=== PATIENT | female | born 1935 | race American Indian/Alaskan Native ===

== ENCOUNTER 2016-11-12 23:03 | Emergency (ER) | payer MEDICARE, MEDICAID ==
[2016-11-12 23:03] VITALS: BMI 17.9
[2016-11-12 23:13] VITALS: RESP 18
[2016-11-13 00:40] LABS: BASO % 0.8 % (0.0-2.0); EOS % 1.5 % (0.0-4.0); HEMATOCRIT 37.6 % (34.0-47.0); LYMPH # 0.8 K/uL (1.0-4.3); LYMPH % 25.7 % (20.0-40.0); MEAN CELL VOLUME 82.7 fl (81.0-99.0); MEAN CORPUSCULAR HEMOGLOBIN 27.7 pg (27.0-31.0); MEAN CORPUSCULAR HGB CONC 33.5 g/dL (33.0-37.0); MONO # 0.8 K/uL (0.0-0.8); MONO % 24.2 % (0.0-10.0); NEUT # 1.5 K/uL (1.8-7.0); NEUT % 47.8 % (50.0-75.0); NRBC % 0.3 % (0.0-0.0); PLATELET COUNT 163 K/uL (130-400); RED CELL DISTRIBUTION WIDTH 15.1 % (11.5-14.5); WHITE BLOOD COUNT 3.2 K/uL (4.8-10.8)
[2016-11-13 00:43] LABS: BLOOD UREA NITROGEN 21 mg/dl (7-17); CARBON DIOXIDE 28 mmol/L (22-30); CHLORIDE 106 mmol/L (98-107); GFR AFRICAN-AMERICAN > 60; GLUCOSE,RANDOM 114 mg/dL (65-105); POTASSIUM 4.4 MMOL/L (3.6-5.0); SODIUM 139 mmol/l (132-148)
[2016-11-13] MEDS ORDERED: Iodixanol 320 MG/ML 100 ML BOTTLE IV ONE (02:31)
[2016-11-13] MEDS ORDERED: Sodium Chloride 0.9% 50 ML IV ONE (02:31)
[2016-11-13 02:40] LABS: NEUTROPHIL 48 % (42-75); TOTAL CELLS COUNTED 100
--- NOTE | 2016-11-13 03:51 | ED PDOC ---
Arrival/HPI - General Historian: Patient, Family (Daughter ) - History of Present Illness Time/Duration: Prior to Arrival Symptom Onset: Sudden Symptom Course: Worsening Quality: Aching Severity Level: Moderate <Shiraz Reyes - Last Filed: 11/13/16 05:15> <NimishaToney - Last Filed: 11/13/16 05:40> - General Chief Complaint: Hip Pain Time Seen by Provider: 11/12/16 23:16 - History of Present Illness Narrative History of Present Illness (Text): 11/13/16 03:44 Pt. presents to the emergency after arriving via EMS complaining of RT. hip pain. Pt. states she has been having Rt. hip pain for 1 week for which she had been taking alleve. Pt. states she stopped taking alleve several day sago because it was not helping. Pt. does state that shortly before arrival the RT. hip pain worsened after she fell on the couch. The fall was a mechanical fall which occurred as follows: Pt. states that she was sitting on the couch but attempted to get up with the help of her walker and her daughter but she fell awkwardly back on to the couch. Pt. denies any head trauma or falling on the floor but since the pain became worse she decided to come to the emergency room for evaluation. 11/13/16 04:59 (Shiraz Reyes) Modifying Factors (Text): 11/13/16 03:52 Worsened by activity or lying on affected side (Shiraz Reyes) Past Medical History - Travel History Have you recently traveled outside [place] w/in the past 3 mons?: No - Cardiac Hx Peripheral Edema: Yes (LEFT LEG) - Pulmonary Hx Chronic Obstructive Pulmonary Disease (COPD): Yes - Neurological Hx Neurological Disorder: No - HEENT Hx HEENT Disorder: Yes Hx Cataracts: Yes (CAT EXT IOL 1990 S) - Renal Hx Renal Disorder: No - Endocrine/Metabolic Hx Diabetes Mellitus Type 2: Yes (Pre) - Hematological/Oncological Hx Blood Disorders: No Hx AIDS: No - Integumentary Hx Dermatological Disorder: No - Musculoskeletal/Rheumatological Hx Fractures: Yes (ORIF LEFT HIP JULY 2012) - Gastrointestinal Hx Gastrointestinal Disorders: Yes Other/Comment: abdominal aortic aneurysm - Genitourinary/Gynecological Hx Genitourinary Disorders: No - Psychiatric Hx Psychophysiologic Disorder: No Hx Substance Use: No - Anesthesia Hx Anesthesia: Yes Hx Anesthesia Reactions: No Hx Malignant Hyperthermia: No <Shiraz Reyes - Last Filed: 11/13/16 05:15> Family/Social History Family/Social History: Other (FMHx not contributory) Smoking Status: Former Smoker Hx Alcohol Use: No Hx Substance Use: No Hx Substance Use Treatment: No <Shiraz Reyes - Last Filed: 11/13/16 05:15> Allergies/Home Meds <Shiraz Reyes - Last Filed: 11/13/16 05:15> <Toney Bansal - Last Filed: 11/13/16 05:40> Allergies/Adverse Reactions: Allergies No Known Allergies Allergy (Verified 11/14/15 02:22) Home Medications: Home Meds Medication Instructions Recorded Confirmed Albuterol Sulfate [Proair Hfa] 2 puff IH Q4H PRN 10/21/15 10/25/15 Fluticasone Propionate [Flonase] 2 spray [place] DAILY 10/21/15 10/25/15 Review of Systems - Review of Systems Constitutional: Normal. absent: Fatigue Eyes: Normal. absent: Vision Changes ENT: Normal. absent: Hearing Changes, Tinnitus Respiratory: Normal, SOB. absent: Cough, Sputum, Wheezing Cardiovascular: Normal. absent: Chest Pain, Palpitations Gastrointestinal: Normal, Constipation. absent: Abdominal Pain Genitourinary Female: Normal. absent: Dysuria, Hematuria Musculoskeletal: Other (Rt. Hip Pain ) Skin: Normal. absent: Rash, Pruritis Neurological: Normal. absent: Headache, Dizziness Endocrine: Normal. absent: Diaphoresis, Polyuria Psychiatric: Normal. absent: Anxiety, Depression <Shiraz Reyes - Last Filed: 11/13/16 05:15> Physical Exam Vital Signs Reviewed: Yes (WNL) Temperature: Afebrile Blood Pressure: Normal Pulse: Regular Respiratory Rate: Tachypneic (Measured at bedside to be 22, with accessory muscle use) Appearance: Positive for: Non-Toxic, Other (Under weight ) Pain Distress: Moderate Mental Status: Positive for: Alert and Oriented X 3 - Systems Exam Head: Present: Atraumatic, Normocephalic Pupils: Present: PERRL Extroacular Muscles: Present: EOMI Conjunctiva: Present: Normal Mouth: Present: Moist Mucous Membranes Neck: Present: Normal Range of Motion Respiratory/Chest: Present: Clear to Auscultation, Good Air Exchange. No: Respiratory Distress Cardiovascular: Present: Regular Rate and Rhythm, Normal S1, S2. No: Murmurs Abdomen: Present: Normal Bowel Sounds. No: Tenderness, Distention, Rebound, Guarding Upper Extremity: Present: Capillary Refill < 2s, Other (Strength 5/5 Bilateral upper extremities ) Lower Extremity: Present: Edema (Pitting edema bilat lower extremities below the level of the knees, Diminished pedal pulses ), Other (+RT hip tenderness to palpation of Greater Trochantor and ASIS ). No: CALF TENDERNESS Neurological: Present: GCS=15, CN II-XII Intact, Speech Normal Skin: Present: Warm, Dry Psychiatric: Present: Alert, Oriented x 3, Normal Insight, Normal Concentration <Shiraz Reyes - Last Filed: 11/13/16 05:15> Medical Decision Making Re-evaluation Time: 04:15 Reassessment Condition: Improved <Shiraz Reyes - Last Filed: 11/13/16 05:15> <Toney Bansal - Last Filed: 11/13/16 05:40> ED Course and Treatment: 11/13/16 04:45 81 y.o. female with hx of COPD, Aortic stenois, HTN, Type II DM, HLD, Peripheral vascular disease, Abdominal aortic aneurysm, Osteoporosis, and multiple falls presents today with complaints of RT. hip pain. Pt. is immobile and is mostly homebound and walk in the home with use of walker and daughter who lives with her in the home. Pt. states has not seen PMD for about 1 year because has difficulty walking and has difficulty getting to and from the clinic. Patient Labs and x-ray do not show any acute changes but given patient multiple risk factors including immobility, Type II DM, age, peripheral vascular disease, Hx of Tobacco abuse with physical exam on bedside showing tachypnea with accessory muscle use (Well's Criteria of 4.5) a CT angio obtained does not show signs of pulmonary embolism. X-Ray and CT of the Right hip does not show any acute or occult fracture or lytic lesions. During the course of the E.R. visit. Patient states the RT. hip pain has significantly improved during he stay in the E.R. without any medication. XR- RT/HIP & Pelvis WNL CT- RT HIP WNL CT- Chest Angio WNL CBC and CMP show no acute changes when compared to previous labs. 11/13/16 05:08 11/13/16 05:13 (Shiraz Reyes) - Lab Interpretations Lab Results: 11/13/16 00:15 11/13/16 00:15 Lab Results 11/13/16 00:15: D-Dimer, Quantitative 2990 H 11/13/16 00:15: WBC 3.2 L, RBC 4.55, Hgb 12.6, Hct 37.6, MCV 82.7, MCH 27.7, MCHC 33.5, RDW 15.1 H, Plt Count 163, MPV 8.0, Neut % (Auto) 47.8 L, Lymph % ( Auto) 25.7, [place] % (Auto) 24.2 H, Eos % (Auto) 1.5, Baso % (Auto) 0.8, Neut # 1.5 L, Lymph # 0.8 L, [place] # 0.8, Eos # 0.0, Baso # 0.0, Neutrophils % (Manual) 48, Lymphocytes % (Manual) 26, Monocytes % (Manual) 26 H, Platelet Estimate Normal 11/13/16 00:15: Sodium 139, Potassium 4.4, Chloride 106, Carbon Dioxide 28, Anion Gap 9 L, BUN 21 H, Creatinine 0.6 L, Est GFR ( Amer) > 60, Est GFR (Non-Af Amer) > 60, Random Glucose 114 H, Calcium 10.0, Troponin I < 0.0120 - RAD Interpretation Radiology Orders: 11/13/16 00:01 HIP 1 VIEW W/ PELVIS RT [RAD] Stat 11/13/16 00:13 CXR (PA&LAT) [CHEST TWO VIEWS (PA/LAT)] [RAD] Stat 11/13/16 00:45 CHEST PORTABLE [RAD] Stat 11/13/16 01:16 CHEST TWO VIEWS (PA/LAT) [RAD] Stat 11/13/16 02:01 ANGIO CHEST PE PROTOCOL [CT] Stat PELVIS W/O PO OR IV CONTRAST [CT] Stat - Medication Orders Current Medication Orders: Discontinued Medications Sodium Chloride (Sodium Chloride 0.9%) Confirm Administered Dose 50 mls @ ud IV .STK-MED ONE Stop: 11/13/16 02:32 Iodixanol (Visipaque 320 Mg/Ml 100 Ml) Confirm Administered Dose 100 ml IV .STK- MED ONE Stop: 11/13/16 02:32 - PA / [employer] / Resident Statement MD/ has reviewed & agrees with the documentation as recorded. <Toney Bansal - Last Filed: 11/13/16 05:40> Disposition/Present on Arrival - Present on Arrival Any Indicators Present on Arrival: Yes History of DVT/PE: No History of Uncontrolled Diabetes: No Urinary Catheter: No History Surgical Site Infection Following: None - Disposition Have Diagnosis and Disposition been Completed?: Yes Disposition Time: 04:15 <ReyesShiraz - Last Filed: 11/13/16 05:15> <Toney Bansal - Last Filed: 11/13/16 05:40> - Disposition Diagnosis: Hip pain Patient Problems: Current Active Problems Problem Status Onset Hip pain Acute Condition: STABLE Discharge Instructions (ExitCare): Fall Prevention for Older Adults (ED), Hip Pain (ED) Additional Instructions: Patient advised to follow up with PMD in 2 to 3 days Prescriptions: Acetaminophen [Pain Reliever] 500 mg PO Q4 #30 tablet Referrals: Jenn Dagnelo MD [Family Provider] - Forms: [facility] ([place]) Supervising Attending Note - Attestation: I have personally seen and examined this patient.: Yes I have fully participated in the care of the patient.: Yes I have reviewed all pertinent clinical information, including history, physical exam and plan: Yes <Toney Bansal - Last Filed: 11/13/16 05:40>
--- NOTE | 2016-11-13 04:19 | CT ---
EXAM: CT Angiography Chest With Intravenous Contrast CLINICAL HISTORY: 81 years old, female; Pain; Chest pain; On breathing; Additional info: R/O pe TECHNIQUE: Axial computed tomographic angiography images of the chest with intravenous contrast using pulmonary embolism protocol. This CT exam was performed using one or more of the following dose reduction techniques: automated exposure control, adjustment of the mA and/or kV according to patient size, and/or use of iterative reconstruction technique. MIP reconstructed images were created and reviewed. Coronal and sagittal reformatted images were created and reviewed. CONTRAST: 90 mL of omnipaque administered intravenously. EXAM DATE/TIME: 11/13/2016 2:01 AM COMPARISON: No relevant prior studies available. FINDINGS: Elevation of the left hemidiaphragm. No pulmonary embolism. There are atherosclerotic changes of the aorta with calcification and thrombus most notably in the arch.. No aortic dissection. No thoracic aortic aneurysm. There is an abdominal aortic aneurysm measuring 4.4 cm in diameter incompletely imaged on this study. There is intramural thrombus. The opacified lumen measures 3.1 cm in diameter. The left renal artery may be originating from a thrombosed portion of the aorta. Evaluation suboptimal on this study. Extensive emphysematous changes are present in bilaterally. There are areas of consolidation along the pulmonary fissures with calcification on the left. There is consolidation in the right lower lung. No pleural or pericardial effussions. There are compression fractures of T10, L1, and L2 ( severe, moderate, mild respectively) age-indeterminate. IMPRESSION: Extensive emphysematous changes. Areas of consolidation bilaterally as described above at least some of which are chronic however superimposed acute atelectatic or infectious process would certainly possible. Underlying lesion would be difficult to exclude and correlation with priors is recommended if they exist. Otherwise, followup is recommended. Abdominal aortic aneurysm as described in detail above without evidence of rupture however is incompletely imaged on this study. Recommend correlation with prior studies. Compression fractures age indeterminate.
[2016-11-13 07:31] VITALS: BP 138/74; PULSE 67; TEMP 97.8; O2SAT 99
--- NOTE | 2016-11-13 09:06 | CT ---
PROCEDURE: CT Pelvis without contrast HISTORY: r/o fracture COMPARISON: None. TECHNIQUE: Contiguous axial images of the pelvis . No intravenous or oral contrast given. Coronal and sagittal reformats generated. Radiation dose: Total exam DLP = 211 mGy-cm. This CT exam was performed using one or more of the following dose reduction techniques: Automated exposure control, adjustment of the mA and/or kV according to patient size, and/or use of iterative reconstruction technique. FINDINGS: BLADDER: Unremarkable. No mass. REPRODUCTIVE ORGANS: Unremarkable. VISUALIZED BOWEL: Unremarkable. PERITONEUM: Unremarkable, as visualized. No free fluid. No free air. LYMPH NODES: Unremarkable. No enlarged lymph nodes. BONES: No fracture or focal lesion. Status post ORIF of a femoral neck fracture. VASCULATURE: 4.7 centimeter abdominal aortic aneurysm.. OTHER FINDINGS: None. IMPRESSION: 4.7 centimeter abdominal aortic aneurysm. No acute fracture.
--- NOTE | 2016-11-13 09:50 | RAD ---
HISTORY: shortness of breath COMPARISON: 11/12/2015 TECHNIQUE: Chest PA and lateral FINDINGS: LUNGS: Bilateral interstitial infiltrates slightly improved since prior exam. PLEURA: No significant pleural effusion identified. No pneumothorax apparent. CARDIOVASCULAR: Normal. OSSEOUS STRUCTURES: No significant abnormalities. VISUALIZED UPPER ABDOMEN: Normal. OTHER FINDINGS: None. IMPRESSION: Bilateral interstitial infiltrates slightly improved since prior exam.
--- NOTE | 2016-11-13 09:51 | RAD ---
HISTORY: hip pain injury COMPARISON: No prior FINDINGS: BONES: Normal. No fracture. ORIF of left femoral neck and head fracture JOINTS: Normal. No osteoarthritis. SOFT TISSUE: Normal. OTHER FINDINGS: None . IMPRESSION: No acute fracture.
--- NOTE | 2016-11-13 13:11 | CARD ---
APPROVED REPORT EKG Measurement Heart [id number] <Conclusion> Sinus rhythm baseline artefact present
== END 2016-11-13 09:11 | disposition home or self-care (01) ==
LOC: H.ER 23:03
DX: M25.551 Pain in right hip (principal); E11.9 Type 2 diabetes mellitus without complications; I71.4 Abdominal aortic aneurysm, without rupture; J44.9 Chronic obstructive pulmonary disease, unspecified
CPT/HCPCS: 71020; 71275; 72192; 73501; 80048; 84484; 85025; 85378; 93005; 99285; Q9967

== ENCOUNTER 2016-11-15 10:38 | Inpatient (IN) | payer OTHER, MEDICAID ==
[2016-11-15 10:40] VITALS: BMI 15.5
[2016-11-15] MEDS ORDERED: Iohexol 240 (50 ml) PO ONE (11:16)
[2016-11-15] MEDS ORDERED: Sodium Chloride 0.9% 500 ML IV STA (11:17)
--- NOTE | 2016-11-15 11:26 | ED PDOC ---
HPI: Abdomen Time Seen by Provider: 11/15/16 11:01 Chief Complaint (Nursing): Back Pain Chief Complaint (Provider): constipation History Per: Patient History/Exam Limitations: no limitations Onset/Duration Of Symptoms: Days (x 7) Additional Complaint(s): Alondra Fleming is an 81 year old female, with a previous medical history of diabetes, who presents to the ED with complaints of constipation associated with back pain and a distended abdomen ongoing for 1 week. Patient denies shortness of breath, nausea, vomiting, abdominal pain, chest pain, headache, dizziness, numbness, tingling or urinary symptoms. She reports taking milk of magnesium with no relief. Back started after taking milk of magnesium. Here Monday for hip pain and had ct chest sand pelvis. Had blood work done as well. PMD: Dr. Denise Dangelo Past Medical History Reviewed: Historical Data, Nursing Documentation, Vital Signs Vital Signs: Last Vital Signs Temp 98.2 F 11/15/16 10:40 Pulse 82 11/15/16 10:40 Resp 18 11/15/16 10:40 BP 122/68 11/15/16 10:40 Pulse Ox 96 11/15/16 17:05 - Medical History PMH: COPD, Diabetes (borderline ), Fractures (ORIF LEFT HIP JULY 2012), Peripheral Edema (LEFT LEG) Denies: HIV, Chronic Kidney Disease - Surgical History Surgical History: No Surg Hx - Family History Family History: States: Unknown Family Hx - Living Arrangements Living Arrangements: With Family - Social History Alcohol: None Drugs: Denies - Home Medications Home Medications: Ambulatory Orders Medication Instructions Recorded Albuterol Sulfate [Proair Hfa] 2 puff IH Q4H PRN 10/21/15 Fluticasone Propionate [Flonase] 2 spray [place] DAILY 10/21/15 Aspirin [Aspirin Chewable] 81 mg PO DAILY #0 chew 10/25/15 Atorvastatin [Lipitor] 40 mg PO DAILY #0 tab 10/25/15 Cholecalciferol [Vitamin D 1000 IU] 1,000 iu PO DAILY #0 tab 10/25/15 Docusate [Colace] 200 mg PO DAILY #0 cap 10/25/15 Famotidine [Pepcid] 40 mg PO DAILY #0 tab 10/25/15 Acetaminophen [Pain Reliever] 500 mg PO Q4 #30 tablet 07/30/17 - Allergies Allergies/Adverse Reactions: Allergies Allergy/AdvReac Type Severity Reaction Status Date / Time No Known Allergies Allergy Verified 11/14/15 02:22 Review of Systems ROS Statement: Except As Marked, All Systems Reviewed And Found Negative Constitutional: Negative for: Fever, Chills Cardiovascular: Negative for: Chest Pain Respiratory: Negative for: Shortness of Breath Gastrointestinal: Positive for: Constipation. Negative for: Nausea, Vomiting, Abdominal Pain, Diarrhea Genitourinary Female: Negative for: Dysuria, Frequency, Incontinence, Hematuria Musculoskeletal: Positive for: Back Pain Neurological: Negative for: Numbness, Headache, Dizziness, Other (tingling ) Physical Exam - Reviewed Nursing Documentation Reviewed: Yes Vital Signs Reviewed: Yes - Physical Exam Appears: Positive for: Non-toxic, No Acute Distress Head Exam: Positive for: ATRAUMATIC, NORMAL INSPECTION, NORMOCEPHALIC Skin: Positive for: Normal Color, Warm, DRY Eye Exam: Positive for: EOMI, Normal appearance, PERRL ENT: Positive for: Normal ENT Inspection Neck: Positive for: Normal, Painless ROM Cardiovascular/Chest: Positive for: Regular Rate, Rhythm Respiratory: Positive for: CNT, Normal Breath Sounds Gastrointestinal/Abdominal: Positive for: Bowel Sounds, Soft, Tenderness (mild ) , Distended Back: Positive for: Other (mild tenderness of bilateral lower back ). Negative for: L CVA Tenderness, R CVA Tenderness Extremity: Positive for: Normal ROM. Negative for: Tenderness, Pedal Edema Neurologic/Psych: Positive for: Alert, Oriented - Laboratory Results Result Diagrams: 11/15/16 11:30 11/15/16 11:30 Interpretation Of Abn Labs: 22 bun - ECG O2 Sat by Pulse Oximetry: 96 (RA) Pulse Ox Interpretation: Normal - Radiology X-Ray: Interpreted by Me, Viewed By Me, Read By Radiologist X-Ray Interpretation: Other (constipation) - Progress ED Course And Treament: 1727: Stable. AAOx3. Refusing EKG. Cholelithiasis without evidence of cholecystitis. Dilated pancreatic duct of uncertain etiology. No evidence of pancreatitis. Consider further evaluation with MRCP. Questionable dissection distal descending thoracic aorta versus ulcerated plaque. Recommend nonemergent CT angiography of the aorta. Two consecutive fusiform abdominal aortic aneurysms. Old compression fracture of L1 vertebra. L2 mild compression fracture unchanged from 11/13/2016 but new since . 1748: Stable. AAOx3. No abd pain. No dizziness. Spoke with radiologist. States inconclusive results from CT. Likely old vs plaque. Will admit to [facility] for obs and pt. to get dissection protocol for the morning when pt. IV contrast dye out of her system. [facility] resident aware and will admit. Medical Decision Making Medical Decision Making: Initial Impression: Constipation and back pain Initial Plan: * CT abd & pelvis PO and IV contrast * labs * lipase * Troponin I * x-ray obstructive series * omnipaque 50 ml PO * Toradol 15 mg IV * IV NS 500 ml at 100 ml/hr * reevaluation Scribe Attestation: Documented by Lissett Berry, acting as a scribe for Varghese Deras MD. Provider Scribe Attestation: All medical record entries made by the Scribe were at my direction and personally dictated by me. I have reviewed the chart and agree that the record accurately reflects my personal performance of the history, physical exam, medical decision making, and the department course for this patient. I have also personally directed, reviewed, and agree with the discharge instructions and disposition. ED OBSERVATION Date of observation admission: 11/15/16 Time of observation admission: 11:18 - Observation admission statement Patient is being placed in observation because:: back pain and ED workup - Goals of Observation Goals of observation are:: alleviation of symptoms and results of ED workup Disposition - Clinical Impression Clinical Impression: Chronic back pain, Constipation - Patient ED Disposition Is Patient to be Admitted: Yes Counseled Patient/Family Regarding: Studies Performed, Diagnosis - Disposition Disposition Time: 17:51 Condition: FAIR - Pt Status Changed To: Hospital Disposition Of: Observation - POA Present On Arrival: None
[2016-11-15] MEDS ORDERED: Iohexol 240 (50 ml) ONE (11:40)
[2016-11-15 11:45] LABS: BASO % 1.2 % (0.0-2.0); LYMPH # 0.8 K/uL (1.0-4.3); LYMPH % 27.7 % (20.0-40.0); MEAN CELL VOLUME 83.2 fl (81.0-99.0); MEAN CORPUSCULAR HEMOGLOBIN 27.4 pg (27.0-31.0); MEAN CORPUSCULAR HGB CONC 32.9 g/dL (33.0-37.0); MONO # 0.6 K/uL (0.0-0.8); MONO % 20.2 % (0.0-10.0); NEUT # 1.4 K/uL (1.8-7.0); NEUT % 49.9 % (50.0-75.0); NRBC % 0.3 % (0.0-0.0); RED CELL DISTRIBUTION WIDTH 15.1 % (11.5-14.5); WHITE BLOOD COUNT 2.8 K/uL (4.8-10.8)
[2016-11-15 11:55] LABS: ALKALINE PHOSPHATASE 107 U/L (38-126); ALT/SGPT 39 U/L (9-52); AST/SGOT 36 U/L (14-36); BILIRUBIN,TOTAL 0.9 mg/dl (0.2-1.3); BLOOD UREA NITROGEN 22 mg/dl (7-17); CALCIUM 9.9 mg/dL (8.4-10.2); CARBON DIOXIDE 26 mmol/L (22-30); CHLORIDE 107 mmol/L (98-107); GFR AFRICAN-AMERICAN > 60; GLUCOSE,RANDOM 112 mg/dL (65-105); LIPASE 116 U/L (23-300); SODIUM 141 mmol/l (132-148); TOTAL PROTEIN 8.4 G/DL (6.3-8.2)
[2016-11-15 12:18] LABS: POTASSIUM 4.3 MMOL/L (3.6-5.0)
[2016-11-15] MEDS ORDERED: Iohexol 300 100 ML IJ ONE (15:16)
[2016-11-15] MEDS ORDERED: Sodium Chloride 0.9% 50 ML IV ONE (15:16)
--- NOTE | 2016-11-15 15:59 | RAD ---
PROCEDURE: Radiographs of the chest and abdomen (obstructive series) HISTORY: constipation COMPARISON: Chest x-ray 11/13/2016 TECHNIQUE: AP radiograph of the chest, with upright and supine radiographs of the abdomen. FINDINGS: CHEST: Lungs: Opacity at right base, grossly unchanged from prior examination. Possible pneumonia. Cardiovascular: Normal size heart. No pulmonary vascular congestion. Pleura: No pleural fluid. No pneumothorax. Other findings: None. ABDOMEN AND PELVIS: Bowel: No bowel obstruction. Mild retained feces. Free air: None. Bones: 2 compression screws traverse left femoral neck. Other findings: None. IMPRESSION: Persistent right basilar opacity, possible pneumonia. No evidence of bowel obstruction. Retained feces.
--- NOTE | 2016-11-15 17:19 | CT ---
PROCEDURE: CT Abdomen and Pelvis with contrast HISTORY: abd pain COMPARISON: None. TECHNIQUE: Contrast dose: 80 mL Omnipaque 300 Radiation dose: Total exam DLP = 483.29 mGy-cm. This CT exam was performed using one or more of the following dose reduction techniques: Automated exposure control, adjustment of the mA and/or kV according to patient size, and/or use of iterative reconstruction technique. FINDINGS: LOWER THORAX: There is band-like soft tissue density in the right lower lobe containing punctate calcification, likely dystrophic. This most likely represents old scar. This is similar in appearance to CT of 11/13/2016. . LIVER: Unremarkable. No gross lesion or ductal dilatation. GALLBLADDER AND BILE DUCTS: Dependent noncalcified gallstones. No mural thickening or pericholecystic fluid. PANCREAS: Dilated pancreatic duct. No pancreatic mass identified. Consider ampullary stricture or neoplasm. SPLEEN: The spleen is only partially included in this examination due to marked elevation of left hemidiaphragm. No abnormality identified. ADRENALS: Unremarkable. No mass. KIDNEYS AND URETERS: Unremarkable. No hydronephrosis. No solid mass. VASCULATURE: There are 2 consecutive fusiform abdominal aortic aneurysms, both infrarenal. The more proximal measures 4.4 cm in diameter and the more distal measures 4.5 cm. There is no evidence of dissection There is questionable dissection of the distal descend thoracic aorta. This can be seen on the CTA chest of 11/13/2016. It is also seen on the CT angiography chest abdomen and pelvis of 11/14/2015. At that time, this was described as possible penetrating ulcers. However, on the basis of the limited images from today's study and from the study of 11/13/2016, the possibility of dissection should be considered and evaluation with proper CT angiography of the chest is advised on a nonemergent basis. BOWEL: Unremarkable. No obstruction. No gross mural thickening. APPENDIX: Normal appendix PERITONEUM: Trace ascites in pelvis LYMPH NODES: Unremarkable. No enlarged lymph nodes. BLADDER: Distended urinary bladder. Unremarkable. REPRODUCTIVE: Normal postmenopausal uterus. BONES: Compression fractures of L1 and L2 as described on CT of 11/13/2016. The L1 compression fracture is unchanged from 11/14/2015. The mild L2 compression fracture is new since that examination. OTHER FINDINGS: None. IMPRESSION: Cholelithiasis without evidence of cholecystitis. Dilated pancreatic duct of uncertain etiology. No evidence of pancreatitis. Consider further evaluation with MRCP. Questionable dissection distal descending thoracic aorta versus ulcerated plaque. Recommend nonemergent CT angiography of the aorta. Two consecutive fusiform abdominal aortic aneurysms. Old compression fracture of L1 vertebra. L2 mild compression fracture unchanged from 11/13/2016 but new since 11/14/2015.
[2016-11-15] MEDS ORDERED: Magnesium Hydroxide Susp 30 ml UD PO ONE (20:37)
--- NOTE | 2016-11-15 20:40 | CP.PCM.HP ---
History of Present Illness - History of Present Illness History of Present Illness: 81 y/o F with PMH including DM2 (diet controlled), COPD, PVD, Abdominal aortic aneurism, Chronic constipation, History of falls presented to ED with a 1 week history of constipation and increasing mid back pain. Patient reports having a bowel movement every several days per baseline but states she did not have a BM for the last 8 days. She has used milk of magnesia prn in the past, which has helped, but has not tried taking it since the last week. She denies any associated nausea, vomiting or dysuria but does complain of increasing back pain. Pain is localized to the lower thoracic to lumbar area, has been present for months and has increased in intensity over the last week. She has a history of falls in the past and states she stumbled onto her couch at home 4 days ago but does not recall any other recent trauma. She also has a history of an abdominal aortic aneurism which has been stable. She has chronic deconditioning and lower ext weakness but states she is able to ambulate around her house using a rolling walker. PMD: Dr Dangelo, [facility] Present on Admission - Present on Admission Any Indicators Present on Admission: No History of DVT/PE: No History of Uncontrolled Diabetes: No Urinary Catheter: No Decubitus Ulcer Present: No Review of Systems - Constitutional Constitutional: Frequent Falls. absent: Chills, Fever - Cardiovascular Cardiovascular: absent: Chest Pain, Diaphoresis, Palpitations - Respiratory Respiratory: absent: Cough, Dyspnea, Wheezing - Gastrointestinal Gastrointestinal: Constipation. absent: Abdominal Pain, Nausea, Vomiting - Musculoskeletal Musculoskeletal: Back Pain. absent: Radiating Pain into Limb Past Patient History - Past Medical History & Family History Past Medical History?: Yes - Past Social History Smoking Status: Former Smoker Alcohol: None Drugs: Denies Home Situation {Lives}: With Family - CARDIAC Hx Heart Murmur: Yes (Aortic stenosis) Hx Peripheral Edema: Yes (LEFT LEG) - PULMONARY Hx Chronic Obstructive Pulmonary Disease (COPD): Yes - NEUROLOGICAL Hx Neurological Disorder: No - HEENT Hx HEENT Problems: Yes Hx Cataracts: Yes (CAT EXT IOL 1989) - RENAL Hx Chronic Kidney Disease: No - ENDOCRINE/METABOLIC Hx Diabetes Mellitus Type 2: Yes (Diet controlled) - HEMATOLOGICAL/ONCOLOGICAL Hx Human Immunodeficiency Virus (HIV): No - INTEGUMENTARY Hx Dermatological Problems: No - MUSCULOSKELETAL/RHEUMATOLOGICAL Hx Fractures: Yes (ORIF LEFT HIP JULY 2012) - GASTROINTESTINAL Hx Gastrointestinal Disorders: Yes Other/Comment: abdominal aortic aneurysm - GENITOURINARY/GYNECOLOGICAL Hx Genitourinary Disorders: No - PSYCHIATRIC Hx Psychophysiologic Disorder: No Hx Substance Use: No - ANESTHESIA Hx Anesthesia: Yes Hx Anesthesia Reactions: No Hx Malignant Hyperthermia: No Meds Allergies/Adverse Reactions: Allergies Allergy/AdvReac Type Severity Reaction Status Date / Time No Known Allergies Allergy Verified 11/14/15 02:22 Physical Exam - Constitutional Appears: No Acute Distress, Cachectic - Head Exam Head Exam: ATRAUMATIC - Eye Exam Eye Exam: EOMI, PERRL - ENT Exam ENT Exam: Mucous Membranes Moist - Respiratory Exam Respiratory Exam: absent: Accessory Muscle Use, Chest Wall Tenderness, Respiratory Distress Additional comments: B/L air entry present with scattered crackles present. No wheezing or signs of respiratory distress. - Cardiovascular Exam Cardiovascular Exam: REGULAR RHYTHM, RRR, +S1, +S2, Systolic Murmur (Grade III) - GI/Abdominal Exam GI & Abdominal Exam: Distended, Hyperactive Bowel Sounds, Soft. absent: Guarding, Rebound, Tenderness - Extremities Exam Additional comments: Poor muscle mass/atrophy in upper and lower extremity. Chronic hyperpigmented skin in lower ext b/l - Back Exam Back exam: vertebral tenderness (Mid/lower back vertebral tenderness. No sacral ulcers noted.) - Neurological Exam Neurological exam: Alert, Oriented x3 - Psychiatric Exam Psychiatric exam: Normal Affect, Normal Mood - Skin Skin Exam: Dry, Warm Results - Vital Signs Recent Vital Signs: Last Vital Signs Temp 98.2 F 11/15/16 10:40 Pulse 82 11/15/16 10:40 Resp 18 11/15/16 10:40 BP 122/68 11/15/16 10:40 Pulse Ox 96 11/15/16 17:51 - Labs Result Diagrams: 11/15/16 11:30 11/15/16 11:30 Labs: Laboratory Results - last 24 hr 11/15/16 11/15/16 11/15/16 11:30 11:30 19:04 WBC 2.8 L RBC 4.69 Hgb 12.8 Hct 39.0 MCV 83.2 MCH 27.4 MCHC 32.9 L RDW 15.1 H Plt Count 180 MPV 8.0 Neut % (Auto) 49.9 L Lymph % (Auto) 27.7 Williamson % (Auto) 20.2 H Eos % (Auto) 1.0 Baso % (Auto) 1.2 Neut # 1.4 L Lymph # 0.8 L Williamson # 0.6 Eos # 0.0 Baso # 0.0 Sodium 141 Potassium 4.3 Chloride 107 Carbon Dioxide 26 Anion Gap 12 BUN 22 H Creatinine 0.6 L Est GFR ( Amer) > 60 Est GFR (Non-Af Amer) > 60 Random Glucose 112 H Calcium 9.9 Total Bilirubin 0.9 AST 36 ALT 39 Alkaline Phosphatase 107 Troponin I 0.0130 NT-Pro-B Natriuret Pep 258 Total Protein 8.4 H Albumin 4.1 Globulin 4.3 H Albumin/Globulin Ratio 1.0 Lipase 116 Assessment & Plan - Assessment and Plan (Free Text) Assessment: 81 y/o F with PMH including DM2 (diet controlled), COPD, PVD, Abdominal aortic aneurism, Chronic constipation, History of falls presented to ED with a 1 week history of constipation and increasing mid back pain. During assessment, patient found to have a compression fracture of T10-L2. Plan: Worsening Back pain -Etiology secondary to Abdominal aortic aneurism versus Compression fracture of T10-L2 -CT angio of the chest performed on 11/13/16 detected 2 stable infrarenal aortic aneurisms measuring 4.2cm and 4.4cm respectively. -A CT abdomen performed today confirms the two aneurisms with no clear evidence of dissection. A questionable dissection of the distal descending thoracic aorta was visualized which was also seen on a previous study 1 year ago (2015). Consider further studies on non-emergent basis. -CT angio chest detected compression fractures of T10 (severe), L1 (moderate), L2 (mild) -Consider ortho or IR consult for evaluation in AM -Received toradol 15mg IV in ED -Tylenol 650mg PO Q6 -Will assess for pain relief. In the context of significant constipation will avoid opioids at this time Recurrent Falls Associated with Cachexia and Deconditioning -Fall risk protocol -PT consultation requested Constipation -Possible functional chronic constipation in elderly -Xray of the abdomen detects retained stool with no evidence of obstruction confirmed on CT abdomen -Will try milk of magnesia 30mg PO which has helped patient in the past -Daily fiber encouraged and possible psyllium NIDDM2 -Diet controlled -Last HgbA1c: 6.8% on 10/21/15 -Consistent carbohydrate diet History of COPD -Stable. Currently asymptomatic without medications -Patient is a former smoker DVT Prophlyaxis -Lovenox 40mg SC daily
[2016-11-15] MEDS ORDERED: Magnesium Hydroxide Susp 30 ml UD ONE (21:55)
[2016-11-16 08:44] LABS: RBC URINE 2 /hpf (0-3); URINE BILIRUBIN NEGATIVE (NEGATIVE); URINE BLOOD NEGATIVE (NEGATIVE); URINE COLOR YELLOW (YELLOW); URINE GLUCOSE (UA) NEG (Normal); URINE KETONE TRACE mg/dL (NEGATIVE); URINE LEUKOCYTE ESTERASE NEG Leu/uL (Negative); URINE PROTEIN NEGATIVE (NEGATIVE); URINE UROBILINOGEN 0.2-1.0 mg/dL (0.2-1.0); WBC URINE 1 /hpf (0-5)
[2016-11-16] MEDS ORDERED: Enoxaparin 40 mg Syringe SC SCH (09:00)
--- NOTE | 2016-11-16 10:29 | CT ---
CT lumbar spine without IV contrast Indication: Lower back pain and urinary incontinence Comparison: CT abdomen and pelvis with contrast performed 11/15/16 Technique: Noncontrast axial images of the lumbar spine were provided. Sagittal and coronal reformatted images were generated and reviewed. This CT exam was performed using 1 or more of the falling dose reduction techniques: Automated exposure control, adjustment of the MAA and/or kV according to patient size, and/or use of iterative reconstruction technique. Total exam DLP: 221.39 MGy-cm Findings: Diffuse osseous demineralization limits evaluation for acute fracture lines. Chronic L1 compression fracture. Age indeterminate mild L2 compression fracture, new since 11/14/15 but present on imaging performed 11/13/16. The remainder of the visualized osseous structures appear intact without evidence of acute displaced fracture or subluxation. Alignment appears satisfactory. Paraspinal soft tissues appear unremarkable. Limited visualization of the intrathoracic, intra-abdominal, intrapelvic contents demonstrate right greater than left atelectasis or pneumonia. Moderate-sized hiatal hernia. Dense atherosclerotic calcifications of the aorta and branches. Large fusiform abdominal aortic aneurysms, incompletely imaged. . Impression: Diffuse osseous demineralization. Chronic L1 compression fracture. Age indeterminate mild L2 compression fracture, new since 11/14/15 but present on imaging performed 11/13/16. MRI may be considered for further evaluation if indicated. Two large partially imaged fusiform abdominal aortic aneurysm is. Please refer to CT of the abdomen and pelvis with contrast performed 11/15/16 for more detailed discussion. Right greater than left atelectasis or pneumonia. Moderate-sized hiatal hernia.
[2016-11-16] MEDS: Lidocaine 5% Patch TD SCH (13:00)
[2016-11-16] MEDS ORDERED: Docusate-Senna 50 mg-8.6 mg Tab PO ONE (14:34)
--- NOTE | 2016-11-16 15:03 | CP.PCM.PN ---
Subjective - Date & Time of Evaluation Date of Evaluation: 11/16/16 Time of Evaluation: 14:58 - Subjective Subjective: Patient seen and examined this morning. Complaining of lower back pain and constipation and no bowel movement. States that it went away when she was given pain medication but it returned. Had one episode of urinary incontinence. Ate a small amount of breakfast but does not have much of an appetite and also complaining of epigastric burning pain. She denies loss of bowels motor or sensory deficits, saddle anesthesia. Objective - Vital Signs/Intake and Output Vital Signs (last 24 hours): Temp Pulse Resp BP Pulse Ox 97.5 F L 72 18 147/77 95 11/16/16 12:00 11/16/16 13:30 11/16/16 13:30 11/16/16 12:00 11/16/16 13:30 - Medications Medications: Current Medications Acetaminophen (Tylenol 325mg Tab) 650 mg PO Q6 PRN PRN Reason: Pain, Mild (1-3) Last Admin: 11/16/16 10:15 Dose: 650 mg Enoxaparin Sodium (Lovenox) 40 mg SC DAILY [facility] PRN Reason: Protocol Last Admin: 11/16/16 10:15 Dose: 40 mg Famotidine (Pepcid) 20 mg PO DAILY [facility] Ketorolac Tromethamine (Toradol) 15 mg IVP Q6 PRN PRN Reason: Pain, moderate (4-7) Lidocaine (Lidoderm) 2 ea TD DAILY [facility] Last Admin: 11/16/16 13:00 Dose: 2 ea Sennosides (Senokot Tab) 8.6 mg PO BID [facility] - Labs Labs: 11/15/16 11:30 11/15/16 11:30 - Constitutional Appears: Cachectic, Chronically Ill - Head Exam Head Exam: ATRAUMATIC, NORMOCEPHALIC - ENT Exam ENT Exam: Mucous Membranes Moist - Respiratory Exam Respiratory Exam: Clear to Ausculation Bilateral. absent: Respiratory Distress - Cardiovascular Exam Cardiovascular Exam: REGULAR RHYTHM, +S1, +S2. absent: Murmur - GI/Abdominal Exam GI & Abdominal Exam: Soft, Organomegaly. absent: Distended, Firm, Guarding, Rigid, Tenderness - Rectal Exam Rectal Exam: Hemorrhoids Additional comments: 1 hemorrhoid seen during rectal exam, non thrombosed, external Positive Sphincter Tone - Extremities Exam Extremities Exam: absent: Pedal Edema - Back Exam Back Exam: tenderness Additional comments: Tenderness to palpation in lumbar L1-L2 region - Neurological Exam Neurological Exam: Alert, Altered, Oriented x3 Additional comments: Patient is weak at baseline - Skin Skin Exam: Erythema, Rash Additional comments: PT has chronic skin changes in lower extremities bilaterally Assessment and Plan (1) Acute back pain Status: Acute (2) Constipation Status: Acute - Assessment and Plan (Free Text) Assessment: Assessment: 81 y/o F with PMH including DM2 (diet controlled), COPD, PVD, Abdominal aortic aneurism, Aortic Stenosis, Chronic constipation, History of falls being managed for back pain and constipation. Plan: Acute Back pain -Likely 2/2 Compression fracture of T10-L2. No saddle anesthesia, focal neurological deficits noted. Pt has a hx of urinary incontinence so her episode this morning is not concerning for spinal compression -CT angio of the chest performed on 11/13/16 detected 2 stable infrarenal aortic aneurisms measuring 4.2cm and 4.4cm respectively. -A CT abdomen performed today confirms the two aneurisms with no clear evidence of dissection. A questionable dissection of the distal descending thoracic aorta was visualized which was also seen on a previous study 1 year ago (2015). Consider further studies on non-emergent basis. -CT angio chest detected compression fractures of T10 (severe), L1 (moderate), L2 (mild) -Lumbar CT showed an old compression fracture of L1 and a new compression fracture of L2 -IR consultation placed; -Received toradol 15mg IV in ED -Tylenol 650mg PO Q6 -Avoiding opiods as she is constipated -Fall risk protocol -PT/OT consultation requested Moderate Aortic Stenosis -Chronic, last echo in 2016 Aortic Valvular Area- 1.1cm2 -Pt does not have any cardiac symptoms but will repeat echo for any changes in severity of Valve radius -F/u Echo Constipation -Possible functional chronic constipation in elderly -Xray of the abdomen detects retained stool with no evidence of obstruction confirmed on CT abdomen -Milk of magnesia 30mg PO -Docusate sodium 2 tablets PO Chachexia -B12 and Folic ordered NIDDM2 -Diet controlled -Last HgbA1c: 6.8% on 10/21/15 -Consistent carbohydrate diet History of COPD -Stable. Asymptomatic. Currently asymptomatic without medications -Patient is a former smoker DVT Prophlyaxis -Lovenox 40mg SC daily
--- NOTE | 2016-11-16 17:41 | CARD ---
APPROVED REPORT EKG Measurement Heart [id number] CA [id number] <Conclusion> Normal sinus rhythm Normal ECG
[2016-11-17] MEDS: Lidocaine 5% Patch TD SCH (08:48)
[2016-11-17] MEDS: Magnesium Hydroxide Susp 30 ml UD PO SCH (12:33)
[2016-11-17 14:06] LABS: FOLATE > 20.0 ng/mL
--- NOTE | 2016-11-17 14:18 | CP.PCM.PN ---
Subjective - Date & Time of Evaluation Date of Evaluation: 11/17/16 Time of Evaluation: 14:16 - Subjective Subjective: Patient was seen and examined at the bedside. She is complaining of constipation and still did not have any BM overnight. She is also having mild back pain that is alleviated with pain medication. She denies CP, SOB, palpatations, motor or sensory deficits, headache, N/V. Objective - Vital Signs/Intake and Output Vital Signs (last 24 hours): Temp Pulse Resp BP Pulse Ox 97.4 F L 73 18 124/67 97 11/17/16 12:07 11/17/16 12:07 11/17/16 12:07 11/17/16 12:07 11/17/16 12:07 - Medications Medications: Current Medications Acetaminophen (Tylenol 325mg Tab) 650 mg PO Q6 PRN PRN Reason: Pain, Mild (1-3) Last Admin: 11/16/16 10:15 Dose: 650 mg Enoxaparin Sodium (Lovenox) 40 mg SC DAILY [facility] PRN Reason: Protocol Famotidine (Pepcid) 20 mg PO DAILY [facility] Last Admin: 11/17/16 08:48 Dose: 20 mg Ketorolac Tromethamine (Toradol) 15 mg IVP Q6 PRN PRN Reason: Pain, moderate (4-7) Last Admin: 11/17/16 08:49 Dose: 15 mg Lidocaine (Lidoderm) 2 ea TD DAILY [facility] Last Admin: 11/17/16 08:48 Dose: 2 ea Magnesium Hydroxide (Milk Of Magnesia) 30 ml PO DAILY [facility] Last Admin: 11/17/16 12:33 Dose: 30 ml Sennosides (Senokot Tab) 8.6 mg PO BID [facility] Last Admin: 11/17/16 08:47 Dose: 8.6 mg - Constitutional Appears: Non-toxic, Cachectic, Chronically Ill - Head Exam Head Exam: ATRAUMATIC, NORMOCEPHALIC - ENT Exam ENT Exam: Mucous Membranes Moist, Normal Exam - Respiratory Exam Respiratory Exam: absent: Accessory Muscle Use, Clear to Ausculation Bilateral, Prolonged Expiratory Phase, Wheezes, Respiratory Distress - Cardiovascular Exam Cardiovascular Exam: REGULAR RHYTHM, +S1, +S2. absent: Bradycardia - GI/Abdominal Exam GI & Abdominal Exam: Distended, Soft, Normal Bowel Sounds Additional comments: Lower abdomen is distended. Feels soft, non tender, no orgnomegaly. No gaurding , rigidity. Giordano's - - Rectal Exam Rectal Exam: Hemorrhoids - Extremities Exam Extremities Exam: Normal Capillary Refill. absent: Pedal Edema - Back Exam Back Exam: NORMAL INSPECTION Additional comments: Pt is very thin, prominent vertebrae, tenderness to palpation of lumbar spine. - Neurological Exam Neurological Exam: Altered, Awake, Oriented x3 - Psychiatric Exam Psychiatric exam: Anxious Assessment and Plan (1) Acute back pain Status: Acute (2) Constipation Status: Acute - Assessment and Plan (Free Text) Assessment: Assessment: Assessment: 81 y/o F with PMH including DM2 (diet controlled), COPD, PVD, Abdominal aortic aneurism, Aortic Stenosis, Chronic constipation, History of falls being managed for acute back pain and constipation. Acute Back pain -Likely 2/2 Compression fracture of T10-L2. No saddle anesthesia, focal neurological deficits noted. Pt has a hx of urinary incontinence so her episode this morning is not concerning for spinal compression -CT angio of the chest performed on 11/13/16 detected 2 stable infrarenal aortic aneurisms measuring 4.2cm and 4.4cm respectively. -A CT abdomen performed today confirms the two aneurisms with no clear evidence of dissection. A questionable dissection of the distal descending thoracic aorta was visualized which was also seen on a previous study 1 year ago (2015). Consider further studies on non-emergent basis. -CT angio chest detected compression fractures of T10 (severe), L1 (moderate), L2 (mild) -Lumbar CT showed an old compression fracture of L1 and a new compression fracture of L2 -IR consultation placed- will likely need Kyphoplasty procedure, cardiac clearance needed -Cardio consulted -Spine MRI w/ and w/o contrast ordered -Thoracic spine MRI orderd -Pain Management: Tylenol 650mg PO prn, Torodol 15mg prn, Lidocaine patches 2 each daily -Avoiding opiods as she is constipated -Fall risk protocol -PT/OT Constipation -Possible functional chronic constipation in elderly -Xray of the abdomen detects retained stool with no evidence of obstruction confirmed on CT abdomen -Milk of magnesia 30mg PO -Senokot 8.6mg PO BID -Suppository Chachexia -B12 normal -Folate normal -Vitamin D low 24.9, will start vitamin D supplementation -Ensure Leukopenia & Monocytosis -WBC-2.8 -Blood smear ordered -F/u CBC -F/u UPEP Moderate Aortic Stenosis -Chronic, last echo in 2015 Aortic Valvular Area- 1.1cm2 -Pt does not have any cardiac symptoms but will repeat echo for any changes in severity of Valve radius -F/U Echo -Cardio consulted to evaulate NIDDM2 -Diet controlled -Last HgbA1c: 6.8% on 10/21/15 -Consistent carbohydrate diet History of COPD -Stable. Asymptomatic. Currently asymptomatic without medications -Patient is a former smoker DVT Prophlyaxis -Lovenox Held for possible Kyphoplasty procedure tomorrow
--- NOTE | 2016-11-17 16:44 | MRI ---
PROCEDURE: MR LUMBAR SPINE WITHOUT CONTRAST HISTORY: BACK PAIN COMPARISON: None available. TECHNIQUE: Multiecho multiplanar sequences were performed through the lumbar spine without the use of intravenous contrast. FINDINGS: Normal lumbar lordosis. Vertebral body heights are preserved. There is a compression fracture of L1 with acute marrow edema present. There is no retropulsion of the posterior vertebral body wall into the spinal canal. There is no evidence of soft tissue mass. Conus medullaris unremarkable at the level of L1. Note is made of 5 centimeter infrarenal abdominal aortic aneurysm. T12-L1: No disc herniation, spinal canal stenosis or neural foraminal narrowing. L1-2: . No disc herniation, spinal canal stenosis or neural foraminal narrowing. L2-3: No disc herniation, spinal canal stenosis or neural foraminal narrowing. L3-4: No disc herniation, spinal canal stenosis or neural foraminal narrowing. L4-5: Central disc herniation with thecal sac indentation. L5-S1: No disc herniation, spinal canal stenosis or neural foraminal narrowing. OTHER FINDINGS: None. IMPRESSION: Mild to moderate compression fracture of L1 with acute marrow edema. No retropulsion of the posterior vertebral body wall into the spinal canal. No evidence of soft tissue mass 5 centimeter abdominal aortic aneurysm.
--- NOTE | 2016-11-17 16:55 | MRI ---
PROCEDURE: MR THORACIC SPINE WITHOUT CONTRAST HISTORY: BACK PAIN COMPARISON: None available. TECHNIQUE: Multiecho multiplanar sequences were performed through the thoracic spine without the use of intravenous contrast. FINDINGS: ALIGNMENT: Normal thoracic spinal alignment. Normal thoracic kyphosis. VERTEBRA: There is a severe chronic compression fracture of T9 with an associated disc ridge complex at T9-10, with thecal sac indentation and encroachment upon the ventral margin of the distal cord with cord impingement. MARROW: Marrow signal unremarkable. PARASPINAL SOFT TISSUES: Unremarkable. CORD: Unremarkable thoracic cord. No volume loss, signal abnormality or syrinx. DISCS: There is multilevel severe disc desiccation. OTHER FINDINGS: None. IMPRESSION: There is a severe chronic compression fracture of T9 with an associated disc ridge complex at T9-10, with thecal sac indentation and encroachment upon the ventral margin of the distal cord with cord impingement.
[2016-11-17] MEDS ORDERED: Chlorhexidine Gluconate 1 APPL/PKT TP ONE (18:16)
--- NOTE | 2016-11-17 19:13 | CP.PCM.PN ---
Subjective - Date & Time of Evaluation Date of Evaluation: 11/17/16 Time of Evaluation: 19:09 - Subjective Subjective: Pt. seen and examined at bedside with Dr. Cage. MRI lumbar and MRI thorax reviewed with patient. PROCEDURE: MR THORACIC SPINE WITHOUT CONTRAST IMPRESSION: There is a severe chronic compression fracture of T9 with an associated disc ridge complex at T9-10, with thecal sac indentation and encroachment upon the ventral margin of the distal cord with cord impingement. Neurological and Physical exam performed. Strength 5/5 bilateral upper extremities. Good rectal tone. No saddle anesthesia. Consulted Neurosurgery Dr. Amado police liaison and discussed findings: as per Dr. Amado to evaluate the patient next day. Objective - Vital Signs/Intake and Output Vital Signs (last 24 hours): Temp Pulse Resp BP Pulse Ox 97.4 F L 73 18 124/67 97 11/17/16 12:07 11/17/16 12:07 11/17/16 12:07 11/17/16 12:07 11/17/16 12:07 Intake and Output: 11/17/16 11/18/16 18:59 06:59 Intake Total 720 Balance 720 - Medications Medications: Current Medications Acetaminophen (Tylenol 325mg Tab) 650 mg PO Q6 PRN PRN Reason: Pain, Mild (1-3) Last Admin: 11/16/16 10:15 Dose: 650 mg Enoxaparin Sodium (Lovenox) 40 mg SC DAILY [facility] PRN Reason: Protocol Famotidine (Pepcid) 20 mg PO DAILY [facility] Last Admin: 11/17/16 08:48 Dose: 20 mg Ketorolac Tromethamine (Toradol) 15 mg IVP Q6 PRN PRN Reason: Pain, moderate (4-7) Last Admin: 11/17/16 08:49 Dose: 15 mg Lidocaine (Lidoderm) 2 ea TD DAILY [facility] Last Admin: 11/17/16 08:48 Dose: 2 ea Magnesium Hydroxide (Milk Of Magnesia) 30 ml PO DAILY [facility] Last Admin: 11/17/16 12:33 Dose: 30 ml Sennosides (Senokot Tab) 8.6 mg PO BID [facility] Last Admin: 11/17/16 16:46 Dose: 8.6 mg
--- NOTE | 2016-11-17 22:11 | CP.PCM.CON ---
History of Present Illness - History of Present Illness History of Present Illness: Consultation for evaluation of and preop cardiac risk stratification HPI: 81-year-old female with past medical history significant for severe peripheral vascular occlusive disease hypertension abdominal aortic aneurysm who presented after sustaining a fall with lower back pain. According to the patient's daughter she can walk around in her house with the help of a walker. At baseline has limited activity requires some assistance with activities of daily living. In the last year to 2 she had multiple recurrent episodes of falls secondary to dizziness. Patient says that every once in a while she will get a bout of dizziness lose her balance and fall off. She denies losing consciousness. I had evaluated her for peripheral vascular disease back in 2013 at which time she had undergone a peripheral angiogram by me showing severe bilateral peripheral vascular occlusive disease for which she was referred to vascular surgery for further evaluation and treatment. She is now presenting after sustaining a fall with lower back pain and I have been referred for evaluation of preoperative risk stratification prior to kyphoplasty under general anesthesia along with evaluation for aortic stenosis with an aortic valve area 1.1. I reviewed her transthoracic echocardiogram which is underestimating the aortic valve area since we do not have a perpendicular line of axis across the transaortic velocities. Review of Systems - Review of Systems All systems: reviewed and no additional remarkable complaints except - Constitutional Constitutional: As Per HPI, Fatigue, Malaise, Weight Loss. absent: Anorexia, Chills, Daytime Sleepiness, Excessive Sweating, Fever, Frequent Falls, Headache , Increased Appetite, Lethargy, Night Sweats, Snoring, Sleep Apnea, Weight Gain , Weakness, Other - EENT Eyes: As Per HPI. absent: Blind Spots, Blurred Vision, Change in Vision, Decreased Night Vision, Diplopia, Discharge, Dry Eye, Exophthalmos, Floaters, Irritation, Itchy Eyes, Loss of Peripheral Vision, Pain, Photophobia, Requires Corrective Lenses, Sees Flashes, Spots in Vision, Tunnel Vision, Other Visual Disturbances, Loss of Vision, Other Nose/Mouth/Throat: As Per HPI. absent: Epistaxis, Nasal Congestion, Nasal Discharge, Nasal Obstruction, Nasal Trauma, Nose Pain, Post Nasal Drip, Sinus Pain, Sinus Pressure, Bleeding Gums, Change in Voice, Dental Pain, Dry Mouth, Dysphagia, Halitosis, Hoarsness, Lip Swelling, Mouth Lesions, Mouth Pain, Odynophagia, Sore Throat, Throat Swelling, Tongue Swelling, Facial Pain, Neck Pain, Neck Mass, Other - Cardiovascular Cardiovascular: Claudication, Orthopnea, Syncope. absent: As Per HPI, Acrocyanosis, Chest Pain, Chest Pain at Rest, Chest Pain with Activity, Diaphoresis, Dyspnea, Dyspnea on Exertion, Edema, Irregular Heart Rhythm, Pain Radiating to Arm/Neck/Jaw, Leg Edema, Leg Ulcers, Lightheadedness, Palpitations , Paroxysmal Nocturnal Dyspnea, Pedal Edema, Radiating Pain, Rapid Heart Rate, Slow Heart Rate, Other - Respiratory Respiratory: As Per HPI, Dyspnea, Dyspnea on Exertion. absent: Cough, Hemoptysis, Wheezing, Snoring, Stridor, Pain on Inspiration, Chest Congestion, Excessive Mucous Production, Change in Mucous Color, Pain with Coughing, Other - Gastrointestinal Gastrointestinal: As Per HPI. absent: Abdominal Pain, Belching, Bloating, Change in Bowel Habits, Change in Stool Character, Coffee Ground Emesis, Constipation, Cramping, Diarrhea, Dyspepsia, Dysphagia, Early Satiety, Excessive Flatus, Fecal Incontinence, Heartburn, Hematemesis, Hematochezia, Loose Stools, Melena, Nausea, Odynophagia, Temesmus, Vomiting, Other - Genitourinary Genitourinary: Urinary Frequency. absent: As Per HPI, Change in Urinary Stream , Difficulty Urinating, Dysuria, Flank Pain, Hematuria, Pyuria, Nocturia, Urinary Incontinence, Urinary Hesitance, Urinary Urgency, Voiding Freq/Small Amts, Freq UTI, Hx Renal/Bladder Calculi, Hx /Renal Surgery, Bladder Distension, Other - Musculoskeletal Musculoskeletal: As Per HPI. absent: Abnormal Gait, Arthralgias, Atrophy, Back Pain, Deformity, Joint Swelling, Limited Range of Motion, Loss of Height, Muscle Cramps, Muscle Weakness, Myalgias, Neck Pain, Numbness, Radiating Pain into Limb, Stiffness, Tingling, Other - Integumentary Integumentary: As Per HPI. absent: Acne, Alopecia, Bleeding Lesions, Change in Hair, Change in Nails, Change in Pigmentation, Changing Lesions, Dry Skin, Erythema, Furuncle, Hirsutism, Lesions, New Lesions, Non-Healing Lesions, Photosensitivity, Pruritus, Rash, Skin Pain, Skin Ulcer, Sores, Striae, Swelling , Unusual Bruising, Wounds, Jaundice, Other - Neurological Neurological: As Per HPI. absent: Abnormal Gait, Abnormal Hearing, Abnormal Movements, Abnormal Speech, Behavioral Changes, Burning Sensations, Confusion, Convulsions, Disequilibrium, Dizziness, Numbness, Focal Weakness, Frequent Falls , Headaches, Lack of Coordination, Loss of Vision, Memory Loss, Paresthesias, Radicular Pain, Restless Legs, Sensory Deficit, Syncope, Tingling, Tremor, Vertigo, Weakness, Other Visual Disturbances, Other - Psychiatric Psychiatric: As Per HPI, Behavioral Changes. absent: Abnormal Sleep Pattern, Anhedonia, Anxiety, Auditory Hallucinations, Change in Appetite, Change in Libido, Confusion, Depression, Difficulty Concentrating, Hallucinations, Homicidal Ideation, Hopelessness, Irritability, Memory Loss, Mood Swings, Panic Attacks, Paranoia, Suicidal Ideation, Visual Hallucinations, Tactile Hallucinations, Other - Endocrine Endocrine: As Per HPI. absent: Change in Body Appearance, Change in Libido, Cold Intolorance, Deepening of Voice, Excessive Sweating, Fatigue, Flushing, Heat Intolorance, Increase in Ring/Shoe/Hat Size, Palpitations, Polydipsia, Polyphagia, Polyuria, Other - Hematologic/Lymphatic Hematologic: As Per HPI. absent: Easy Bleeding, Easy Bruising, Lymphadenopathy , Other Past Patient History - Past Medical History & Family History Past Medical History?: Yes Pertinent Family History: +ve for HTN , CHF and CAD - Past Social History Smoking Status: Former Smoker - CARDIAC Hx Cardiac Disorders: No Hx Hypercholesterolemia: Yes Hx Hypertension: Yes - PULMONARY Hx Respiratory Disorders: Yes Hx Chronic Obstructive Pulmonary Disease (COPD): Yes - NEUROLOGICAL Hx Neurological Disorder: No - HEENT Hx HEENT Problems: Yes Hx Cataracts: Yes - RENAL Hx Chronic Kidney Disease: No - ENDOCRINE/METABOLIC Hx Endocrine Disorders: Yes - HEMATOLOGICAL/ONCOLOGICAL Hx Blood Disorders: No - INTEGUMENTARY Hx Dermatological Problems: No - MUSCULOSKELETAL/RHEUMATOLOGICAL Hx Musculoskeletal Disorders: Yes Hx Falls: No - GASTROINTESTINAL Hx Gastrointestinal Disorders: Yes Other/Comment: abdominal aortic aneurysm - GENITOURINARY/GYNECOLOGICAL Hx Genitourinary Disorders: No - PSYCHIATRIC Hx Psychophysiologic Disorder: No Hx Substance Use: No - SURGICAL HISTORY Hx Musculoskeletal Surgery: Yes (Left Hip ORIF) - ANESTHESIA Hx Anesthesia: Yes Hx Anesthesia Reactions: No Hx Malignant Hyperthermia: No Meds Allergies/Adverse Reactions: Allergies Allergy/AdvReac Type Severity Reaction Status Date / Time No Known Allergies Allergy Verified 11/14/15 02:22 - Medications Medications: Current Medications Acetaminophen (Tylenol 325mg Tab) 650 mg PO Q6 PRN PRN Reason: Pain, Mild (1-3) Last Admin: 11/16/16 10:15 Dose: 650 mg Enoxaparin Sodium (Lovenox) 40 mg SC DAILY [facility] PRN Reason: Protocol Famotidine (Pepcid) 20 mg PO DAILY [facility] Last Admin: 11/17/16 08:48 Dose: 20 mg Ketorolac Tromethamine (Toradol) 15 mg IVP Q6 PRN PRN Reason: Pain, moderate (4-7) Last Admin: 11/17/16 21:49 Dose: 15 mg Lidocaine (Lidoderm) 2 ea TD DAILY [facility] Last Admin: 11/17/16 08:48 Dose: 2 ea Magnesium Hydroxide (Milk Of Magnesia) 30 ml PO DAILY [facility] Last Admin: 11/17/16 12:33 Dose: 30 ml Sennosides (Senokot Tab) 8.6 mg PO BID [facility] Last Admin: 11/17/16 16:46 Dose: 8.6 mg Physical Exam - Constitutional Appears: Well - Head Exam Head Exam: ATRAUMATIC, NORMAL INSPECTION, NORMOCEPHALIC - Eye Exam Eye Exam: EOMI, Normal appearance, PERRL Pupil Exam: NORMAL ACCOMODATION, PERRL - ENT Exam ENT Exam: Mucous Membranes Moist, Normal Exam - Neck Exam Neck exam: Positive for: Normal Inspection - Respiratory Exam Respiratory Exam: Clear to Auscultation Bilateral, Rales, NORMAL BREATHING PATTERN - Cardiovascular Exam Cardiovascular Exam: Diastolic murmur, REGULAR RHYTHM, RRR, +S1, +S2, Systolic Murmur (ELSA II/ AT LSB , DIASTOLIC MURMUR ) - GI/Abdominal Exam GI & Abdominal Exam: Normal Bowel Sounds, Soft. absent: Bruit, Diminished Bowel Sounds, Distended, Firm, Guarding, Hernia, Hyperactive Bowel Sounds, Hypoactive Bowel Sounds, Mass, Organomegaly, Pulsatile Mass, Rebound, Rigid, Tenderness - Rectal Exam Rectal Exam: Deferred - Extremities Exam Extremities exam: Positive for: normal inspection - Back Exam Back exam: NORMAL INSPECTION - Neurological Exam Neurological exam: Alert, CN II-XII Intact, Normal Gait, Oriented x3, Reflexes Normal - Psychiatric Exam Psychiatric exam: Normal Affect, Normal Mood - Skin Skin Exam: Dry, Intact, Normal Color, Warm Results - Vital Signs Recent Vital Signs: Last Vital Signs Temp 98.1 F 11/17/16 20:41 Pulse 64 11/17/16 20:41 Resp 20 11/17/16 20:41 BP 134/69 11/17/16 20:41 Pulse Ox 93 L 11/17/16 20:41 - Labs Result Diagrams: 11/15/16 11:30 11/15/16 11:30 Labs: Laboratory Results - last 24 hr 11/17/16 11/17/16 05:30 05:30 Vitamin B12 599 25-OH Vitamin D Total 24.9 L Folate > 20.0 Assessment & Plan (1) Aortic stenosis Assessment and Plan: Aortic stenosis based on the transthoracic echocardiogram is consistent with possible severe. The transaortic velocities are not perpendicular which is under state and ischemic underestimating the degree of the aortic stenosis. History suggestive of recurrent falls etiology secondary to his dizziness could not exclude underlying hemodynamic compromise from aortic stenosis. Will need further evaluation with transesophageal echocardiogram. Keep the patient n.p.o. past midnight for possible ZINA in the morning. Status: Acute (2) Preop cardiovascular exam Assessment and Plan: Patient has multiple cardiovascular risk factors severe peripheral vascular occlusive disease history of aortic aneurysms. She will need further evaluation for her cardiovascular risk stratification prior to any intervention with general anesthesia. She would need further risk stratification with Lexiscan nuclear stress test. At this point doing any procedure with general anesthesia would put her at high risk for perioperative cardiac event. Status: Acute (3) Dizziness Assessment and Plan: ETIOLOGY ? 2' TO WILL NEED FURTHER W/U WITH ZINA Status: Acute (4) Fall at home Assessment and Plan: ETIOLOGY ? Status: Acute (5) PVD (peripheral vascular disease) Assessment and Plan: keep pt on asa 81mg po daily Status: Acute
[2016-11-18 02:12] LABS: TOTAL PROTEIN, SERUM 7.7 g/dL (6.1-8.1)
--- NOTE | 2016-11-18 07:07 | CP.PCM.PN ---
Subjective - Date & Time of Evaluation Date of Evaluation: 11/18/16 Time of Evaluation: 07:07 - Subjective Subjective: Pt seen and evaluated at the bedside. Complains of non radiating lower back pain 11/24 beginning this morning. States she asked the nurse to city surveyor her pain medication but has yet to receive it. Pt denies any motor or sensory deficits. Had 1 BM last night- well formed stool, no blood. Complains of mild pain on her bunion (left foot) States her constipation is very much improved. Denies chest pain, SOB, palpatations, abdominal pain, N/V/D, urinary symptoms, or numbness or tingling of her extremities Objective - Vital Signs/Intake and Output Vital Signs (last 24 hours): Temp Pulse Resp BP Pulse Ox 97.7 F 74 18 155/82 H 95 11/18/16 04:45 11/18/16 04:45 11/18/16 04:45 11/18/16 04:45 11/18/16 04:45 - Medications Medications: Current Medications Acetaminophen (Tylenol 325mg Tab) 650 mg PO Q6 PRN PRN Reason: Pain, Mild (1-3) Last Admin: 11/16/16 10:15 Dose: 650 mg Enoxaparin Sodium (Lovenox) 40 mg SC DAILY [facility] PRN Reason: Protocol Famotidine (Pepcid) 20 mg PO DAILY [facility] Last Admin: 11/17/16 08:48 Dose: 20 mg Ketorolac Tromethamine (Toradol) 15 mg IVP Q6 PRN PRN Reason: Pain, moderate (4-7) Last Admin: 11/17/16 21:49 Dose: 15 mg Lidocaine (Lidoderm) 2 ea TD DAILY [facility] Last Admin: 11/17/16 08:48 Dose: 2 ea Magnesium Hydroxide (Milk Of Magnesia) 30 ml PO DAILY [facility] Last Admin: 11/17/16 12:33 Dose: 30 ml Sennosides (Senokot Tab) 8.6 mg PO BID [facility] Last Admin: 11/17/16 16:46 Dose: 8.6 mg - Constitutional Appears: Well, Cachectic, Other (Pt is seen curled up in bed, mildly distressed , non toxic appearing) - Head Exam Head Exam: NORMAL INSPECTION - ENT Exam ENT Exam: Mucous Membranes Moist - Respiratory Exam Respiratory Exam: Clear to Ausculation Bilateral. absent: Wheezes, Respiratory Distress - Cardiovascular Exam Cardiovascular Exam: REGULAR RHYTHM, +S1, +S2, Murmur Additional comments: Systolic ejection murmur - GI/Abdominal Exam GI & Abdominal Exam: Distended, Soft, Hyperactive Bowel Sounds, Normal Bowel Sounds. absent: Tenderness, Organomegaly Additional comments: Slightly distended in lower abdomen but soft and nontender. No gaurding or rigidity - Rectal Exam Rectal Exam: Hemorrhoids. absent: Bloody Stool Additional comments: Rectal exam done the night before with positive rectal tone. Hard stool felt. - Extremities Exam Extremities Exam: absent: Calf Tenderness, Pedal Edema Additional comments: weak pulsus in both extremities +1 - Neurological Exam Neurological Exam: Alert, Awake, Oriented x3 - Psychiatric Exam Psychiatric exam: Agitated, Normal Mood Assessment and Plan (1) Acute back pain Status: Acute (2) Constipation Status: Acute - Assessment and Plan (Free Text) Assessment: 81 y/o F with PMH including DM2 (diet controlled), COPD, PVD, Abdominal aortic aneurism, Aortic Stenosis, Chronic constipation,Urinary Incontinence recent history of falls being managed for acute back pain and constipation. Acute Back pain -Likely 2/2 Compression fracture. No saddle anesthesia, focal neurological deficits noted. + rectal tone -Chest CT (11/15/16) Compression fractures of T10 (severe), L1 (moderate), L2 ( mild), moderate hiatal hernia -Lumbar CT (11/16/16)-Chronic L1 compression fracture, new L2 compression fracture (since study in 2016) -Lumbar MRI (11/17/16) Compression fracture of L1 with acute marrow edema, No retropulsion of the posterior vertebral body wall into the spinal canal. Conus medullaris unremarkable. 5cm Infrarenal abdominal aortic aneurysm; Central Disc Herniation in L4-L5 with thecal sac indentation. -Thoracic MRI- Severe chronic compression fracture of T9 with an associated disc ridge complex at T9-T10, with thecal sac indentation and encroachment upon the ventral margin of the distal cord with cord impingement -Recent Abdominal CT (11-15) positive for Cholelithiasis w/o cholecystitis, dilated pancreatic duct of uncertain etiology, and questionnable dissection of the distal descending thorcic aorta versus ulcerated plaque. Recommended to do a non-emergent CT Angio of the aorta. CT angio of the chest performed 1 year ago on 11/14/15 detected outpouchings from the descending aorta2 stable infrarenal aortic aneurisms measuring 4.2cm and 4.4cm respectively. Also seen was outpouchings of contrast in the descending thoracic aorta, possible penetrating ulcers. -IR consult- will likely need Kyphoplasty procedure, cardiac clearance needed as procedure is to be done under general anesthesia -Cardio consulted for preoperative risk stratification for Kyphoplasty procedure as well as to evaluate her aortic valve stenosis- As far as risk stratification for possible Kyphoplasty procedure,pt will need further evaluation with Lexiscan nuclear stress test. At this point, any procedure under general anesthesia would put her at high risk for perioperative event from cardiology standpoint. -Consulted Neurosurgery about the Thoracic MRI study report with regards to the cord impingement, Dr. Liriano evaluated pt today and does not recommend any treatment at this time. Will follow the pt as necessary -Pain Management: Tylenol 650mg PO prn, Torodol 15mg prn, Lidocaine patches 2 each daily -Avoiding opiods as she is constipated -Fall risk protocol -PT/OT Constipation -Resolving, Pt had 2 BM this morning. Passing gas more frequently as well. Resolving -Possible functional chronic constipation in elderly -Xray of the abdomen detects retained stool with no evidence of obstruction confirmed on CT abdomen -Milk of magnesia 30mg PO -Senokot 8.6mg PO BID -Suppository Chachexia -B12 normal -Folate normal -Vitamin D low 24.9, will start vitamin D supplementation -Ensure Leukopenia & Monocytosis -WBC-2.8 -Blood smear ordered -F/u CBC -F/u Protein Electrophoresis Moderate Aortic Stenosis -Asymptomatic. Chronic, last echo in 2016 Aortic Valvular Area- 1.1cm2 -Pt does not have any cardiac symptoms but will repeat echo for any changes in severity of Valve radius -[facility] per Dr[facility] Elmore: Most recent TTE was reviewed and is consistent with possible severe although it underestimates aortic valve area. Recent hx of falls is concerning for possible dizziness and hemodynamic compromise from aortic stenosis. Will evaluate further with ZINA -Will speak to Dr. Elmore concer -ZINA planned for Monday (f/u) NIDDM2 -Diet controlled -Last HgbA1c: 6.8% on 10/21/15 -Consistent carbohydrate diet History of COPD -Stable. Asymptomatic. Currently asymptomatic without medications -Patient is a former smoker DVT Prophlyaxis -Lovenox 40mg restarted as Kyphoplasty is pending cardiac clearance and procedure will not happen soon. Diet Regular
[2016-11-18] MEDS: Enoxaparin 40 mg Syringe SC SCH (08:17)
[2016-11-18] MEDS: Lidocaine 5% Patch TD SCH (08:17)
[2016-11-18] MEDS: Magnesium Hydroxide Susp 30 ml UD PO SCH (08:20)
--- NOTE | 2016-11-18 10:35 | CARD ---
APPROVED REPORT EXAM: Two-dimensional and M-mode echocardiogram with Doppler and color Doppler. Other Information Quality : FairRhythm : NSR INDICATION Aortic Valve Disease 2D DIMENSIONS IVSd1.05 (0.7-1.1cm)LVDd2.66 (3.9-5.9cm) LVOT Diameter2.04 (1.8-2.4cm)PWd0.92 (0.7-1.1cm) IVSs1.38 (0.8-1.2cm)LVDs1.25 (2.5-4.0cm) FS (%) 53.0 %PWs1.53 (0.8-1.2cm) M-Mode DIMENSIONS Left Atrium (MM)3.21 (2.5-4.0cm)Aortic Root3.09 (2.2-3.7cm) Aortic Cusp Exc.0.79 (1.5-2.0cm) Aortic Valve AoV Peak Apwbjflg759.1cm/sAoV VTI27.5cmAO Peak GR.12mmHg LVOT Peak Uhugvjdu03.7cm/sLVOT VTI13.15cmAO Mean GR.6mmHg LAURO (VMAX)1.73gy2XGC (VTI)1.20cm2 Mitral Valve E/A ratio0.0 TDI E/Lateral E'0.0E/Medial E'0.0 Tricuspid Valve TR Peak Tvhtotrv187mr/sRAP [id number] Peak Gr.29mmHg [id number] LEFT VENTRICLE The left ventricle is normal size. There is normal left ventricular wall thickness. The left ventricular function is normal. The left ventricular ejection fraction is - 65-70%. There is normal LV segmental wall motion. Transmitral Doppler flow pattern is Grade I-abnormal relaxation pattern. No left ventricle thrombus noted on this study. There is no ventricular septal defect visualized. There is no left ventricular aneurysm. There is no mass noted in the left ventricle. RIGHT VENTRICLE The right ventricle is normal size. There is normal right ventricular wall thickness. The right ventricular systolic function is normal. ATRIA The left atrium size is normal. There is no thrombus suspected in the left atrium. The right atrium size is normal. The interatrial septum is intact with no evidence for an atrial septal defect. AORTIC VALVE The aortic valve is moderately calcified. There is trace to mild aortic regurgitation. There is moderate valvular aortic stenosis. Calculated aortic valve area is 1.50 cm2 with maximum pressure gradient of 12.5 mmHg and mean pressure gradient of 5.9 mmHg. MITRAL VALVE The mitral valve is normal in structure and function. There is no evidence of mitral valve prolapse. There is no mitral valve stenosis. Mitral regurgitation is trace to mild. TRICUSPID VALVE The tricuspid valve is normal in structure and function. There is mild tricuspid regurgitation. Right ventricular systolic pressure is estimated at 40 mmHg. There is no tricuspid valve prolapse or vegetation. There is no tricuspid valve stenosis. PULMONIC VALVE The pulmonary valve is normal in structure and function. Doppler studies of the PV were not performed. GREAT VESSELS The aortic root is normal in size. The IVC was not visualized. PERICARDIAL EFFUSION The pericardium appears normal. There is no pleural effusion. <Conclusion> The left ventricle is normal in size and wall thickness. The left ventricular function is normal. The left ventricular ejection fraction is - 65-70%. The left atrium, right ventricle and right atrium are normal in size. There is moderate valvular aortic stenosis with an aortic valve area is 1.50 cm2. There is trace to mild aortic regurgitation. The mitral and tricuspid valves are normal. There is trace to mild mitral regurgitation and mild tricuspid regurgitation.
--- NOTE | 2016-11-18 12:25 | CP.PCM.CON ---
History of Present Illness - History of Present Illness History of Present Illness: SPINE Pt seen and examined. Full consult dictated. No treatment needed at this time. Mobilize as tolerated. Will follow as necessary. Thank you. Past Patient History - Past Medical History & Family History Past Medical History?: Yes - Past Social History Smoking Status: Former Smoker - CARDIAC Hx Cardiac Disorders: No Hx Hypercholesterolemia: Yes Hx Hypertension: Yes - PULMONARY Hx Respiratory Disorders: Yes Hx Chronic Obstructive Pulmonary Disease (COPD): Yes - NEUROLOGICAL Hx Neurological Disorder: No - HEENT Hx HEENT Problems: Yes Hx Cataracts: Yes - RENAL Hx Chronic Kidney Disease: No - ENDOCRINE/METABOLIC Hx Endocrine Disorders: Yes - HEMATOLOGICAL/ONCOLOGICAL Hx Blood Disorders: No - INTEGUMENTARY Hx Dermatological Problems: No - MUSCULOSKELETAL/RHEUMATOLOGICAL Hx Musculoskeletal Disorders: Yes Hx Falls: No - GASTROINTESTINAL Hx Gastrointestinal Disorders: Yes Other/Comment: abdominal aortic aneurysm - GENITOURINARY/GYNECOLOGICAL Hx Genitourinary Disorders: No - PSYCHIATRIC Hx Psychophysiologic Disorder: No Hx Substance Use: No - SURGICAL HISTORY Hx Musculoskeletal Surgery: Yes (Left Hip ORIF) - ANESTHESIA Hx Anesthesia: Yes Hx Anesthesia Reactions: No Hx Malignant Hyperthermia: No Meds Allergies/Adverse Reactions: Allergies Allergy/AdvReac Type Severity Reaction Status Date / Time No Known Allergies Allergy Verified 11/14/15 02:22 - Medications Medications: Current Medications Acetaminophen (Tylenol 325mg Tab) 650 mg PO Q6 PRN PRN Reason: Pain, Mild (1-3) Last Admin: 11/16/16 10:15 Dose: 650 mg Enoxaparin Sodium (Lovenox) 40 mg SC DAILY [facility] PRN Reason: Protocol Last Admin: 11/18/16 08:17 Dose: 40 mg Famotidine (Pepcid) 20 mg PO DAILY [facility] Last Admin: 11/18/16 08:19 Dose: 20 mg Ketorolac Tromethamine (Toradol) 15 mg IVP Q6 PRN PRN Reason: Pain, moderate (4-7) Last Admin: 11/17/16 21:49 Dose: 15 mg Lidocaine (Lidoderm) 2 ea TD DAILY [facility] Last Admin: 11/18/16 08:17 Dose: 2 ea Magnesium Hydroxide (Milk Of Magnesia) 30 ml PO DAILY [facility] Last Admin: 11/18/16 08:20 Dose: 30 ml Sennosides (Senokot Tab) 8.6 mg PO BID [facility] Last Admin: 11/18/16 08:19 Dose: 8.6 mg Results - Vital Signs Recent Vital Signs: Last Vital Signs Temp 98.2 F 11/18/16 12:17 Pulse 85 11/18/16 12:17 Resp 18 11/18/16 12:17 BP 136/69 11/18/16 12:17 Pulse Ox 98 11/18/16 12:17 - Labs Result Diagrams: 11/15/16 11:30 11/15/16 11:30 Labs: Laboratory Results - last 24 hr 11/17/16 11/17/16 11/17/16 05:30 05:30 05:30 Total Protein (PEP) 7.7 Vitamin B1 25-OH Vitamin D Total 24.9 L Folate > 20.0 11/17/16 05:30 Total Protein (PEP) Vitamin B1 TNP 25-OH Vitamin D Total Folate
[2016-11-18 12:44] LABS: BETA 1 GLOBULIN 0.5 g/dL (0.4-0.6); BETA 2 GLOBULIN 0.6 g/dL (0.2-0.5)
--- NOTE | 2016-11-18 23:40 | CON ---
DATE: 11/18/2016 REASON FOR CONSULTATION: Back pain. HISTORY OF PRESENT ILLNESS: The patient is an 81-year-old woman who is somewhat confused according to nursing, but she states that she was admitted to the hospital because she has not had a bowel movement in 8 days. When asked about fall, she stated she fell with her daughter back on to a couch " a while ago," but no falls on any hard surfaces or downstairs, etc. She states her back was bothering her also one point knee to the lumbosacral area. She denies any pain up higher than that. However, she states that pain is better since she had 2 bowel movements this morning. She denies any difficulty with it such as incontinence and she states she always maintained movement of her extremities. She states she has not been out of bed yet. PAST MEDICAL HISTORY: Significant for type 2 diabetes, controlled with diet. She has COPD, peripheral vascular disease, and also history of an abdominal aortic aneurysm. MEDICATIONS: Listed on the chart. ALLERGIES: SHE HAS NO KNOWN ALLERGIES. PAST SURGICAL HISTORY: Significant for cataract, ORIF of her left hip about 4 years ago. SOCIAL HISTORY: She is a former smoker. PHYSICAL EXAMINATION: She has some tenderness in the lumbosacral area, but I do not listed anything higher. She moves both lower extremities actively. Grossly her neurologic exam appears to be intact. LABORATORY DATA AND IMAGING: MRI is reviewed. They read as showing an acute compression fracture at L1, but on the count it appears to be L2. There is almost total marrow replacement seen best on the Stir images of her sagittal MRI, but no retropulsion or anything in that nature. She has a chronic fracture of T9 that is completely collapsed with some retropulsion, kyphotic deformity. IMPRESSION: Acute/subacute fracture of L2 with older fracture in lumbar and thoracic region. At this point, I would try and mobilize her as tolerated, I do not think she needs bracing. If her pain worsens, then we could consider putting her in a [place] lumbar orthosis, but again I would see how she does with mobilization and see how her pain is and proceed from there. Thank you for allowing me to participate in the care of your patient. Lorne Liriano MD MTDD
[2016-11-19] MEDS: Lidocaine 5% Patch TD SCH (09:29)
[2016-11-19] MEDS: Enoxaparin 40 mg Syringe SC SCH (09:33)
[2016-11-19] MEDS: Magnesium Hydroxide Susp 30 ml UD PO SCH (09:47)
--- NOTE | 2016-11-19 11:49 | CP.PCM.PN ---
Subjective - Date & Time of Evaluation Date of Evaluation: 11/19/16 Time of Evaluation: 09:10 - Subjective Subjective: Pt. seen sitting upright in bed while eating breakfast. Pt. with no complaints at this time. Pt. reports her back pain is better than yesterday. Pt. also reports My stomach feels better after well formed bowel movement yesterday. On ROS, pt. denies any headache, chest pain, shortness of breath, abdominal pain, fever, or chills. Objective - Vital Signs/Intake and Output Vital Signs (last 24 hours): Temp Pulse Resp BP Pulse Ox 97.9 F 75 20 113/62 94 L 11/19/16 08:00 11/19/16 08:00 11/19/16 08:00 11/19/16 08:00 11/19/16 08:00 - Medications Medications: Current Medications Acetaminophen (Tylenol 325mg Tab) 650 mg PO Q6 PRN PRN Reason: Pain, Mild (1-3) Last Admin: 11/19/16 06:41 Dose: 650 mg Enoxaparin Sodium (Lovenox) 40 mg SC DAILY [facility] PRN Reason: Protocol Last Admin: 11/19/16 09:33 Dose: 40 mg Famotidine (Pepcid) 20 mg PO DAILY [facility] Last Admin: 11/19/16 09:33 Dose: 20 mg Ketorolac Tromethamine (Toradol) 15 mg IVP Q6 PRN PRN Reason: Pain, moderate (4-7) Last Admin: 11/17/16 21:49 Dose: 15 mg Lidocaine (Lidoderm) 2 ea TD DAILY [facility] Last Admin: 11/19/16 09:29 Dose: 2 ea Magnesium Hydroxide (Milk Of Magnesia) 30 ml PO DAILY [facility] Last Admin: 11/19/16 09:47 Dose: 30 ml Sennosides (Senokot Tab) 8.6 mg PO BID [facility] Last Admin: 11/19/16 09:34 Dose: 8.6 mg - Constitutional Appears: Non-toxic, No Acute Distress - Respiratory Exam Respiratory Exam: Clear to Ausculation Bilateral, NORMAL BREATHING PATTERN - Cardiovascular Exam Cardiovascular Exam: REGULAR RHYTHM, +S1, +S2 Additional comments: +positive systolic murmur - GI/Abdominal Exam GI & Abdominal Exam: Soft. absent: Tenderness - Extremities Exam Extremities Exam: absent: Calf Tenderness Additional comments: +1 weak pulses bilaterally - Neurological Exam Neurological Exam: Alert, Awake, Oriented x3 - Psychiatric Exam Psychiatric exam: Normal Affect, Normal Mood Assessment and Plan - Assessment and Plan (Free Text) Assessment: 81 y/o F with PMH including DM2 (diet controlled), COPD, PVD, Abdominal aortic aneurism, Aortic Stenosis, Chronic constipation,Urinary Incontinence recent history of falls being managed for acute back pain and constipation. Acute Back pain - Improving -Likely due to Compression fracture. -Chest CT (11/15/16) Compression fractures of T10 (severe), L1 (moderate), L2 ( mild), moderate hiatal hernia -Lumbar CT (11/16/16)-Chronic L1 compression fracture, new L2 compression fracture (since study in 2015) -Lumbar MRI (11/17/16) Compression fracture of L1 with acute marrow edema, No retropulsion of the posterior vertebral body wall into the spinal canal. Conus medullaris unremarkable. 5cm Infrarenal abdominal aortic aneurysm; Central Disc Herniation in L4-L5 with thecal sac indentation. -Thoracic MRI- Severe chronic compression fracture of T9 with an associated disc ridge complex at T9-T10, with thecal sac indentation and encroachment upon the ventral margin of the distal cord with cord impingement -Recent Abdominal CT (11-15) positive for Cholelithiasis w/o cholecystitis, dilated pancreatic duct of uncertain etiology, and questionnable dissection of the distal descending thoracic aorta versus ulcerated plaque. Recommended to do a non-emergent CT Angio of the aorta. CT angio of the chest performed 1 year ago on 11/14/15 detected outpouchings from the descending aorta2 stable infrarenal aortic aneurisms measuring 4.2cm and 4.4cm respectively. Also seen was outpouchings of contrast in the descending thoracic aorta, possible penetrating ulcers. -IR consult- will likely need Kyphoplasty procedure, cardiac clearance needed as procedure is to be done under general anesthesia -Cardio consulted for preoperative risk stratification for Kyphoplasty procedure as well as to evaluate her aortic valve stenosis- As far as risk stratification for possible Kyphoplasty procedure,pt will need further evaluation with Lexiscan nuclear stress test. At this point, any procedure under general anesthesia would put her at high risk for perioperative event from cardiology standpoint. -Consulted Neurosurgery about the Thoracic MRI study report with regards to the cord impingement, Dr. Liriano evaluated pt today and does not recommend any treatment at this time. Will follow the pt as necessary -Pain Management: Tylenol 650mg PO prn, Torodol 15mg prn, Lidocaine patches 2 each daily -Fall risk protocol -PT/OT Constipation- Resolved -two well formed bowel movements yesterday -Continue Senokot and Milk of Magnesia Leukopenia- Chronic -Blood smear- Pending -Protein Electrophoresis - Pending Moderate Aortic Stenosis -Asymptomatic. Chronic, last echo in 2015 Aortic Valvular Area- 1.1cm2 -[facility] Dr[facility] Elmore: Most recent TTE was reviewed and is consistent with possible severe although it underestimates aortic valve area. Recent hx of falls is concerning for possible dizziness and hemodynamic compromise from aortic stenosis. Will evaluate further with ZINA -ZINA planned for Monday (f/u) Impingement - Neurosurgery consulted - Routine observation as per Neurosurgery NIDDM2 -Diet controlled -Last HgbA1c: 6.8% on 10/21/15 -Consistent carbohydrate diet History of COPD -Asymptomatic -Not on any home meds DVT Prophlyaxis -Lovenox 40mg Diet Regular
[2016-11-19] MEDS ORDERED: Iodixanol 320 MG/ML 100 ML BOTTLE IV ONE (15:10)
[2016-11-19] MEDS ORDERED: Sodium Chloride 0.9% 100 ML ONE (15:10)
--- NOTE | 2016-11-20 07:16 | CT ---
PROCEDURE: CT Angiography Chest, Abdomen and Pelvis with and without intravenous contrast HISTORY: suspected aortic dissection COMPARISON: None. TECHNIQUE: Contiguous axial images of the chest, abdomen and pelvis were obtained in the phase of aortic enhancement. A noncontrast enhanced CT of the chest was also obtained to evaluate for possible intramural thrombus. Coronal and sagittal reformats were generated. IV dose administered: 100 cc of Omnipaque 350 Radiation dose: Total exam DLP = 472 mGy-cm. This CT exam was performed using one or more of the following dose reduction techniques: Automated exposure control, adjustment of the mA and/or kV according to patient size, and/or use of iterative reconstruction technique. FINDINGS: CT ANGIOGRAPHY OF THE CHEST WITH & WITHOUT CONTRAST: AORTA (CHEST AND ABDOMEN): Extensive atherosclerotic changes of the aorta. 4 centimeter infrarenal abdominal aortic aneurysm with circumferential mural thrombus. In the proximal aorta. In the distal abdominal aorta there is a roughly 4.8 by 4.0 centimeter infrarenal abdominal aortic aneurysm. No extension into the common iliac arteries. The celiac axis, superior mesenteric artery, inferior mesenteric artery and the renal arteries are widely patent. The pelvic arteries are unremarkable. LUNGS: Centrilobular emphysema with discoid atelectasis/linear fibrosis at the right base. MEDIASTINUM: Unremarkable. Normal caliber aorta and pulmonary arterial trunk. No aortic dissection. Normal size heart. LYMPH NODES: Unremarkable. PLEURA: Unremarkable. No pneumothorax. No pleural fluid. BONES: Unremarkable. OTHER FINDINGS: None. CT ANGIOGRAPHY OF THE ABDOMEN AND PELVIS WITH CONTRAST: LIVER: Unremarkable. No gross lesion or ductal dilatation. GALLBLADDER AND BILE DUCTS: Unremarkable. PANCREAS: Unremarkable. No gross lesion or ductal dilatation. SPLEEN: Unremarkable. ADRENALS: Unremarkable. No mass. KIDNEYS AND URETERS: Unremarkable. No hydronephrosis. No solid mass. VASCULATURE: Unremarkable. No aortic aneurysm. STOMACH AND BOWEL: Abundant stool within the rectum.. No obstruction. No gross mural thickening. APPENDIX: Normal appendix. PERITONEUM: Unremarkable. No free fluid. No free air. LYMPH NODES: Unremarkable. No enlarged lymph nodes. BLADDER: Unremarkable. REPRODUCTIVE: Unremarkable. BONES: No acute fracture. OTHER FINDINGS: None. IMPRESSION: Extensive fusiform infrarenal abdominal aortic aneurysm measuring 4 centimeters proximally and then 4.8 centimeters distally just above the bifurcation with abundant circumferential mural thrombus. No aortic dissection.
[2016-11-20] MEDS: Enoxaparin 40 mg Syringe SC SCH (08:39)
[2016-11-20] MEDS: Lidocaine 5% Patch TD SCH ×2 (08:40→09:24)
[2016-11-20] MEDS: Magnesium Hydroxide Susp 30 ml UD PO SCH (08:41)
[2016-11-20 09:01] LABS: HEMATOCRIT 38.1 % (34.0-47.0); MEAN CELL VOLUME 83.6 fl (81.0-99.0); MEAN CORPUSCULAR HEMOGLOBIN 26.7 pg (27.0-31.0); MEAN CORPUSCULAR HGB CONC 31.9 g/dL (33.0-37.0); RED CELL DISTRIBUTION WIDTH 14.7 % (11.5-14.5); WHITE BLOOD COUNT 2.3 K/uL (4.8-10.8)
--- NOTE | 2016-11-20 09:18 | CP.PCM.PN ---
Subjective - Date & Time of Evaluation Date of Evaluation: 11/20/16 Time of Evaluation: 09:16 - Subjective Subjective: No acute overnight events. Patient seen eating breakfast in bed comfortable. No complaints at this time. States she no longer has back pain and her BM have become more regular. Denies CP, Dizziness, SOB, Abdominal pain, diarrhea, or dysuria. Objective - Vital Signs/Intake and Output Vital Signs (last 24 hours): Temp Pulse Resp BP Pulse Ox 97.6 F 62 18 131/68 95 11/20/16 08:00 11/20/16 08:00 11/20/16 08:00 11/20/16 08:00 11/20/16 08:00 - Medications Medications: Current Medications Acetaminophen (Tylenol 325mg Tab) 650 mg PO Q6 PRN PRN Reason: Pain, Mild (1-3) Last Admin: 11/20/16 04:32 Dose: 650 mg Enoxaparin Sodium (Lovenox) 40 mg SC DAILY [facility] PRN Reason: Protocol Last Admin: 11/20/16 08:39 Dose: 40 mg Famotidine (Pepcid) 20 mg PO DAILY [facility] Last Admin: 11/20/16 08:40 Dose: 20 mg Ketorolac Tromethamine (Toradol) 15 mg IVP Q6 PRN PRN Reason: Pain, moderate (4-7) Last Admin: 11/17/16 21:49 Dose: 15 mg Lidocaine (Lidoderm) 2 ea TD DAILY [facility] Last Admin: 11/20/16 08:40 Dose: 2 ea Magnesium Hydroxide (Milk Of Magnesia) 30 ml PO DAILY [facility] Last Admin: 11/20/16 08:41 Dose: 30 ml Sennosides (Senokot Tab) 8.6 mg PO BID [facility] Last Admin: 11/20/16 08:40 Dose: 8.6 mg - Labs Labs: 11/20/16 05:30 - Constitutional Appears: Well, Cachectic - Respiratory Exam Respiratory Exam: Clear to Ausculation Bilateral. absent: Accessory Muscle Use , Rales, Wheezes - Cardiovascular Exam Cardiovascular Exam: REGULAR RHYTHM, +S1, +S2, Murmur Additional comments: Systolic ejection murmur - GI/Abdominal Exam GI & Abdominal Exam: Normal Bowel Sounds. absent: Distended, Firm, Guarding - Neurological Exam Neurological Exam: Alert, Awake, Oriented x3 - Psychiatric Exam Psychiatric exam: Normal Affect Assessment and Plan (1) Acute back pain Status: Acute (2) Constipation Status: Acute - Assessment and Plan (Free Text) Assessment: 81 y/o F with PMH including DM2 (diet controlled), COPD, PVD, Abdominal aortic aneurism, Aortic Stenosis, Chronic constipation,Urinary Incontinence recent history of falls being managed for acute back pain and constipation. Acute Back pain - Improving -Likely due to Compression fracture. -Chest CT (11/15/16) Compression fractures of T10 (severe), L1 (moderate), L2 ( mild), moderate hiatal hernia -Lumbar CT (11/16/16)-Chronic L1 compression fracture, new L2 compression fracture (since study in 2015) -Lumbar MRI (11/17/16) Compression fracture of L1 with acute marrow edema, No retropulsion of the posterior vertebral body wall into the spinal canal. Conus medullaris unremarkable. 5cm Infrarenal abdominal aortic aneurysm; Central Disc Herniation in L4-L5 with thecal sac indentation. -Thoracic MRI- Severe chronic compression fracture of T9 with an associated disc ridge complex at T9-T10, with thecal sac indentation and encroachment upon the ventral margin of the distal cord with cord impingement -Recent Abdominal CT (11-15) positive for Cholelithiasis w/o cholecystitis, dilated pancreatic duct of uncertain etiology, and questionnable dissection of the distal descending thoracic aorta versus ulcerated plaque. Recommended to do a non-emergent CT Angio of the aorta. CT angio of the chest performed 1 year ago on 11/14/15 detected outpouchings from the descending aorta2 stable infrarenal aortic aneurisms measuring 4.2cm and 4.4cm respectively. Also seen was outpouchings of contrast in the descending thoracic aorta, possible penetrating ulcers. -IR consult- will likely need Kyphoplasty procedure, cardiac clearance needed as procedure is to be done under general anesthesia -Cardio consulted for preoperative risk stratification for Kyphoplasty procedure as well as to evaluate her aortic valve stenosis- As far as risk stratification for possible Kyphoplasty procedure,pt will need further evaluation with Lexiscan nuclear stress test. At this point, any procedure under general anesthesia would put her at high risk for perioperative event from cardiology standpoint. -Consulted Neurosurgery about the Thoracic MRI study report with regards to the cord impingement, Dr. Heri evaluated pt today and does not recommend any treatment at this time. Will follow the pt as necessary -Will likely need Kypoplasty for compression fracture under general anesthesis pending Cardio clearance. -Pain Management: Tylenol 650mg PO prn, Torodol 15mg prn, Lidocaine patches 2 each daily -Fall risk protocol -PT/OT Constipation- Resolved -Two well formed bowel movements yesterday -Continue Senokot and Milk of Magnesia Leukopenia- Chronic -Blood smear- Pending -Protein Electrophoresis- elevated B2 Globulin and Gamma Globulin, possibly an indication of Multiple Myeloma or CLL -Will f/u on Blood Smear Moderate Aortic Stenosis -Asymptomatic. Chronic, last echo in 2016 Aortic Valvular Area- 1.1cm2 -Cardio consulted to [facility]. As per Dr. Elmore: Most recent TTE was reviewed and is consistent with possible severe although it underestimates aortic valve area. Recent hx of falls is concerning for possible dizziness and hemodynamic compromise from aortic stenosis. Will evaluate further with ZINA -CT Angiography done for suspected aortic dissection: Negative for aortic dissection, likely an atherosclerotic plaque on descending thoracic aorta -ZINA planned for Monday (f/u), NPO at midnight Impingement - Neurosurgery consulted - Routine observation as per Neurosurgery NIDDM2 -Diet controlled -Last HgbA1c: 6.8% on 10/21/15 -Consistent carbohydrate diet History of COPD -Asymptomatic -Not on any home meds DVT Prophlyaxis -Lovenox 40mg Diet Regular, will be NPO
[2016-11-21] MEDS ORDERED: Propofol 10 mg/ml Inj (20 ML) ONE (10:07)
[2016-11-21] MEDS ORDERED: Ketamine 50 mg/ml Inj (10 ml) ONE (10:08)
[2016-11-21] MEDS ORDERED: Phenylephrine 10 mg/ml Inj ONE (10:10)
[2016-11-21] MEDS ORDERED: Etomidate 20 mg/10ml Inj IV ONE (10:14)
[2016-11-21] MEDS ORDERED: Sodium Chloride 0.9% 250 ML IV ONE (11:55)
--- NOTE | 2016-11-21 12:08 | CP.PCM.PN ---
Subjective - Date & Time of Evaluation Date of Evaluation: 11/21/16 Time of Evaluation: 12:06 - Subjective Subjective: Patient seen and evaluated in the morning. Complaining of back pain that is relieved by pain medication. Denies any constipation, CP, SOB, Abdominal pain, constipation, diarrhea, numbness or tingling in extremities. Objective - Vital Signs/Intake and Output Vital Signs (last 24 hours): Temp Pulse Resp BP Pulse Ox 97.0 F L 67 18 159/75 H 99 11/21/16 10:40 11/21/16 11:10 11/21/16 11:10 11/21/16 11:10 11/21/16 11:10 - Medications Medications: Current Medications Acetaminophen (Tylenol 325mg Tab) 650 mg PO Q6 PRN PRN Reason: Pain, Mild (1-3) Last Admin: 11/20/16 04:32 Dose: 650 mg Enoxaparin Sodium (Lovenox) 40 mg SC DAILY [facility] PRN Reason: Protocol Last Admin: 11/20/16 08:39 Dose: 40 mg Famotidine (Pepcid) 20 mg PO DAILY [facility] Last Admin: 11/20/16 08:40 Dose: 20 mg Ketorolac Tromethamine (Toradol) 15 mg IVP Q6 PRN PRN Reason: Pain, moderate (4-7) Last Admin: 11/20/16 20:07 Dose: 15 mg Lidocaine (Lidoderm) 2 ea TD DAILY [facility] Last Admin: 11/20/16 09:24 Dose: Not Given Magnesium Hydroxide (Milk Of Magnesia) 15 ml PO DAILY [facility] Sennosides (Senokot Tab) 8.6 mg PO HS [facility] - Labs Labs: 11/20/16 05:30 - Constitutional Appears: Well, Cachectic - Respiratory Exam Respiratory Exam: Clear to Ausculation Bilateral. absent: Rales, Wheezes, Respiratory Distress - Cardiovascular Exam Cardiovascular Exam: REGULAR RHYTHM, +S1, +S2 Additional comments: Systolic ejection murmur - Neurological Exam Neurological Exam: Alert, Awake, Oriented x3 Neuro motor strength exam: Left Upper Extremity: 5, Right Upper Extremity: 5, Left Lower Extremity: 5, Right Lower Extremity: 5 - Psychiatric Exam Psychiatric exam: Normal Affect Assessment and Plan (1) Acute back pain Status: Acute (2) Constipation Status: Acute - Assessment and Plan (Free Text) Assessment: 81 y/o F with PMH including DM2 (diet controlled), COPD, PVD, Abdominal aortic aneurism, Aortic Stenosis, Chronic constipation,Urinary Incontinence recent history of falls being managed for acute back pain and constipation. Acute Back pain - Improving -Likely due to Compression fracture. -Chest CT (11/15/16) Compression fractures of T10 (severe), L1 (moderate), L2 ( mild), moderate hiatal hernia -Lumbar CT (11/16/16)-Chronic L1 compression fracture, new L2 compression fracture (since study in 2015) -Lumbar MRI (11/17/16) Compression fracture of L1 with acute marrow edema, No retropulsion of the posterior vertebral body wall into the spinal canal. Conus medullaris unremarkable. 5cm Infrarenal abdominal aortic aneurysm; Central Disc Herniation in L4-L5 with thecal sac indentation. -Thoracic MRI- Severe chronic compression fracture of T9 with an associated disc ridge complex at T9-T10, with thecal sac indentation and encroachment upon the ventral margin of the distal cord with cord impingement -Recent Abdominal CT (11-15) positive for Cholelithiasis w/o cholecystitis, dilated pancreatic duct of uncertain etiology, and questionnable dissection of the distal descending thoracic aorta versus ulcerated plaque. Recommended to do a non-emergent CT Angio of the aorta. CT angio of the chest performed 1 year ago on 11/14/15 detected outpouchings from the descending aorta2 stable infrarenal aortic aneurisms measuring 4.2cm and 4.4cm respectively. Also seen was outpouchings of contrast in the descending thoracic aorta, possible penetrating ulcers. -IR consult- will likely need Kyphoplasty procedure, cardiac clearance needed as procedure is to be done under general anesthesia -Cardio consulted for preoperative risk stratification for Kyphoplasty procedure as well as to evaluate her aortic valve stenosis- As far as risk stratification for possible Kyphoplasty procedure,pt will need further evaluation with Lexiscan nuclear stress test. At this point, any procedure under general anesthesia would put her at high risk for perioperative event from cardiology standpoint. -Consulted Neurosurgery about the Thoracic MRI study report with regards to the cord impingement, Dr. Liriano evaluated pt today and does not recommend any treatment at this time. Will follow the pt as necessary -Will likely need Kypoplasty for compression fracture under general anesthesis pending Cardio clearance. -Pain Management: Tylenol 650mg PO prn, Torodol 15mg prn, Lidocaine patches 2 each daily -Fall risk protocol -PT/OT -Plan: Stress test today to be cleared by Cardio for Kyphoplasty Constipation- Resolved -Regular well formed BM -Continue Senokot and Milk of Magnesia Leukopenia- Chronic -Blood smear- Pending -Protein Electrophoresis- elevated B2 Globulin and Gamma Globulin, possibly an indication of Multiple Myeloma or CLL -Will f/u on Blood Smear Moderate Aortic Stenosis -Asymptomatic. Chronic, last echo in 2016 Aortic Valvular Area- 1.1cm2 -[facility] Elmore: Most recent TTE was reviewed and is consistent with possible severe although it underestimates aortic valve area. Recent hx of falls is concerning for possible dizziness and hemodynamic compromise from aortic stenosis. Will evaluate further with LUIS -CT Angiography done for suspected aortic dissection: Negative for aortic dissection, likely an atherosclerotic plaque on descending thoracic aorta -Luis planned for today Impingement - Neurosurgery consulted - Routine observation as per Neurosurgery -Will consult neuro NIDDM2 -Diet controlled -Last HgbA1c: 6.8% on 10/21/15 -Consistent carbohydrate diet History of COPD -Asymptomatic -Not on any home meds DVT Prophlyaxis -Lovenox 40mg Diet Regular, will be NPO
[2016-11-21] MEDS: Enoxaparin 40 mg Syringe SC SCH (12:33)
[2016-11-21] MEDS: Lidocaine 5% Patch TD SCH (12:33)
[2016-11-21] MEDS: Magnesium Hydroxide Susp 30 ml UD PO SCH (17:29)
--- NOTE | 2016-11-22 08:07 | CP.PCM.PN ---
Subjective - Date & Time of Evaluation Date of Evaluation: 11/22/16 Time of Evaluation: 06:45 - Subjective Subjective: No acute overnight events. Pt seen and examined at the bedside. Complains of mild back pain since this morning. States that the pain medication resolves her pain completely. States she is having regular BM.Denies any CP, SOB, N/V/D, constipation, numbness or tingling in lower extremities, motor deficits, loss of bowels. Objective - Vital Signs/Intake and Output Vital Signs (last 24 hours): Temp Pulse Resp BP Pulse Ox 99.2 F 84 19 123/60 93 L 11/22/16 04:48 11/22/16 04:48 11/22/16 04:48 11/22/16 04:48 11/22/16 04:48 - Medications Medications: Current Medications Acetaminophen (Tylenol 325mg Tab) 650 mg PO Q6 PRN PRN Reason: Pain, Mild (1-3) Last Admin: 11/20/16 04:32 Dose: 650 mg Enoxaparin Sodium (Lovenox) 40 mg SC DAILY [facility] PRN Reason: Protocol Last Admin: 11/21/16 12:33 Dose: 40 mg Famotidine (Pepcid) 20 mg PO DAILY [facility] Last Admin: 11/21/16 17:23 Dose: 20 mg Ketorolac Tromethamine (Toradol) 15 mg IVP Q6 PRN PRN Reason: Pain, moderate (4-7) Last Admin: 11/21/16 21:22 Dose: 15 mg Lidocaine (Lidoderm) 2 ea TD DAILY [facility] Last Admin: 11/21/16 12:33 Dose: 2 ea Magnesium Hydroxide (Milk Of Magnesia) 15 ml PO DAILY [facility] Last Admin: 11/21/16 17:29 Dose: Not Given Sennosides (Senokot Tab) 8.6 mg PO HS [facility] Last Admin: 11/21/16 21:20 Dose: Not Given - Labs Labs: 11/20/16 05:30 - Constitutional Appears: Well, Cachectic - Respiratory Exam Respiratory Exam: Clear to Ausculation Bilateral. absent: Accessory Muscle Use , Rales, Wheezes, Respiratory Distress - Cardiovascular Exam Cardiovascular Exam: REGULAR RHYTHM, +S1, +S2, Murmur Additional comments: Systolic ejection murmur - GI/Abdominal Exam GI & Abdominal Exam: Soft, Normal Bowel Sounds. absent: Distended, Tenderness - Extremities Exam Extremities Exam: Normal Capillary Refill. absent: Pedal Edema - Back Exam Back Exam: vertebral tenderness - Neurological Exam Neurological Exam: Alert, Awake, Oriented x3 Neuro motor strength exam: Left Upper Extremity: 5, Right Upper Extremity: 5, Left Lower Extremity: 5, Right Lower Extremity: 5 - Psychiatric Exam Psychiatric exam: Normal Affect Assessment and Plan (1) Acute back pain Status: Acute (2) Constipation Status: Resolved - Assessment and Plan (Free Text) Assessment: 81 y/o F with PMH including DM2 (diet controlled), COPD, PVD, Abdominal aortic aneurism, Aortic Stenosis, Chronic constipation,Urinary Incontinence recent history of falls being managed for acute back pain and constipation. Acute Back pain - Improving -Likely due to Compression fracture. -Chest CT (11/15/16) Compression fractures of T10 (severe), L1 (moderate), L2 ( mild), moderate hiatal hernia -Lumbar CT (11/16/16)-Chronic L1 compression fracture, new L2 compression fracture (since study in 2015) -Lumbar MRI (11/17/16) Compression fracture of L1 with acute marrow edema, No retropulsion of the posterior vertebral body wall into the spinal canal. Conus medullaris unremarkable. 5cm Infrarenal abdominal aortic aneurysm; Central Disc Herniation in L4-L5 with thecal sac indentation. -Thoracic MRI- Severe chronic compression fracture of T9 with an associated disc ridge complex at T9-T10, with thecal sac indentation and encroachment upon the ventral margin of the distal cord with cord impingement -Recent Abdominal CT (11-15) positive for Cholelithiasis w/o cholecystitis, dilated pancreatic duct of uncertain etiology, and questionnable dissection of the distal descending thoracic aorta versus ulcerated plaque. Recommended to do a non-emergent CT Angio of the aorta. CT angio of the chest performed 1 year ago on 11/14/15 detected outpouchings from the descending aorta2 stable infrarenal aortic aneurisms measuring 4.2cm and 4.4cm respectively. Also seen was outpouchings of contrast in the descending thoracic aorta, possible penetrating ulcers. -IR consult- will likely need Kyphoplasty procedure, cardiac clearance needed as procedure is to be done under general anesthesia -Cardio consulted for preoperative risk stratification for Kyphoplasty procedure as well as to evaluate her aortic valve stenosis- Dr. As far as risk stratification for possible Kyphoplasty procedure,pt will need further evaluation with Lexiscan nuclear stress test. At this point, any procedure under general anesthesia would put her at high risk for perioperative event from cardiology standpoint. ZINA performed on (11/21): RESULT Likely Cath OP vs IP -Consulted Neurosurgery about the Thoracic MRI study report with regards to the cord impingement, Dr. Liriano evaluated pt today and does not recommend any treatment at this time. Will follow the pt as necessary -Will likely need Kypoplasty for compression fracture under general anesthesis pending Cardio clearance. -Pain Management: Tylenol 650mg PO BID, Torodol 15mg prn, Lidocaine patches 2 each daily -Fall risk protocol -PT/OT , Pt has agreed to rehab post hospitalization -Plan: F/U on Echo report and speak with Dr. Elmore on how he wants to proceed with her Cath procedure (Inpatient vs Outpatient), F/u on Neuro consults for management of compression fracture. Call Nuclear medicine about stress test. Constipation- Resolved -Regular well formed BM -Continue Senokot -Milk of Magnesia D/C as constipation has improved and to prevent side effects Leukopenia- Chronic -Blood smear- Pending -Protein Electrophoresis- elevated B2 Globulin and Gamma Globulin, possibly an indication of Multiple Myeloma or CLL -Will f/u on Blood Smear Moderate Aortic Stenosis -Asymptomatic. Chronic, last echo in 2016 Aortic Valvular Area- 1.1cm2 -Cardio consulted to evaulate. As per Dr. Elmore: Most recent TTE was reviewed and is consistent with possible severe although it underestimates aortic valve area. Recent hx of falls is concerning for possible dizziness and hemodynamic compromise from aortic stenosis. See ZINA report -CT Angiography done for suspected aortic dissection: Negative for aortic dissection, likely an atherosclerotic plaque on descending thoracic aorta Impingement - Neurosurgery consulted - Routine observation as per Neurosurgery -F/U Neuro consult NIDDM2 -Diet controlled -Last HgbA1c: 6.8% on 10/21/15 -Consistent carbohydrate diet History of COPD -Asymptomatic -Not on any home meds DVT Prophlyaxis -Lovenox 30mg Diet Regular, will be NPO
[2016-11-22] MEDS: Enoxaparin 40 mg Syringe SC SCH (08:47)
[2016-11-22] MEDS: Lidocaine 5% Patch TD SCH (08:48)
[2016-11-22] MEDS: Magnesium Hydroxide Susp 30 ml UD PO SCH (08:48)
[2016-11-22] MEDS ORDERED: Enoxaparin 40 mg Syringe SC SCH (10:12)
--- NOTE | 2016-11-22 14:21 | CP.PCM.CON ---
History of Present Illness - History of Present Illness History of Present Illness: Neurology Consult Note Mrs. Fleming is an 81-year-old woman with a past medical history significant for type 2 DM, COPD, PVD, AAA, severe , who states that she uses a walker for stability at baseline, but about two weeks ago she had difficulty maintaining her balance and fell. She has had back pain since then that has not gotten better. She presented to the ED with this complaint. She denied any new weakness, sensory changes or differences in her ability to hold her urine. She does have chronic constipation, but when she presented to the ED she apparently had not had a bowel movement in the last 8 days. Initial exam showed that her rectal tone was normal and there has been no change in that. She had an MRI done of the thoracic and lumbar spine which showed a T9 vertebral body compression fracture along with thecal sac compression and mild cord impingement. Neurosurgery was consulted and there was no indication for decompressive surgery; however, the patient is planned for a kyphoplasty pending cardiac clearance. Review of Systems - Review of Systems All systems: reviewed and no additional remarkable complaints except Past Patient History - Past Medical History & Family History Past Medical History?: Yes - Past Social History Smoking Status: Former Smoker - CARDIAC Hx Hypercholesterolemia: Yes Hx Hypertension: Yes Hx Peripheral Vascular Disease: Yes - PULMONARY Hx Chronic Obstructive Pulmonary Disease (COPD): Yes - NEUROLOGICAL Hx Neurological Disorder: No - HEENT Hx HEENT Problems: Yes Hx Cataracts: Yes - RENAL Hx Chronic Kidney Disease: No - ENDOCRINE/METABOLIC Hx Endocrine Disorders: Yes - HEMATOLOGICAL/ONCOLOGICAL Hx Blood Disorders: No - INTEGUMENTARY Hx Dermatological Problems: No - MUSCULOSKELETAL/RHEUMATOLOGICAL Hx Arthritis: Yes - GASTROINTESTINAL Hx Gastrointestinal Disorders: Yes Other/Comment: abdominal aortic aneurysm - GENITOURINARY/GYNECOLOGICAL Hx Genitourinary Disorders: No - PSYCHIATRIC Hx Psychophysiologic Disorder: No Hx Substance Use: No - SURGICAL HISTORY Hx Musculoskeletal Surgery: Yes (Left Hip ORIF) - ANESTHESIA Hx Anesthesia: Yes Hx Anesthesia Reactions: No Hx Malignant Hyperthermia: No Meds Allergies/Adverse Reactions: Allergies Allergy/AdvReac Type Severity Reaction Status Date / Time No Known Allergies Allergy Verified 11/14/15 02:22 - Medications Medications: Current Medications Acetaminophen (Tylenol 325mg Tab) 650 mg PO Q6 PRN PRN Reason: Pain, Mild (1-3) Last Admin: 11/20/16 04:32 Dose: 650 mg Acetaminophen (Tylenol 325mg Tab) 325 mg PO Q12 [facility] Benzocaine/Menthol (Cepacol Sore Throat) 1 fermin PO Q2 PRN PRN Reason: Sore Throat Lidocaine (Lidoderm) 2 ea TD DAILY [facility] Last Admin: 11/22/16 08:48 Dose: 2 ea Sennosides (Senokot Tab) 8.6 mg PO HS [facility] Last Admin: 11/22/16 08:47 Dose: 8.6 mg Physical Exam - Constitutional Appears: Well - Head Exam Head Exam: ATRAUMATIC, NORMAL INSPECTION, NORMOCEPHALIC - Eye Exam Eye Exam: EOMI, Normal appearance, PERRL Pupil Exam: NORMAL ACCOMODATION, PERRL - ENT Exam ENT Exam: Mucous Membranes Moist, Normal Exam - Neck Exam Neck exam: Positive for: Normal Inspection - Respiratory Exam Respiratory Exam: Clear to Auscultation Bilateral, NORMAL BREATHING PATTERN - Cardiovascular Exam Cardiovascular Exam: REGULAR RHYTHM, +S1, +S2 - GI/Abdominal Exam GI & Abdominal Exam: Normal Bowel Sounds, Soft. absent: Tenderness - Rectal Exam Rectal Exam: Deferred - Extremities Exam Extremities exam: Positive for: normal inspection - Back Exam Back exam: NORMAL INSPECTION, vertebral tenderness - Neurological Exam Neurological exam: Abnormal Gait, Alert, CN II-XII Intact, Oriented x3, Reflexes Normal - Expanded Neurological Exam Expanded Patient oriented to: person, place, time Cranial nerves: EOM's Intact: Normal, Facial Sensation: Normal, Nystagmus: Normal Cerebellar Function: Finger to Nose: Normal, Heel to Dent: Normal Upper motor neuron: Babinski Sign: Normal Sensory exam: Lower Extremity Light Touch: Normal, Lower Extremity Pin Prick: Normal, Upper Extremity Light Touch: Normal, Upper Extremity Pin Prick: Normal Neuro motor strength exam: Left Upper Extremity: 4, Right Upper Extremity: 4, Left Lower Extremity: 4, Right Lower Extremity: 4 DTR: Achilles Tendon Left: 2+, Achilles Tendon Right: 2+, Bicep Left: 2+, Bicep Right: 2+, Brachioradialis Left: 2+, Brachioradialis Right: 2+, Patellar Left: 2 +, Patellar Right: 2+, Tricep Left: 2+, Tricep Right: 2+ - Psychiatric Exam Psychiatric exam: Normal Affect, Normal Mood - Skin Skin Exam: Dry, Intact, Normal Color, Warm Results - Vital Signs Recent Vital Signs: Last Vital Signs Temp 98.4 F 11/22/16 12:33 Pulse 82 11/22/16 12:33 Resp 18 11/22/16 12:33 BP 125/76 11/22/16 12:33 Pulse Ox 96 11/22/16 12:33 - Labs Result Diagrams: 11/20/16 05:30 11/15/16 11:30 Labs: Laboratory Results - last 24 hr 11/18/16 15:00 Vitamin B1 85 - Imaging and Cardiology MRI - thoracic spine Status: Image reviewed by me, Report reviewed by me Assessment & Plan (1) Compression fracture Assessment and Plan: Clinically, the patient does not have significant weakness from the cord involvement. However, this could be progressive from a chronic condition. I recommend bone density testing and managing appropriately. She does not have any neuropathic pain. Controlling pain with NSAIDs and avoiding opiates (very constipated) is recommended. She is cleared for kyphoplasty from a neurological stand point. Thank you. Status: Acute Priority: High
[2016-11-22] MEDS: Benzocaine/Menthol (Cepacol) Lozenge PO PRN (16:07)
[2016-11-23] MEDS: Lidocaine 5% Patch TD SCH (10:39)
--- NOTE | 2016-11-23 12:01 | CP.PCM.PN ---
Subjective - Date & Time of Evaluation Date of Evaluation: 11/23/16 Time of Evaluation: 17:15 - Subjective Subjective: Patient seen and examined upon return from Cath procedure. Complaining of mild pain in her left leg that was relieved by Tylenol. No complaints of chest pain, SOB, palpatations, motor or sensory deficits in extremities, n/v/c/d Objective - Vital Signs/Intake and Output Vital Signs (last 24 hours): Temp Pulse Resp BP Pulse Ox 97.6 F 63 18 124/70 95 11/23/16 04:43 11/23/16 04:43 11/23/16 04:43 11/23/16 04:43 11/23/16 04:43 - Medications Medications: Current Medications Acetaminophen (Tylenol 325mg Tab) 650 mg PO Q6 PRN PRN Reason: Pain, Mild (1-3) Last Admin: 11/20/16 04:32 Dose: 650 mg Acetaminophen (Tylenol 325mg Tab) 325 mg PO Q12 [facility] Last Admin: 11/23/16 10:39 Dose: Not Given Benzocaine/Menthol (Cepacol Sore Throat) 1 fermin PO Q2 PRN PRN Reason: Sore Throat Last Admin: 11/22/16 16:07 Dose: 1 fermin Lidocaine (Lidoderm) 2 ea TD DAILY [facility] Last Admin: 11/23/16 10:39 Dose: Not Given Sennosides (Senokot Tab) 8.6 mg PO HS [facility] Last Admin: 11/22/16 22:00 Dose: Not Given - Labs Labs: 11/20/16 05:30 - Constitutional Appears: Well, Cachectic - ENT Exam ENT Exam: Mucous Membranes Moist - Respiratory Exam Respiratory Exam: Clear to Ausculation Bilateral. absent: Respiratory Distress - Cardiovascular Exam Cardiovascular Exam: REGULAR RHYTHM, +S1, +S2, Murmur Additional comments: Systolic ejection murmur - GI/Abdominal Exam GI & Abdominal Exam: Soft. absent: Tenderness - Extremities Exam Extremities Exam: Normal Capillary Refill. absent: Pedal Edema - Neurological Exam Neurological Exam: Alert, Awake, Oriented x3 Assessment and Plan (1) Acute back pain Status: Acute (2) Constipation Status: Resolved - Assessment and Plan (Free Text) Assessment: 81 y/o F with PMH including DM2 (diet controlled), COPD, PVD, Abdominal aortic aneurism, Aortic Stenosis, Chronic constipation,Urinary Incontinence recent history of falls being managed for acute back pain and constipation. Acute Back pain - Improving -Likely due to Compression fracture. -Chest CT (11/15/16) Compression fractures of T10 (severe), L1 (moderate), L2 ( mild) -Lumbar CT (11/16/16)-Chronic L1 compression fracture, new L2 compression fracture (since study in 2016) -Lumbar MRI (11/17/16) Compression fracture of L1 with acute marrow edema, No retropulsion of the posterior vertebral body wall into the spinal canal. Conus medullaris unremarkable. 5cm Infrarenal abdominal aortic aneurysm; Central Disc Herniation in L4-L5 with thecal sac indentation. -Thoracic MRI- Severe chronic compression fracture of T9 with an associated disc ridge complex at T9-T10, with thecal sac indentation and encroachment upon the ventral margin of the distal cord with cord impingement. -Consulted Neurosurgery- does not recommend any surgical treatment at this time -IR consult- will likely need Kyphoplasty procedure, cardiac clearance needed as procedure is to be done under general anesthesia -Pain Management: Tylenol 650mg PO BID, Torodol 15mg prn, Lidocaine patches 2 each daily -Fall risk protocol -PT/OT , Pt has agreed to rehab post hospitalization -Plan: Will f/u with Training Program Assistant with regards to clearance for Kyphoplasty. C/ w current pain management Constipation- Resolved -Regular well formed BM -Continue Senokot -Milk of Magnesia D/C as constipation has improved and to prevent side effects Leukopenia- Chronic -Blood smear- Pending -Protein Electrophoresis- elevated B2 Globulin and Gamma Globulin, possibly an indication of Multiple Myeloma or CLL -Will f/u on Blood Smear Moderate Aortic Stenosis -Asymptomatic. Chronic, last echo in 2016 Aortic Valvular Area- 1.1cm2 -Cath procedure completed today -CT Angiography done for suspected aortic dissection: Negative for aortic dissection, likely an atherosclerotic plaque on descending thoracic aorta -f/u ZINA report Vitamin D Deficiency -Vitamin D (low) 24.5 -started on Vitamin D3, 800 INU daily PO Impingement - Neurosurgery consulted - Routine observation as per Neurosurgery -Neuro-cleared for Kyphoplasty from neuro standpoint NIDDM2 -Diet controlled -Last HgbA1c: 6.8% on 10/21/15 -Consistent carbohydrate diet History of COPD -Asymptomatic -Not on any home meds DVT Prophlyaxis -Lovenox 30mg Diet Regular
--- NOTE | 2016-11-23 17:58 | CARD ---
APPROVED REPORT EXAM: Transesophageal echocardiogram with color flow Doppler. INDICATION ICD: 424.0 Aortic Valve Disorders Aortic Valve Disease Syncope Aortic Valve AoV Peak [id number]/sAoV VTI41.3cmAO Peak GR.14mmHg LVOT Peak Mndkhqmt169.6cm/Shailesh Mean GR.8mmHgAI P 1/2 [id number] Mitral Valve E/A ratio0.0 TDI E/Lateral E'0.0E/Medial E'0.0 Reason For Test : Evaluate for PROCEDURE After obtaining informed consent, patient underwent transesophageal echo in the PACU Type of Sedation : Conscious Sedation Sedation was provided by anesthesiologist. Sedation was achieved with intravenously. Transesophageal probe was inserted and advanced into esophagus without difficulty. The ZINA was performed without complications. Throughout the procedure, the blood pressure, pulse oximetry, cardiac rhythm, and rate were monitored. The patient tolerated the procedure without adverse effects. Recovery from conscious sedation was uneventful and vital signs were stable. LEFT VENTRICLE The left ventricle is normal size. There is mild concentric left ventricular hypertrophy. Left ventricle is normal. The Ejection Fraction is 55-60%. There is normal LV segmental wall motion. Transmitral Doppler flow pattern is Grade II-pseudonormal filling dynamics. No left ventricle thrombus noted on this study. There is no ventricular septal defect visualized. RIGHT VENTRICLE The right ventricle is mildly dilated. There is normal right ventricular wall thickness. The right ventricular systolic function is normal. ATRIA The left atrium is moderately dilated. The right atrium is mildly dilated. The interatrial septum is intact with no evidence for an atrial septal defect. AORTIC VALVE The aortic valve is calcified and displays decreased opening. Right cusp and non-coronary cusp are severely calcified. There is mild to moderate aortic regurgitation. LAURO by planimetry is 0.55 cm2 with peak transaortic velocities of 2.2 m/s There is no aortic valvular vegetation. MITRAL VALVE The mitral valve is moderately thickened. There is no evidence of mitral valve prolapse. There is no mitral valve stenosis. Mitral regurgitation is moderate. TRICUSPID VALVE The tricuspid valve leaflets are thickened , but open well. There is mild to moderate tricuspid regurgitation. There is no tricuspid valve prolapse or vegetation. There is no tricuspid valve stenosis. PULMONIC VALVE The pulmonary valve is normal in structure and function. There is trace to mild pulmonic valvular regurgitation. There is no pulmonic valvular stenosis. GREAT VESSELS The aortic root is normal in size. The IVC was not visualized. PERICARDIAL EFFUSION The pericardium appears normal. There is no pleural effusion. <Conclusion> Left ventricle is normal. The Ejection Fraction is 55-60%. Transmitral Doppler flow pattern is Grade II-pseudonormal filling dynamics. The aortic valve is calcified and displays decreased opening. Right cusp and non-coronary cusp are severely calcified. LAURO by planimetry is 0.55 cm2 with peak transaortic velocities of 2.2 m/s There is trace to mild pulmonic valvular regurgitation.
--- NOTE | 2016-11-24 02:49 | CP.PCM.PN ---
Subjective - Date & Time of Evaluation Date of Evaluation: 11/23/16 Time of Evaluation: 23:00 - Subjective Subjective: feeling fine denies any complaints Objective - Vital Signs/Intake and Output Vital Signs (last 24 hours): Temp Pulse Resp BP Pulse Ox 97.7 F 82 18 80/43 L 95 11/23/16 23:52 11/23/16 23:52 11/23/16 23:52 11/23/16 23:52 11/23/16 23:52 Intake and Output: 11/23/16 11/24/16 18:59 06:59 Intake Total 680 Balance 680 - Medications Medications: Current Medications Acetaminophen (Tylenol 325mg Tab) 650 mg PO Q6 PRN PRN Reason: Pain, Mild (1-3) Last Admin: 11/24/16 02:10 Dose: 650 mg Acetaminophen (Tylenol 325mg Tab) 325 mg PO Q12 [facility] Last Admin: 11/23/16 22:24 Dose: Not Given Benzocaine/Menthol (Cepacol Sore Throat) 1 fermin PO Q2 PRN PRN Reason: Sore Throat Last Admin: 11/22/16 16:07 Dose: 1 fermin Lidocaine (Lidoderm) 2 ea TD DAILY [facility] Last Admin: 11/23/16 10:39 Dose: Not Given Sennosides (Senokot Tab) 8.6 mg PO HS [facility] Last Admin: 11/23/16 21:17 Dose: 8.6 mg Vitamin D (Vitamin D 400 Intl Units Tab) 800 intlu PO DAILY [facility] - Labs Labs: 11/20/16 05:30 - Constitutional Appears: Well - Head Exam Head Exam: ATRAUMATIC, NORMAL INSPECTION, NORMOCEPHALIC - Eye Exam Eye Exam: EOMI, Normal appearance, PERRL Pupil Exam: NORMAL ACCOMODATION, PERRL - ENT Exam ENT Exam: Mucous Membranes Moist, Normal Exam - Neck Exam Neck Exam: Full ROM, Normal Inspection. absent: Lymphadenopathy - Respiratory Exam Respiratory Exam: Clear to Ausculation Bilateral, NORMAL BREATHING PATTERN - Cardiovascular Exam Cardiovascular Exam: REGULAR RHYTHM, +S1, +S2, Murmur - GI/Abdominal Exam GI & Abdominal Exam: Soft, Normal Bowel Sounds. absent: Tenderness - Rectal Exam Rectal Exam: NORMAL INSPECTION - Extremities Exam Extremities Exam: Normal Capillary Refill, Normal Inspection. absent: Joint Swelling, Pedal Edema - Back Exam Back Exam: paraspinal tenderness, vertebral tenderness - Neurological Exam Neurological Exam: Alert, Awake, CN II-XII Intact, Oriented x3 - Psychiatric Exam Psychiatric exam: Normal Affect, Normal Mood - Skin Skin Exam: Dry, Intact, Normal Color, Warm Assessment and Plan (1) Aortic stenosis Assessment & Plan: Low flow low gradient severe will plan for staged TAVR Status: Acute (2) Preop cardiovascular exam Assessment & Plan: As per ACC/AHA guidelines she can proceed with planned kyphoplasty with intermediate risk for perioperative cardiac event Status: Acute (3) Dizziness Status: Acute (4) Fall at home Status: Acute (5) PVD (peripheral vascular disease) Status: Acute
[2016-11-24] MEDS: Cholecalciferol 400 Intl Units Tab PO SCH (09:09)
[2016-11-24] MEDS: Lidocaine 5% Patch TD SCH (09:37)
[2016-11-24] MEDS ORDERED: Enoxaparin 30 mg Syringe SC ONE (12:10)
[2016-11-24] MEDS ORDERED: Sodium Chloride 0.9% 1,000 ML IV SCH (13:45)
--- NOTE | 2016-11-24 16:19 | CP.PCM.PN ---
Subjective - Date & Time of Evaluation Date of Evaluation: 11/24/16 Time of Evaluation: 07:00 - Subjective Subjective: Patient seen and examined at the bedside this morning. Complaining of difficulty swallowing liquids. No complaints of back pain. Denies CP, SOB, N/V/ D Objective - Vital Signs/Intake and Output Vital Signs (last 24 hours): Temp Pulse Resp BP Pulse Ox 98.1 F 87 18 114/73 96 11/24/16 12:00 11/24/16 12:00 11/24/16 12:00 11/24/16 12:00 11/24/16 12:00 - Medications Medications: Current Medications Acetaminophen (Tylenol 325mg Tab) 650 mg PO Q6 PRN PRN Reason: Pain, Mild (1-3) Last Admin: 11/24/16 02:10 Dose: 650 mg Acetaminophen (Tylenol 325mg Tab) 325 mg PO Q12 [facility] Last Admin: 11/23/16 22:24 Dose: Not Given Benzocaine/Menthol (Cepacol Sore Throat) 1 fermin PO Q2 PRN PRN Reason: Sore Throat Last Admin: 11/22/16 16:07 Dose: 1 fermin Sodium Chloride (Sodium Chloride 0.9%) 1,000 mls @ 50 mls/hr IV .Q20H [facility] Stop: 11/25/16 13:35 Lidocaine (Lidoderm) 2 ea TD DAILY [facility] Last Admin: 11/24/16 09:37 Dose: 2 ea Sennosides (Senokot Tab) 8.6 mg PO HS [facility] Last Admin: 11/23/16 21:17 Dose: 8.6 mg Vitamin D (Vitamin D 400 Intl Units Tab) 800 intlu PO DAILY [facility] - Labs Labs: 11/20/16 05:30 - Constitutional Appears: Well, Cachectic - Cardiovascular Exam Cardiovascular Exam: REGULAR RHYTHM, +S1, +S2, Murmur Additional comments: Systolic ejection murmur - GI/Abdominal Exam GI & Abdominal Exam: Normal Bowel Sounds. absent: Soft, Tenderness - Neurological Exam Neurological Exam: Alert, Awake, Oriented x3 Assessment and Plan (1) Acute back pain Status: Acute (2) Constipation Status: Resolved - Assessment and Plan (Free Text) Assessment: 81 y/o F with PMH including DM2 (diet controlled), COPD, PVD, Abdominal aortic aneurism, Aortic Stenosis, Chronic constipation,Urinary Incontinence recent history of falls being managed for acute back pain and constipation. Acute Back pain - Improving -Likely due to Compression fracture. -Chest CT (11/15/16) Compression fractures of T10 (severe), L1 (moderate), L2 ( mild) -Lumbar CT (11/16/16)-Chronic L1 compression fracture, new L2 compression fracture (since study in 2015) -Lumbar MRI (11/17/16) Compression fracture of L1 with acute marrow edema, No retropulsion of the posterior vertebral body wall into the spinal canal. Conus medullaris unremarkable. 5cm Infrarenal abdominal aortic aneurysm; Central Disc Herniation in L4-L5 with thecal sac indentation. -Thoracic MRI- Severe chronic compression fracture of T9 with an associated disc ridge complex at T9-T10, with thecal sac indentation and encroachment upon the ventral margin of the distal cord with cord impingement. -Consulted Neurosurgery- does not recommend any surgical treatment at this time -IR consult- will likely need Kyphoplasty procedure, cardiac clearance needed as procedure is to be done under general anesthesia -Pain Management: Tylenol 650mg PO BID, Torodol 15mg prn, Lidocaine patches 2 each daily -Fall risk protocol -PT/OT , Pt has agreed to rehab post hospitalization -Plan: Will f/u with [employer] with regards to clearance for Kyphoplasty. C/ w current pain management. Spoke with IR, plan for Kypoplasty of L2 (acute fracture) tomorrow. Dysphagia -Pt complains of difficulty swallowing. Failed swallow evaluation. Will get modified barium swallow tomorrow. -F/u Barium Swallow results -Liquid diet Constipation- Resolved -Regular well formed BM -Continue Senokot -Milk of Magnesia D/C as constipation has improved and to prevent side effects Leukopenia- Chronic -Blood smear- Pending -Protein Electrophoresis- elevated B2 Globulin and Gamma Globulin, possibly an indication of Multiple Myeloma or CLL -Will f/u on Blood Smear Moderate Aortic Stenosis -Asymptomatic. Chronic, last echo in 2016 Aortic Valvular Area- 1.1cm2 -Cath procedure completed today -CT Angiography done for suspected aortic dissection: Negative for aortic dissection, likely an atherosclerotic plaque on descending thoracic aorta -f/u ZINA report Vitamin D Deficiency -Vitamin D (low) 24.5 -started on Vitamin D3, 800 INU daily PO Impingement - Neurosurgery consulted - Routine observation as per Neurosurgery -Neuro-cleared for Kyphoplasty from neuro standpoint NIDDM2 -Diet controlled -Last HgbA1c: 6.8% on 10/21/15 -Consistent carbohydrate diet History of COPD -Asymptomatic -Not on any home meds DVT Prophlyaxis -Lovenox 30mg once dose given for today. Held for tomorrow's procedure Diet Regular
--- NOTE | 2016-11-25 06:03 | CP.PCM.PN ---
Subjective - Date & Time of Evaluation Date of Evaluation: 11/24/16 Time of Evaluation: 06:01 - Subjective Subjective: feeling fine , c/o back discomfort Objective - Vital Signs/Intake and Output Vital Signs (last 24 hours): Temp Pulse Resp BP Pulse Ox 97.5 F L 73 18 115/69 94 L 11/25/16 05:08 11/25/16 05:08 11/25/16 05:08 11/25/16 05:08 11/25/16 05:08 Intake and Output: 11/24/16 11/25/16 18:59 06:59 Intake Total 500 Balance 500 - Medications Medications: Current Medications Acetaminophen (Tylenol 325mg Tab) 650 mg PO Q6 PRN PRN Reason: Pain, Mild (1-3) Last Admin: 11/24/16 02:10 Dose: 650 mg Acetaminophen (Tylenol 325mg Tab) 325 mg PO Q12 [facility] Last Admin: 11/24/16 21:48 Dose: 325 mg Benzocaine/Menthol (Cepacol Sore Throat) 1 fermin PO Q2 PRN PRN Reason: Sore Throat Last Admin: 11/22/16 16:07 Dose: 1 fermin Sodium Chloride (Sodium Chloride 0.9%) 1,000 mls @ 50 mls/hr IV .Q20H [facility] Stop: 11/25/16 13:35 Last Admin: 11/24/16 17:07 Dose: 50 mls/hr Lidocaine (Lidoderm) 2 ea TD DAILY [facility] Last Admin: 11/24/16 09:37 Dose: 2 ea Sennosides (Senokot Tab) 8.6 mg PO HS [facility] Last Admin: 11/24/16 21:49 Dose: 8.6 mg Vitamin D (Vitamin D 400 Intl Units Tab) 800 intlu PO DAILY [facility] Last Admin: 11/24/16 09:09 Dose: Not Given - Labs Labs: 11/20/16 05:30 - Constitutional Appears: Well - Head Exam Head Exam: ATRAUMATIC, NORMAL INSPECTION, NORMOCEPHALIC - Eye Exam Eye Exam: EOMI, Normal appearance, PERRL Pupil Exam: NORMAL ACCOMODATION, PERRL - ENT Exam ENT Exam: Mucous Membranes Moist, Normal Exam - Neck Exam Neck Exam: Full ROM, Normal Inspection. absent: Lymphadenopathy - Respiratory Exam Respiratory Exam: Clear to Ausculation Bilateral, NORMAL BREATHING PATTERN - Cardiovascular Exam Cardiovascular Exam: REGULAR RHYTHM, RRR, +S1, +S2, Murmur - GI/Abdominal Exam GI & Abdominal Exam: Soft, Normal Bowel Sounds. absent: Tenderness - Extremities Exam Extremities Exam: Full ROM, Normal Capillary Refill, Normal Inspection. absent : Joint Swelling, Pedal Edema - Back Exam Back Exam: NORMAL INSPECTION, vertebral tenderness - Neurological Exam Neurological Exam: Alert, Awake, CN II-XII Intact, Oriented x3 - Psychiatric Exam Psychiatric exam: Normal Affect, Normal Mood - Skin Skin Exam: Dry, Intact, Normal Color, Warm Assessment and Plan (1) Aortic stenosis Assessment & Plan: plan for TAVR keep pt on asa 81mg po daily and low dose statin Status: Acute (2) Preop cardiovascular exam Assessment & Plan: as per acc/aha guidelines she can proceed with planned kyphoplasty with moderate risk for perioperative cardiac event Status: Acute (3) Dizziness Assessment & Plan: 2' to and low CO Status: Acute (4) Fall at home Assessment & Plan: 2' to Status: Acute (5) PVD (peripheral vascular disease) Assessment & Plan: stable asa + statins Status: Acute
--- NOTE | 2016-11-25 06:20 | CP.PCM.PN ---
Subjective - Date & Time of Evaluation Date of Evaluation: 11/25/16 Time of Evaluation: 19:18 - Subjective Subjective: no complaints awaiting kyphoplasty re-evaluated post kyphoplasty in her room pain mildly improved Objective - Vital Signs/Intake and Output Vital Signs (last 24 hours): Temp Pulse Resp BP Pulse Ox 97.5 F L 73 18 115/69 94 L 11/25/16 05:08 11/25/16 05:08 11/25/16 05:08 11/25/16 05:08 11/25/16 05:08 Intake and Output: 11/24/16 11/25/16 18:59 06:59 Intake Total 500 Balance 500 - Medications Medications: Current Medications Acetaminophen (Tylenol 325mg Tab) 650 mg PO Q6 PRN PRN Reason: Pain, Mild (1-3) Last Admin: 11/24/16 02:10 Dose: 650 mg Acetaminophen (Tylenol 325mg Tab) 325 mg PO Q12 [facility] Last Admin: 11/24/16 21:48 Dose: 325 mg Benzocaine/Menthol (Cepacol Sore Throat) 1 fermin PO Q2 PRN PRN Reason: Sore Throat Last Admin: 11/22/16 16:07 Dose: 1 fermin Sodium Chloride (Sodium Chloride 0.9%) 1,000 mls @ 50 mls/hr IV .Q20H [facility] Stop: 11/25/16 13:35 Last Admin: 11/24/16 17:07 Dose: 50 mls/hr Lidocaine (Lidoderm) 2 ea TD DAILY [facility] Last Admin: 11/24/16 09:37 Dose: 2 ea Sennosides (Senokot Tab) 8.6 mg PO HS [facility] Last Admin: 11/24/16 21:49 Dose: 8.6 mg Vitamin D (Vitamin D 400 Intl Units Tab) 800 intlu PO DAILY [facility] Last Admin: 11/24/16 09:09 Dose: Not Given - Labs Labs: 11/20/16 05:30 - Constitutional Appears: Well - Head Exam Head Exam: ATRAUMATIC, NORMAL INSPECTION, NORMOCEPHALIC - Eye Exam Eye Exam: EOMI, Normal appearance, PERRL Pupil Exam: NORMAL ACCOMODATION, PERRL - ENT Exam ENT Exam: Mucous Membranes Moist, Normal Exam - Neck Exam Neck Exam: Full ROM, Normal Inspection. absent: Lymphadenopathy - Respiratory Exam Respiratory Exam: Clear to Ausculation Bilateral, NORMAL BREATHING PATTERN - Cardiovascular Exam Cardiovascular Exam: REGULAR RHYTHM, +S1, +S2, Murmur - GI/Abdominal Exam GI & Abdominal Exam: Soft, Normal Bowel Sounds. absent: Tenderness, Mass - Rectal Exam Rectal Exam: NORMAL INSPECTION - Extremities Exam Extremities Exam: Full ROM, Normal Capillary Refill, Normal Inspection. absent : Joint Swelling, Pedal Edema - Back Exam Back Exam: vertebral tenderness - Neurological Exam Neurological Exam: Alert, Awake, CN II-XII Intact, Oriented x3 - Psychiatric Exam Psychiatric exam: Normal Affect, Normal Mood - Skin Skin Exam: Dry, Intact, Normal Color, Warm Assessment and Plan (1) Aortic stenosis Assessment & Plan: low flow low gradient severe plan for TAVR as outpt Status: Acute (2) Preop cardiovascular exam Assessment & Plan: tolerated kyphoplasty well Status: Acute (3) Dizziness Status: Acute (4) Fall at home Status: Acute (5) PVD (peripheral vascular disease) Status: Acute
[2016-11-25 07:34] LABS: HEMATOCRIT 32.4 % (34.0-47.0); MEAN CELL VOLUME 83.8 fl (81.0-99.0); MEAN CORPUSCULAR HEMOGLOBIN 26.7 pg (27.0-31.0); MEAN CORPUSCULAR HGB CONC 31.9 g/dL (33.0-37.0); RED CELL DISTRIBUTION WIDTH 15.1 % (11.5-14.5)
[2016-11-25 07:40] LABS: BLOOD UREA NITROGEN 18 mg/dl (7-17); CALCIUM 9.1 mg/dL (8.4-10.2); CARBON DIOXIDE 24 mmol/L (22-30); CHLORIDE 107 mmol/L (98-107); GFR AFRICAN-AMERICAN > 60; GLUCOSE,RANDOM 78 mg/dL (65-105); POTASSIUM 4.4 MMOL/L (3.6-5.0); SODIUM 137 mmol/l (132-148)
[2016-11-25] MEDS: Cholecalciferol 400 Intl Units Tab PO SCH (08:24)
--- NOTE | 2016-11-25 09:01 | CP.PCM.PN ---
Subjective - Date & Time of Evaluation Date of Evaluation: 12/02/16 Time of Evaluation: 06:30 - Subjective Subjective: No acute overnight events. Pt has been NPO since midnight. No complaints this morning. Has not had bowel movement in 2 days. Denies chest pain, palpatations, cough, SOB, n/v, abdominal pain, or focal defecits. Objective - Vital Signs/Intake and Output Vital Signs (last 24 hours): Temp Pulse Resp BP Pulse Ox 98.2 F 71 18 123/61 95 11/25/16 08:01 11/25/16 08:01 11/25/16 08:01 11/25/16 08:01 11/25/16 08:01 - Medications Medications: Current Medications Acetaminophen (Tylenol 325mg Tab) 650 mg PO Q6 PRN PRN Reason: Pain, Mild (1-3) Last Admin: 11/24/16 02:10 Dose: 650 mg Acetaminophen (Tylenol 325mg Tab) 325 mg PO Q12 [facility] Last Admin: 11/24/16 21:48 Dose: 325 mg Benzocaine/Menthol (Cepacol Sore Throat) 1 fermin PO Q2 PRN PRN Reason: Sore Throat Last Admin: 11/22/16 16:07 Dose: 1 fermin Sodium Chloride (Sodium Chloride 0.9%) 1,000 mls @ 50 mls/hr IV .Q20H [facility] Stop: 11/25/16 13:35 Last Admin: 11/24/16 17:07 Dose: 50 mls/hr Lidocaine (Lidoderm) 2 ea TD DAILY [facility] Last Admin: 11/24/16 09:37 Dose: 2 ea Sennosides (Senokot Tab) 8.6 mg PO HS [facility] Last Admin: 11/24/16 21:49 Dose: 8.6 mg Vitamin D (Vitamin D 400 Intl Units Tab) 800 intlu PO DAILY [facility] Last Admin: 11/25/16 08:24 Dose: Not Given - Labs Labs: 11/25/16 07:15 11/25/16 07:15 PT 13.8 Seconds (9.8-13.1) H 11/25/16 07:15 INR 1.3 (0.9-1.2) H 11/25/16 07:15 - Constitutional Appears: Well, Cachectic - ENT Exam ENT Exam: Mucous Membranes Moist - Respiratory Exam Respiratory Exam: Clear to Ausculation Bilateral. absent: Accessory Muscle Use , Rales, Wheezes - Cardiovascular Exam Cardiovascular Exam: REGULAR RHYTHM, +S1, +S2. absent: Murmur - GI/Abdominal Exam GI & Abdominal Exam: Soft, Normal Bowel Sounds. absent: Tenderness - Neurological Exam Neurological Exam: Alert, Awake, Oriented x3 Neuro motor strength exam: Left Upper Extremity: 5, Right Upper Extremity: 5, Left Lower Extremity: 5, Right Lower Extremity: 5 Assessment and Plan (1) Acute back pain Status: Acute (2) Constipation Status: Resolved - Assessment and Plan (Free Text) Assessment: 81 y/o F with PMH including DM2 (diet controlled), COPD, PVD, Abdominal aortic aneurism, Aortic Stenosis, Chronic constipation,Urinary Incontinence recent history of falls being managed for acute back pain and constipation. Acute Back pain - Improving -Likely due to Compression fracture. -Chest CT (11/15/16) Compression fractures of T10 (severe), L1 (moderate), L2 ( mild) -Lumbar CT (11/16/16)-Chronic L1 compression fracture, new L2 compression fracture (since study in 2015) -Lumbar MRI (11/17/16) Compression fracture of L1 with acute marrow edema, No retropulsion of the posterior vertebral body wall into the spinal canal. Conus medullaris unremarkable. 5cm Infrarenal abdominal aortic aneurysm; Central Disc Herniation in L4-L5 with thecal sac indentation. -Thoracic MRI- Severe chronic compression fracture of T9 with an associated disc ridge complex at T9-T10, with thecal sac indentation and encroachment upon the ventral margin of the distal cord with cord impingement. -Consulted Neurosurgery- does not recommend any surgical treatment at this time -IR consult- will likely need Kyphoplasty procedure, cardiac clearance needed as procedure is to be done under general anesthesia -Pain Management: Tylenol 650mg PO BID, Torodol 15mg prn, Lidocaine patches 2 each daily -Fall risk protocol -PT/OT , Pt has agreed to rehab post hospitalization -Plan: Kypoplasty planned for today at 2pm for acute compression fracture of L2. Dysphagia -Pt complains of difficulty swallowing. (Solids>Liquids) -Speech and swallow evaluation conducted. Impression: Cannot definitively rule out pharyngeal defects. Recommending diet of full liquids at this time with aspiration precautions. Pt may benefit from modified barium swallow studies as well GI Consults -F/u Barium Swallow results- will occur after Kyphoplasty as pt is NPO for Kyphoplasty Constipation- Resolved -No BM in 2 days, still pasing gas. No n/v/abdominal pain. Will consider adding MOM if constipation continues. -Continue Senokot -Milk of Magnesia D/C on 11-22 as constipation had improved and to prevent side effects Leukopenia- Chronic -Blood smear- Pending -Protein Electrophoresis- elevated B2 Globulin and Gamma Globulin, possibly an indication of Multiple Myeloma or CLL -Will f/u on Blood Smear Moderate Aortic Stenosis -Asymptomatic. Chronic, last echo in 2016 Aortic Valvular Area- 1.1cm2 -Cath procedure completed yesterday, no complications. As per Dr. Elmore, pt will likely have TAVRI in 3 months -CT Angiography done for suspected aortic dissection: Negative for aortic dissection, likely an atherosclerotic plaque on descending thoracic aorta -f/u ZINA report Vitamin D Deficiency -Vitamin D (low) 24.5 -started on Vitamin D3, 800 INU daily PO Impingement - Neurosurgery consulted - Routine observation as per Neurosurgery -Neuro-cleared for Kyphoplasty from neuro standpoint NIDDM2 -Diet controlled -Last HgbA1c: 6.8% on 10/21/15 -Consistent carbohydrate diet History of COPD -Asymptomatic -Not on any home meds DVT Prophlyaxis -Lovenox held for today's Kyphoplast. Will continue tomorrow Diet NPO
[2016-11-25] MEDS: Lidocaine 5% Patch TD SCH (09:37)
[2016-11-25] MEDS ORDERED: Lidocaine 1% Inj (20ml) ONE (13:53)
[2016-11-25] MEDS ORDERED: Succinylcholine 200 mg/10 ml Inj IV ONE (14:06)
[2016-11-25] MEDS ORDERED: Phenylephrine 10 mg/ml Inj ONE (14:06)
[2016-11-25] MEDS ORDERED: Etomidate 20 mg/10ml Inj IV ONE (14:06)
[2016-11-25] MEDS ORDERED: Esmolol 100 mg/10ml Inj IV ONE (14:12)
[2016-11-25] MEDS ORDERED: Lidocaine 4% (Laryng-O-Jet) Kit MM ONE (14:20)
--- NOTE | 2016-11-25 16:27 | PCM.SURG1 ---
Surgeon's Initial Post Op Note - Surgeon's Notes Surgeon: Efrain Gonzalez MD Inspector Eyeglass: NONE Type of Anesthesia: IV Sedation Pre-Operative Diagnosis: L2 acute compression fracture, old L1 fracture, back pain Operative Findings: L2 compression fracture 30% Post-Operative Diagnosis: L2 acute compression fracture, old L1 fracture, back pain Operation Performed: Vertebroplasty via transpedicular approach Specimen/Specimens Removed: none Estimated Blood Loss: EBL {In ML}: 5 Blood Products Given: N/A Drains Used: No Drains Post-Op Condition: Fair Date of Surgery/Procedure: 11/25/16 Time of Surgery/Procedure: 16:15
[2016-11-25] MEDS ORDERED: HYDROmorphone 0.5 mg/0.5 ml ISec IVP PRN (16:29)
[2016-11-25] MEDS ORDERED: Metoprolol 1 mg/ml Inj IVP ONE (16:36)
[2016-11-25] MEDS ORDERED: POLYETHYLENE GLYCOL 3350 17 GM/Dose PACKET PO ONE (17:00)
[2016-11-25] MEDS: Benzocaine/Menthol (Cepacol) Lozenge PO PRN ×3 (18:07→22:33)
[2016-11-26] MEDS: Benzocaine/Menthol (Cepacol) Lozenge PO PRN (06:35)
[2016-11-26] MEDS: Cholecalciferol 400 Intl Units Tab PO SCH (08:46)
[2016-11-26] MEDS: Lidocaine 5% Patch TD SCH (08:46)
[2016-11-26] MEDS ORDERED: Chlorhexidine Gluconate 1 APPL/PKT TP ONE (14:27)
[2016-11-26] MEDS: POLYETHYLENE GLYCOL 3350 17 GM/Dose PACKET PO SCH (14:29)
--- NOTE | 2016-11-26 20:00 | CP.PCM.PN ---
Subjective - Date & Time of Evaluation Date of Evaluation: 11/26/16 Time of Evaluation: 09:00 - Subjective Subjective: Pt. seen at bedside. No overnight events. Pt. with no complaints at this time. Pt does report last BM 5 days ago. Pt. denies abdominal pain. Pt. also reports having a non-productive cough while eating for past two days associate with excessive saliva production. Pt. noted to be having difficulty swallowing. On ROS, pt denies any headache, chest pain, shortness of breath, abdominal pain, fever, chills, or dysuria. Objective - Vital Signs/Intake and Output Vital Signs (last 24 hours): Temp Pulse Resp BP Pulse Ox 97.8 F 88 18 102/66 97 11/26/16 19:16 11/26/16 19:16 11/26/16 19:16 11/26/16 19:16 11/26/16 19:16 - Medications Medications: Current Medications Acetaminophen (Tylenol 325mg Tab) 650 mg PO Q6 PRN PRN Reason: Pain, Mild (1-3) Last Admin: 11/26/16 06:34 Dose: 650 mg Acetaminophen (Tylenol 325mg Tab) 325 mg PO Q12 [facility] Last Admin: 11/26/16 08:45 Dose: 325 mg Benzocaine/Menthol (Cepacol Sore Throat) 1 fermin PO Q2 PRN PRN Reason: Sore Throat Last Admin: 11/26/16 06:35 Dose: 1 fermin Famotidine (Pepcid) 20 mg PO DAILY [facility] Last Admin: 11/26/16 16:54 Dose: 20 mg Lidocaine (Lidoderm) 2 ea TD DAILY [facility] Last Admin: 11/26/16 08:46 Dose: 2 ea Polyethylene Glycol (Miralax) 17 gm PO DAILY [facility] Last Admin: 11/26/16 14:29 Dose: 17 gm Senna/Docusate Sodium (Senokot S 50 Mg-8.6 Mg) 2 tab PO HS [facility] Vitamin D (Vitamin D 400 Intl Units Tab) 800 intlu PO DAILY [facility] Last Admin: 11/26/16 08:46 Dose: 800 intlu - Labs Labs: 11/25/16 07:15 11/25/16 07:15 PT 13.8 Seconds (9.8-13.1) H 11/25/16 07:15 INR 1.3 (0.9-1.2) H 11/25/16 07:15 - Constitutional Appears: Non-toxic, No Acute Distress - Eye Exam Eye Exam: Normal appearance. absent: Scleral icterus - ENT Exam ENT Exam: Mucous Membranes Moist - Respiratory Exam Respiratory Exam: Clear to Ausculation Bilateral, NORMAL BREATHING PATTERN - Cardiovascular Exam Cardiovascular Exam: REGULAR RHYTHM, +S1, +S2 - GI/Abdominal Exam GI & Abdominal Exam: Soft. absent: Tenderness - Extremities Exam Extremities Exam: Pedal Edema. absent: Tenderness - Neurological Exam Neurological Exam: Alert, Awake, Oriented x3 - Psychiatric Exam Psychiatric exam: Normal Affect, Normal Mood Assessment and Plan - Assessment and Plan (Free Text) Assessment: Assessment: 81 y/o F with multiple cardiovascular conditions admitted for acute compression fracture of L2 spine Acute Back pain - Improving s/p Kyphoplasty POD #2 -Tylenol and Toradol PRN -PT/OT evaluate and treat Constipation. -Continue Senokot-s -Continue Miralax -Glycerine suppository x 1 Dysphagia- New in onset -Pt. tolerating semi-solid foods such as pudding -Aspiration precuations in place -Modified barium swallow study on Monday -Pepcid 20mg po daily for GERD possibly causing to Dysphagia Moderate Aortic Stenosis -Repeat ZINA on November 2016 shows .55cm diameter aortic valve -Pt. for possible TAVR as per Cardiology Dr. Elmore Leukopenia- Chronic -continue to monitor Vitamin D Deficiency- 24.5 -c/w vitamin D800 INU daily PO DVT Prophlyaxis -Lovenox 30mg sc Diet Full Liquid Diet Aspiration precautions
[2016-11-26] MEDS: Docusate-Senna 50 mg-8.6 mg Tab PO SCH (21:32)
[2016-11-27] MEDS: Lidocaine 5% Patch TD SCH (08:34)
[2016-11-27] MEDS: POLYETHYLENE GLYCOL 3350 17 GM/Dose PACKET PO SCH (08:34)
[2016-11-27] MEDS: Cholecalciferol 400 Intl Units Tab PO SCH (08:35)
[2016-11-27] MEDS: Benzocaine/Menthol (Cepacol) Lozenge PO PRN (11:27)
--- NOTE | 2016-11-27 13:06 | CP.PCM.PN ---
Subjective - Date & Time of Evaluation Date of Evaluation: 11/27/16 Time of Evaluation: 08:00 - Subjective Subjective: No acute overnight events. Pt seen and evaluated this morning. States that she had a BM last night, well formed. Denies any back pain at the moment. Denies CP , SOB, no n/v/d, no fever, chills, dysuria. Objective - Vital Signs/Intake and Output Vital Signs (last 24 hours): Temp Pulse Resp BP Pulse Ox 97.5 F L 94 H 18 94/54 L 95 11/27/16 12:00 11/27/16 12:00 11/27/16 12:00 11/27/16 12:00 11/27/16 12:00 - Medications Medications: Current Medications Acetaminophen (Tylenol 325mg Tab) 650 mg PO Q6 PRN PRN Reason: Pain, Mild (1-3) Last Admin: 11/26/16 06:34 Dose: 650 mg Acetaminophen (Tylenol 325mg Tab) 325 mg PO Q12 [facility] Last Admin: 11/27/16 09:00 Dose: Not Given Benzocaine/Menthol (Cepacol Sore Throat) 1 fermin PO Q2 PRN PRN Reason: Sore Throat Last Admin: 11/27/16 11:27 Dose: 1 fermin Famotidine (Pepcid) 20 mg PO DAILY [facility] Last Admin: 11/27/16 08:35 Dose: 20 mg Lidocaine (Lidoderm) 2 ea TD DAILY [facility] Last Admin: 11/27/16 08:34 Dose: 2 ea Polyethylene Glycol (Miralax) 17 gm PO DAILY [facility] Last Admin: 11/27/16 08:34 Dose: 17 gm Senna/Docusate Sodium (Senokot S 50 Mg-8.6 Mg) 2 tab PO HS [facility] Last Admin: 11/26/16 21:32 Dose: Not Given Vitamin D (Vitamin D 400 Intl Units Tab) 800 intlu PO DAILY [facility] Last Admin: 11/27/16 08:35 Dose: 800 intlu - Labs Labs: 11/25/16 07:15 11/25/16 07:15 PT 13.8 Seconds (9.8-13.1) H 11/25/16 07:15 INR 1.3 (0.9-1.2) H 11/25/16 07:15 - Constitutional Appears: Well, Cachectic - Respiratory Exam Respiratory Exam: Clear to Ausculation Bilateral. absent: Accessory Muscle Use , Rales, Wheezes - Cardiovascular Exam Cardiovascular Exam: REGULAR RHYTHM, +S1, +S2, Murmur Additional comments: Systolic ejection murmur - Extremities Exam Extremities Exam: Normal Capillary Refill. absent: Pedal Edema - Psychiatric Exam Psychiatric exam: Normal Affect Assessment and Plan (1) Acute back pain Status: Acute (2) Constipation Status: Resolved - Assessment and Plan (Free Text) Assessment: 81 y/o F with multiple cardiovascular conditions admitted for acute compression fracture of L2 spine Lumbar Compression Fracture s/p Kyphoplasty POD #3 -Pain management:Tylenol and Toradol PRN + 2 Lidocaine patches -PT/OT to evaluate if pt will benefit from Subacute Rehab vs TCU Constipation. -Improving. Pt had BM last night -Continue Senokot -D/C Miralax and start Lactulose -Glycerine suppository x 1 Dysphagia- New in onset -Pt. tolerating semi-solid foods such as pudding -Aspiration precuations in place -Modified barium swallow study on Monday -Pepcid 20mg po daily for GERD possibly causing to Dysphagia -GI consult placed Moderate Aortic Stenosis -Repeat ZINA on November 2016 shows .55cm diameter aortic valve -Pt. for possible TAVR as per Cardiology Dr. Elmore Leukopenia- Chronic -continue to monitor Vitamin D Deficiency- 24.5 -c/w vitamin D800 INU daily PO DVT Prophlyaxis -Lovenox 30mg sc Diet Full Liquid Diet Aspiration precautions
[2016-11-27] MEDS: Docusate-Senna 50 mg-8.6 mg Tab PO SCH (21:34)
[2016-11-28] MEDS: Enoxaparin 30 mg Syringe SC SCH (08:22)
[2016-11-28] MEDS: Lidocaine 5% Patch TD SCH (08:22)
[2016-11-28] MEDS: Lactulose 10 gm/15 ml Syrup PO SCH (08:23)
[2016-11-28] MEDS: POLYETHYLENE GLYCOL 3350 17 GM/Dose PACKET PO SCH (08:24)
--- NOTE | 2016-11-28 08:24 | CP.PCM.CON ---
History of Present Illness - History of Present Illness History of Present Illness: Asked by hospitalist team for a GI consultation on this patient. 81 year old female with history of DM, COPD, AAA, chronic constipation, who initially presented to hospital on 11/15 for evaluation of progressive lower back pain. She was diagnosed with L2 acute compression fracture and has since undergone vertebroplasty. GI called for evaluation of dysphagia. She describes progressive dysphagia over the past 2 months and endorses a sensation of food getting "stuck" while pointing to her throat. The symptoms are worse with solid foods, though recently even liquids have given her difficulty. As a result, she has avoided eating and admits to weight loss, though she cannot quantify amount. She denies nausea, vomiting, odynophagia, fever/chills, rectal bleeding, or change in bowel habits. No prior endoscopic evaluation. Social history: former smoker (quit 2004), no ETOH Family history: son (pancreatic cancer) Review of Systems - Review of Systems Review of Systems: - All other comprehensive 12 point review of systems performed, negative - Constitutional Constitutional: Weight Loss - Cardiovascular Cardiovascular: absent: Acrocyanosis, Chest Pain, Chest Pain at Rest, Chest Pain with Activity, Claudication, Diaphoresis, Dyspnea, Dyspnea on Exertion, Edema, Irregular Heart Rhythm, Pain Radiating to Arm/Neck/Jaw, Leg Edema, Leg Ulcers, Lightheadedness, Orthopnea, Palpitations, Paroxysmal Nocturnal Dyspnea, Pedal Edema, Radiating Pain, Rapid Heart Rate, Slow Heart Rate, Syncope, Other - Respiratory Respiratory: absent: Cough, Dyspnea, Hemoptysis, Dyspnea on Exertion, Wheezing, Snoring, Stridor, Pain on Inspiration, Chest Congestion, Excessive Mucous Production, Change in Mucous Color, Pain with Coughing, Other - Gastrointestinal Gastrointestinal: Dysphagia - Musculoskeletal Musculoskeletal: Back Pain - Neurological Neurological: absent: Abnormal Gait, Abnormal Hearing, Abnormal Movements, Abnormal Speech, Behavioral Changes, Burning Sensations, Confusion, Convulsions , Disequilibrium, Dizziness, Numbness, Focal Weakness, Frequent Falls, Headaches , Lack of Coordination, Loss of Vision, Memory Loss, Paresthesias, Radicular Pain, Restless Legs, Sensory Deficit, Syncope, Tingling, Tremor, Vertigo, Weakness, Other Visual Disturbances, Other Past Patient History - Past Medical History & Family History Past Medical History?: Yes - Past Social History Smoking Status: Former Smoker - CARDIAC Hx Hypercholesterolemia: Yes Hx Hypertension: Yes Hx Peripheral Vascular Disease: Yes - PULMONARY Hx Chronic Obstructive Pulmonary Disease (COPD): Yes - NEUROLOGICAL Hx Neurological Disorder: No - HEENT Hx HEENT Problems: Yes Hx Cataracts: Yes - RENAL Hx Chronic Kidney Disease: No - ENDOCRINE/METABOLIC Hx Endocrine Disorders: Yes - HEMATOLOGICAL/ONCOLOGICAL Hx Blood Disorders: No - INTEGUMENTARY Hx Dermatological Problems: No - MUSCULOSKELETAL/RHEUMATOLOGICAL Hx Arthritis: Yes - GASTROINTESTINAL Hx Gastrointestinal Disorders: Yes Other/Comment: abdominal aortic aneurysm - GENITOURINARY/GYNECOLOGICAL Hx Genitourinary Disorders: No - PSYCHIATRIC Hx Psychophysiologic Disorder: No Hx Substance Use: No - SURGICAL HISTORY Hx Musculoskeletal Surgery: Yes (Left Hip ORIF) - ANESTHESIA Hx Anesthesia: Yes Hx Anesthesia Reactions: No Hx Malignant Hyperthermia: No Meds Allergies/Adverse Reactions: Allergies Allergy/AdvReac Type Severity Reaction Status Date / Time No Known Allergies Allergy Verified 11/14/15 02:22 - Medications Medications: Current Medications Acetaminophen (Tylenol 325mg Tab) 650 mg PO Q6 PRN PRN Reason: Pain, Mild (1-3) Last Admin: 11/26/16 06:34 Dose: 650 mg Acetaminophen (Tylenol 325mg Tab) 325 mg PO Q12 [facility] Last Admin: 11/27/16 21:34 Dose: Not Given Benzocaine/Menthol (Cepacol Sore Throat) 1 fermin PO Q2 PRN PRN Reason: Sore Throat Last Admin: 11/27/16 11:27 Dose: 1 fermin Enoxaparin Sodium (Lovenox) 30 mg SC DAILY [facility] PRN Reason: Protocol Famotidine (Pepcid) 20 mg PO DAILY [facility] Last Admin: 11/27/16 08:35 Dose: 20 mg Lactulose (Enulose) 10 gm PO DAILY [facility] Lidocaine (Lidoderm) 2 ea TD DAILY [facility] Last Admin: 11/27/16 08:34 Dose: 2 ea Polyethylene Glycol (Miralax) 17 gm PO DAILY [facility] Last Admin: 11/27/16 08:34 Dose: 17 gm Senna/Docusate Sodium (Senokot S 50 Mg-8.6 Mg) 2 tab PO HS [facility] Last Admin: 11/27/16 21:34 Dose: Not Given Vitamin D (Vitamin D 400 Intl Units Tab) 800 intlu PO DAILY [facility] Last Admin: 11/27/16 08:35 Dose: 800 intlu Physical Exam - Constitutional Appears: Non-toxic, No Acute Distress - Head Exam Head Exam: NORMAL INSPECTION - Eye Exam Eye Exam: EOMI, Normal appearance - ENT Exam ENT Exam: Mucous Membranes Moist - Respiratory Exam Respiratory Exam: Clear to Auscultation Bilateral - Cardiovascular Exam Cardiovascular Exam: REGULAR RHYTHM, +S1, +S2, Systolic Murmur - GI/Abdominal Exam GI & Abdominal Exam: Normal Bowel Sounds, Soft Additional comments: non tender to palpation in four quadrants no palpable hepato/splenomegaly - Extremities Exam Extremities exam: Positive for: normal inspection - Neurological Exam Neurological exam: Alert, CN II-XII Intact, Oriented x3, Reflexes Normal - Psychiatric Exam Psychiatric exam: Normal Affect, Normal Mood - Skin Skin Exam: Dry, Intact, Normal Color, Warm Results - Vital Signs Recent Vital Signs: Last Vital Signs Temp 98.3 F 11/28/16 05:16 Pulse 90 11/28/16 05:16 Resp 18 11/28/16 05:16 BP 90/52 L 11/28/16 05:16 Pulse Ox 98 11/28/16 05:16 - Labs Result Diagrams: 11/25/16 07:15 11/25/16 07:15 Labs: Laboratory Results - last 24 hr 11/27/16 11/27/16 11/27/16 11:31 15:56 21:11 POC Glucose (mg/dL) 226 H 217 H 239 H 11/28/16 05:52 POC Glucose (mg/dL) 162 H Assessment & Plan - Assessment and Plan (Free Text) Assessment: DM COPD AAA Aortic stenosis Acute L2 compression fracture, s/p vertebroplasty Dysphagia with secondary weight loss - differential is broad including neurological process, anatomical abnormality, luminal lesion, or motility disorder Plan: - Liquid diet as tolerated - Continue with bowel regimen for management of chronic constipation - Awaiting swallow evaluation, follow up recommendations - Obtain barium esophagram to rule out anatomical abnormality, mass lesion - Patient may eventually benefit from EGD given prior history of cigarette smoking in elderly patient with weight loss. Will continue to monitor patient clinical course and make further recommendations following results of imaging study and swallow evaluation.
[2016-11-28] MEDS: Cholecalciferol 400 Intl Units Tab PO SCH (08:25)
[2016-11-28] MEDS: Benzocaine/Menthol (Cepacol) Lozenge PO PRN ×2 (08:25→20:00)
[2016-11-28] MEDS ORDERED: Barium Sulfate Susp 0.1% w/v, 0.1% w/w 450 mL Bottle PO ONE (11:40)
--- NOTE | 2016-11-28 12:08 | CP.PCM.PN ---
Subjective - Date & Time of Evaluation Date of Evaluation: 11/28/16 Time of Evaluation: 06:30 - Subjective Subjective: Pt seen and examined at the bedside. States she had 1BM yesterday, well formed. Back pain is relieved with medications currently being administered to her. Denies CP, SOB, N/V/D, cough ,fever, chills. Objective - Vital Signs/Intake and Output Vital Signs (last 24 hours): Temp Pulse Resp BP Pulse Ox 97.5 F L 80 20 107/60 96 11/28/16 08:00 11/28/16 09:00 11/28/16 08:00 11/28/16 08:00 11/28/16 08:00 - Medications Medications: Current Medications Acetaminophen (Tylenol 325mg Tab) 650 mg PO Q6 PRN PRN Reason: Pain, Mild (1-3) Last Admin: 11/26/16 06:34 Dose: 650 mg Acetaminophen (Tylenol 325mg Tab) 325 mg PO Q12 [facility] Last Admin: 11/28/16 08:24 Dose: Not Given Benzocaine/Menthol (Cepacol Sore Throat) 1 fermin PO Q2 PRN PRN Reason: Sore Throat Last Admin: 11/28/16 08:25 Dose: 1 fermin Enoxaparin Sodium (Lovenox) 30 mg SC DAILY [facility] PRN Reason: Protocol Last Admin: 11/28/16 08:22 Dose: 30 mg Famotidine (Pepcid) 20 mg PO DAILY [facility] Last Admin: 11/28/16 08:23 Dose: 20 mg Fluconazole (Diflucan) 100 mg PO DAILY [facility] Lactulose (Enulose) 10 gm PO DAILY [facility] Last Admin: 11/28/16 08:23 Dose: Not Given Lidocaine (Lidoderm) 2 ea TD DAILY [facility] Last Admin: 11/28/16 08:22 Dose: 2 ea Senna/Docusate Sodium (Senokot S 50 Mg-8.6 Mg) 2 tab PO HS [facility] Last Admin: 11/27/16 21:34 Dose: Not Given Vitamin D (Vitamin D 400 Intl Units Tab) 800 intlu PO DAILY [facility] Last Admin: 11/28/16 08:25 Dose: 800 intlu - Labs Labs: 11/25/16 07:15 11/25/16 07:15 PT 13.8 Seconds (9.8-13.1) H 11/25/16 07:15 INR 1.3 (0.9-1.2) H 11/25/16 07:15 - Constitutional Appears: Well, Cachectic - Eye Exam Eye Exam: Normal appearance - Respiratory Exam Respiratory Exam: Clear to Ausculation Bilateral. absent: Rales, Wheezes - Cardiovascular Exam Cardiovascular Exam: REGULAR RHYTHM, +S1, +S2, Murmur Additional comments: Systolic Ejection Murmur - Extremities Exam Extremities Exam: Normal Capillary Refill. absent: Calf Tenderness, Pedal Edema Additional comments: Ecchymosis on right forearm extending to right second digit. Pin point purpura seen on right digits. - Neurological Exam Neurological Exam: Alert, Awake, Oriented x3 Neuro motor strength exam: Left Upper Extremity: 5, Right Upper Extremity: 5, Left Lower Extremity: 5, Right Lower Extremity: 5 - Psychiatric Exam Psychiatric exam: Normal Affect Additional comments: Forgetful Assessment and Plan (1) Acute back pain Status: Acute (2) Constipation Status: Resolved - Assessment and Plan (Free Text) Assessment: 81 y/o F with multiple cardiovascular conditions admitted for acute compression fracture of L2 spine. Lumbar Compression Fracture s/p Kyphoplasty POD #3 -Pain management:Tylenol and Toradol PRN + 2 Lidocaine patches -PT/OT to evaluate pt today to see if pt will benefit from Subacute Rehab vs TCU Constipation. -Improving. Pt had BM last night -Continue Senokot and Lactulose Dysphagia- New in onset -Full liquid diet in place -Aspiration precuations in place -Pepcid 20mg po daily for GERD possibly causing to Dysphagia -GI consult appreciated- recommended esophogram and eventually EGD considering smoking hx w/ weight loss and dysphagia -Failed swallow evaluation, plan for barium swallow TODAY Moderate Aortic Stenosis -Repeat ZINA on November 2016 shows .55cm diameter aortic valve -Pt. for possible TAVR as per Cardiology Dr. Elmore Leukopenia- Chronic -continue to monitor Vitamin D Deficiency- 24.5 -c/w vitamin D800 INU daily PO DVT Prophlyaxis -Lovenox 30mg sc HELD because of bruising on Left arm Diet Full Liquid Diet Aspiration precautions
--- NOTE | 2016-11-28 13:15 | CP.PCM.PN ---
Subjective - Date & Time of Evaluation Date of Evaluation: 11/28/16 Time of Evaluation: 09:40 - Subjective Subjective: feeling fine back pain improved no cp or sob c/o having bruising in her right hand from venipuncture sites Objective - Vital Signs/Intake and Output Vital Signs (last 24 hours): Temp Pulse Resp BP Pulse Ox 97.5 F L 80 20 107/60 96 11/28/16 08:00 11/28/16 09:00 11/28/16 08:00 11/28/16 08:00 11/28/16 08:00 - Medications Medications: Current Medications Acetaminophen (Tylenol 325mg Tab) 650 mg PO Q6 PRN PRN Reason: Pain, Mild (1-3) Last Admin: 11/26/16 06:34 Dose: 650 mg Acetaminophen (Tylenol 325mg Tab) 325 mg PO Q12 [facility] Last Admin: 11/28/16 08:24 Dose: Not Given Benzocaine/Menthol (Cepacol Sore Throat) 1 fermin PO Q2 PRN PRN Reason: Sore Throat Last Admin: 11/28/16 08:25 Dose: 1 fermin Enoxaparin Sodium (Lovenox) 30 mg SC DAILY [facility] PRN Reason: Protocol Last Admin: 11/28/16 08:22 Dose: 30 mg Famotidine (Pepcid) 20 mg PO DAILY [facility] Last Admin: 11/28/16 08:23 Dose: 20 mg Fluconazole (Diflucan) 100 mg PO DAILY [facility] Lactulose (Enulose) 10 gm PO DAILY [facility] Last Admin: 11/28/16 08:23 Dose: Not Given Lidocaine (Lidoderm) 2 ea TD DAILY [facility] Last Admin: 11/28/16 08:22 Dose: 2 ea Senna/Docusate Sodium (Senokot S 50 Mg-8.6 Mg) 2 tab PO HS [facility] Last Admin: 11/27/16 21:34 Dose: Not Given Vitamin D (Vitamin D 400 Intl Units Tab) 800 intlu PO DAILY [facility] Last Admin: 11/28/16 08:25 Dose: 800 intlu - Labs Labs: 11/25/16 07:15 11/25/16 07:15 PT 13.8 Seconds (9.8-13.1) H 11/25/16 07:15 INR 1.3 (0.9-1.2) H 11/25/16 07:15 - Constitutional Appears: Well - Head Exam Head Exam: ATRAUMATIC, NORMAL INSPECTION, NORMOCEPHALIC - Eye Exam Eye Exam: EOMI, Normal appearance, PERRL Pupil Exam: NORMAL ACCOMODATION, PERRL - ENT Exam ENT Exam: Mucous Membranes Moist, Normal Exam - Neck Exam Neck Exam: Full ROM, Normal Inspection. absent: Lymphadenopathy - Respiratory Exam Respiratory Exam: Clear to Ausculation Bilateral, NORMAL BREATHING PATTERN - Cardiovascular Exam Cardiovascular Exam: REGULAR RHYTHM, RRR, +S1, +S2, Murmur - GI/Abdominal Exam GI & Abdominal Exam: Soft, Normal Bowel Sounds. absent: Tenderness - Extremities Exam Extremities Exam: Full ROM, Normal Capillary Refill, Normal Inspection. absent : Joint Swelling, Pedal Edema - Back Exam Back Exam: NORMAL INSPECTION - Neurological Exam Neurological Exam: Alert, Awake, CN II-XII Intact, Oriented x3 - Psychiatric Exam Psychiatric exam: Normal Affect, Normal Mood - Skin Skin Exam: Dry, Intact, Normal Color, Warm Assessment and Plan (1) Aortic stenosis Assessment & Plan: Low flow low gradient severe will need TAVR once rehab completed ZINA showed aortic arch atheroma grade II keep pt on asa 81mg po daily and low dose statins Status: Acute (2) Preop cardiovascular exam Assessment & Plan: tolerated procedure well plan for GI studies Status: Acute (3) Dizziness Status: Chronic (4) Fall at home Status: Acute (5) PVD (peripheral vascular disease) Status: Acute (6) Aortic arch atherosclerosis Status: Acute
--- NOTE | 2016-11-28 13:18 | VASCULAR ---
PROCEDURE: Date of Procedure: 11/25/2016 PROCEDURE: 1. Vertebroplasty L2 vertebral body Medications: Pt received MAC anesthesia administered by the anesthesiologist along with physiologic monitoring, 10 cc 1% lidocaine. HISTORY: Acute compression fracture lumbar spine, back pain. TECHNIQUE: Following informed consent and procedure time out, the patient was placed prone on the interventional table. The lower back was prepped and draped in the standard sterile manner. The fractured vertebral body was confirmed in tangential views, AP and lateral. The L2 vertebral body had a 40% loss of height. Vertobroplasty was performed. A coaxial trocar was slowly advanced via both pedicles into the vertebral body in the AP and lateral projections. A cavity was created by using an adjustable angled trocar. Methylmethacrylate was injected once it became viscous under fluoroscopic guidance. Post images showed the cement contained within the vertebral body. The trocars were removed and dressing applied. IMPRESSION: Vertebroplasty L2 vertebral body.
[2016-11-28] MEDS: Docusate-Senna 50 mg-8.6 mg Tab PO SCH (21:10)
[2016-11-29] MEDS: Benzocaine/Menthol (Cepacol) Lozenge PO PRN ×2 (02:57→08:54)
[2016-11-29 07:17] LABS: HEMATOCRIT 28.3 % (34.0-47.0); MEAN CELL VOLUME 83.1 fl (81.0-99.0); MEAN CORPUSCULAR HEMOGLOBIN 26.7 pg (27.0-31.0); MEAN CORPUSCULAR HGB CONC 32.1 g/dL (33.0-37.0); RED CELL DISTRIBUTION WIDTH 14.8 % (11.5-14.5); WHITE BLOOD COUNT 2.7 K/uL (4.8-10.8)
[2016-11-29 07:28] LABS: ALB/GLOB RATIO 0.9 (1.0-2.1); ALKALINE PHOSPHATASE 149 U/L (38-126); ALT/SGPT 62 U/L (9-52); AST/SGOT 52 U/L (14-36); BLOOD UREA NITROGEN 15 mg/dl (7-17); CALCIUM 9.2 mg/dL (8.4-10.2); CARBON DIOXIDE 29 mmol/L (22-30); CHLORIDE 102 mmol/L (98-107); GFR AFRICAN-AMERICAN > 60; GLUCOSE,RANDOM 104 mg/dL (65-105); POTASSIUM 4.2 MMOL/L (3.6-5.0); SODIUM 136 mmol/l (132-148); TOTAL PROTEIN 6.9 G/DL (6.3-8.2)
[2016-11-29] MEDS: Lidocaine 5% Patch TD SCH (08:39)
[2016-11-29] MEDS: Lactulose 10 gm/15 ml Syrup PO SCH (08:54)
[2016-11-29] MEDS: Cholecalciferol 400 Intl Units Tab PO SCH (08:55)
--- NOTE | 2016-11-29 08:59 | CP.PCM.PN ---
Subjective - Date & Time of Evaluation Date of Evaluation: 11/29/16 Time of Evaluation: 08:00 - Subjective Subjective: GI Fellow PGY4 Progress Note Pt seen and examined at beside, pt reports having dysphagia for a few months. Pt reports she is able to tolerate full liquid diet without any issues but has not had solid food in a few days. Pt reports regular BM with bowel regimen. Denies nausea, vomiting, abdominal pain, melena or hematochezia. ROS: A 12pt ROS was obtained and was negative except as above. Objective - Vital Signs/Intake and Output Vital Signs (last 24 hours): Temp Pulse Resp BP Pulse Ox 97.6 F 80 18 133/69 98 11/29/16 08:00 11/29/16 08:00 11/29/16 08:00 11/29/16 08:00 11/29/16 08:00 Intake and Output: 11/29/16 11/29/16 06:59 18:59 Intake Total 100 Balance 100 - Medications Medications: Current Medications Acetaminophen (Tylenol 325mg Tab) 650 mg PO Q6 PRN PRN Reason: Pain, Mild (1-3) Last Admin: 11/26/16 06:34 Dose: 650 mg Acetaminophen (Tylenol 325mg Tab) 325 mg PO Q12 [facility] Last Admin: 11/29/16 08:54 Dose: Not Given Atorvastatin Calcium (Lipitor) 20 mg PO QPM [facility] Benzocaine/Menthol (Cepacol Sore Throat) 1 fermin PO Q2 PRN PRN Reason: Sore Throat Last Admin: 11/29/16 08:54 Dose: 1 fermin Enoxaparin Sodium (Lovenox) 30 mg SC DAILY [facility] PRN Reason: Protocol Last Admin: 11/28/16 08:22 Dose: 30 mg Famotidine (Pepcid) 20 mg PO DAILY [facility] Last Admin: 11/29/16 08:54 Dose: Not Given Fluconazole (Diflucan) 100 mg PO DAILY [facility] Last Admin: 11/29/16 08:54 Dose: Not Given Lactulose (Enulose) 10 gm PO DAILY [facility] Last Admin: 11/29/16 08:54 Dose: Not Given Lidocaine (Lidoderm) 2 ea TD DAILY [facility] Last Admin: 11/29/16 08:39 Dose: 2 ea Senna/Docusate Sodium (Senokot S 50 Mg-8.6 Mg) 2 tab PO HS [facility] Last Admin: 11/28/16 21:10 Dose: Not Given Vitamin D (Vitamin D 400 Intl Units Tab) 800 intlu PO DAILY [facility] Last Admin: 11/29/16 08:55 Dose: Not Given - Labs Labs: 11/29/16 06:30 11/29/16 06:30 PT 13.4 Seconds (9.8-13.1) H 11/29/16 06:30 INR 1.3 (0.9-1.2) H 11/29/16 06:30 APTT 29.0 Seconds (25.6-37.1) 11/29/16 06:30 - Constitutional Appears: Non-toxic, No Acute Distress - Head Exam Head Exam: ATRAUMATIC, NORMAL INSPECTION, NORMOCEPHALIC - Eye Exam Eye Exam: EOMI, Normal appearance, PERRL Pupil Exam: PERRL - ENT Exam ENT Exam: Mucous Membranes Moist, Normal Exam - Neck Exam Neck Exam: Full ROM - Respiratory Exam Respiratory Exam: Clear to Ausculation Bilateral, NORMAL BREATHING PATTERN - Cardiovascular Exam Cardiovascular Exam: RRR, +S1, +S2, Murmur - GI/Abdominal Exam GI & Abdominal Exam: Soft, Normal Bowel Sounds. absent: Guarding, Rigid, Tenderness, Organomegaly - Rectal Exam Rectal Exam: Deferred - Back Exam Back Exam: NORMAL INSPECTION - Neurological Exam Neurological Exam: Alert, Awake, Oriented x3 - Psychiatric Exam Psychiatric exam: Normal Affect, Normal Mood - Skin Skin Exam: Dry, Intact, Normal Color, Warm Assessment and Plan - Assessment and Plan (Free Text) Assessment: This is a 81yF with pmhx of DM, COPD, AAA, Severe , Compression fracture s/p L2 vertebroplasty pw low back pain and chronic constipation. During the hospital admission, pt reports progressively worsening dysphasia over that past few months with associated weight loss. 1. Dysphasia with associated weight loss 2. Chronic Constipation 3. Acute L2 compression fracture s/p vertebroplasty 4. Severe , needs outpt TAVR per Cardiology Plan: -Barium esophagram concerning for possible stricture -Plan for EGD today, keep pt NPO, consent in chart, pt's daughter called and updated on plan -Cardiac clearance obtained for procedure from Dr. Elmore this am -Continue bowel regimen for constipation -Will make further recommendation after endoscopic evaluation -Will continue to follow pt closely
--- NOTE | 2016-11-29 09:29 | CP.PCM.PN ---
Subjective - Date & Time of Evaluation Date of Evaluation: 11/29/16 Time of Evaluation: 09:26 - Subjective Subjective: feeling fine plan for EGD with possible balloon dilatation of esophageal stricture no cp or sob Objective - Vital Signs/Intake and Output Vital Signs (last 24 hours): Temp Pulse Resp BP Pulse Ox 97.6 F 80 18 133/69 98 11/29/16 08:00 11/29/16 08:00 11/29/16 08:00 11/29/16 08:00 11/29/16 08:00 Intake and Output: 11/29/16 11/29/16 06:59 18:59 Intake Total 100 Balance 100 - Medications Medications: Current Medications Acetaminophen (Tylenol 325mg Tab) 650 mg PO Q6 PRN PRN Reason: Pain, Mild (1-3) Last Admin: 11/26/16 06:34 Dose: 650 mg Acetaminophen (Tylenol 325mg Tab) 325 mg PO Q12 [facility] Last Admin: 11/29/16 08:54 Dose: Not Given Atorvastatin Calcium (Lipitor) 20 mg PO QPM [facility] Benzocaine/Menthol (Cepacol Sore Throat) 1 fermin PO Q2 PRN PRN Reason: Sore Throat Last Admin: 11/29/16 08:54 Dose: 1 fermin Enoxaparin Sodium (Lovenox) 30 mg SC DAILY [facility] PRN Reason: Protocol Last Admin: 11/28/16 08:22 Dose: 30 mg Famotidine (Pepcid) 20 mg PO DAILY [facility] Last Admin: 11/29/16 08:54 Dose: Not Given Fluconazole (Diflucan) 100 mg PO DAILY [facility] Last Admin: 11/29/16 08:54 Dose: Not Given Lactulose (Enulose) 10 gm PO DAILY [facility] Last Admin: 11/29/16 08:54 Dose: Not Given Lidocaine (Lidoderm) 2 ea TD DAILY [facility] Last Admin: 11/29/16 08:39 Dose: 2 ea Senna/Docusate Sodium (Senokot S 50 Mg-8.6 Mg) 2 tab PO HS [facility] Last Admin: 11/28/16 21:10 Dose: Not Given Vitamin D (Vitamin D 400 Intl Units Tab) 800 intlu PO DAILY [facility] Last Admin: 11/29/16 08:55 Dose: Not Given - Labs Labs: 11/29/16 06:30 11/29/16 06:30 PT 13.4 Seconds (9.8-13.1) H 11/29/16 06:30 INR 1.3 (0.9-1.2) H 11/29/16 06:30 APTT 29.0 Seconds (25.6-37.1) 11/29/16 06:30 - Constitutional Appears: Well - Head Exam Head Exam: ATRAUMATIC, NORMAL INSPECTION, NORMOCEPHALIC - Eye Exam Eye Exam: EOMI, Normal appearance, PERRL Pupil Exam: NORMAL ACCOMODATION, PERRL - ENT Exam ENT Exam: Mucous Membranes Moist, Normal Exam - Neck Exam Neck Exam: Full ROM, Normal Inspection. absent: Lymphadenopathy - Respiratory Exam Respiratory Exam: Clear to Ausculation Bilateral, NORMAL BREATHING PATTERN - Cardiovascular Exam Cardiovascular Exam: REGULAR RHYTHM, +S1, +S2, Murmur - GI/Abdominal Exam GI & Abdominal Exam: Soft, Normal Bowel Sounds. absent: Tenderness - Extremities Exam Extremities Exam: Full ROM, Normal Capillary Refill, Normal Inspection. absent : Joint Swelling, Pedal Edema - Back Exam Back Exam: NORMAL INSPECTION - Neurological Exam Neurological Exam: Alert, Awake, CN II-XII Intact, Oriented x3 - Psychiatric Exam Psychiatric exam: Normal Affect, Normal Mood - Skin Skin Exam: Dry, Intact, Normal Color, Warm Assessment and Plan (1) Aortic stenosis Assessment & Plan: low flow low gradient severe LAURO 0.5 cm2 on statins add low dose asa 81mg po daily post EGD Status: Acute (2) Preop cardiovascular exam Assessment & Plan: Plan for EGD today As per ACC/AHA guidelines she can proceed with planned procedure EGD with possible balloon dilatation with moderate risk for perioperative cardiac event spoke to that risk is acceptable as long as procedure is 1-2 hours long Status: Acute (3) Dizziness Assessment & Plan: 2' to Status: Chronic (4) Fall at home Assessment & Plan: for low flow compounded with Status: Acute (5) PVD (peripheral vascular disease) Assessment & Plan: stable asa, statins Status: Acute (6) Aortic arch atherosclerosis Assessment & Plan: Grade II/III aortic arch atheroma keep pt on asa 81mg po daily Status: Acute
--- NOTE | 2016-11-29 13:36 | CP.PCM.PN ---
Subjective - Date & Time of Evaluation Date of Evaluation: 11/29/16 Time of Evaluation: 07:00 - Subjective Subjective: Patient seen and examind at the bedside this morning. Noted to be lying in bed comfortably. Seems forgetful. No complaints if back pain. States the bruising on her hand is getting better. No chest pain, SOB, n/v/d, dysuria, motor or sensory deficits. Objective - Vital Signs/Intake and Output Vital Signs (last 24 hours): Temp Pulse Resp BP Pulse Ox 97.4 F L 86 18 133/83 96 11/29/16 12:00 11/29/16 12:00 11/29/16 12:00 11/29/16 12:00 11/29/16 12:00 Intake and Output: 11/29/16 11/29/16 06:59 18:59 Intake Total 100 Balance 100 - Medications Medications: Current Medications Acetaminophen (Tylenol 325mg Tab) 650 mg PO Q6 PRN PRN Reason: Pain, Mild (1-3) Last Admin: 11/26/16 06:34 Dose: 650 mg Atorvastatin Calcium (Lipitor) 20 mg PO QPM [facility] Benzocaine/Menthol (Cepacol Sore Throat) 1 fermin PO Q2 PRN PRN Reason: Sore Throat Last Admin: 11/29/16 08:54 Dose: 1 fermin Enoxaparin Sodium (Lovenox) 30 mg SC DAILY [facility] PRN Reason: Protocol Last Admin: 11/28/16 08:22 Dose: 30 mg Enoxaparin Sodium (Lovenox) 30 mg SC DAILY [facility] PRN Reason: Protocol Famotidine (Pepcid) 20 mg PO DAILY [facility] Last Admin: 11/29/16 08:54 Dose: Not Given Fluconazole (Diflucan) 100 mg PO DAILY [facility] Last Admin: 11/29/16 08:54 Dose: Not Given Lactulose (Enulose) 10 gm PO DAILY [facility] Last Admin: 11/29/16 08:54 Dose: Not Given Lidocaine (Lidoderm) 2 ea TD DAILY [facility] Last Admin: 11/29/16 08:39 Dose: 2 ea Senna/Docusate Sodium (Senokot S 50 Mg-8.6 Mg) 2 tab PO HS [facility] Last Admin: 11/28/16 21:10 Dose: Not Given Vitamin D (Vitamin D 400 Intl Units Tab) 800 intlu PO DAILY [facility] Last Admin: 11/29/16 08:55 Dose: Not Given - Labs Labs: 11/29/16 06:30 11/29/16 06:30 PT 13.4 Seconds (9.8-13.1) H 11/29/16 06:30 INR 1.3 (0.9-1.2) H 11/29/16 06:30 APTT 29.0 Seconds (25.6-37.1) 11/29/16 06:30 - Constitutional Appears: Well, Cachectic - Respiratory Exam Respiratory Exam: Clear to Ausculation Bilateral. absent: Rales, Wheezes, Respiratory Distress - Cardiovascular Exam Cardiovascular Exam: REGULAR RHYTHM, +S1, +S2, Murmur Additional comments: Systolic murmur - GI/Abdominal Exam GI & Abdominal Exam: Soft, Normal Bowel Sounds. absent: Guarding, Rigid, Tenderness - Extremities Exam Extremities Exam: absent: Calf Tenderness, Pedal Edema - Neurological Exam Neurological Exam: Alert, Awake, Oriented x3 - Psychiatric Exam Psychiatric exam: Normal Affect Assessment and Plan (1) Acute back pain Status: Acute (2) Constipation Status: Resolved - Assessment and Plan (Free Text) Assessment: 81 y/o F with multiple cardiovascular conditions admitted for acute compression fracture of L2 spine. s/p Kyphoplasty. #Lumbar Compression Fracture s/p Kyphoplasty POD #4 -Pain management:Tylenol and Toradol PRN + 2 Lidocaine patches- tolerating pain well -PT/OT to evaluate pt today to see if pt will benefit from Subacute Rehab vs TCU #Dysphagia- New in onset -Placed on modified carbohydrate diet- NPO today for EDG -Pepcid 20mg po daily for GERD possibly causing to Dyspm completed yesterday; -GI consult appreciated- Barium esophogram concerning for possible stricture; will get EGD today to assess further -Follow GI recommendations -Aspiration precautions #Transaminitits- mild -AST 52, ALT 62, ALP 149 -D/C standing Tyelenol -Will f/u in 2 days #Constipation. -Improving. Pt had BM last night -Continue Senokot and Lactulose #Moderate Aortic Stenosis -Repeat ZINA on November 2016 shows .55cm diameter aortic valve -Pt. for possible TAVR as per Cardiology Dr. Elmore. Recommends starting ASA 81mg PO and Atorvastatin 20mg PO Qpm -ASA d/c as she is currently NPO and has an elevated INR #NIDDM (Non Insulin Dependent DM) -Will get Hba1c tomorrow to evaluate pt's need for an oral antihyperglycemic agent - POCG range 160-200's #Leukopenia- Chronic -continue to monitor #Vitamin D Deficiency- 24.5 -c/w vitamin D800 INU daily PO #DVT Prophlyaxis -Lovenox 30mg sc -Pt will be seen by PT today and will ambulate with assistance #Diet -NPO
[2016-11-29] MEDS ORDERED: Lactated Ringer's 500 ML IV ONE (13:53)
[2016-11-29] MEDS ORDERED: Midazolam 2 MG/2 ML VIAL ONE (14:17)
--- NOTE | 2016-11-29 14:35 | RAD ---
HISTORY: Dysphagia. COMPARISON: None. TECHNIQUE: BARIUM BASED Contrast esophagram was performed. FINDINGS: Patient tolerated procedure well. This study is suboptimal due to the patient's inability to stand. ESOPHAGUS: There is suspicious for esophageal dysmotility with possible esophageal spasm and corkscrew appearance as well as segmental tertiary contractions. No evidence of focal stricture or mass lesion. HIATAL HERNIA: There is a small size hiatus hernia seen. GASTROESOPHAGEAL REFLUX: No gastroesophageal reflux noticed during the exam OTHER FINDINGS: None. IMPRESSION: Suboptimal study. No evidence of mass lesion or focal stricture in the esophagus. Abnormal motility of the esophagus with slow peristalsis and segmental tertiary contractions. Small size hiatus hernia.
[2016-11-29] MEDS: Docusate-Senna 50 mg-8.6 mg Tab PO SCH (21:18)
--- NOTE | 2016-11-30 08:19 | CP.PCM.PN ---
Subjective - Date & Time of Evaluation Date of Evaluation: 11/30/16 Time of Evaluation: 08:18 - Subjective Subjective: s/p EGD Objective - Vital Signs/Intake and Output Vital Signs (last 24 hours): Temp Pulse Resp BP Pulse Ox 97.8 F 80 18 138/78 96 11/30/16 07:58 11/30/16 07:58 11/30/16 07:58 11/30/16 07:58 11/30/16 07:58 - Medications Medications: Current Medications Acetaminophen (Tylenol 325mg Tab) 650 mg PO Q6 PRN PRN Reason: Pain, Mild (1-3) Last Admin: 11/26/16 06:34 Dose: 650 mg Atorvastatin Calcium (Lipitor) 20 mg PO QPM [facility] Last Admin: 11/29/16 18:06 Dose: 20 mg Benzocaine/Menthol (Cepacol Sore Throat) 1 fermin PO Q2 PRN PRN Reason: Sore Throat Last Admin: 11/29/16 08:54 Dose: 1 fermin Enoxaparin Sodium (Lovenox) 30 mg SC DAILY [facility] PRN Reason: Protocol Last Admin: 11/28/16 08:22 Dose: 30 mg Enoxaparin Sodium (Lovenox) 30 mg SC DAILY [facility] PRN Reason: Protocol Famotidine (Pepcid) 20 mg PO DAILY [facility] Last Admin: 11/29/16 08:54 Dose: Not Given Fluconazole (Diflucan) 100 mg PO DAILY [facility] Last Admin: 11/29/16 08:54 Dose: Not Given Lactulose (Enulose) 10 gm PO DAILY [facility] Last Admin: 11/29/16 08:54 Dose: Not Given Lidocaine (Lidoderm) 2 ea TD DAILY [facility] Last Admin: 11/29/16 08:39 Dose: 2 ea Senna/Docusate Sodium (Senokot S 50 Mg-8.6 Mg) 2 tab PO HS [facility] Last Admin: 11/29/16 21:18 Dose: 2 tab Vitamin D (Vitamin D 400 Intl Units Tab) 800 intlu PO DAILY [facility] Last Admin: 11/29/16 08:55 Dose: Not Given - Labs Labs: 11/29/16 06:30 11/29/16 06:30 PT 13.4 Seconds (9.8-13.1) H 11/29/16 06:30 INR 1.3 (0.9-1.2) H 11/29/16 06:30 APTT 29.0 Seconds (25.6-37.1) 11/29/16 06:30 - Constitutional Appears: Well - Head Exam Head Exam: ATRAUMATIC, NORMAL INSPECTION, NORMOCEPHALIC - Eye Exam Eye Exam: EOMI, Normal appearance, PERRL Pupil Exam: NORMAL ACCOMODATION, PERRL - ENT Exam ENT Exam: Mucous Membranes Moist, Normal Exam - Neck Exam Neck Exam: Full ROM, Normal Inspection. absent: Lymphadenopathy - Respiratory Exam Respiratory Exam: Clear to Ausculation Bilateral, NORMAL BREATHING PATTERN - Cardiovascular Exam Cardiovascular Exam: REGULAR RHYTHM, +S1, +S2. absent: Murmur - GI/Abdominal Exam GI & Abdominal Exam: Soft, Normal Bowel Sounds. absent: Tenderness - Extremities Exam Extremities Exam: Full ROM, Normal Capillary Refill, Normal Inspection. absent : Joint Swelling, Pedal Edema - Back Exam Back Exam: NORMAL INSPECTION - Neurological Exam Neurological Exam: Alert, Awake, CN II-XII Intact, Oriented x3 - Psychiatric Exam Psychiatric exam: Normal Affect, Normal Mood - Skin Skin Exam: Dry, Intact, Normal Color, Warm Assessment and Plan (1) Aortic stenosis Assessment & Plan: low flow low gradient severe as plan for TAVR as outpt Status: Acute (2) Preop cardiovascular exam Assessment & Plan: stable post EGD Status: Acute (3) Dizziness Status: Chronic (4) Fall at home Status: Acute (5) PVD (peripheral vascular disease) Status: Acute (6) Aortic arch atherosclerosis Assessment & Plan: cont asa and statins Status: Acute
--- NOTE | 2016-11-30 08:21 | CP.PCM.PN ---
<Nelida Shaffer - Last Filed: 11/30/16 10:16> Subjective - Date & Time of Evaluation Date of Evaluation: 11/30/16 Time of Evaluation: 07:30 - Subjective Subjective: GI Fellow PGY4 Progress Note Pt seen and examined at beside, pt reports doing better this am. She was able to tolerate liquids and pureed diet last night, no issues with Jello. Denies nausea, vomiting, abdominal pain, melena or hematochezia. ROS: A 12pt ROS was obtained and was negative except as above. Objective - Vital Signs/Intake and Output Vital Signs (last 24 hours): Temp Pulse Resp BP Pulse Ox 97.8 F 80 18 138/78 96 11/30/16 07:58 11/30/16 07:58 11/30/16 07:58 11/30/16 07:58 11/30/16 07:58 - Medications Medications: Current Medications Acetaminophen (Tylenol 325mg Tab) 650 mg PO Q6 PRN PRN Reason: Pain, Mild (1-3) Last Admin: 11/26/16 06:34 Dose: 650 mg Atorvastatin Calcium (Lipitor) 20 mg PO QPM [facility] Last Admin: 11/29/16 18:06 Dose: 20 mg Benzocaine/Menthol (Cepacol Sore Throat) 1 fermin PO Q2 PRN PRN Reason: Sore Throat Last Admin: 11/29/16 08:54 Dose: 1 fermin Enoxaparin Sodium (Lovenox) 30 mg SC DAILY [facility] PRN Reason: Protocol Last Admin: 11/28/16 08:22 Dose: 30 mg Enoxaparin Sodium (Lovenox) 30 mg SC DAILY [facility] PRN Reason: Protocol Famotidine (Pepcid) 20 mg PO DAILY [facility] Last Admin: 11/29/16 08:54 Dose: Not Given Fluconazole (Diflucan) 100 mg PO DAILY [facility] Last Admin: 11/29/16 08:54 Dose: Not Given Lactulose (Enulose) 10 gm PO DAILY [facility] Last Admin: 11/29/16 08:54 Dose: Not Given Lidocaine (Lidoderm) 2 ea TD DAILY [facility] Last Admin: 11/29/16 08:39 Dose: 2 ea Senna/Docusate Sodium (Senokot S 50 Mg-8.6 Mg) 2 tab PO HS [facility] Last Admin: 11/29/16 21:18 Dose: 2 tab Vitamin D (Vitamin D 400 Intl Units Tab) 800 intlu PO DAILY [facility] Last Admin: 11/29/16 08:55 Dose: Not Given - Labs Labs: 11/29/16 06:30 11/29/16 06:30 PT 13.4 Seconds (9.8-13.1) H 11/29/16 06:30 INR 1.3 (0.9-1.2) H 11/29/16 06:30 APTT 29.0 Seconds (25.6-37.1) 11/29/16 06:30 - Constitutional Appears: Non-toxic, No Acute Distress, Cachectic - Head Exam Head Exam: ATRAUMATIC, NORMAL INSPECTION, NORMOCEPHALIC - Eye Exam Eye Exam: EOMI, Normal appearance, PERRL Pupil Exam: PERRL - ENT Exam ENT Exam: Mucous Membranes Moist, Normal Exam - Neck Exam Neck Exam: Full ROM, Normal Inspection - Respiratory Exam Respiratory Exam: Clear to Ausculation Bilateral, NORMAL BREATHING PATTERN - Cardiovascular Exam Cardiovascular Exam: RRR, +S1, +S2, Murmur - GI/Abdominal Exam GI & Abdominal Exam: Soft, Normal Bowel Sounds. absent: Distended, Firm, Guarding, Rigid, Tenderness, Organomegaly - Rectal Exam Rectal Exam: Deferred - Extremities Exam Extremities Exam: Full ROM, Normal Inspection - Back Exam Back Exam: NORMAL INSPECTION - Neurological Exam Neurological Exam: Alert, Awake, Oriented x3 - Psychiatric Exam Psychiatric exam: Normal Affect, Normal Mood - Skin Skin Exam: Dry, Intact, Normal Color, Warm Assessment and Plan - Assessment and Plan (Free Text) Assessment: This is a 81yF with pmhx of DM, COPD, AAA, Severe , Compression fracture s/p L2 vertebroplasty pw low back pain and chronic constipation. During the hospital admission, pt reports progressively worsening dysphasia over that past few months with associated weight loss. 1. Dysphasia s/p EGD with motility disorder, schatzki's ring, possible radha 2. Chronic Constipation 3. Acute L2 compression fracture s/p vertebroplasty 4. Severe , needs outpt TAVR per Cardiology Plan: -s/p EGD with motility disorder/aperistalsis, non-obstructing schatzki's ring in mid-esophagus, open LES, patchy cindy s/p cells for cytology with brushing -Wait for cytology results, if radha can treat with liquid Diflucane -No plan at this time for any dilatation of schatzki's ring, non obstructing -Continue full liquid and pureed diet -Continue bowel regimen for constipation -Pt okay for discharge from GI perspective, followup with cytology results <Virgen Basurto MD - Last Filed: 11/30/16 14:03> Objective - Vital Signs/Intake and Output Vital Signs (last 24 hours): Temp Pulse Resp BP Pulse Ox 97.8 F 89 18 116/73 96 11/30/16 12:00 11/30/16 12:00 11/30/16 12:00 11/30/16 12:00 11/30/16 12:00 - Medications Medications: Current Medications Acetaminophen (Tylenol 325mg Tab) 650 mg PO Q6 PRN PRN Reason: Pain, Mild (1-3) Last Admin: 11/26/16 06:34 Dose: 650 mg Atorvastatin Calcium (Lipitor) 20 mg PO HS [facility] Benzocaine/Menthol (Cepacol Sore Throat) 1 fermin PO Q2 PRN PRN Reason: Sore Throat Last Admin: 11/30/16 09:24 Dose: 1 fermin Calcium Carbonate (Oscal) 500 mg PO BIDWM [facility] Enoxaparin Sodium (Lovenox) 40 mg SC DAILY [facility] PRN Reason: Protocol Famotidine (Pepcid) 20 mg PO DAILY [facility] Last Admin: 11/30/16 09:23 Dose: 20 mg Fluconazole (Diflucan) 100 mg PO DAILY [facility] Last Admin: 11/30/16 09:22 Dose: 100 mg Lactulose (Enulose) 10 gm PO DAILY [facility] Last Admin: 11/30/16 09:22 Dose: 10 gm Lidocaine (Lidoderm) 2 ea TD DAILY [facility] Last Admin: 11/30/16 09:22 Dose: 2 ea Senna/Docusate Sodium (Senokot S 50 Mg-8.6 Mg) 2 tab PO HS [facility] Last Admin: 11/29/16 21:18 Dose: 2 tab Vitamin D (Vitamin D 400 Intl Units Tab) 800 intlu PO DAILY [facility] Last Admin: 11/30/16 09:23 Dose: 800 intlu - Labs Labs: 11/29/16 06:30 11/29/16 06:30 PT 13.4 Seconds (9.8-13.1) H 11/29/16 06:30 INR 1.3 (0.9-1.2) H 11/29/16 06:30 APTT 29.0 Seconds (25.6-37.1) 11/29/16 06:30 Attending/Attestation - Attestation I have personally seen and examined this patient.: Yes I have fully participated in the care of the patient.: Yes I have reviewed all pertinent clinical information, including history, physical exam and plan: Yes Notes (Text): 11/30/16 13:58 Patient seen and examined at bedside. This is a 81 yr old F with pmhx of DM, COPD, AAA, Severe , Compression fracture s/p L2 vertebroplasty presenting with low back pain and chronic constipation. During the hospital admission, patient reports progressively worsening dysphagia over past few months with associated weight loss. S/P EGD (please see full report in chart) with motility disorder/aperistalsis of entire esophagus, non-obstructing schatzki's ring in mid-esophagus, open LES, patchy radha s/p brushings done for cytology. Continue full liquid and pureed diet and aggressive bowel regimen for constipation. Will sign off now. Thank you for letting us participate in the care of your patient.
--- NOTE | 2016-11-30 08:39 | CP.PCM.PN ---
Subjective - Date & Time of Evaluation Date of Evaluation: 11/30/16 Time of Evaluation: 06:45 Objective - Vital Signs/Intake and Output Vital Signs (last 24 hours): Temp Pulse Resp BP Pulse Ox 97.8 F 80 18 138/78 96 11/30/16 07:58 11/30/16 07:58 11/30/16 07:58 11/30/16 07:58 11/30/16 07:58 - Medications Medications: Current Medications Acetaminophen (Tylenol 325mg Tab) 650 mg PO Q6 PRN PRN Reason: Pain, Mild (1-3) Last Admin: 11/26/16 06:34 Dose: 650 mg Atorvastatin Calcium (Lipitor) 20 mg PO QPM [facility] Last Admin: 11/29/16 18:06 Dose: 20 mg Benzocaine/Menthol (Cepacol Sore Throat) 1 fermin PO Q2 PRN PRN Reason: Sore Throat Last Admin: 11/29/16 08:54 Dose: 1 fermin Enoxaparin Sodium (Lovenox) 30 mg SC DAILY [facility] PRN Reason: Protocol Last Admin: 11/28/16 08:22 Dose: 30 mg Enoxaparin Sodium (Lovenox) 30 mg SC DAILY [facility] PRN Reason: Protocol Famotidine (Pepcid) 20 mg PO DAILY [facility] Last Admin: 11/29/16 08:54 Dose: Not Given Fluconazole (Diflucan) 100 mg PO DAILY [facility] Last Admin: 11/29/16 08:54 Dose: Not Given Lactulose (Enulose) 10 gm PO DAILY [facility] Last Admin: 11/29/16 08:54 Dose: Not Given Lidocaine (Lidoderm) 2 ea TD DAILY [facility] Last Admin: 11/29/16 08:39 Dose: 2 ea Senna/Docusate Sodium (Senokot S 50 Mg-8.6 Mg) 2 tab PO HS [facility] Last Admin: 11/29/16 21:18 Dose: 2 tab Vitamin D (Vitamin D 400 Intl Units Tab) 800 intlu PO DAILY [facility] Last Admin: 11/29/16 08:55 Dose: Not Given - Labs Labs: 11/29/16 06:30 11/29/16 06:30 PT 13.4 Seconds (9.8-13.1) H 11/29/16 06:30 INR 1.3 (0.9-1.2) H 11/29/16 06:30 APTT 29.0 Seconds (25.6-37.1) 11/29/16 06:30 - Constitutional Appears: Well, No Acute Distress Assessment and Plan (1) Acute back pain Status: Acute (2) Constipation Status: Resolved - Assessment and Plan (Free Text) Assessment: 81 y/o F with multiple cardiovascular conditions admitted for acute compression fracture of L2 spine. s/p Kyphoplasty. #Lumbar Compression Fracture s/p Kyphoplasty POD #4 -Pain management:Tylenol and Toradol PRN + 2 Lidocaine patches- tolerating pain well -PT/OT to evaluate pt today to see if pt will benefit from Subacute Rehab vs TCU #Dysphagia- New in onset -Placed on modified carbohydrate diet- NPO today for EDG -Pepcid 20mg po daily for GERD possibly causing to Dyspm completed yesterday; -GI consult appreciated- Barium esophogram concerning for possible stricture; will get EGD today to assess further -Follow GI recommendations -Aspiration precautions #Transaminitits- mild -AST 52, ALT 62, ALP 149 -D/C standing Tyelenol -Will f/u in 2 days #Constipation. -Improving. Pt had BM last night -Continue Senokot and Lactulose #Moderate Aortic Stenosis -Repeat ZINA on November 2016 shows .55cm diameter aortic valve -Pt. for possible TAVR as per Cardiology Dr. Elmore. Recommends starting ASA 81mg PO and Atorvastatin 20mg PO Qpm -ASA d/c as she is currently NPO and has an elevated INR #NIDDM (Non Insulin Dependent DM) -Will get Hba1c tomorrow to evaluate pt's need for an oral antihyperglycemic agent - POCG range 160-200's #Leukopenia- Chronic -continue to monitor #Vitamin D Deficiency- 24.5 -c/w vitamin D800 INU daily PO #DVT Prophlyaxis -Lovenox 30mg sc -Pt will be seen by PT today and will ambulate with assistance #Diet -NPO
[2016-11-30] MEDS: Lactulose 10 gm/15 ml Syrup PO SCH (09:22)
[2016-11-30] MEDS: Lidocaine 5% Patch TD SCH (09:22)
[2016-11-30] MEDS: Cholecalciferol 400 Intl Units Tab PO SCH (09:23)
[2016-11-30] MEDS: Benzocaine/Menthol (Cepacol) Lozenge PO PRN ×2 (09:24→16:46)
[2016-11-30] MEDS: Enoxaparin 30 mg Syringe SC SCH (09:54)
--- NOTE | 2016-11-30 12:17 | CP.PCM.PN ---
Subjective - Date & Time of Evaluation Date of Evaluation: 11/30/16 Time of Evaluation: 07:00 - Subjective Subjective: 81 yo F that is seen and examined today at bedside, she looks pleasant in sitting position, reports feeling well, eating and sleeping well. Looks less forgetful. Denies back pain, SOB, chest pain, no nausea or vomiting, no fever. Objective - Vital Signs/Intake and Output Vital Signs (last 24 hours): Temp Pulse Resp BP Pulse Ox 97.8 F 89 18 116/73 96 11/30/16 12:00 11/30/16 12:00 11/30/16 12:00 11/30/16 12:00 11/30/16 12:00 - Medications Medications: Current Medications Acetaminophen (Tylenol 325mg Tab) 650 mg PO Q6 PRN PRN Reason: Pain, Mild (1-3) Last Admin: 11/26/16 06:34 Dose: 650 mg Atorvastatin Calcium (Lipitor) 20 mg PO HS [facility] Benzocaine/Menthol (Cepacol Sore Throat) 1 fermin PO Q2 PRN PRN Reason: Sore Throat Last Admin: 11/30/16 09:24 Dose: 1 fermin Calcium Carbonate (Oscal) 500 mg PO BIDWM [facility] Enoxaparin Sodium (Lovenox) 40 mg SC DAILY [facility] PRN Reason: Protocol Famotidine (Pepcid) 20 mg PO DAILY [facility] Last Admin: 11/30/16 09:23 Dose: 20 mg Fluconazole (Diflucan) 100 mg PO DAILY [facility] Last Admin: 11/30/16 09:22 Dose: 100 mg Lactulose (Enulose) 10 gm PO DAILY [facility] Last Admin: 11/30/16 09:22 Dose: 10 gm Lidocaine (Lidoderm) 2 ea TD DAILY [facility] Last Admin: 11/30/16 09:22 Dose: 2 ea Senna/Docusate Sodium (Senokot S 50 Mg-8.6 Mg) 2 tab PO HS [facility] Last Admin: 11/29/16 21:18 Dose: 2 tab Vitamin D (Vitamin D 400 Intl Units Tab) 800 intlu PO DAILY [facility] Last Admin: 11/30/16 09:23 Dose: 800 intlu - Labs Labs: 11/29/16 06:30 11/29/16 06:30 PT 13.4 Seconds (9.8-13.1) H 11/29/16 06:30 INR 1.3 (0.9-1.2) H 11/29/16 06:30 APTT 29.0 Seconds (25.6-37.1) 11/29/16 06:30 - Constitutional Appears: Well, Non-toxic - Head Exam Head Exam: ATRAUMATIC, NORMOCEPHALIC - Eye Exam Eye Exam: EOMI, PERRL. absent: Nystagmus - Neck Exam Neck Exam: Full ROM. absent: Lymphadenopathy - Respiratory Exam Respiratory Exam: Clear to Ausculation Bilateral. absent: Accessory Muscle Use , Chest Wall Tenderness - Cardiovascular Exam Cardiovascular Exam: RRR, +S1, +S2, Murmur - GI/Abdominal Exam GI & Abdominal Exam: Soft, Normal Bowel Sounds. absent: Tenderness, Organomegaly - Extremities Exam Extremities Exam: Normal Inspection. absent: Joint Swelling, Pedal Edema, Tenderness - Back Exam Back Exam: NORMAL INSPECTION. absent: vertebral tenderness - Neurological Exam Neurological Exam: Alert, Oriented x3 - Psychiatric Exam Psychiatric exam: absent: Anxious Assessment and Plan - Assessment and Plan (Free Text) Assessment: - Assessment and Plan (Free Text) Assessment: 81 y/o F with PMH of Aortic Stenosis, DM is admitted for acute compression fracture of L2 spine. s/p Kyphoplasty. #Lumbar Compression Fracture s/p Kyphoplasty POD #5 -Pain management:Tylenol and Toradol PRN + 2 Lidocaine patches- tolerating pain well -PT/OT to evaluate pt today to see if pt will benefit from Subacute Rehab vs TCU #Dysphagia- New in onset -Endoscopy done yesterday, results: esophageal aperistalsis,non-obstructing Schatzki ring, monilial esophagitis, 4cm hiatus hernia, normal duodenal bulb and 2nd part the duodenum. -Placed on modified consistency diet. -Pepcid 20mg po daily for GERD. -Follow GI recommendations. -Aspiration precautions. #Transaminitits- mild -AST 52, ALT 62, ALP 149 -Will repeat tomorrow #Constipation. -Improving. Pt had BM last night -Continue Senokot and Lactulose. #Moderate Aortic Stenosis -Repeated ZINA on November 2016 shows .55cm diameter aortic valve -Pt. for possible TAVR as per Cardiology Dr. Elmore. Recommends starting ASA 81mg PO and Atorvastatin 20mg PO Qpm -ASA d/c due to elevated INR #NIDDM (Non Insulin Dependent DM) -Will get Hba1c tomorrow to evaluate pt's need for an oral antihyperglycemic agent - POCG range 160-200's #Leukopenia- Chronic -continue to monitor #Vitamin D Deficiency- 24.5 -c/w vitamin D800 INU daily PO #DVT Prophlyaxis -Lovenox 40mg sc/ daily -Pt will be seen by PT today and will ambulate with assistance #Diet -Modified consistency diet.
[2016-11-30] MEDS: Docusate-Senna 50 mg-8.6 mg Tab PO SCH (21:06)
[2016-12-01 06:38] LABS: HEMATOCRIT 27.6 % (34.0-47.0); MEAN CELL VOLUME 83.2 fl (81.0-99.0); MEAN CORPUSCULAR HEMOGLOBIN 28.1 pg (27.0-31.0); MEAN CORPUSCULAR HGB CONC 33.7 g/dL (33.0-37.0); RED CELL DISTRIBUTION WIDTH 14.8 % (11.5-14.5); WHITE BLOOD COUNT 3.4 K/uL (4.8-10.8)
[2016-12-01] MEDS: Benzocaine/Menthol (Cepacol) Lozenge PO PRN ×3 (07:06→16:31)
[2016-12-01 08:13] LABS: ALKALINE PHOSPHATASE 138 U/L (38-126); ALT/SGPT 42 U/L (9-52); AST/SGOT 40 U/L (14-36); BILIRUBIN,TOTAL 0.9 mg/dl (0.2-1.3); BLOOD UREA NITROGEN 15 mg/dl (7-17); CALCIUM 9.5 mg/dL (8.4-10.2); CARBON DIOXIDE 22 mmol/L (22-30); CHLORIDE 105 mmol/L (98-107); GFR AFRICAN-AMERICAN > 60; GLUCOSE,RANDOM 110 mg/dL (65-105); POTASSIUM 4.4 MMOL/L (3.6-5.0); SODIUM 136 mmol/l (132-148)
[2016-12-01 08:16] LABS: ALB/GLOB RATIO 0.8 (1.0-2.1)
[2016-12-01] MEDS ORDERED: Enoxaparin 30 mg Syringe SC SCH (09:00)
[2016-12-01] MEDS: Lidocaine 5% Patch TD SCH (10:00)
[2016-12-01] MEDS: Enoxaparin 40 mg Syringe SC SCH (10:00)
[2016-12-01] MEDS: Cholecalciferol 400 Intl Units Tab PO SCH (10:00)
[2016-12-01] MEDS: Lactulose 10 gm/15 ml Syrup PO SCH (10:00)
--- NOTE | 2016-12-01 12:46 | CP.PCM.PN ---
Subjective - Date & Time of Evaluation Date of Evaluation: 12/01/16 Time of Evaluation: 07:40 - Subjective Subjective: No acute overnight events. 81 yo F that is seen and examined today at bedside, she looks pleasant in sitting position, reports feeling well, eating and sleeping well. Denies back pain, chest pain, no nausea or vomiting, no fever, last BM 2 days ago. Objective - Vital Signs/Intake and Output Vital Signs (last 24 hours): Temp Pulse Resp BP Pulse Ox 97.5 F L 64 20 128/66 99 12/01/16 08:56 12/01/16 09:00 12/01/16 08:56 12/01/16 08:56 12/01/16 08:56 - Medications Medications: Current Medications Acetaminophen (Tylenol 325mg Tab) 650 mg PO Q6 PRN PRN Reason: Pain, Mild (1-3) Last Admin: 11/26/16 06:34 Dose: 650 mg Atorvastatin Calcium (Lipitor) 20 mg PO HS [facility] Last Admin: 11/30/16 21:06 Dose: 20 mg Benzocaine/Menthol (Cepacol Sore Throat) 1 fermin PO Q2 PRN PRN Reason: Sore Throat Last Admin: 12/01/16 07:06 Dose: 1 fermin Calcium Carbonate (Oscal) 500 mg PO BIDWM [facility] Last Admin: 12/01/16 08:30 Dose: 500 mg Enoxaparin Sodium (Lovenox) 40 mg SC DAILY [facility] PRN Reason: Protocol Last Admin: 12/01/16 10:00 Dose: 40 mg Famotidine (Pepcid) 20 mg PO DAILY [facility] Last Admin: 12/01/16 10:00 Dose: 20 mg Fluconazole (Diflucan) 100 mg PO DAILY [facility] Last Admin: 12/01/16 10:00 Dose: 100 mg Lactulose (Enulose) 10 gm PO DAILY [facility] Last Admin: 12/01/16 10:00 Dose: 10 gm Lidocaine (Lidoderm) 2 ea TD DAILY [facility] Last Admin: 12/01/16 10:00 Dose: 2 ea Senna/Docusate Sodium (Senokot S 50 Mg-8.6 Mg) 2 tab PO HS [facility] Last Admin: 11/30/16 21:06 Dose: 2 tab Vitamin D (Vitamin D 400 Intl Units Tab) 800 intlu PO DAILY [facility] Last Admin: 12/01/16 10:00 Dose: 800 intlu - Labs Labs: 12/01/16 05:00 12/01/16 05:00 PT 13.4 Seconds (9.8-13.1) H 11/29/16 06:30 INR 1.3 (0.9-1.2) H 11/29/16 06:30 APTT 29.0 Seconds (25.6-37.1) 11/29/16 06:30 - Constitutional Appears: Well, Non-toxic, No Acute Distress - Head Exam Head Exam: ATRAUMATIC, NORMOCEPHALIC - Eye Exam Eye Exam: EOMI, Normal appearance, PERRL. absent: Nystagmus - Neck Exam Neck Exam: Full ROM. absent: Lymphadenopathy - Respiratory Exam Respiratory Exam: NORMAL BREATHING PATTERN. absent: Chest Wall Tenderness - Cardiovascular Exam Cardiovascular Exam: REGULAR RHYTHM, +S1, +S2, Murmur - GI/Abdominal Exam GI & Abdominal Exam: Soft, Normal Bowel Sounds. absent: Tenderness, Organomegaly - Extremities Exam Extremities Exam: Full ROM. absent: Calf Tenderness, Pedal Edema - Back Exam Back Exam: NORMAL INSPECTION. absent: paraspinal tenderness, vertebral tenderness - Neurological Exam Neurological Exam: Alert, CN II-XII Intact, Oriented x3 - Psychiatric Exam Psychiatric exam: Normal Mood Assessment and Plan - Assessment and Plan (Free Text) Assessment: - Assessment and Plan (Free Text) Assessment: 81 y/o F with PMH of Aortic Stenosis, DM is admitted for acute compression fracture of L2 spine. s/p Kyphoplasty. #Lumbar Compression Fracture s/p Kyphoplasty POD #6 -Pain management:Tylenol and Toradol PRN + 2 Lidocaine patches- tolerating pain well -PT/OT to evaluate pt today to see if pt will benefit from Subacute Rehab vs TCU #Dysphagia- New in onset -Endoscopy results: esophageal aperistalsis,non-obstructing Schatzki ring, monilial esophagitis, 4cm hiatus hernia, normal duodenal bulb and 2nd part the duodenum. -Placed on modified consistency diet. -Pepcid 20mg po daily for GERD. -Follow GI recommendations. -Aspiration precautions. #Transaminitits- mild -AST 40, ALT 42, ALP 138( improving) -Will repeat tomorrow #Constipation. -Improving. -Continue Senokot and Lactulose. #Moderate Aortic Stenosis -Repeated ZINA on November 2016 shows .55cm diameter aortic valve -Pt. for possible TAVR as per Cardiology Dr. Elmore. Recommends starting ASA 81mg PO and Atorvastatin 20mg PO Qpm -ASA d/c due to elevated INR #NIDDM (Non Insulin Dependent DM) -Will get Hba1c tomorrow to evaluate pt's need for an oral antihyperglycemic agent - POCG range 160-200's #Leukopenia- Chronic -continue to monitor #Vitamin D Deficiency- 24.5 -c/w vitamin D800 INU daily PO #DVT Prophlyaxis -Lovenox 40mg sc/ daily -Pt will be seen by PT today and will ambulate with assistance
--- NOTE | 2016-12-01 14:26 | CP.PCM.PN ---
Subjective - Date & Time of Evaluation Date of Evaluation: 12/01/16 Time of Evaluation: 14:25 - Subjective Subjective: feeling fine asa held yesterday mildly elevated LFT's Objective - Vital Signs/Intake and Output Vital Signs (last 24 hours): Temp Pulse Resp BP Pulse Ox 97.3 F L 85 20 108/57 L 95 12/01/16 13:54 12/01/16 13:54 12/01/16 13:54 12/01/16 13:54 12/01/16 13:54 - Medications Medications: Current Medications Acetaminophen (Tylenol 325mg Tab) 650 mg PO Q6 PRN PRN Reason: Pain, Mild (1-3) Last Admin: 11/26/16 06:34 Dose: 650 mg Atorvastatin Calcium (Lipitor) 20 mg PO HS [facility] Last Admin: 11/30/16 21:06 Dose: 20 mg Benzocaine/Menthol (Cepacol Sore Throat) 1 fermin PO Q2 PRN PRN Reason: Sore Throat Last Admin: 12/01/16 12:50 Dose: 1 fermin Calcium Carbonate (Oscal) 500 mg PO BIDWM [facility] Last Admin: 12/01/16 08:30 Dose: 500 mg Enoxaparin Sodium (Lovenox) 40 mg SC DAILY [facility] PRN Reason: Protocol Last Admin: 12/01/16 10:00 Dose: 40 mg Famotidine (Pepcid) 20 mg PO DAILY [facility] Last Admin: 12/01/16 10:00 Dose: 20 mg Fluconazole (Diflucan) 100 mg PO DAILY [facility] Last Admin: 12/01/16 10:00 Dose: 100 mg Lactulose (Enulose) 10 gm PO DAILY [facility] Last Admin: 12/01/16 10:00 Dose: 10 gm Lidocaine (Lidoderm) 2 ea TD DAILY [facility] Last Admin: 12/01/16 10:00 Dose: 2 ea Senna/Docusate Sodium (Senokot S 50 Mg-8.6 Mg) 2 tab PO HS [facility] Last Admin: 11/30/16 21:06 Dose: 2 tab Vitamin D (Vitamin D 400 Intl Units Tab) 800 intlu PO DAILY [facility] Last Admin: 12/01/16 10:00 Dose: 800 intlu - Labs Labs: 12/01/16 05:00 12/01/16 05:00 PT 13.4 Seconds (9.8-13.1) H 08/15/17 06:30 INR 1.3 (0.9-1.2) H 11/29/16 06:30 APTT 29.0 Seconds (25.6-37.1) 11/29/16 06:30 - Constitutional Appears: Well - Head Exam Head Exam: ATRAUMATIC, NORMAL INSPECTION, NORMOCEPHALIC - Eye Exam Eye Exam: EOMI, Normal appearance, PERRL Pupil Exam: NORMAL ACCOMODATION, PERRL - ENT Exam ENT Exam: Mucous Membranes Moist, Normal Exam - Neck Exam Neck Exam: Full ROM, Normal Inspection. absent: Lymphadenopathy - Respiratory Exam Respiratory Exam: Clear to Ausculation Bilateral, NORMAL BREATHING PATTERN - Cardiovascular Exam Cardiovascular Exam: REGULAR RHYTHM, +S1, +S2. absent: Murmur - GI/Abdominal Exam GI & Abdominal Exam: Soft, Normal Bowel Sounds. absent: Tenderness - Extremities Exam Extremities Exam: Full ROM, Normal Capillary Refill, Normal Inspection. absent : Joint Swelling, Pedal Edema - Back Exam Back Exam: NORMAL INSPECTION - Neurological Exam Neurological Exam: Alert, Awake, CN II-XII Intact, Oriented x3 - Psychiatric Exam Psychiatric exam: Normal Affect, Normal Mood - Skin Skin Exam: Dry, Intact, Normal Color, Warm Assessment and Plan (1) Aortic stenosis Assessment & Plan: outpt TAVR Status: Acute (2) Preop cardiovascular exam Status: Acute (3) Dizziness Status: Chronic (4) Fall at home Status: Acute (5) PVD (peripheral vascular disease) Status: Acute (6) Aortic arch atherosclerosis Assessment & Plan: ok to resume ASA as it doesn't effect INR and incresed INR likely 2' to Vit K def cont with statins Status: Acute
[2016-12-01] MEDS: Docusate-Senna 50 mg-8.6 mg Tab PO SCH ×2 (21:05→21:06)
[2016-12-02] MEDS: Enoxaparin 40 mg Syringe SC SCH (09:18)
[2016-12-02] MEDS: Lidocaine 5% Patch TD SCH (09:19)
[2016-12-02] MEDS: Benzocaine/Menthol (Cepacol) Lozenge PO PRN ×3 (09:21→21:43)
[2016-12-02] MEDS: Lactulose 10 gm/15 ml Syrup PO SCH ×2 (09:21)
--- NOTE | 2016-12-02 10:02 | CP.PCM.PN ---
Subjective - Date & Time of Evaluation Date of Evaluation: 12/02/16 Time of Evaluation: 06:55 - Subjective Subjective: No acute overnight events 81 yo F seen and examined today at bedside, she is not acute distress, reports feeling well, eating and sleeping well. She walked yesterday with PT assistance up to room door. Denies back pain, SOB, chest pain, palpitation, no fever, nausea or vomiting. Had BM yesterday. Objective - Vital Signs/Intake and Output Vital Signs (last 24 hours): Temp Pulse Resp BP Pulse Ox 97.8 F 71 20 131/69 97 12/02/16 08:00 12/02/16 08:00 12/02/16 08:00 12/02/16 08:00 12/02/16 08:00 Intake and Output: 12/02/16 12/02/16 06:59 18:59 Output Total 150 Balance -150 - Medications Medications: Current Medications Acetaminophen (Tylenol 325mg Tab) 650 mg PO Q6 PRN PRN Reason: Pain, Mild (1-3) Last Admin: 11/26/16 06:34 Dose: 650 mg Aspirin (Ecotrin) 81 mg PO DAILY [facility] Last Admin: 12/02/16 09:22 Dose: 81 mg Atorvastatin Calcium (Lipitor) 20 mg PO HS [facility] Last Admin: 12/01/16 21:04 Dose: 20 mg Benzocaine/Menthol (Cepacol Sore Throat) 1 fermin PO Q2 PRN PRN Reason: Sore Throat Last Admin: 12/02/16 09:21 Dose: 1 fermin Calcium Carbonate (Oscal) 500 mg PO BIDWM [facility] Last Admin: 12/02/16 09:20 Dose: 500 mg Enoxaparin Sodium (Lovenox) 40 mg SC DAILY [facility] PRN Reason: Protocol Last Admin: 12/02/16 09:18 Dose: 40 mg Ergocalciferol (Drisdol 50,000 Intl Units Cap) 1 cap PO Q7D [facility] Famotidine (Pepcid) 20 mg PO DAILY [facility] Last Admin: 12/02/16 09:20 Dose: 20 mg Fluconazole (Diflucan) 100 mg PO DAILY [facility] Last Admin: 12/02/16 09:20 Dose: 100 mg Lactulose (Enulose) 10 gm PO DAILY [facility] Last Admin: 12/02/16 09:21 Dose: 10 gm Lidocaine (Lidoderm) 2 ea TD DAILY [facility] Last Admin: 12/02/16 09:19 Dose: 2 ea Senna/Docusate Sodium (Senokot S 50 Mg-8.6 Mg) 2 tab PO HS [facility] Last Admin: 12/01/16 21:06 Dose: Not Given - Labs Labs: 12/01/16 05:00 12/01/16 05:00 PT 13.4 Seconds (9.8-13.1) H 11/29/16 06:30 INR 1.3 (0.9-1.2) H 11/29/16 06:30 APTT 29.0 Seconds (25.6-37.1) 11/29/16 06:30 - Constitutional Appears: Well, No Acute Distress - Head Exam Head Exam: ATRAUMATIC, NORMOCEPHALIC - Eye Exam Eye Exam: EOMI, Normal appearance, PERRL. absent: Nystagmus - Neck Exam Neck Exam: Normal Inspection. absent: Lymphadenopathy, Tenderness, Thyromegaly - Respiratory Exam Respiratory Exam: Clear to Ausculation Bilateral. absent: Chest Wall Tenderness , Rales, Wheezes - Cardiovascular Exam Cardiovascular Exam: REGULAR RHYTHM, +S1, +S2, Murmur - GI/Abdominal Exam GI & Abdominal Exam: Soft, Normal Bowel Sounds. absent: Tenderness, Organomegaly - Rectal Exam Rectal Exam: Deferred - Extremities Exam Extremities Exam: Normal Inspection. absent: Calf Tenderness, Pedal Edema - Back Exam Back Exam: NORMAL INSPECTION. absent: CVA tenderness (L), CVA tenderness (R), vertebral tenderness - Neurological Exam Neurological Exam: Alert, Awake, CN II-XII Intact, Oriented x3 - Psychiatric Exam Psychiatric exam: Normal Mood Assessment and Plan - Assessment and Plan (Free Text) Assessment: - Assessment and Plan (Free Text) Assessment: 81 y/o F with PMH of Aortic Stenosis, DM is admitted for acute compression fracture of L2 spine. s/p Kyphoplasty. #Lumbar Compression Fracture s/p Kyphoplasty POD #7 -Pain management:Tylenol and Toradol PRN + 2 Lidocaine patches- tolerating pain well -PT/OT to evaluate pt today to see if pt will benefit from Subacute Rehab vs TCU #Dysphagia- Improving -Placed on modified consistency diet. -Pepcid 20mg po daily for GERD. -Follow GI recommendations. -Aspiration precautions. #Transaminitits- mild -AST 40, ALT 42, ALP 138( improving) -Will repeat tomorrow #Constipation. -Improving. -Continue Senokot and Lactulose. #Moderate Aortic Stenosis -Repeated ZINA on November 2016 shows .55cm diameter aortic valve -Pt. for possible TAVR as per Cardiology Dr. Elmore. Recommends starting ASA 81mg PO and Atorvastatin 20mg PO Qpm -ASA d/c due to elevated INR #NIDDM (Non Insulin Dependent DM) -Will get Hba1c tomorrow to evaluate pt's need for an oral antihyperglycemic agent - POCG range 160-200's #Leukopenia- Chronic -continue to monitor #Vitamin D Deficiency- 24.5 -c/w vitamin D800 INU daily PO -TSH, PTH, TTG, CBC ordered #DVT Prophlyaxis -Lovenox 40mg sc/ daily -Pt will be seen by PT today and will ambulate with assistance
[2016-12-02] MEDS: Ergocalciferol 50,000 Intl Units Cap PO SCH (11:26)
[2016-12-02 12:07] LABS: HEMATOCRIT 30.2 % (34.0-47.0); MEAN CELL VOLUME 85.1 fl (81.0-99.0); MEAN CORPUSCULAR HEMOGLOBIN 27.2 pg (27.0-31.0); RED CELL DISTRIBUTION WIDTH 14.9 % (11.5-14.5); WHITE BLOOD COUNT 3.6 K/uL (4.8-10.8)
--- NOTE | 2016-12-02 18:27 | CP.PCM.PN ---
Subjective - Date & Time of Evaluation Date of Evaluation: 12/02/16 Time of Evaluation: 18:27 - Subjective Subjective: feeling fine denies any complaints today Objective - Vital Signs/Intake and Output Vital Signs (last 24 hours): Temp Pulse Resp BP Pulse Ox 97.9 F 75 18 116/60 96 12/02/16 17:00 12/02/16 17:00 12/02/16 17:00 12/02/16 17:00 12/02/16 17:00 Intake and Output: 12/02/16 12/02/16 06:59 18:59 Output Total 150 Balance -150 - Medications Medications: Current Medications Acetaminophen (Tylenol 325mg Tab) 650 mg PO Q6 PRN PRN Reason: Pain, Mild (1-3) Last Admin: 11/26/16 06:34 Dose: 650 mg Aspirin (Ecotrin) 81 mg PO DAILY [facility] Last Admin: 12/02/16 09:22 Dose: 81 mg Atorvastatin Calcium (Lipitor) 20 mg PO HS [facility] Last Admin: 12/01/16 21:04 Dose: 20 mg Benzocaine/Menthol (Cepacol Sore Throat) 1 fermin PO Q2 PRN PRN Reason: Sore Throat Last Admin: 12/02/16 15:28 Dose: 1 fermin Calcium Carbonate (Oscal) 500 mg PO BIDWM [facility] Last Admin: 12/02/16 16:11 Dose: 500 mg Enoxaparin Sodium (Lovenox) 40 mg SC DAILY [facility] PRN Reason: Protocol Last Admin: 12/02/16 09:18 Dose: 40 mg Ergocalciferol (Drisdol 50,000 Intl Units Cap) 1 cap PO Q7D [facility] Last Admin: 12/02/16 11:26 Dose: 1 cap Famotidine (Pepcid) 20 mg PO DAILY [facility] Last Admin: 12/02/16 09:20 Dose: 20 mg Fluconazole (Diflucan) 100 mg PO DAILY [facility] Last Admin: 12/02/16 09:20 Dose: 100 mg Lactulose (Enulose) 10 gm PO DAILY [facility] Last Admin: 12/02/16 09:21 Dose: Not Given Lidocaine (Lidoderm) 2 ea TD DAILY [facility] Last Admin: 12/02/16 09:19 Dose: 2 ea Senna/Docusate Sodium (Senokot S 50 Mg-8.6 Mg) 2 tab PO HS [facility] Last Admin: 12/01/16 21:06 Dose: Not Given - Labs Labs: 12/02/16 11:50 12/01/16 05:00 PT 13.4 Seconds (9.8-13.1) H 11/29/16 06:30 INR 1.3 (0.9-1.2) H 11/29/16 06:30 APTT 29.0 Seconds (25.6-37.1) 11/29/16 06:30 - Constitutional Appears: Well - Head Exam Head Exam: ATRAUMATIC, NORMAL INSPECTION, NORMOCEPHALIC - Eye Exam Eye Exam: EOMI, Normal appearance, PERRL Pupil Exam: NORMAL ACCOMODATION, PERRL - ENT Exam ENT Exam: Mucous Membranes Moist, Normal Exam - Neck Exam Neck Exam: Full ROM, Normal Inspection. absent: Lymphadenopathy - Respiratory Exam Respiratory Exam: Clear to Ausculation Bilateral, NORMAL BREATHING PATTERN - Cardiovascular Exam Cardiovascular Exam: REGULAR RHYTHM, +S1, +S2, Murmur - GI/Abdominal Exam GI & Abdominal Exam: Soft, Normal Bowel Sounds. absent: Tenderness - Exam Bimanual exam: NORMAL BIMANUAL EXAM - Extremities Exam Extremities Exam: Full ROM, Normal Capillary Refill, Normal Inspection. absent : Joint Swelling, Pedal Edema - Back Exam Back Exam: NORMAL INSPECTION - Neurological Exam Neurological Exam: Alert, Awake, CN II-XII Intact, Oriented x3 - Psychiatric Exam Psychiatric exam: Normal Affect, Normal Mood - Skin Skin Exam: Dry, Intact, Normal Color, Warm Assessment and Plan (1) Aortic stenosis Assessment & Plan: outpt TAVR Status: Acute (2) Preop cardiovascular exam Status: Acute (3) Dizziness Status: Chronic (4) Fall at home Status: Acute (5) PVD (peripheral vascular disease) Status: Acute (6) Aortic arch atherosclerosis Assessment & Plan: cont asa, statins Status: Acute
[2016-12-02] MEDS: Docusate-Senna 50 mg-8.6 mg Tab PO SCH (21:43)
[2016-12-03] MEDS: Benzocaine/Menthol (Cepacol) Lozenge PO PRN (08:52)
[2016-12-03] MEDS: Enoxaparin 40 mg Syringe SC SCH (08:53)
[2016-12-03] MEDS: Lactulose 10 gm/15 ml Syrup PO SCH (08:57)
[2016-12-03] MEDS: Lidocaine 5% Patch TD SCH (09:00)
--- NOTE | 2016-12-03 12:46 | CP.PCM.PN ---
Subjective - Date & Time of Evaluation Date of Evaluation: 12/03/16 Time of Evaluation: 09:00 - Subjective Subjective: Patient seen and examined today at bedside, she is no acute distress, no overnight events, reports feeling well, eating and sleeping well. She walked yesterday with PT assistance though desaturated to 88 during therapy. Denies back pain, SOB, chest pain, palpitation, no fever, nausea or vomiting. Normal BM. Patient states does not feel she needs O2. Patient has been sitting up on chair. Objective - Vital Signs/Intake and Output Vital Signs (last 24 hours): Temp Pulse Resp BP Pulse Ox 98.1 F 93 H 20 137/65 98 12/03/16 08:35 12/03/16 08:35 12/03/16 08:35 12/03/16 08:35 12/03/16 08:35 - Medications Medications: Current Medications Acetaminophen (Tylenol 325mg Tab) 650 mg PO Q6 PRN PRN Reason: Pain, Mild (1-3) Last Admin: 11/26/16 06:34 Dose: 650 mg Aspirin (Ecotrin) 81 mg PO DAILY [facility] Last Admin: 12/03/16 08:53 Dose: 81 mg Atorvastatin Calcium (Lipitor) 20 mg PO HS [facility] Last Admin: 12/02/16 21:42 Dose: 20 mg Benzocaine/Menthol (Cepacol Sore Throat) 1 fermin PO Q2 PRN PRN Reason: Sore Throat Last Admin: 12/03/16 08:52 Dose: 1 fermin Calcium Carbonate (Oscal) 500 mg PO BIDWM [facility] Last Admin: 12/03/16 08:53 Dose: 500 mg Ergocalciferol (Drisdol 50,000 Intl Units Cap) 1 cap PO Q7D [facility] Last Admin: 12/02/16 11:26 Dose: 1 cap Famotidine (Pepcid) 20 mg PO DAILY [facility] Last Admin: 12/03/16 08:53 Dose: 20 mg Fluconazole (Diflucan) 100 mg PO DAILY [facility] Last Admin: 12/03/16 08:53 Dose: 100 mg Lactulose (Enulose) 10 gm PO DAILY [facility] Last Admin: 12/03/16 08:57 Dose: 10 gm Lidocaine (Lidoderm) 2 ea TD DAILY [facility] Last Admin: 12/02/16 09:19 Dose: 2 ea Senna/Docusate Sodium (Senokot S 50 Mg-8.6 Mg) 2 tab PO HS [facility] Last Admin: 12/02/16 21:43 Dose: 2 tab - Labs Labs: 12/02/16 11:50 12/01/16 05:00 PT 13.4 Seconds (9.8-13.1) H 11/29/16 06:30 INR 1.3 (0.9-1.2) H 11/29/16 06:30 APTT 29.0 Seconds (25.6-37.1) 11/29/16 06:30 - Constitutional Appears: Well, Non-toxic, No Acute Distress - Head Exam Head Exam: ATRAUMATIC, NORMAL INSPECTION, NORMOCEPHALIC - Eye Exam Eye Exam: Normal appearance - Respiratory Exam Respiratory Exam: Clear to Ausculation Bilateral, NORMAL BREATHING PATTERN. absent: Decreased Breath Sounds, Rales, Rhonchi, Wheezes - Cardiovascular Exam Cardiovascular Exam: REGULAR RHYTHM, RRR, +S1, +S2 - GI/Abdominal Exam GI & Abdominal Exam: Soft, Normal Bowel Sounds. absent: Tenderness - Extremities Exam Extremities Exam: Normal Inspection - Neurological Exam Neurological Exam: Alert, Awake, Oriented x3 - Psychiatric Exam Psychiatric exam: Normal Affect, Normal Mood - Skin Skin Exam: Dry, Intact, Normal Color, Warm Assessment and Plan - Assessment and Plan (Free Text) Assessment: 81 y/o F with PMH of Aortic Stenosis, DM is admitted for acute compression fracture of L2 spine. s/p Kyphoplasty. #Lumbar Compression Fracture s/p Kyphoplasty POD #8 -Pain management:Tylenol PRN tolerating pain well -PT/OT Subacute Rehab vs TCU -Patient and daughter deciding on further dispo -Removed O2 from patient at rest today, will continue to monitor respiratory status during PT today #Moderate Aortic Stenosis -Repeated ZINA on November 2016 shows .55cm diameter aortic valve -Pt. for possible TAVR as per Cardiology Dr. Elmore. Recommended starting ASA 81mg PO and Atorvastatin 20mg PO Qpm -Outpatient TAVR #Dysphagia- Improving -Regular diet with thin liquids -Pepcid 20mg po daily for GERD. -Follow GI recommendations #Transaminitits- mild -AST 40, ALT 42, ALP 138 #Constipation. -Improving. -Continue Senokot and Lactulose. #NIDDM (Non Insulin Dependent DM) -HgbA1c: 6.8% #Leukopenia- Chronic -continue to monitor #Vitamin D Deficiency/Clinical osteoporosis -Vitamin D 50,000IU weekly -Discuss IV bisphosphonate therapy with PMD outpatient. -TSH - normal -PTH, TTG pending #DVT Prophlyaxis -Lovenox 40mg sc daily
[2016-12-03] MEDS: Docusate-Senna 50 mg-8.6 mg Tab PO SCH (22:42)
--- NOTE | 2016-12-03 23:48 | CP.PCM.PN ---
Subjective - Date & Time of Evaluation Date of Evaluation: 12/03/16 Time of Evaluation: 16:00 - Subjective Subjective: feeling fine denies any complaints Objective - Vital Signs/Intake and Output Vital Signs (last 24 hours): Temp Pulse Resp BP Pulse Ox 98.1 F 92 H 20 103/60 95 12/03/16 21:28 12/03/16 21:28 12/03/16 21:28 12/03/16 21:28 12/03/16 21:28 Intake and Output: 12/03/16 12/04/16 18:59 06:59 Intake Total 1300 Balance 1300 - Medications Medications: Current Medications Acetaminophen (Tylenol 325mg Tab) 650 mg PO Q6 PRN PRN Reason: Pain, Mild (1-3) Last Admin: 11/26/16 06:34 Dose: 650 mg Aspirin (Ecotrin) 81 mg PO DAILY [facility] Last Admin: 12/03/16 08:53 Dose: 81 mg Atorvastatin Calcium (Lipitor) 20 mg PO HS [facility] Last Admin: 12/03/16 22:41 Dose: Not Given Benzocaine/Menthol (Cepacol Sore Throat) 1 fermin PO Q2 PRN PRN Reason: Sore Throat Last Admin: 12/03/16 08:52 Dose: 1 fermin Calcium Carbonate (Oscal) 500 mg PO BIDWM [facility] Last Admin: 12/03/16 16:34 Dose: 500 mg Enoxaparin Sodium (Lovenox) 40 mg SC DAILY [facility] PRN Reason: Protocol Ergocalciferol (Drisdol 50,000 Intl Units Cap) 1 cap PO Q7D [facility] Last Admin: 12/02/16 11:26 Dose: 1 cap Famotidine (Pepcid) 20 mg PO DAILY [facility] Last Admin: 12/03/16 08:53 Dose: 20 mg Fluconazole (Diflucan) 100 mg PO DAILY [facility] Last Admin: 12/03/16 08:53 Dose: 100 mg Lactulose (Enulose) 10 gm PO DAILY [facility] Last Admin: 12/03/16 08:57 Dose: 10 gm Lidocaine (Lidoderm) 2 ea TD DAILY [facility] Last Admin: 12/03/16 09:00 Dose: Not Given Senna/Docusate Sodium (Senokot S 50 Mg-8.6 Mg) 2 tab PO HS [facility] Last Admin: 12/03/16 22:42 Dose: Not Given - Labs Labs: 12/02/16 11:50 12/01/16 05:00 PT 13.4 Seconds (9.8-13.1) H 11/29/16 06:30 INR 1.3 (0.9-1.2) H 11/29/16 06:30 APTT 29.0 Seconds (25.6-37.1) 11/29/16 06:30 - Constitutional Appears: Well - Head Exam Head Exam: ATRAUMATIC, NORMAL INSPECTION, NORMOCEPHALIC - Eye Exam Eye Exam: EOMI, Normal appearance, PERRL Pupil Exam: NORMAL ACCOMODATION, PERRL - ENT Exam ENT Exam: Mucous Membranes Moist, Normal Exam - Neck Exam Neck Exam: Full ROM, Normal Inspection. absent: Lymphadenopathy - Respiratory Exam Respiratory Exam: Clear to Ausculation Bilateral, NORMAL BREATHING PATTERN - Cardiovascular Exam Cardiovascular Exam: REGULAR RHYTHM, +S1, +S2, Murmur - GI/Abdominal Exam GI & Abdominal Exam: Soft, Normal Bowel Sounds. absent: Tenderness - Extremities Exam Extremities Exam: Full ROM, Normal Capillary Refill, Normal Inspection. absent : Joint Swelling, Pedal Edema - Back Exam Back Exam: NORMAL INSPECTION - Neurological Exam Neurological Exam: Alert, Awake, CN II-XII Intact, Oriented x3 - Psychiatric Exam Psychiatric exam: Normal Affect, Normal Mood - Skin Skin Exam: Dry, Intact, Normal Color, Warm Assessment and Plan (1) Aortic stenosis Assessment & Plan: Severe low flow low gradient outpt TAVR Status: Acute (2) Preop cardiovascular exam Status: Acute (3) Dizziness Status: Chronic (4) Fall at home Status: Acute (5) PVD (peripheral vascular disease) Status: Acute (6) Aortic arch atherosclerosis Assessment & Plan: on asa and statins Status: Acute
--- NOTE | 2016-12-04 09:10 | CP.PCM.PN ---
Subjective - Date & Time of Evaluation Date of Evaluation: 12/04/16 Time of Evaluation: 08:20 - Subjective Subjective: Patient seen and examined today at bedside, she is sitting up on bed taking breakfast, no acute distress, no overnight events, reports feeling well good appetite, slept well. Denies sob reports feeling comfortable w/o oxygen, no fever,nausea, vomiting, back pain, chest pain, last BM 2 days ago. No urinary symptoms. Objective - Vital Signs/Intake and Output Vital Signs (last 24 hours): Temp Pulse Resp BP Pulse Ox 98.1 F 88 18 133/71 94 L 12/04/16 08:55 12/04/16 08:55 12/04/16 08:55 12/04/16 08:55 12/04/16 08:55 Intake and Output: 12/04/16 12/04/16 06:59 18:59 Intake Total 850 Balance 850 - Medications Medications: Current Medications Acetaminophen (Tylenol 325mg Tab) 650 mg PO Q6 PRN PRN Reason: Pain, Mild (1-3) Last Admin: 11/26/16 06:34 Dose: 650 mg Aspirin (Ecotrin) 81 mg PO DAILY [facility] Last Admin: 12/03/16 08:53 Dose: 81 mg Atorvastatin Calcium (Lipitor) 20 mg PO HS [facility] Last Admin: 12/03/16 22:41 Dose: Not Given Benzocaine/Menthol (Cepacol Sore Throat) 1 fermin PO Q2 PRN PRN Reason: Sore Throat Last Admin: 12/03/16 08:52 Dose: 1 fermin Calcium Carbonate (Oscal) 500 mg PO BIDWM [facility] Last Admin: 12/03/16 16:34 Dose: 500 mg Enoxaparin Sodium (Lovenox) 40 mg SC DAILY [facility] PRN Reason: Protocol Ergocalciferol (Drisdol 50,000 Intl Units Cap) 1 cap PO Q7D [facility] Last Admin: 12/02/16 11:26 Dose: 1 cap Famotidine (Pepcid) 20 mg PO DAILY [facility] Last Admin: 12/03/16 08:53 Dose: 20 mg Fluconazole (Diflucan) 100 mg PO DAILY [facility] Last Admin: 12/03/16 08:53 Dose: 100 mg Lactulose (Enulose) 10 gm PO DAILY [facility] Last Admin: 12/03/16 08:57 Dose: 10 gm Lidocaine (Lidoderm) 2 ea TD DAILY [facility] Last Admin: 12/03/16 09:00 Dose: Not Given Senna/Docusate Sodium (Senokot S 50 Mg-8.6 Mg) 2 tab PO HS [facility] Last Admin: 12/03/16 22:42 Dose: Not Given - Labs Labs: 12/02/16 11:50 12/01/16 05:00 PT 13.4 Seconds (9.8-13.1) H 11/29/16 06:30 INR 1.3 (0.9-1.2) H 11/29/16 06:30 APTT 29.0 Seconds (25.6-37.1) 11/29/16 06:30 - Constitutional Appears: Well, No Acute Distress - Head Exam Head Exam: ATRAUMATIC, NORMOCEPHALIC - Eye Exam Eye Exam: EOMI, Normal appearance, PERRL. absent: Nystagmus - Neck Exam Neck Exam: Full ROM. absent: Lymphadenopathy - Respiratory Exam Respiratory Exam: Clear to Ausculation Bilateral, NORMAL BREATHING PATTERN. absent: Rales, Rhonchi, Wheezes - Cardiovascular Exam Cardiovascular Exam: REGULAR RHYTHM, +S1, +S2, Murmur. absent: +S4 - GI/Abdominal Exam GI & Abdominal Exam: Soft, Normal Bowel Sounds. absent: Tenderness, Organomegaly - Extremities Exam Extremities Exam: Normal Inspection. absent: Calf Tenderness, Joint Swelling, Pedal Edema - Back Exam Back Exam: NORMAL INSPECTION. absent: vertebral tenderness - Neurological Exam Neurological Exam: Alert, CN II-XII Intact, Oriented x3 - Psychiatric Exam Psychiatric exam: Normal Mood - Skin Skin Exam: Dry, Normal Color, Warm Assessment and Plan - Assessment and Plan (Free Text) Assessment: 81 y/o F with PMH of Aortic Stenosis, DM is admitted for acute compression fracture of L2 spine. s/p Kyphoplasty. #Lumbar Compression Fracture s/p Kyphoplasty POD #9 -Pain management:Tylenol PRN tolerating pain well -PT/OT Subacute Rehab vs TCU -will continue to monitor respiratory status during PT today #Moderate Aortic Stenosis-Chronic -Repeated ZINA on November 2016 shows .55cm diameter aortic valve -Pt. for possible TAVR as per Cardiology Dr. Elmore. -Started ASA 81mg PO and Atorvastatin 20mg PO Qpm -Outpatient TAVR #Dysphagia- Improving -Regular diet with thin liquids -Pepcid 20mg po daily for GERD. -Follow GI recommendations #Transaminitits- mild -AST 40, ALT 42, ALP 138 #Constipation. -Improving. -Continue Senokot and Lactulose. #NIDDM (Non Insulin Dependent DM) -HgbA1c: 6.8% #Leukopenia- Chronic -continue to monitor #Vitamin D Deficiency/Clinical osteoporosis -Vitamin D 50,000IU weekly -Discuss IV bisphosphonate therapy with PMD outpatient. -PTH, TTG pending #DVT Prophlyaxis -Lovenox 40mg sc daily
[2016-12-04] MEDS: Lidocaine 5% Patch TD SCH (09:23)
[2016-12-04] MEDS: Lactulose 10 gm/15 ml Syrup PO SCH (09:25)
[2016-12-04] MEDS: Enoxaparin 40 mg Syringe SC SCH (09:25)
[2016-12-04] MEDS: Benzocaine/Menthol (Cepacol) Lozenge PO PRN ×2 (11:11→21:37)
[2016-12-04] MEDS: Docusate-Senna 50 mg-8.6 mg Tab PO SCH (21:38)
[2016-12-05] MEDS: Lactulose 10 gm/15 ml Syrup PO SCH (08:18)
[2016-12-05] MEDS: Lidocaine 5% Patch TD SCH (08:20)
[2016-12-05] MEDS: Enoxaparin 40 mg Syringe SC SCH (08:20)
--- NOTE | 2016-12-05 08:53 | CP.PCM.PN ---
Subjective - Date & Time of Evaluation Date of Evaluation: 12/05/16 Time of Evaluation: 06:40 - Subjective Subjective: Patient seen and examined today at bedside, no overnight events, no acute distress. Reports mild sob when walking but feels comfortable at rest. Has good appetite, slept well. Reports constipation with last BM 4 days ago. Denies F/N/V , no abdominal pain, no chest pain, palpitation, no urinary symptoms. Objective - Vital Signs/Intake and Output Vital Signs (last 24 hours): Temp Pulse Resp BP Pulse Ox 97.6 F 87 18 151/84 H 96 12/05/16 08:07 12/05/16 08:07 12/05/16 08:07 12/05/16 08:07 12/05/16 08:07 Intake and Output: 12/05/16 12/05/16 06:59 18:59 Intake Total 850 Balance 850 - Medications Medications: Current Medications Acetaminophen (Tylenol 325mg Tab) 650 mg PO Q6 PRN PRN Reason: Pain, Mild (1-3) Last Admin: 11/26/16 06:34 Dose: 650 mg Aspirin (Ecotrin) 81 mg PO DAILY [facility] Last Admin: 12/05/16 08:19 Dose: 81 mg Atorvastatin Calcium (Lipitor) 20 mg PO HS [facility] Last Admin: 12/04/16 21:37 Dose: 20 mg Benzocaine/Menthol (Cepacol Sore Throat) 1 fermin PO Q2 PRN PRN Reason: Sore Throat Last Admin: 12/04/16 21:37 Dose: 1 fermin Calcium Carbonate (Oscal) 500 mg PO BIDWM [facility] Last Admin: 12/05/16 08:18 Dose: 500 mg Enoxaparin Sodium (Lovenox) 40 mg SC DAILY [facility] PRN Reason: Protocol Last Admin: 12/05/16 08:20 Dose: 40 mg Ergocalciferol (Drisdol 50,000 Intl Units Cap) 1 cap PO Q7D [facility] Last Admin: 12/02/16 11:26 Dose: 1 cap Famotidine (Pepcid) 20 mg PO DAILY [facility] Last Admin: 12/05/16 08:18 Dose: 20 mg Fluconazole (Diflucan) 100 mg PO DAILY [facility] Last Admin: 12/05/16 08:19 Dose: 100 mg Lactulose (Enulose) 10 gm PO DAILY [facility] Last Admin: 12/05/16 08:18 Dose: 10 gm Lidocaine (Lidoderm) 2 ea TD DAILY [facility] Last Admin: 12/05/16 08:20 Dose: 2 ea Senna/Docusate Sodium (Senokot S 50 Mg-8.6 Mg) 2 tab PO HS [facility] Last Admin: 12/04/16 21:38 Dose: 2 tab - Labs Labs: 12/02/16 11:50 12/01/16 05:00 PT 13.4 Seconds (9.8-13.1) H 11/29/16 06:30 INR 1.3 (0.9-1.2) H 11/29/16 06:30 APTT 29.0 Seconds (25.6-37.1) 11/29/16 06:30 - Constitutional Appears: Well, No Acute Distress - Head Exam Head Exam: ATRAUMATIC, NORMOCEPHALIC - Eye Exam Eye Exam: EOMI, Normal appearance, PERRL. absent: Nystagmus - Neck Exam Neck Exam: Full ROM. absent: Lymphadenopathy - Respiratory Exam Respiratory Exam: Clear to Ausculation Bilateral, NORMAL BREATHING PATTERN. absent: Rales, Rhonchi, Wheezes - Cardiovascular Exam Cardiovascular Exam: RRR, +S1, +S2, Murmur. absent: Rubs - GI/Abdominal Exam GI & Abdominal Exam: Soft, Normal Bowel Sounds. absent: Tenderness, Organomegaly - Extremities Exam Extremities Exam: absent: Calf Tenderness, Joint Swelling, Pedal Edema - Back Exam Back Exam: NORMAL INSPECTION. absent: vertebral tenderness - Neurological Exam Neurological Exam: Alert, Awake, CN II-XII Intact, Oriented x3 - Psychiatric Exam Psychiatric exam: Normal Mood - Skin Skin Exam: Dry, Normal Color, Warm Assessment and Plan - Assessment and Plan (Free Text) Assessment: 81 y/o F with PMH of Aortic Stenosis, DM is admitted for acute compression fracture of L2 spine. s/p Kyphoplasty. Continuos SOB during PT unable to d/c to home. #Lumbar Compression Fracture s/p Kyphoplasty POD #10 -Pain management:Tylenol PRN tolerating pain well -PT plan for TCU -will continue to monitor respiratory status during PT #Moderate Aortic Stenosis-Chronic -Repeated ZINA on November 2016 shows .55cm diameter aortic valve -Pt. for possible TAVR as per Cardiology Dr. Elmore. -Started ASA 81mg PO and Atorvastatin 20mg PO Qpm -Outpatient TAVR evaluation 12/09/16 #Dysphagia- Improving -Regular diet with thin liquids -Pepcid 20mg po daily for GERD. -Follow GI recommendations #Transaminitits- mild -AST 40, ALT 42, ALP 138 #Constipation. -Continue Senokot and Lactulose. #NIDDM (Non Insulin Dependent DM) -HgbA1c: 6.8% #Leukopenia- Chronic -continue to monitor #Vitamin D Deficiency/Clinical osteoporosis -Vitamin D 50,000IU weekly. -Started Ibandronate 3mg IV every 3 months as hx of esophagitis -PTH, TTG pending #DVT Prophlyaxis -Lovenox 40mg sc daily
[2016-12-05] MEDS: Benzocaine/Menthol (Cepacol) Lozenge PO PRN (11:16)
[2016-12-05] MEDS ORDERED: IBANDRONATE IV ONE (11:17)
[2016-12-05] MEDS: Docusate-Senna 50 mg-8.6 mg Tab PO SCH (21:11)
[2016-12-06] MEDS: Enoxaparin 40 mg Syringe SC SCH (09:02)
[2016-12-06] MEDS: Lidocaine 5% Patch TD SCH (09:03)
[2016-12-06] MEDS: Lactulose 10 gm/15 ml Syrup PO SCH ×2 (09:04→09:30)
[2016-12-06] MEDS ORDERED: IBANDRONATE IV ONE (09:41)
--- NOTE | 2016-12-06 09:59 | CP.PCM.PN ---
Subjective - Date & Time of Evaluation Date of Evaluation: 12/06/16 Time of Evaluation: 09:59 - Subjective Subjective: Pt had episode of SOB and dizziness x 2 lasting for aout 5-10 minutes Objective - Vital Signs/Intake and Output Vital Signs (last 24 hours): Temp Pulse Resp BP Pulse Ox 97.5 F L 80 18 147/71 98 12/06/16 08:05 12/06/16 08:05 12/06/16 08:05 12/06/16 08:05 12/06/16 08:05 - Medications Medications: Current Medications Acetaminophen (Tylenol 325mg Tab) 650 mg PO Q6 PRN PRN Reason: Pain, Mild (1-3) Last Admin: 11/26/16 06:34 Dose: 650 mg Aspirin (Ecotrin) 81 mg PO DAILY [facility] Last Admin: 12/06/16 09:03 Dose: 81 mg Atorvastatin Calcium (Lipitor) 20 mg PO HS [facility] Last Admin: 12/05/16 21:25 Dose: 20 mg Benzocaine/Menthol (Cepacol Sore Throat) 1 fermin PO Q2 PRN PRN Reason: Sore Throat Last Admin: 12/05/16 11:16 Dose: 1 fermin Calcium Carbonate (Oscal) 500 mg PO BIDWM [facility] Last Admin: 12/06/16 09:02 Dose: 500 mg Enoxaparin Sodium (Lovenox) 40 mg SC DAILY [facility] PRN Reason: Protocol Last Admin: 12/06/16 09:02 Dose: 40 mg Ergocalciferol (Drisdol 50,000 Intl Units Cap) 1 cap PO Q7D [facility] Last Admin: 12/02/16 11:26 Dose: 1 cap Famotidine (Pepcid) 20 mg PO DAILY [facility] Last Admin: 12/06/16 09:02 Dose: 20 mg Fluconazole (Diflucan) 100 mg PO DAILY [facility] Last Admin: 12/06/16 09:02 Dose: 100 mg Lactulose (Enulose) 10 gm PO DAILY [facility] Last Admin: 12/06/16 09:30 Dose: Not Given Lidocaine (Lidoderm) 2 ea TD DAILY [facility] Last Admin: 12/06/16 09:03 Dose: 2 ea Senna/Docusate Sodium (Senokot S 50 Mg-8.6 Mg) 2 tab PO HS [facility] Last Admin: 12/05/16 21:11 Dose: Not Given - Labs Labs: 12/02/16 11:50 12/01/16 05:00 PT 13.4 Seconds (9.8-13.1) H 11/29/16 06:30 INR 1.3 (0.9-1.2) H 11/29/16 06:30 APTT 29.0 Seconds (25.6-37.1) 11/29/16 06:30 - Constitutional Appears: Well - Head Exam Head Exam: ATRAUMATIC, NORMAL INSPECTION, NORMOCEPHALIC - Eye Exam Eye Exam: EOMI, Normal appearance, PERRL Pupil Exam: NORMAL ACCOMODATION, PERRL - ENT Exam ENT Exam: Mucous Membranes Moist, Normal Exam - Neck Exam Neck Exam: Full ROM, Normal Inspection. absent: Lymphadenopathy - Respiratory Exam Respiratory Exam: Clear to Ausculation Bilateral, NORMAL BREATHING PATTERN - Cardiovascular Exam Cardiovascular Exam: REGULAR RHYTHM, +S1, +S2, Murmur - GI/Abdominal Exam GI & Abdominal Exam: Soft, Normal Bowel Sounds. absent: Tenderness - Extremities Exam Extremities Exam: Full ROM, Normal Capillary Refill, Normal Inspection. absent : Joint Swelling, Pedal Edema - Back Exam Back Exam: NORMAL INSPECTION - Neurological Exam Neurological Exam: Alert, Awake, CN II-XII Intact, Oriented x3 - Psychiatric Exam Psychiatric exam: Normal Affect, Normal Mood - Skin Skin Exam: Dry, Intact, Normal Color, Warm Assessment and Plan (1) Aortic stenosis Assessment & Plan: low flow low gradient severe LAURO 0.5 pt had recurrent bouts of SOB and dizziness this am and last pm will arrange for transfer to [facility] [place] for TAVR evaluation Status: Acute (2) Preop cardiovascular exam Assessment & Plan: tolerated EGD well Status: Acute (3) Dizziness Assessment & Plan: recurrent bouts etiology 2' to Status: Chronic (4) Fall at home Status: Acute (5) PVD (peripheral vascular disease) Assessment & Plan: hx of AAA - stable Status: Acute (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
--- NOTE | 2016-12-06 12:49 | CP.PCM.PN ---
Subjective - Date & Time of Evaluation Date of Evaluation: 12/06/16 Time of Evaluation: 06:50 - Subjective Subjective: Patient seen and examined at bedside today, reports feeling good, no acute overnight events, no acute distress, no sob at this time only when she is getting out of bed. states good appetite, slept well through the night. Last BM 4 days ago. Denies fever, nausea, vomiting, no abdominal pain, chest pain or palpitation. No urinary symptoms. Objective - Vital Signs/Intake and Output Vital Signs (last 24 hours): Temp Pulse Resp BP Pulse Ox 97.5 F L 80 18 147/71 98 12/06/16 08:05 12/06/16 08:05 12/06/16 08:05 12/06/16 08:05 12/06/16 08:05 - Medications Medications: Current Medications Acetaminophen (Tylenol 325mg Tab) 650 mg PO Q6 PRN PRN Reason: Pain, Mild (1-3) Last Admin: 11/26/16 06:34 Dose: 650 mg Aspirin (Ecotrin) 81 mg PO DAILY [facility] Last Admin: 12/06/16 09:03 Dose: 81 mg Atorvastatin Calcium (Lipitor) 20 mg PO HS [facility] Last Admin: 12/05/16 21:25 Dose: 20 mg Benzocaine/Menthol (Cepacol Sore Throat) 1 fermin PO Q2 PRN PRN Reason: Sore Throat Last Admin: 12/05/16 11:16 Dose: 1 fermin Calcium Carbonate (Oscal) 500 mg PO BIDWM [facility] Last Admin: 12/06/16 09:02 Dose: 500 mg Enoxaparin Sodium (Lovenox) 40 mg SC DAILY [facility] PRN Reason: Protocol Last Admin: 12/06/16 09:02 Dose: 40 mg Ergocalciferol (Drisdol 50,000 Intl Units Cap) 1 cap PO Q7D [facility] Last Admin: 12/02/16 11:26 Dose: 1 cap Famotidine (Pepcid) 20 mg PO DAILY [facility] Last Admin: 12/06/16 09:02 Dose: 20 mg Fluconazole (Diflucan) 100 mg PO DAILY [facility] Last Admin: 12/06/16 09:02 Dose: 100 mg Lactulose (Enulose) 10 gm PO DAILY [facility] Last Admin: 12/06/16 09:30 Dose: Not Given Lidocaine (Lidoderm) 2 ea TD DAILY [facility] Last Admin: 12/06/16 09:03 Dose: 2 ea Senna/Docusate Sodium (Senokot S 50 Mg-8.6 Mg) 2 tab PO HS [facility] Last Admin: 12/05/16 21:11 Dose: Not Given - Labs Labs: 12/02/16 11:50 12/01/16 05:00 PT 13.4 Seconds (9.8-13.1) H 11/29/16 06:30 INR 1.3 (0.9-1.2) H 11/29/16 06:30 APTT 29.0 Seconds (25.6-37.1) 11/29/16 06:30 - Constitutional Appears: Well, No Acute Distress - Head Exam Head Exam: ATRAUMATIC, NORMOCEPHALIC - Eye Exam Eye Exam: EOMI, Normal appearance, PERRL - Neck Exam Neck Exam: Normal Inspection. absent: Lymphadenopathy, Thyromegaly - Respiratory Exam Respiratory Exam: Clear to Ausculation Bilateral, NORMAL BREATHING PATTERN. absent: Rales, Rhonchi, Wheezes - Cardiovascular Exam Cardiovascular Exam: RRR, +S1, +S2 - GI/Abdominal Exam GI & Abdominal Exam: Soft, Normal Bowel Sounds. absent: Tenderness, Organomegaly - Extremities Exam Extremities Exam: Full ROM, Normal Inspection. absent: Calf Tenderness, Joint Swelling, Pedal Edema - Back Exam Back Exam: NORMAL INSPECTION. absent: vertebral tenderness - Neurological Exam Neurological Exam: Alert, Awake, CN II-XII Intact, Oriented x3 - Psychiatric Exam Psychiatric exam: Normal Affect - Skin Skin Exam: Dry, Normal Color, Warm Assessment and Plan - Assessment and Plan (Free Text) Assessment: 81 y/o F with PMH of Aortic Stenosis, DM is admitted for acute compression fracture of L2 spine. s/p Kyphoplasty. Continuos SOB during PT unable to d/c to home. #Lumbar Compression Fracture s/p Kyphoplasty POD #11 -Pain management:Tylenol PRN tolerating pain well -PT plan for TCU -unable to perform PT due to sob -will continue to monitor respiratory status during PT #Moderate Aortic Stenosis-Chronic -Repeated ZINA on November 2016 shows .55cm diameter aortic valve -Pt. for possible TAVR as per Cardiology Dr. Elmore -Outpatient TAVR evaluation 12/09/16 -unable to perform PT due to sob #Dysphagia- Improving -Regular diet with thin liquids -Pepcid 20mg po daily for GERD. -Follow GI recommendations #Transaminitits- mild -AST 40, ALT 42, ALP 138 #Constipation-Chronic -Continue Senokot and Lactulose. #NIDDM (Non Insulin Dependent DM) -HgbA1c: 6.8% #Leukopenia- Chronic -continue to monitor #Vitamin D Deficiency/Clinical osteoporosis -Vitamin D 50,000IU weekly. -Started Ibandronate 3mg IV every 3 months as hx of esophagitis -PTH wnl, TSH wnl, TTG (IgA IgG) normal. #DVT Prophlyaxis -Lovenox 40mg sc daily
[2016-12-06] MEDS: Magnesium Hydroxide Susp 30 ml UD PO SCH (16:39)
[2016-12-06] MEDS: Docusate-Senna 50 mg-8.6 mg Tab PO SCH (21:33)
[2016-12-07 06:26] LABS: HEMATOCRIT 31.9 % (34.0-47.0); MEAN CORPUSCULAR HEMOGLOBIN 27.3 pg (27.0-31.0); MEAN CORPUSCULAR HGB CONC 32.2 g/dL (33.0-37.0); RED CELL DISTRIBUTION WIDTH 15.5 % (11.5-14.5); WHITE BLOOD COUNT 3.2 K/uL (4.8-10.8)
[2016-12-07 06:39] LABS: ALB/GLOB RATIO 0.8 (1.0-2.1); ALKALINE PHOSPHATASE 137 U/L (38-126); ALT/SGPT 46 U/L (9-52); AST/SGOT 40 U/L (14-36); BILIRUBIN,TOTAL 0.7 mg/dl (0.2-1.3); BLOOD UREA NITROGEN 16 mg/dl (7-17); CALCIUM 8.9 mg/dL (8.4-10.2); CARBON DIOXIDE 32 mmol/L (22-30); CHLORIDE 103 mmol/L (98-107); GFR AFRICAN-AMERICAN > 60; GLUCOSE,RANDOM 102 mg/dL (65-105); POTASSIUM 4.4 MMOL/L (3.6-5.0); SODIUM 140 mmol/l (132-148); TOTAL PROTEIN 7.1 G/DL (6.3-8.2)
[2016-12-07 07:13] LABS: PARTIAL THROMBOPLASTIN TIME 31.9 Seconds (25.6-37.1)
[2016-12-07] MEDS: Enoxaparin 40 mg Syringe SC SCH (08:30)
[2016-12-07] MEDS: Magnesium Hydroxide Susp 30 ml UD PO SCH (08:31)
[2016-12-07] MEDS: Lidocaine 5% Patch TD SCH (08:31)
--- NOTE | 2016-12-07 08:42 | CP.PCM.PN ---
<Aaron Camarillo - Last Filed: 12/07/16 16:01> Subjective - Date & Time of Evaluation Date of Evaluation: 12/07/16 Time of Evaluation: 06:40 - Subjective Subjective: Patient seen and examined at bedside today, reports feeling good, no acute overnight events, no acute distress. States sob when she is getting out of bed. Reports good appetite, slept well through the night. Denies back pain, fever, nausea, vomiting, no abdominal pain, chest pain or palpitation. No urinary symptoms. Objective - Vital Signs/Intake and Output Vital Signs (last 24 hours): Temp Pulse Resp BP Pulse Ox 97.5 F L 73 18 152/80 H 100 12/07/16 08:02 12/07/16 08:02 12/07/16 08:02 12/07/16 08:02 12/07/16 08:02 - Medications Medications: Current Medications Acetaminophen (Tylenol 325mg Tab) 650 mg PO Q6 PRN PRN Reason: Pain, Mild (1-3) Last Admin: 11/26/16 06:34 Dose: 650 mg Aspirin (Ecotrin) 81 mg PO DAILY [facility] Last Admin: 12/07/16 08:30 Dose: 81 mg Atorvastatin Calcium (Lipitor) 20 mg PO HS [facility] Last Admin: 12/06/16 21:31 Dose: 20 mg Benzocaine/Menthol (Cepacol Sore Throat) 1 fermin PO Q2 PRN PRN Reason: Sore Throat Last Admin: 12/05/16 11:16 Dose: 1 fermin Calcium Carbonate (Oscal) 500 mg PO BIDWM [facility] Last Admin: 12/07/16 08:30 Dose: 500 mg Enoxaparin Sodium (Lovenox) 40 mg SC DAILY [facility] PRN Reason: Protocol Last Admin: 12/07/16 08:30 Dose: 40 mg Ergocalciferol (Drisdol 50,000 Intl Units Cap) 1 cap PO Q7D [facility] Last Admin: 12/02/16 11:26 Dose: 1 cap Famotidine (Pepcid) 20 mg PO DAILY [facility] Last Admin: 12/07/16 08:29 Dose: 20 mg Fluconazole (Diflucan) 100 mg PO DAILY [facility] Last Admin: 12/07/16 08:30 Dose: 100 mg Lidocaine (Lidoderm) 2 ea TD DAILY [facility] Last Admin: 12/07/16 08:31 Dose: 2 ea Magnesium Hydroxide (Milk Of Magnesia) 30 ml PO DAILY [facility] Last Admin: 12/07/16 08:31 Dose: 30 ml Senna/Docusate Sodium (Senokot S 50 Mg-8.6 Mg) 2 tab PO HS [facility] Last Admin: 12/06/16 21:33 Dose: Not Given - Labs Labs: 12/07/16 05:15 12/07/16 05:15 PT 13.2 Seconds (9.8-13.1) H 12/07/16 05:15 INR 1.3 (0.9-1.2) H 12/07/16 05:15 APTT 31.9 Seconds (25.6-37.1) 12/07/16 05:15 - Constitutional Appears: Well, Non-toxic, No Acute Distress - Head Exam Head Exam: ATRAUMATIC, NORMOCEPHALIC - Eye Exam Eye Exam: EOMI, Normal appearance, PERRL - Neck Exam Neck Exam: Full ROM. absent: Lymphadenopathy, Thyromegaly - Respiratory Exam Respiratory Exam: Clear to Ausculation Bilateral, NORMAL BREATHING PATTERN. absent: Rales, Rhonchi, Wheezes - Cardiovascular Exam Cardiovascular Exam: RRR, +S1, +S2, Murmur - GI/Abdominal Exam GI & Abdominal Exam: Soft, Normal Bowel Sounds. absent: Tenderness, Organomegaly - Back Exam Back Exam: NORMAL INSPECTION. absent: vertebral tenderness - Neurological Exam Neurological Exam: Alert, CN II-XII Intact, Oriented x3 - Psychiatric Exam Psychiatric exam: Normal Mood - Skin Skin Exam: Dry, Normal Color, Warm Assessment and Plan - Assessment and Plan (Free Text) Assessment: 81 y/o F with PMH of Aortic Stenosis, DM is admitted for acute compression fracture of L2 spine. s/p Kyphoplasty. Continuos SOB during PT unable to d/c to home. #Lumbar Compression Fracture s/p Kyphoplasty POD #12 -Pain management:Tylenol PRN tolerating pain well -PT recommends [facility] -unable to perform PT due to sob. -will continue to monitor respiratory status during PT. #Moderate Aortic Stenosis-Chronic -Repeated ZINA on November 2016 shows .55cm diameter aortic valve -Pt. for possible TAVR as per Cardiology -Dr Elmore recommends transfer to [facility] for TAVR evaluation -unable to perform PT due to sob #Dysphagia- Improving -Regular diet with thin liquids -Pepcid 20mg po daily for GERD. -Follow GI recommendations #Transaminitits- mild -AST 40, ALT 46 today #Constipation-Chronic -Continue Senokot and Lactulose. #NIDDM (Non Insulin Dependent DM) -HgbA1c: 6.8% #Leukopenia- Chronic -continue to monitor #Vitamin D Deficiency/Clinical osteoporosis -Vitamin D 50,000IU weekly. -Started Ibandronate 3mg IV every 3 months as hx of esophagitis #DVT Prophlyaxis -Lovenox 40mg sc daily <Sierra Singleton - Last Filed: 12/08/16 07:39> Objective - Vital Signs/Intake and Output Vital Signs (last 24 hours): Temp Pulse Resp BP Pulse Ox 97.9 F 87 20 119/72 99 12/08/16 04:39 12/08/16 04:39 12/08/16 04:39 12/08/16 04:39 12/08/16 04:39 - Medications Medications: Current Medications Acetaminophen (Tylenol 325mg Tab) 650 mg PO Q6 PRN PRN Reason: Pain, Mild (1-3) Last Admin: 11/26/16 06:34 Dose: 650 mg Aspirin (Ecotrin) 81 mg PO DAILY [facility] Last Admin: 12/07/16 08:30 Dose: 81 mg Atorvastatin Calcium (Lipitor) 20 mg PO HS [facility] Last Admin: 12/07/16 21:40 Dose: 20 mg Benzocaine/Menthol (Cepacol Sore Throat) 1 fermin PO Q2 PRN PRN Reason: Sore Throat Last Admin: 12/08/16 05:29 Dose: 1 fermin Calcium Carbonate (Oscal) 500 mg PO BIDWM [facility] Last Admin: 12/07/16 16:39 Dose: 500 mg Enoxaparin Sodium (Lovenox) 40 mg SC DAILY [facility] PRN Reason: Protocol Last Admin: 12/07/16 08:30 Dose: 40 mg Ergocalciferol (Drisdol 50,000 Intl Units Cap) 1 cap PO Q7D [facility] Last Admin: 12/02/16 11:26 Dose: 1 cap Famotidine (Pepcid) 20 mg PO DAILY [facility] Last Admin: 12/07/16 08:29 Dose: 20 mg Fluconazole (Diflucan) 100 mg PO DAILY [facility] Last Admin: 12/07/16 08:30 Dose: 100 mg Lidocaine (Lidoderm) 2 ea TD DAILY [facility] Last Admin: 12/07/16 08:31 Dose: 2 ea Magnesium Hydroxide (Milk Of Magnesia) 30 ml PO DAILY [facility] Last Admin: 12/07/16 08:31 Dose: 30 ml Senna/Docusate Sodium (Senokot S 50 Mg-8.6 Mg) 2 tab PO HS [facility] Last Admin: 12/07/16 21:40 Dose: 2 tab - Labs Labs: 12/07/16 05:15 12/07/16 05:15 PT 13.2 Seconds (9.8-13.1) H 12/07/16 05:15 INR 1.3 (0.9-1.2) H 12/07/16 05:15 APTT 31.9 Seconds (25.6-37.1) 12/07/16 05:15 - Skin Additional comments: ADDENDUM ATTENDING NOTE PATIENT SEEN BY ME AND PERSONALLY EXAMINED. CASE DISCUSSED WITH RESIDENT. AGREE WITH FINDINGS AND PLAN.
--- NOTE | 2016-12-07 14:53 | CP.PCM.PN ---
Subjective - Date & Time of Evaluation Date of Evaluation: 12/07/16 Time of Evaluation: 14:52 - Subjective Subjective: intermittent episodes of dyspnea and dizziness with minimal activity noted Objective - Vital Signs/Intake and Output Vital Signs (last 24 hours): Temp Pulse Resp BP Pulse Ox 98.2 F 76 18 132/70 99 12/07/16 12:01 12/07/16 12:01 12/07/16 12:01 12/07/16 12:01 12/07/16 12:01 - Medications Medications: Current Medications Acetaminophen (Tylenol 325mg Tab) 650 mg PO Q6 PRN PRN Reason: Pain, Mild (1-3) Last Admin: 11/26/16 06:34 Dose: 650 mg Aspirin (Ecotrin) 81 mg PO DAILY [facility] Last Admin: 12/07/16 08:30 Dose: 81 mg Atorvastatin Calcium (Lipitor) 20 mg PO HS [facility] Last Admin: 12/06/16 21:31 Dose: 20 mg Benzocaine/Menthol (Cepacol Sore Throat) 1 fermin PO Q2 PRN PRN Reason: Sore Throat Last Admin: 12/05/16 11:16 Dose: 1 fermin Calcium Carbonate (Oscal) 500 mg PO BIDWM [facility] Last Admin: 12/07/16 08:30 Dose: 500 mg Enoxaparin Sodium (Lovenox) 40 mg SC DAILY [facility] PRN Reason: Protocol Last Admin: 12/07/16 08:30 Dose: 40 mg Ergocalciferol (Drisdol 50,000 Intl Units Cap) 1 cap PO Q7D [facility] Last Admin: 12/02/16 11:26 Dose: 1 cap Famotidine (Pepcid) 20 mg PO DAILY [facility] Last Admin: 12/07/16 08:29 Dose: 20 mg Fluconazole (Diflucan) 100 mg PO DAILY [facility] Last Admin: 12/07/16 08:30 Dose: 100 mg Lidocaine (Lidoderm) 2 ea TD DAILY [facility] Last Admin: 12/07/16 08:31 Dose: 2 ea Magnesium Hydroxide (Milk Of Magnesia) 30 ml PO DAILY [facility] Last Admin: 12/07/16 08:31 Dose: 30 ml Senna/Docusate Sodium (Senokot S 50 Mg-8.6 Mg) 2 tab PO HS [facility] Last Admin: 12/06/16 21:33 Dose: Not Given - Labs Labs: 12/07/16 05:15 12/07/16 05:15 PT 13.2 Seconds (9.8-13.1) H 12/07/16 05:15 INR 1.3 (0.9-1.2) H 12/07/16 05:15 APTT 31.9 Seconds (25.6-37.1) 12/07/16 05:15 - Constitutional Appears: Well - Head Exam Head Exam: ATRAUMATIC, NORMAL INSPECTION, NORMOCEPHALIC - Eye Exam Eye Exam: EOMI, Normal appearance, PERRL Pupil Exam: NORMAL ACCOMODATION, PERRL - ENT Exam ENT Exam: Mucous Membranes Moist, Normal Exam - Neck Exam Neck Exam: Full ROM, Normal Inspection. absent: Lymphadenopathy - Respiratory Exam Respiratory Exam: Clear to Ausculation Bilateral, NORMAL BREATHING PATTERN - Cardiovascular Exam Cardiovascular Exam: REGULAR RHYTHM, +S1, +S2, Murmur - GI/Abdominal Exam GI & Abdominal Exam: Soft, Normal Bowel Sounds. absent: Tenderness - Extremities Exam Extremities Exam: Full ROM, Normal Capillary Refill, Normal Inspection. absent : Joint Swelling, Pedal Edema - Back Exam Back Exam: NORMAL INSPECTION - Neurological Exam Neurological Exam: Alert, Awake, CN II-XII Intact, Oriented x3 - Psychiatric Exam Psychiatric exam: Normal Affect, Normal Mood - Skin Skin Exam: Dry, Intact, Normal Color, Warm Assessment and Plan (1) Aortic stenosis Assessment & Plan: low flow low gradient severe LAURO 0.55 by planimetry and invasive hemodynamics awating transfer to [facility] Status: Acute (2) Preop cardiovascular exam Assessment & Plan: stable Status: Acute (3) Dizziness Status: Chronic (4) Fall at home Status: Acute (5) PVD (peripheral vascular disease) Status: Acute (6) Aortic arch atherosclerosis Assessment & Plan: on asa and statins Status: Acute
[2016-12-07] MEDS: Docusate-Senna 50 mg-8.6 mg Tab PO SCH (21:40)
[2016-12-07] MEDS: Benzocaine/Menthol (Cepacol) Lozenge PO PRN (23:46)
[2016-12-08] MEDS: Benzocaine/Menthol (Cepacol) Lozenge PO PRN ×2 (05:29→23:40)
--- NOTE | 2016-12-08 08:47 | CP.PCM.PN ---
<Aaron Camarillo - Last Filed: 12/08/16 15:26> Subjective - Date & Time of Evaluation Date of Evaluation: 12/08/16 Time of Evaluation: 07:10 - Subjective Subjective: Patient seen and examined today at bedside, no acute overnight events, reports feeling good although is noticed she is a little dysneic, states mild sob. Reports good appetite, slept well last night, last BM 5 days ago. Denies chest pain, palpitations, back pain, fever, nausea, vomiting, no urinary symptoms. Objective - Vital Signs/Intake and Output Vital Signs (last 24 hours): Temp Pulse Resp BP Pulse Ox 97.9 F 87 20 119/72 99 12/08/16 04:39 12/08/16 07:44 12/08/16 04:39 12/08/16 04:39 12/08/16 04:39 - Medications Medications: Current Medications Acetaminophen (Tylenol 325mg Tab) 650 mg PO Q6 PRN PRN Reason: Pain, Mild (1-3) Last Admin: 11/26/16 06:34 Dose: 650 mg Aspirin (Ecotrin) 81 mg PO DAILY [facility] Last Admin: 12/07/16 08:30 Dose: 81 mg Atorvastatin Calcium (Lipitor) 20 mg PO HS [facility] Last Admin: 12/07/16 21:40 Dose: 20 mg Benzocaine/Menthol (Cepacol Sore Throat) 1 fermin PO Q2 PRN PRN Reason: Sore Throat Last Admin: 12/08/16 05:29 Dose: 1 fermin Calcium Carbonate (Oscal) 500 mg PO BIDWM [facility] Last Admin: 12/07/16 16:39 Dose: 500 mg Enoxaparin Sodium (Lovenox) 40 mg SC DAILY [facility] PRN Reason: Protocol Last Admin: 12/07/16 08:30 Dose: 40 mg Ergocalciferol (Drisdol 50,000 Intl Units Cap) 1 cap PO Q7D [facility] Last Admin: 12/02/16 11:26 Dose: 1 cap Famotidine (Pepcid) 20 mg PO DAILY [facility] Last Admin: 12/07/16 08:29 Dose: 20 mg Fluconazole (Diflucan) 100 mg PO DAILY [facility] Last Admin: 12/07/16 08:30 Dose: 100 mg Lidocaine (Lidoderm) 2 ea TD DAILY [facility] Last Admin: 12/07/16 08:31 Dose: 2 ea Magnesium Hydroxide (Milk Of Magnesia) 30 ml PO DAILY [facility] Last Admin: 12/07/16 08:31 Dose: 30 ml Senna/Docusate Sodium (Senokot S 50 Mg-8.6 Mg) 2 tab PO HS [facility] Last Admin: 12/07/16 21:40 Dose: 2 tab - Labs Labs: 12/07/16 05:15 12/07/16 05:15 PT 13.2 Seconds (9.8-13.1) H 12/07/16 05:15 INR 1.3 (0.9-1.2) H 12/07/16 05:15 APTT 31.9 Seconds (25.6-37.1) 12/07/16 05:15 - Constitutional Appears: Well, No Acute Distress - Head Exam Head Exam: ATRAUMATIC, NORMOCEPHALIC - Eye Exam Eye Exam: EOMI, Normal appearance, PERRL. absent: Nystagmus - Neck Exam Neck Exam: Full ROM. absent: Lymphadenopathy, Thyromegaly - Respiratory Exam Respiratory Exam: Clear to Ausculation Bilateral, NORMAL BREATHING PATTERN. absent: Rales, Rhonchi, Wheezes - Cardiovascular Exam Cardiovascular Exam: REGULAR RHYTHM, Murmur. absent: +S1, +S2 - GI/Abdominal Exam GI & Abdominal Exam: Soft, Normal Bowel Sounds. absent: Tenderness, Organomegaly - Back Exam Back Exam: NORMAL INSPECTION. absent: CVA tenderness (L), CVA tenderness (R), vertebral tenderness - Neurological Exam Neurological Exam: Alert, Awake, CN II-XII Intact, Oriented x3 - Psychiatric Exam Psychiatric exam: Normal Mood - Skin Skin Exam: Dry, Normal Color, Warm Assessment and Plan - Assessment and Plan (Free Text) Assessment: 81 y/o F with PMH of Aortic Stenosis, DM is admitted for acute compression fracture of L2 spine. s/p Kyphoplasty. Continuos SOB during PT unable to d/c to home. #Lumbar Compression Fracture s/p Kyphoplasty POD #13 -Pain management:Tylenol PRN tolerating pain well -PT recommends DEVIKA -unable to perform PT today due to sob. -will continue to monitor respiratory status during PT. #Moderate Aortic Stenosis-Chronic -Repeated ZINA on November 2016 shows .55cm diameter aortic valve -Pt. for possible TAVR as per Cardiology -Dr Elmore recommends transfer to [facility] for TAVR evaluation -unable to perform PT due to sob -ABG ordered #Dysphagia- Improving -Regular diet with thin liquids -Pepcid 20mg po daily for GERD. -Follow GI recommendations #Transaminitits- mild -AST 40, ALT 46 today #Constipation-Chronic -Continue Senokot and Lactulose. #NIDDM (Non Insulin Dependent DM) -HgbA1c: 6.8% #Leukopenia- Chronic -continue to monitor #Vitamin D Deficiency/Clinical osteoporosis -c/w Vitamin D 50,000IU weekly. #DVT Prophlyaxis -Lovenox 40mg sc daily <Sierra Singleton - Last Filed: 12/09/16 08:28> Objective - Vital Signs/Intake and Output Vital Signs (last 24 hours): Temp Pulse Resp BP Pulse Ox 97.8 F 82 20 108/55 L 99 12/09/16 04:53 12/09/16 04:53 12/09/16 04:53 12/09/16 04:53 12/09/16 04:53 - Medications Medications: Current Medications Acetaminophen (Tylenol 325mg Tab) 650 mg PO Q6 PRN PRN Reason: Pain, Mild (1-3) Last Admin: 11/26/16 06:34 Dose: 650 mg Aspirin (Ecotrin) 81 mg PO DAILY [facility] Last Admin: 12/08/16 09:17 Dose: 81 mg Atorvastatin Calcium (Lipitor) 20 mg PO HS [facility] Last Admin: 12/08/16 21:00 Dose: 20 mg Benzocaine/Menthol (Cepacol Sore Throat) 1 fermin PO Q2 PRN PRN Reason: Sore Throat Last Admin: 12/08/16 23:40 Dose: 1 fermin Calcium Carbonate (Oscal) 500 mg PO BIDWM [facility] Last Admin: 12/08/16 17:50 Dose: 500 mg Enoxaparin Sodium (Lovenox) 40 mg SC DAILY [facility] PRN Reason: Protocol Last Admin: 12/08/16 09:17 Dose: 40 mg Ergocalciferol (Drisdol 50,000 Intl Units Cap) 1 cap PO Q7D [facility] Last Admin: 12/02/16 11:26 Dose: 1 cap Famotidine (Pepcid) 20 mg PO DAILY [facility] Last Admin: 08/24/17 09:17 Dose: 20 mg Fluconazole (Diflucan) 100 mg PO DAILY [facility] Last Admin: 12/08/16 09:16 Dose: 100 mg Lidocaine (Lidoderm) 2 ea TD DAILY [facility] Last Admin: 12/08/16 09:18 Dose: 2 ea Magnesium Hydroxide (Milk Of Magnesia) 30 ml PO DAILY [facility] Last Admin: 12/08/16 09:27 Dose: 30 ml Senna/Docusate Sodium (Senokot S 50 Mg-8.6 Mg) 2 tab PO HS [facility] Last Admin: 12/08/16 21:01 Dose: Not Given - Labs Labs: 12/07/16 05:15 12/07/16 05:15 PT 13.2 Seconds (9.8-13.1) H 12/07/16 05:15 INR 1.3 (0.9-1.2) H 12/07/16 05:15 APTT 31.9 Seconds (25.6-37.1) 12/07/16 05:15 - Skin Additional comments: ADDENDUM ATTENDING NOTE PATIENT SEEN BY ME AND EXAMINED. REMAINS DYSPNEIC WITH MINIMAL ACTIVITY. UNABLE TO BE DISCHARGED HOME BECAUSE OF DYSPNEA. CARDIOLGIST RECOMMENDS TRANSFER FOR TAVR TO TREAT DYSPNEA. CASE DISCUSSED WITH RESIDENT. AGREE WITH FINDINGS AND PLAN. AWAITING GUNNER'S MATE M WHO IS ARRANGING FOR FOR TRANSFER FOR TAVR PROCEDURE.
[2016-12-08] MEDS: Enoxaparin 40 mg Syringe SC SCH (09:17)
[2016-12-08] MEDS: Lidocaine 5% Patch TD SCH (09:18)
[2016-12-08] MEDS: Magnesium Hydroxide Susp 30 ml UD PO SCH (09:27)
[2016-12-08 10:43] LABS: ABG ALLEN TEST YES; ARTERIAL BLOOD GAS HCO3 26.9 mmol/L (21-28); ARTERIAL BLOOD GAS O2 CAPACITY 14.3 mL/dL (16-24); ARTERIAL BLOOD GAS O2 CONTENT 14.1 ML/dL (15-23); ARTERIAL BLOOD GAS PH 7.47 (7.35-7.45); ARTERIAL BLOOD GAS PO2 80 mm/Hg (80-100); ARTERIAL BLOOD HGB O2 SAT 94.6 % (95.0-98.0); CARBOXYHEMOGLOBIN 2.2 % (0.5-1.5); HHB 1.5 % (0.0-5.0); METHEMOGLOBIN 1.6 % (0.0-3.0)
[2016-12-08] MEDS: Docusate-Senna 50 mg-8.6 mg Tab PO SCH (21:01)
--- NOTE | 2016-12-08 23:27 | CP.PCM.PN ---
Subjective - Date & Time of Evaluation Date of Evaluation: 12/08/16 Time of Evaluation: 11:30 - Subjective Subjective: feeling fine intermittent episodes of dyspneic spells Objective - Vital Signs/Intake and Output Vital Signs (last 24 hours): Temp Pulse Resp BP Pulse Ox 98.8 F 98 H 20 94/59 L 98 12/08/16 19:07 12/08/16 19:07 12/08/16 19:07 12/08/16 19:07 12/08/16 19:07 - Medications Medications: Current Medications Acetaminophen (Tylenol 325mg Tab) 650 mg PO Q6 PRN PRN Reason: Pain, Mild (1-3) Last Admin: 11/26/16 06:34 Dose: 650 mg Aspirin (Ecotrin) 81 mg PO DAILY [facility] Last Admin: 12/08/16 09:17 Dose: 81 mg Atorvastatin Calcium (Lipitor) 20 mg PO HS [facility] Last Admin: 12/08/16 21:00 Dose: 20 mg Benzocaine/Menthol (Cepacol Sore Throat) 1 fermin PO Q2 PRN PRN Reason: Sore Throat Last Admin: 12/08/16 05:29 Dose: 1 fermin Calcium Carbonate (Oscal) 500 mg PO BIDWM [facility] Last Admin: 12/08/16 17:50 Dose: 500 mg Enoxaparin Sodium (Lovenox) 40 mg SC DAILY [facility] PRN Reason: Protocol Last Admin: 12/08/16 09:17 Dose: 40 mg Ergocalciferol (Drisdol 50,000 Intl Units Cap) 1 cap PO Q7D [facility] Last Admin: 12/02/16 11:26 Dose: 1 cap Famotidine (Pepcid) 20 mg PO DAILY [facility] Last Admin: 12/08/16 09:17 Dose: 20 mg Fluconazole (Diflucan) 100 mg PO DAILY [facility] Last Admin: 12/08/16 09:16 Dose: 100 mg Lidocaine (Lidoderm) 2 ea TD DAILY [facility] Last Admin: 12/08/16 09:18 Dose: 2 ea Magnesium Hydroxide (Milk Of Magnesia) 30 ml PO DAILY [facility] Last Admin: 12/08/16 09:27 Dose: 30 ml Senna/Docusate Sodium (Senokot S 50 Mg-8.6 Mg) 2 tab PO HS [facility] Last Admin: 12/08/16 21:01 Dose: Not Given - Labs Labs: 08/23/17 05:15 12/07/16 05:15 PT 13.2 Seconds (9.8-13.1) H 12/07/16 05:15 INR 1.3 (0.9-1.2) H 12/07/16 05:15 APTT 31.9 Seconds (25.6-37.1) 12/07/16 05:15 - Constitutional Appears: Well - Head Exam Head Exam: ATRAUMATIC, NORMAL INSPECTION, NORMOCEPHALIC - Eye Exam Eye Exam: EOMI, Normal appearance, PERRL Pupil Exam: NORMAL ACCOMODATION, PERRL - ENT Exam ENT Exam: Mucous Membranes Moist, Normal Exam - Neck Exam Neck Exam: Full ROM, Normal Inspection. absent: Lymphadenopathy - Respiratory Exam Respiratory Exam: Clear to Ausculation Bilateral, NORMAL BREATHING PATTERN - Cardiovascular Exam Cardiovascular Exam: REGULAR RHYTHM, +S1, +S2, Murmur - GI/Abdominal Exam GI & Abdominal Exam: Soft, Normal Bowel Sounds. absent: Tenderness - Extremities Exam Extremities Exam: Full ROM, Normal Capillary Refill, Normal Inspection. absent : Joint Swelling, Pedal Edema - Back Exam Back Exam: NORMAL INSPECTION - Neurological Exam Neurological Exam: Alert, Awake, CN II-XII Intact, Oriented x3 - Psychiatric Exam Psychiatric exam: Normal Affect, Normal Mood - Skin Skin Exam: Dry, Intact, Normal Color, Warm Assessment and Plan (1) Aortic stenosis Assessment & Plan: low flow low gradient severe as plan for transfer to [facility] Status: Acute (2) Preop cardiovascular exam Status: Acute (3) Dizziness Status: Chronic (4) Fall at home Status: Acute (5) PVD (peripheral vascular disease) Assessment & Plan: AAA stable Status: Acute (6) Aortic arch atherosclerosis Assessment & Plan: on asa and statins Status: Acute
--- NOTE | 2016-12-09 09:12 | CP.PCM.PN ---
<Aaron Camarillo - Last Filed: 12/09/16 15:18> Subjective - Date & Time of Evaluation Date of Evaluation: 12/09/16 Time of Evaluation: 06:40 - Subjective Subjective: Patient seen and examined today at bedside, no acute overnight events, reports feeling well today, denies sob through the night, slept well, states good appetite. Had a normal BM yesterday. Denies fever, nausea, vomiting, no abdominal pain, no chest pain, palpitations, no urinary symptoms. Objective - Vital Signs/Intake and Output Vital Signs (last 24 hours): Temp Pulse Resp BP Pulse Ox 97.8 F 82 20 108/55 L 99 12/09/16 04:53 12/09/16 04:53 12/09/16 04:53 12/09/16 04:53 12/09/16 04:53 - Medications Medications: Current Medications Acetaminophen (Tylenol 325mg Tab) 650 mg PO Q6 PRN PRN Reason: Pain, Mild (1-3) Last Admin: 11/26/16 06:34 Dose: 650 mg Aspirin (Ecotrin) 81 mg PO DAILY [facility] Last Admin: 12/08/16 09:17 Dose: 81 mg Atorvastatin Calcium (Lipitor) 20 mg PO HS [facility] Last Admin: 12/08/16 21:00 Dose: 20 mg Benzocaine/Menthol (Cepacol Sore Throat) 1 fermin PO Q2 PRN PRN Reason: Sore Throat Last Admin: 12/08/16 23:40 Dose: 1 fermin Calcium Carbonate (Oscal) 500 mg PO BIDWM [facility] Last Admin: 12/08/16 17:50 Dose: 500 mg Enoxaparin Sodium (Lovenox) 40 mg SC DAILY [facility] PRN Reason: Protocol Last Admin: 12/08/16 09:17 Dose: 40 mg Ergocalciferol (Drisdol 50,000 Intl Units Cap) 1 cap PO Q7D [facility] Last Admin: 12/02/16 11:26 Dose: 1 cap Famotidine (Pepcid) 20 mg PO DAILY [facility] Last Admin: 12/08/16 09:17 Dose: 20 mg Fluconazole (Diflucan) 100 mg PO DAILY [facility] Last Admin: 12/08/16 09:16 Dose: 100 mg Lidocaine (Lidoderm) 2 ea TD DAILY [facility] Last Admin: 12/08/16 09:18 Dose: 2 ea Magnesium Hydroxide (Milk Of Magnesia) 30 ml PO DAILY [facility] Last Admin: 12/08/16 09:27 Dose: 30 ml Senna/Docusate Sodium (Senokot S 50 Mg-8.6 Mg) 2 tab PO HS [facility] Last Admin: 12/08/16 21:01 Dose: Not Given - Labs Labs: 12/07/16 05:15 12/07/16 05:15 PT 13.2 Seconds (9.8-13.1) H 12/07/16 05:15 INR 1.3 (0.9-1.2) H 12/07/16 05:15 APTT 31.9 Seconds (25.6-37.1) 12/07/16 05:15 - Constitutional Appears: Well, No Acute Distress - Head Exam Head Exam: ATRAUMATIC, NORMOCEPHALIC - Eye Exam Eye Exam: EOMI, Normal appearance, PERRL. absent: Nystagmus - Neck Exam Neck Exam: Full ROM. absent: Lymphadenopathy, Thyromegaly - Respiratory Exam Respiratory Exam: Clear to Ausculation Bilateral, NORMAL BREATHING PATTERN. absent: Rales, Rhonchi, Wheezes - Cardiovascular Exam Cardiovascular Exam: REGULAR RHYTHM, +S1, +S2, Murmur - GI/Abdominal Exam GI & Abdominal Exam: Soft, Normal Bowel Sounds. absent: Tenderness, Organomegaly - Extremities Exam Extremities Exam: Full ROM, Normal Inspection. absent: Calf Tenderness - Back Exam Back Exam: NORMAL INSPECTION. absent: paraspinal tenderness, vertebral tenderness - Neurological Exam Neurological Exam: Alert, Awake, CN II-XII Intact, Oriented x3 - Psychiatric Exam Psychiatric exam: Normal Mood - Skin Skin Exam: Dry, Normal Color, Warm Assessment and Plan - Assessment and Plan (Free Text) Assessment: 81 y/o F with PMH of Aortic Stenosis, DM is admitted for acute compression fracture of L2 spine. s/p Kyphoplasty. Continuos SOB during PT unable to d/c to home. #Lumbar Compression Fracture s/p Kyphoplasty POD #14 -Pain management:Tylenol PRN tolerating pain well -PT recommends DEVIKA -unable to perform PT due to sob. -will continue to monitor respiratory status during PT. #Moderate Aortic Stenosis-Chronic -Repeated ZINA on November 2016 shows .55cm diameter aortic valve -Pt. for possible TAVR as per Cardiology -Dr Elmore recommends transfer to [facility] for TAVR evaluation spoke w/ hospice case manager and Dr Elmore regarding transfer, informed authorization/ bed is pending no time provided for transfer. Spoke with daughter about dispo and patient is informed as well. Both are agreeable for transfer. -ABG wnl #Dysphagia- Improving -Regular diet with thin liquids -Pepcid 20mg po daily for GERD. -Follow GI recommendations. #Transaminitits- mild -AST 40, ALT 46 today #Constipation-Chronic/Improving -had a BM yesterday -Continue Senokot and Lactulose. #NIDDM (Non Insulin Dependent DM) -HgbA1c: 6.8% #Leukopenia- Chronic -continuing monitoring #Vitamin D Deficiency/Clinical osteoporosis -c/w Vitamin D 50,000IU weekly. #DVT Prophlyaxis -Lovenox 40mg sc daily <Sierra Singleton - Last Filed: 12/10/16 08:25> Objective - Vital Signs/Intake and Output Vital Signs (last 24 hours): Temp Pulse Resp BP Pulse Ox 98.3 F 79 20 112/65 100 12/10/16 04:50 12/10/16 04:50 12/10/16 04:50 12/10/16 04:50 12/10/16 04:50 Intake and Output: 12/10/16 12/10/16 06:59 18:59 Intake Total 1200 Balance 1200 - Medications Medications: Current Medications Acetaminophen (Tylenol 325mg Tab) 650 mg PO Q6 PRN PRN Reason: Pain, Mild (1-3) Last Admin: 11/26/16 06:34 Dose: 650 mg Aspirin (Ecotrin) 81 mg PO DAILY [facility] Last Admin: 12/09/16 10:00 Dose: 81 mg Atorvastatin Calcium (Lipitor) 20 mg PO HS [facility] Last Admin: 12/09/16 21:41 Dose: 20 mg Benzocaine/Menthol (Cepacol Sore Throat) 1 fermin PO Q2 PRN PRN Reason: Sore Throat Last Admin: 12/09/16 21:41 Dose: 1 fermin Calcium Carbonate (Oscal) 500 mg PO BIDWM [facility] Last Admin: 12/09/16 17:22 Dose: 500 mg Enoxaparin Sodium (Lovenox) 40 mg SC DAILY [facility] PRN Reason: Protocol Last Admin: 12/09/16 10:00 Dose: 40 mg Ergocalciferol (Drisdol 50,000 Intl Units Cap) 1 cap PO Q7D [facility] Last Admin: 12/09/16 10:00 Dose: 1 cap Famotidine (Pepcid) 20 mg PO DAILY [facility] Last Admin: 12/09/16 10:00 Dose: 20 mg Lidocaine (Lidoderm) 2 ea TD DAILY [facility] Last Admin: 12/09/16 10:00 Dose: 2 ea Magnesium Hydroxide (Milk Of Magnesia) 30 ml PO DAILY [facility] Last Admin: 12/09/16 10:15 Dose: Not Given Senna/Docusate Sodium (Senokot S 50 Mg-8.6 Mg) 2 tab PO HS [facility] Last Admin: 12/09/16 21:43 Dose: Not Given - Labs Labs: 12/07/16 05:15 12/07/16 05:15 PT 13.2 Seconds (9.8-13.1) H 12/07/16 05:15 INR 1.3 (0.9-1.2) H 12/07/16 05:15 APTT 31.9 Seconds (25.6-37.1) 12/07/16 05:15 - Skin Additional comments: ADDENDUM ATTENDING NOTE PATIENT SEEN AND PERSONALLY EXAMINED. AGREE WITH FINDINGS AND PLAN.
[2016-12-09] MEDS: Ergocalciferol 50,000 Intl Units Cap PO SCH (10:00)
[2016-12-09] MEDS: Lidocaine 5% Patch TD SCH (10:00)
[2016-12-09] MEDS: Enoxaparin 40 mg Syringe SC SCH (10:00)
[2016-12-09] MEDS: Benzocaine/Menthol (Cepacol) Lozenge PO PRN ×4 (10:11→21:41)
[2016-12-09] MEDS: Magnesium Hydroxide Susp 30 ml UD PO SCH (10:15)
--- NOTE | 2016-12-09 19:04 | CP.PCM.PN ---
Subjective - Date & Time of Evaluation Date of Evaluation: 12/09/16 Time of Evaluation: 19:03 - Subjective Subjective: feeling fine intermittent episodes of SOB Objective - Vital Signs/Intake and Output Vital Signs (last 24 hours): Temp Pulse Resp BP Pulse Ox 97.4 F L 101 H 20 123/70 98 12/09/16 16:01 12/09/16 16:01 12/09/16 16:01 12/09/16 16:01 12/09/16 16:01 - Medications Medications: Current Medications Acetaminophen (Tylenol 325mg Tab) 650 mg PO Q6 PRN PRN Reason: Pain, Mild (1-3) Last Admin: 11/26/16 06:34 Dose: 650 mg Aspirin (Ecotrin) 81 mg PO DAILY [facility] Last Admin: 12/09/16 10:00 Dose: 81 mg Atorvastatin Calcium (Lipitor) 20 mg PO HS [facility] Last Admin: 12/08/16 21:00 Dose: 20 mg Benzocaine/Menthol (Cepacol Sore Throat) 1 fermin PO Q2 PRN PRN Reason: Sore Throat Last Admin: 12/09/16 17:22 Dose: 1 fermin Calcium Carbonate (Oscal) 500 mg PO BIDWM [facility] Last Admin: 12/09/16 17:22 Dose: 500 mg Enoxaparin Sodium (Lovenox) 40 mg SC DAILY [facility] PRN Reason: Protocol Last Admin: 12/09/16 10:00 Dose: 40 mg Ergocalciferol (Drisdol 50,000 Intl Units Cap) 1 cap PO Q7D [facility] Last Admin: 12/09/16 10:00 Dose: 1 cap Famotidine (Pepcid) 20 mg PO DAILY [facility] Last Admin: 12/09/16 10:00 Dose: 20 mg Lidocaine (Lidoderm) 2 ea TD DAILY [facility] Last Admin: 12/09/16 10:00 Dose: 2 ea Magnesium Hydroxide (Milk Of Magnesia) 30 ml PO DAILY [facility] Last Admin: 12/09/16 10:15 Dose: Not Given Senna/Docusate Sodium (Senokot S 50 Mg-8.6 Mg) 2 tab PO HS [facility] Last Admin: 12/08/16 21:01 Dose: Not Given - Labs Labs: 12/07/16 05:15 12/07/16 05:15 PT 13.2 Seconds (9.8-13.1) H 08/23/17 05:15 INR 1.3 (0.9-1.2) H 12/07/16 05:15 APTT 31.9 Seconds (25.6-37.1) 12/07/16 05:15 - Constitutional Appears: Well - Head Exam Head Exam: ATRAUMATIC, NORMAL INSPECTION, NORMOCEPHALIC - Eye Exam Eye Exam: EOMI, Normal appearance, PERRL Pupil Exam: NORMAL ACCOMODATION, PERRL - ENT Exam ENT Exam: Mucous Membranes Moist, Normal Exam - Neck Exam Neck Exam: Full ROM, Normal Inspection. absent: Lymphadenopathy - Respiratory Exam Respiratory Exam: Clear to Ausculation Bilateral, NORMAL BREATHING PATTERN - Cardiovascular Exam Cardiovascular Exam: REGULAR RHYTHM, +S1, +S2, Murmur - GI/Abdominal Exam GI & Abdominal Exam: Soft, Normal Bowel Sounds. absent: Tenderness - Extremities Exam Extremities Exam: Full ROM, Normal Capillary Refill, Normal Inspection. absent : Joint Swelling, Pedal Edema - Back Exam Back Exam: NORMAL INSPECTION - Neurological Exam Neurological Exam: Alert, Awake, CN II-XII Intact, Oriented x3 - Psychiatric Exam Psychiatric exam: Normal Affect, Normal Mood - Skin Skin Exam: Dry, Intact, Normal Color, Warm Assessment and Plan (1) Aortic stenosis Assessment & Plan: low flow low gradient severe will transfer to [facility] for TAVR evaluation and treatment Status: Acute (2) Preop cardiovascular exam Status: Acute (3) Dizziness Status: Chronic (4) Fall at home Status: Acute (5) PVD (peripheral vascular disease) Status: Acute (6) Aortic arch atherosclerosis Status: Acute
[2016-12-09] MEDS: Docusate-Senna 50 mg-8.6 mg Tab PO SCH (21:43)
[2016-12-10] MEDS: Benzocaine/Menthol (Cepacol) Lozenge PO PRN (09:02)
[2016-12-10] MEDS: Enoxaparin 40 mg Syringe SC SCH (09:03)
[2016-12-10] MEDS: Lidocaine 5% Patch TD SCH (09:03)
[2016-12-10] MEDS: Magnesium Hydroxide Susp 30 ml UD PO SCH (09:04)
--- NOTE | 2016-12-10 11:16 | CP.PCM.PN ---
<Asim Macias - Last Filed: 12/10/16 11:14> Subjective - Date & Time of Evaluation Date of Evaluation: 12/10/16 Time of Evaluation: 10:14 - Subjective Subjective: Patient seen and examined today at bedside, no acute overnight events, reports feeling well today, denies sob through the night, slept well, states good appetite. Patient had episode of shortness of breath after bowel movement passage. Was at bedside during episode. Patient denies chest pain, palpitations , change of vision, dizziness, or headache. Denies fever, abdominal pain, chest pain, palpitations, or urinary symptoms. Having normal BM. Awaiting transfer Objective - Vital Signs/Intake and Output Vital Signs (last 24 hours): Temp Pulse Resp BP Pulse Ox 97.8 F 88 20 117/81 95 12/10/16 08:00 12/10/16 08:00 12/10/16 08:00 12/10/16 08:00 12/10/16 08:00 Intake and Output: 12/10/16 12/10/16 06:59 18:59 Intake Total 1200 Balance 1200 - Medications Medications: Current Medications Acetaminophen (Tylenol 325mg Tab) 650 mg PO Q6 PRN PRN Reason: Pain, Mild (1-3) Last Admin: 11/26/16 06:34 Dose: 650 mg Aspirin (Ecotrin) 81 mg PO DAILY [facility] Last Admin: 12/10/16 09:03 Dose: 81 mg Atorvastatin Calcium (Lipitor) 20 mg PO HS [facility] Last Admin: 12/09/16 21:41 Dose: 20 mg Benzocaine/Menthol (Cepacol Sore Throat) 1 fermin PO Q2 PRN PRN Reason: Sore Throat Last Admin: 12/10/16 09:02 Dose: 1 fermin Calcium Carbonate (Oscal) 500 mg PO BIDWM [facility] Last Admin: 12/10/16 09:04 Dose: 500 mg Enoxaparin Sodium (Lovenox) 40 mg SC DAILY [facility] PRN Reason: Protocol Last Admin: 12/10/16 09:03 Dose: 40 mg Ergocalciferol (Drisdol 50,000 Intl Units Cap) 1 cap PO Q7D [facility] Last Admin: 12/09/16 10:00 Dose: 1 cap Famotidine (Pepcid) 20 mg PO DAILY [facility] Last Admin: 12/10/16 09:04 Dose: 20 mg Lidocaine (Lidoderm) 2 ea TD DAILY [facility] Last Admin: 12/10/16 09:03 Dose: 2 ea Magnesium Hydroxide (Milk Of Magnesia) 30 ml PO DAILY [facility] Last Admin: 12/10/16 09:04 Dose: Not Given Senna/Docusate Sodium (Senokot S 50 Mg-8.6 Mg) 2 tab PO HS [facility] Last Admin: 12/09/16 21:43 Dose: Not Given - Labs Labs: 12/07/16 05:15 12/07/16 05:15 PT 13.2 Seconds (9.8-13.1) H 12/07/16 05:15 INR 1.3 (0.9-1.2) H 12/07/16 05:15 APTT 31.9 Seconds (25.6-37.1) 12/07/16 05:15 - Constitutional Appears: Non-toxic, No Acute Distress - Head Exam Head Exam: NORMAL INSPECTION - Eye Exam Eye Exam: Normal appearance - Respiratory Exam Respiratory Exam: Clear to Ausculation Bilateral, NORMAL BREATHING PATTERN. absent: Decreased Breath Sounds, Rhonchi, Wheezes - Cardiovascular Exam Cardiovascular Exam: REGULAR RHYTHM, +S1, +S2, Murmur - GI/Abdominal Exam GI & Abdominal Exam: Soft, Normal Bowel Sounds. absent: Tenderness - Neurological Exam Neurological Exam: Alert, Awake, Oriented x3 - Psychiatric Exam Psychiatric exam: Normal Affect, Normal Mood - Skin Skin Exam: Dry, Intact, Normal Color, Warm Assessment and Plan - Assessment and Plan (Free Text) Assessment: 81 y/o F with PMH of Aortic Stenosis, DM admitted for acute compression fracture of L2 spine. s/p Kyphoplasty. Admission complicated by continuous SOB during PT likely 2ndary to aortic stenosis. #Moderate Aortic Stenosis -Repeated ZINA on November 2016 shows .55cm diameter aortic valve -Dr Elmore recommends transfer to [facility] for TAVR evaluation spoke w/ case hardener and Dr Elmore regarding transfer, informed authorization/ bed is pending no time provided for transfer. Spoke with daughter about dispo and patient is informed as well. Both are agreeable for transfer. -ABG wnl -Continues to have episodes of sob, vitals were unremarkable during episode of sob at bedside with O2 sat of 97 #Lumbar Compression Fracture s/p Kyphoplasty POD #15 -Pain management:Tylenol PRN tolerating pain well -PT recommends DEVIKA -unable to perform PT due to sob. -will continue to monitor respiratory status during PT. #Dysphagia- Improved -Regular diet with thin liquids -Pepcid 20mg po daily for GERD. -Follow GI recommendations. #Constipation-Chronic/Improving -had a BM today -Continue Senokot and Lactulose. #NIDDM (Non Insulin Dependent DM) -HgbA1c: 6.8% #Leukopenia- Chronic -continuing monitoring #Vitamin D Deficiency/Clinical osteoporosis -c/w Vitamin D 50,000IU weekly. s/p Boniva 12/06 (next dose 03/08/17) #DVT Prophlyaxis -Lovenox 40mg sc daily <Sierra Singleton - Last Filed: 12/11/16 09:09> Objective - Vital Signs/Intake and Output Vital Signs (last 24 hours): Temp Pulse Resp BP Pulse Ox 98.9 F 89 18 114/68 100 12/11/16 08:00 12/11/16 08:00 12/11/16 08:00 12/11/16 08:00 12/11/16 08:00 - Medications Medications: Current Medications Acetaminophen (Tylenol 325mg Tab) 650 mg PO Q6 PRN PRN Reason: Pain, Mild (1-3) Last Admin: 11/26/16 06:34 Dose: 650 mg Aspirin (Ecotrin) 81 mg PO DAILY [facility] Last Admin: 12/10/16 09:03 Dose: 81 mg Atorvastatin Calcium (Lipitor) 20 mg PO HS [facility] Last Admin: 12/10/16 21:29 Dose: 20 mg Benzocaine/Menthol (Cepacol Sore Throat) 1 fermin PO Q2 PRN PRN Reason: Sore Throat Last Admin: 12/10/16 09:02 Dose: 1 fermin Calcium Carbonate (Oscal) 500 mg PO BIDWM [facility] Last Admin: 12/10/16 16:46 Dose: 500 mg Enoxaparin Sodium (Lovenox) 40 mg SC DAILY [facility] PRN Reason: Protocol Last Admin: 12/10/16 09:03 Dose: 40 mg Ergocalciferol (Drisdol 50,000 Intl Units Cap) 1 cap PO Q7D [facility] Last Admin: 12/09/16 10:00 Dose: 1 cap Famotidine (Pepcid) 20 mg PO DAILY [facility] Last Admin: 12/10/16 09:04 Dose: 20 mg Lidocaine (Lidoderm) 2 ea TD DAILY [facility] Last Admin: 12/10/16 09:03 Dose: 2 ea Magnesium Hydroxide (Milk Of Magnesia) 30 ml PO DAILY [facility] Last Admin: 12/10/16 09:04 Dose: Not Given Senna/Docusate Sodium (Senokot S 50 Mg-8.6 Mg) 2 tab PO HS [facility] Last Admin: 12/10/16 21:29 Dose: 2 tab - Labs Labs: 12/07/16 05:15 12/07/16 05:15 PT 13.2 Seconds (9.8-13.1) H 12/07/16 05:15 INR 1.3 (0.9-1.2) H 12/07/16 05:15 APTT 31.9 Seconds (25.6-37.1) 12/07/16 05:15 - Skin Additional comments: ADDENDUM ATTENDING NOTE PATIENT SEEN AND EXAMINED. CASE DISCUSSED WITH RESIDENT. PATIENT BECAME ACUTELY SHORT OF BREATH WHILE ON BED [facility] ATTEMPTING TO HAVE BOWEL MOVEMENT.ON NASAL CANNULA. IMPROVED AFTER TAKEN OFF BED [facility]. PATIENT WITH AORTIC STENOSIS - HAS LIMITED CARDIOPULMONARY RESERVE. AWAITING TRANSFER TO [facility] FOR TAVR PROCEDURE.
[2016-12-10] MEDS: Docusate-Senna 50 mg-8.6 mg Tab PO SCH (21:29)
[2016-12-11] MEDS: Benzocaine/Menthol (Cepacol) Lozenge PO PRN ×2 (09:35→16:45)
[2016-12-11] MEDS: Enoxaparin 40 mg Syringe SC SCH (09:35)
[2016-12-11] MEDS: Lidocaine 5% Patch TD SCH (09:35)
[2016-12-11] MEDS: Magnesium Hydroxide Susp 30 ml UD PO SCH (09:38)
--- NOTE | 2016-12-11 11:50 | CP.PCM.PN ---
<Aaron Camarillo - Last Filed: 12/11/16 13:16> Subjective - Date & Time of Evaluation Date of Evaluation: 12/11/16 Time of Evaluation: 08:15 - Subjective Subjective: Patient seen and examined today at bedside, no acute overnight events, reports feeling well today, denies sob through the night though this morning looks dyspneic, reports runny nose, she is on NC, slept well, states good appetite. Patient denies chest pain, palpitations, change of vision, dizziness, or headache. No fever, abdominal pain, or urinary symptoms. Having normal BM. Awaiting transfer Objective - Vital Signs/Intake and Output Vital Signs (last 24 hours): Temp Pulse Resp BP Pulse Ox 98.9 F 89 18 114/68 100 12/11/16 08:00 12/11/16 08:00 12/11/16 08:00 12/11/16 08:00 12/11/16 08:00 - Medications Medications: Current Medications Acetaminophen (Tylenol 325mg Tab) 650 mg PO Q6 PRN PRN Reason: Pain, Mild (1-3) Last Admin: 11/26/16 06:34 Dose: 650 mg Aspirin (Ecotrin) 81 mg PO DAILY [facility] Last Admin: 12/11/16 09:37 Dose: 81 mg Atorvastatin Calcium (Lipitor) 20 mg PO HS [facility] Last Admin: 12/10/16 21:29 Dose: 20 mg Benzocaine/Menthol (Cepacol Sore Throat) 1 fermin PO Q2 PRN PRN Reason: Sore Throat Last Admin: 12/11/16 09:35 Dose: 1 fermin Calcium Carbonate (Oscal) 500 mg PO BIDWM [facility] Last Admin: 12/11/16 09:36 Dose: 500 mg Enoxaparin Sodium (Lovenox) 40 mg SC DAILY [facility] PRN Reason: Protocol Last Admin: 12/11/16 09:35 Dose: 40 mg Ergocalciferol (Drisdol 50,000 Intl Units Cap) 1 cap PO Q7D [facility] Last Admin: 12/09/16 10:00 Dose: 1 cap Famotidine (Pepcid) 20 mg PO DAILY [facility] Last Admin: 12/11/16 09:37 Dose: 20 mg Lidocaine (Lidoderm) 2 ea TD DAILY [facility] Last Admin: 12/11/16 09:35 Dose: 2 ea Magnesium Hydroxide (Milk Of Magnesia) 30 ml PO DAILY [facility] Last Admin: 12/11/16 09:38 Dose: 30 ml Senna/Docusate Sodium (Senokot S 50 Mg-8.6 Mg) 2 tab PO HS [facility] Last Admin: 12/10/16 21:29 Dose: 2 tab - Labs Labs: 12/07/16 05:15 12/07/16 05:15 PT 13.2 Seconds (9.8-13.1) H 12/07/16 05:15 INR 1.3 (0.9-1.2) H 12/07/16 05:15 APTT 31.9 Seconds (25.6-37.1) 12/07/16 05:15 - Constitutional Appears: Well, No Acute Distress, Cachectic - Head Exam Head Exam: ATRAUMATIC, NORMOCEPHALIC - Eye Exam Eye Exam: EOMI, Normal appearance, PERRL - ENT Exam ENT Exam: Mucous Membranes Moist - Neck Exam Neck Exam: Full ROM - Respiratory Exam Respiratory Exam: Clear to Ausculation Bilateral. absent: Decreased Breath Sounds Additional comments: Dyspneic - Cardiovascular Exam Cardiovascular Exam: REGULAR RHYTHM, +S1, +S2, Murmur - GI/Abdominal Exam GI & Abdominal Exam: Soft, Normal Bowel Sounds. absent: Tenderness, Organomegaly - Extremities Exam Extremities Exam: Normal Inspection. absent: Calf Tenderness, Pedal Edema - Back Exam Back Exam: NORMAL INSPECTION. absent: vertebral tenderness - Neurological Exam Neurological Exam: Alert, Awake, CN II-XII Intact, Oriented x3 - Psychiatric Exam Psychiatric exam: Normal Mood - Skin Skin Exam: Dry, Normal Color, Warm Assessment and Plan - Assessment and Plan (Free Text) Assessment: 81 y/o F with PMH of Aortic Stenosis, DM admitted for acute compression fracture of L2 spine. s/p Kyphoplasty. Admission complicated by continuous SOB during PT likely 2ndary to aortic stenosis. #Moderate Aortic Stenosis -Repeated ZINA on November 2016 shows .55cm diameter aortic valve -Dr Elmore recommends transfer to [facility] for TAVR evaluation spoke w/ field nurse case manager and Dr Elmore regarding transfer, informed authorization/ bed is pending no time provided for transfer. Spoke with daughter about dispo and patient is informed as well. Both are agreeable for transfer. -ABG wnl -Continues to have episodes of sob, vitals were unremarkable during episode of sob at bedside with O2 sat of 97 #Lumbar Compression Fracture s/p Kyphoplasty POD #16 -Pain management:Tylenol PRN tolerating pain well -PT recommends DEVIKA -unable to perform PT due to sob. -will continue to monitor respiratory status during PT. #Dysphagia- Improved -Regular diet with thin liquids -Pepcid 20mg po daily for GERD. -Follow GI recommendations. #Constipation-Chronic/Improving -had a BM today -Continue Senokot and Lactulose. #NIDDM (Non Insulin Dependent DM) -HgbA1c: 6.8% #Leukopenia- Chronic -continuing monitoring #Vitamin D Deficiency/Clinical osteoporosis -c/w Vitamin D 50,000IU weekly. s/p Boniva 12/06 (next dose 03/08/17) #DVT Prophlyaxis -Lovenox 40mg sc daily <Sierra Singleton - Last Filed: 12/12/16 07:09> Objective - Vital Signs/Intake and Output Vital Signs (last 24 hours): Temp Pulse Resp BP Pulse Ox 99 F 88 20 121/70 99 12/12/16 05:08 12/12/16 05:08 12/12/16 05:08 12/12/16 05:08 12/12/16 05:08 - Medications Medications: Current Medications Acetaminophen (Tylenol 325mg Tab) 650 mg PO Q6 PRN PRN Reason: Pain, Mild (1-3) Last Admin: 11/26/16 06:34 Dose: 650 mg Aspirin (Ecotrin) 81 mg PO DAILY [facility] Last Admin: 12/11/16 09:37 Dose: 81 mg Atorvastatin Calcium (Lipitor) 20 mg PO HS [facility] Last Admin: 12/11/16 22:20 Dose: 20 mg Benzocaine/Menthol (Cepacol Sore Throat) 1 fermin PO Q2 PRN PRN Reason: Sore Throat Last Admin: 12/12/16 02:30 Dose: 1 fermin Calcium Carbonate (Oscal) 500 mg PO BIDWM [facility] Last Admin: 12/11/16 16:45 Dose: 500 mg Enoxaparin Sodium (Lovenox) 40 mg SC DAILY [facility] PRN Reason: Protocol Last Admin: 12/11/16 09:35 Dose: 40 mg Ergocalciferol (Drisdol 50,000 Intl Units Cap) 1 cap PO Q7D [facility] Last Admin: 12/09/16 10:00 Dose: 1 cap Lidocaine (Lidoderm) 2 ea TD DAILY [facility] Last Admin: 12/11/16 09:35 Dose: 2 ea Magnesium Hydroxide (Milk Of Magnesia) 30 ml PO DAILY [facility] Last Admin: 12/11/16 09:38 Dose: 30 ml - Labs Labs: 12/07/16 05:15 12/07/16 05:15 PT 13.2 Seconds (9.8-13.1) H 12/07/16 05:15 INR 1.3 (0.9-1.2) H 12/07/16 05:15 APTT 31.9 Seconds (25.6-37.1) 12/07/16 05:15 - Skin Additional comments: ADDENDUM ATTENDING NOTE PATIENT SEEN AND EXAMINED. CASE DISCUSSED WITH RESIDENT. AWAITING TRANSFER TO [facility] FOR TAVR PROCEDURE. AGREE WIT FINDINGS AND PLAN.
[2016-12-11] MEDS: Docusate-Senna 50 mg-8.6 mg Tab PO SCH (22:20)
[2016-12-11] MEDS ORDERED: Insulin Regular 100 units/ml SC SCH (23:00)
[2016-12-12] MEDS: Benzocaine/Menthol (Cepacol) Lozenge PO PRN ×4 (00:56→17:58)
[2016-12-12] MEDS: Lidocaine 5% Patch TD SCH (09:52)
[2016-12-12] MEDS: Enoxaparin 40 mg Syringe SC SCH (09:52)
[2016-12-12] MEDS: Magnesium Hydroxide Susp 30 ml UD PO SCH (09:53)
--- NOTE | 2016-12-12 13:54 | CP.PCM.PN ---
<Aaron Camarillo - Last Filed: 12/12/16 16:08> Subjective - Date & Time of Evaluation Date of Evaluation: 12/12/16 Time of Evaluation: 06:50 - Subjective Subjective: Patient seen and examined today at bedside, no overnight events, reports feeling well today, denies sob this morning, slept well, states good appetite. Patient denies runny nose,cough, chest pain, palpitations, change of vision, dizziness, or headache, no fever, abdominal pain, or urinary symptoms. No urinary symptoms. Awaiting transfer to [facility]. Objective - Vital Signs/Intake and Output Vital Signs (last 24 hours): Temp Pulse Resp BP Pulse Ox 98.7 F 108 H 18 107/65 97 12/12/16 12:00 12/12/16 12:00 12/12/16 12:00 12/12/16 12:00 12/12/16 12:00 - Medications Medications: Current Medications Acetaminophen (Tylenol 325mg Tab) 650 mg PO Q6 PRN PRN Reason: Pain, Mild (1-3) Last Admin: 11/26/16 06:34 Dose: 650 mg Aspirin (Ecotrin) 81 mg PO DAILY [facility] Last Admin: 12/12/16 09:52 Dose: 81 mg Atorvastatin Calcium (Lipitor) 20 mg PO HS [facility] Last Admin: 12/11/16 22:20 Dose: 20 mg Benzocaine/Menthol (Cepacol Sore Throat) 1 fermin PO Q2 PRN PRN Reason: Sore Throat Last Admin: 12/12/16 09:51 Dose: 1 fermin Calcium Carbonate (Oscal) 500 mg PO BIDWM [facility] Last Admin: 12/12/16 09:51 Dose: 500 mg Enoxaparin Sodium (Lovenox) 40 mg SC DAILY [facility] PRN Reason: Protocol Last Admin: 12/12/16 09:52 Dose: 40 mg Ergocalciferol (Drisdol 50,000 Intl Units Cap) 1 cap PO Q7D [facility] Last Admin: 12/09/16 10:00 Dose: 1 cap Lidocaine (Lidoderm) 2 ea TD DAILY [facility] Last Admin: 12/12/16 09:52 Dose: 2 ea Magnesium Hydroxide (Milk Of Magnesia) 30 ml PO DAILY [facility] Last Admin: 12/12/16 09:53 Dose: Not Given - Labs Labs: 12/07/16 05:15 08/23/17 05:15 PT 13.2 Seconds (9.8-13.1) H 12/07/16 05:15 INR 1.3 (0.9-1.2) H 12/07/16 05:15 APTT 31.9 Seconds (25.6-37.1) 12/07/16 05:15 - Constitutional Appears: Well, No Acute Distress, Cachectic - Head Exam Head Exam: ATRAUMATIC, NORMOCEPHALIC - Eye Exam Eye Exam: EOMI, Normal appearance, PERRL - ENT Exam ENT Exam: Mucous Membranes Moist - Respiratory Exam Respiratory Exam: Clear to Ausculation Bilateral. absent: Rales, Rhonchi, Wheezes - Cardiovascular Exam Cardiovascular Exam: REGULAR RHYTHM, +S1, +S2, Murmur - GI/Abdominal Exam GI & Abdominal Exam: Soft, Normal Bowel Sounds. absent: Tenderness, Organomegaly - Extremities Exam Extremities Exam: Normal Inspection. absent: Calf Tenderness, Pedal Edema - Back Exam Back Exam: NORMAL INSPECTION. absent: vertebral tenderness - Neurological Exam Neurological Exam: Alert, Awake, CN II-XII Intact, Oriented x3 - Psychiatric Exam Psychiatric exam: Normal Mood - Skin Skin Exam: Dry, Intact, Normal Color, Warm Assessment and Plan - Assessment and Plan (Free Text) Assessment: 81 y/o F with PMH of Aortic Stenosis, DM admitted for acute compression fracture of L2 spine. s/p Kyphoplasty. Admission complicated by continuous SOB during PT likely 2ndary to aortic stenosis. #Moderate Aortic Stenosis -Repeated ZINA on November 2016 shows .55cm diameter aortic valve -Dr Elmore recommends transfer to [facility] for TAVR evaluation under Dr Reeves. spoke w/ trimming caser and Dr Elmore regarding transfer, informed authorization/ bed is pending no time provided for transfer. Spoke with daughter about dispo and patient is informed as well. Both are agreeable for transfer. -Continues to have episodes of sob, vitals were unremarkable during episode of sob at bedside with O2 sat of 97 #Lumbar Compression Fracture s/p Kyphoplasty POD #17 -Pain management:Tylenol PRN tolerating pain well -unable to perform PT due to sob. -d/c PT #Dysphagia- Improved -Regular diet with thin liquids -Pepcid 20mg po daily for GERD. -Follow GI recommendations. #Constipation-Chronic/Improving -had a BM today -Continue Senokot and Lactulose. #NIDDM (Non Insulin Dependent DM) -HgbA1c: 6.8% #Leukopenia- Chronic -continuing monitoring #Vitamin D Deficiency/Clinical osteoporosis -c/w Vitamin D 50,000IU weekly. s/p Boniva 12/06 (next dose 03/08/17) #DVT Prophlyaxis -Lovenox 40mg sc daily <Sierra Singleton - Last Filed: 12/13/16 08:11> Objective - Vital Signs/Intake and Output Vital Signs (last 24 hours): Temp Pulse Resp BP Pulse Ox 97.7 F 84 18 116/70 100 12/13/16 07:48 12/13/16 07:48 12/13/16 07:48 12/13/16 07:48 12/13/16 07:48 - Medications Medications: Current Medications Acetaminophen (Tylenol 325mg Tab) 650 mg PO Q6 PRN PRN Reason: Pain, Mild (1-3) Last Admin: 11/26/16 06:34 Dose: 650 mg Aspirin (Ecotrin) 81 mg PO DAILY [facility] Last Admin: 12/12/16 09:52 Dose: 81 mg Atorvastatin Calcium (Lipitor) 20 mg PO HS [facility] Last Admin: 12/12/16 21:43 Dose: 20 mg Benzocaine/Menthol (Cepacol Sore Throat) 1 fermin PO Q2 PRN PRN Reason: Sore Throat Last Admin: 12/12/16 17:58 Dose: 1 fermin Calcium Carbonate (Oscal) 500 mg PO BIDWM [facility] Last Admin: 12/12/16 17:59 Dose: 500 mg Enoxaparin Sodium (Lovenox) 40 mg SC DAILY [facility] PRN Reason: Protocol Last Admin: 12/12/16 09:52 Dose: 40 mg Ergocalciferol (Drisdol 50,000 Intl Units Cap) 1 cap PO Q7D [facility] Last Admin: 12/09/16 10:00 Dose: 1 cap Lidocaine (Lidoderm) 2 ea TD DAILY [facility] Last Admin: 12/12/16 09:52 Dose: 2 ea Magnesium Hydroxide (Milk Of Magnesia) 30 ml PO DAILY [facility] Last Admin: 12/12/16 09:53 Dose: Not Given - Labs Labs: 12/07/16 05:15 12/07/16 05:15 PT 13.2 Seconds (9.8-13.1) H 12/07/16 05:15 INR 1.3 (0.9-1.2) H 12/07/16 05:15 APTT 31.9 Seconds (25.6-37.1) 12/07/16 05:15 - Skin Additional comments: PATIENT SEEN AND EXAMINED. STILL WITH DYSPNEA ON MINIMAL EXERTION. AWAITING TRANSFER TO [facility] FOR TAVR PROCEDURE. CASE DISCUSSED WITH RESIDENT. AGREE WITH PLAN.
--- NOTE | 2016-12-12 14:15 | CP.PCM.PN ---
Subjective - Date & Time of Evaluation Date of Evaluation: 12/12/16 Time of Evaluation: 14:13 - Subjective Subjective: severely SOB at rest sitting in tripod position Objective - Vital Signs/Intake and Output Vital Signs (last 24 hours): Temp Pulse Resp BP Pulse Ox 98.7 F 108 H 18 107/65 97 12/12/16 12:00 12/12/16 12:00 12/12/16 12:00 12/12/16 12:00 12/12/16 12:00 - Medications Medications: Current Medications Acetaminophen (Tylenol 325mg Tab) 650 mg PO Q6 PRN PRN Reason: Pain, Mild (1-3) Last Admin: 11/26/16 06:34 Dose: 650 mg Aspirin (Ecotrin) 81 mg PO DAILY [facility] Last Admin: 12/12/16 09:52 Dose: 81 mg Atorvastatin Calcium (Lipitor) 20 mg PO HS [facility] Last Admin: 12/11/16 22:20 Dose: 20 mg Benzocaine/Menthol (Cepacol Sore Throat) 1 fermin PO Q2 PRN PRN Reason: Sore Throat Last Admin: 12/12/16 09:51 Dose: 1 fermin Calcium Carbonate (Oscal) 500 mg PO BIDWM [facility] Last Admin: 12/12/16 09:51 Dose: 500 mg Enoxaparin Sodium (Lovenox) 40 mg SC DAILY [facility] PRN Reason: Protocol Last Admin: 12/12/16 09:52 Dose: 40 mg Ergocalciferol (Drisdol 50,000 Intl Units Cap) 1 cap PO Q7D [facility] Last Admin: 12/09/16 10:00 Dose: 1 cap Lidocaine (Lidoderm) 2 ea TD DAILY [facility] Last Admin: 12/12/16 09:52 Dose: 2 ea Magnesium Hydroxide (Milk Of Magnesia) 30 ml PO DAILY [facility] Last Admin: 12/12/16 09:53 Dose: Not Given - Labs Labs: 12/07/16 05:15 12/07/16 05:15 PT 13.2 Seconds (9.8-13.1) H 12/07/16 05:15 INR 1.3 (0.9-1.2) H 12/07/16 05:15 APTT 31.9 Seconds (25.6-37.1) 12/07/16 05:15 - Constitutional Appears: Well - Head Exam Head Exam: ATRAUMATIC, NORMAL INSPECTION, NORMOCEPHALIC - Eye Exam Eye Exam: EOMI, Normal appearance, PERRL Pupil Exam: NORMAL ACCOMODATION, PERRL - ENT Exam ENT Exam: Mucous Membranes Moist, Normal Exam - Neck Exam Neck Exam: Full ROM, Normal Inspection. absent: Lymphadenopathy - Respiratory Exam Respiratory Exam: Clear to Ausculation Bilateral, NORMAL BREATHING PATTERN - Cardiovascular Exam Cardiovascular Exam: REGULAR RHYTHM, +S1, +S2, Murmur - GI/Abdominal Exam GI & Abdominal Exam: Soft, Normal Bowel Sounds. absent: Tenderness - Extremities Exam Extremities Exam: Full ROM, Normal Capillary Refill, Normal Inspection. absent : Joint Swelling, Pedal Edema - Back Exam Back Exam: NORMAL INSPECTION - Neurological Exam Neurological Exam: Alert, Awake, CN II-XII Intact, Normal Gait, Oriented x3 - Psychiatric Exam Psychiatric exam: Normal Affect, Normal Mood - Skin Skin Exam: Dry, Intact, Normal Color, Warm Assessment and Plan (1) Aortic stenosis Assessment & Plan: low flow low gradient severe plan for transfer to [facility] under for possible TAVR Status: Acute (2) Preop cardiovascular exam Assessment & Plan: stable Status: Acute (3) Dizziness Status: Chronic (4) Fall at home Status: Acute (5) PVD (peripheral vascular disease) Assessment & Plan: on asa and statins AAA - 4.6cm stable Status: Acute (6) Aortic arch atherosclerosis Assessment & Plan: Grade II atheroma on aortic arch Status: Acute
--- NOTE | 2016-12-13 07:36 | CP.PCM.PN ---
Subjective - Date & Time of Evaluation Date of Evaluation: 12/13/16 Time of Evaluation: 07:36 - Subjective Subjective: intermittent bouts of SOB at rest Objective - Vital Signs/Intake and Output Vital Signs (last 24 hours): Temp Pulse Resp BP Pulse Ox 98 F 77 18 108/61 99 12/13/16 04:52 12/13/16 04:52 12/13/16 04:52 12/13/16 04:52 12/13/16 04:52 - Medications Medications: Current Medications Acetaminophen (Tylenol 325mg Tab) 650 mg PO Q6 PRN PRN Reason: Pain, Mild (1-3) Last Admin: 11/26/16 06:34 Dose: 650 mg Aspirin (Ecotrin) 81 mg PO DAILY COUNT INCLUDES [facility] Last Admin: 12/12/16 09:52 Dose: 81 mg Atorvastatin Calcium (Lipitor) 20 mg PO HS COUNT INCLUDES THE [facility] Last Admin: 12/12/16 21:43 Dose: 20 mg Benzocaine/Menthol (Cepacol Sore Throat) 1 fermin PO Q2 PRN PRN Reason: Sore Throat Last Admin: 12/12/16 17:58 Dose: 1 fermin Calcium Carbonate (Oscal) 500 mg PO BIDWM COUNT INCLUDES THE [facility] Last Admin: 12/12/16 17:59 Dose: 500 mg Enoxaparin Sodium (Lovenox) 40 mg SC DAILY COUNT INCLUDES THE [facility] PRN Reason: Protocol Last Admin: 12/12/16 09:52 Dose: 40 mg Ergocalciferol (Drisdol 50,000 Intl Units Cap) 1 cap PO Q7D COUNT INCLUDES THE [facility] Last Admin: 12/09/16 10:00 Dose: 1 cap Lidocaine (Lidoderm) 2 ea TD DAILY COUNT INCLUDES THE [facility] Last Admin: 12/12/16 09:52 Dose: 2 ea Magnesium Hydroxide (Milk Of Magnesia) 30 ml PO DAILY COUNT INCLUDES THE [facility] Last Admin: 12/12/16 09:53 Dose: Not Given - Labs Labs: 12/07/16 05:15 12/07/16 05:15 PT 13.2 Seconds (9.8-13.1) H 12/07/16 05:15 INR 1.3 (0.9-1.2) H 12/07/16 05:15 APTT 31.9 Seconds (25.6-37.1) 12/07/16 05:15 - Constitutional Appears: Well - Head Exam Head Exam: ATRAUMATIC, NORMAL INSPECTION, NORMOCEPHALIC - Eye Exam Eye Exam: EOMI, Normal appearance, PERRL Pupil Exam: NORMAL ACCOMODATION, PERRL - ENT Exam ENT Exam: Mucous Membranes Moist, Normal Exam - Neck Exam Neck Exam: Full ROM, Normal Inspection. absent: Lymphadenopathy - Respiratory Exam Respiratory Exam: Rales, NORMAL BREATHING PATTERN - Cardiovascular Exam Cardiovascular Exam: REGULAR RHYTHM, +S1, +S2, Murmur - GI/Abdominal Exam GI & Abdominal Exam: Soft, Normal Bowel Sounds. absent: Tenderness - Extremities Exam Extremities Exam: Full ROM, Normal Capillary Refill, Normal Inspection. absent : Joint Swelling, Pedal Edema - Back Exam Back Exam: NORMAL INSPECTION - Neurological Exam Neurological Exam: Alert, Awake, CN II-XII Intact, Normal Gait, Oriented x3 - Psychiatric Exam Psychiatric exam: Normal Affect, Normal Mood - Skin Skin Exam: Dry, Intact, Normal Color, Warm Assessment and Plan (1) Aortic stenosis Assessment & Plan: low flow low gradient severe plan for transfer to [facility] for TAVR Status: Acute (2) Preop cardiovascular exam Assessment & Plan: stable Status: Acute (3) Dizziness Status: Chronic (4) Fall at home Status: Acute (5) PVD (peripheral vascular disease) Assessment & Plan: on asa, statins AAA stable Status: Acute (6) Aortic arch atherosclerosis Status: Acute
[2016-12-13] MEDS: Enoxaparin 40 mg Syringe SC SCH (08:45)
[2016-12-13] MEDS: Lidocaine 5% Patch TD SCH (08:45)
[2016-12-13] MEDS: Magnesium Hydroxide Susp 30 ml UD PO SCH (08:48)
--- NOTE | 2016-12-13 10:48 | CP.PCM.PN ---
<Aaron Camarillo - Last Filed: 12/13/16 12:17> Subjective - Date & Time of Evaluation Date of Evaluation: 12/13/16 Time of Evaluation: 07:00 - Subjective Subjective: Patient seen and examined this morning at bedside, no overnight events, reports feeling well today, no sob this morning. Patient denies runny nose,cough, chest pain, palpitations, change of vision, dizziness, or headache, no fever, abdominal pain, or urinary symptoms. No urinary symptoms. Slept well through the night, states good appetite. Awaiting transfer to [facility]. Objective - Vital Signs/Intake and Output Vital Signs (last 24 hours): Temp Pulse Resp BP Pulse Ox 97.7 F 84 18 116/70 100 12/13/16 07:48 12/13/16 07:48 12/13/16 07:48 12/13/16 07:48 12/13/16 07:48 - Medications Medications: Current Medications Acetaminophen (Tylenol 325mg Tab) 650 mg PO Q6 PRN PRN Reason: Pain, Mild (1-3) Last Admin: 11/26/16 06:34 Dose: 650 mg Aspirin (Ecotrin) 81 mg PO DAILY [facility] Last Admin: 12/13/16 08:45 Dose: 81 mg Atorvastatin Calcium (Lipitor) 20 mg PO HS [facility] Last Admin: 12/12/16 21:43 Dose: 20 mg Benzocaine/Menthol (Cepacol Sore Throat) 1 fermin PO Q2 PRN PRN Reason: Sore Throat Last Admin: 12/12/16 17:58 Dose: 1 fermin Calcium Carbonate (Oscal) 500 mg PO BIDWM [facility] Last Admin: 12/13/16 08:45 Dose: 500 mg Enoxaparin Sodium (Lovenox) 40 mg SC DAILY [facility] PRN Reason: Protocol Last Admin: 12/13/16 08:45 Dose: 40 mg Ergocalciferol (Drisdol 50,000 Intl Units Cap) 1 cap PO Q7D [facility] Last Admin: 12/09/16 10:00 Dose: 1 cap Lidocaine (Lidoderm) 2 ea TD DAILY [facility] Last Admin: 12/13/16 08:45 Dose: 2 ea Magnesium Hydroxide (Milk Of Magnesia) 30 ml PO DAILY [facility] Last Admin: 12/13/16 08:48 Dose: Not Given - Labs Labs: 12/07/16 05:15 12/07/16 05:15 PT 13.2 Seconds (9.8-13.1) H 12/07/16 05:15 INR 1.3 (0.9-1.2) H 12/07/16 05:15 APTT 31.9 Seconds (25.6-37.1) 12/07/16 05:15 - Constitutional Appears: Well, No Acute Distress, Cachectic - Head Exam Head Exam: ATRAUMATIC, NORMOCEPHALIC - Eye Exam Eye Exam: EOMI, Normal appearance, PERRL - Neck Exam Neck Exam: Full ROM - Respiratory Exam Respiratory Exam: Clear to Ausculation Bilateral, NORMAL BREATHING PATTERN - Cardiovascular Exam Cardiovascular Exam: REGULAR RHYTHM, +S1, +S2, Murmur - GI/Abdominal Exam GI & Abdominal Exam: Soft, Normal Bowel Sounds. absent: Tenderness, Organomegaly - Extremities Exam Extremities Exam: Normal Inspection. absent: Calf Tenderness - Back Exam Back Exam: NORMAL INSPECTION. absent: vertebral tenderness - Neurological Exam Neurological Exam: Alert, Awake, CN II-XII Intact, Oriented x3 Assessment and Plan - Assessment and Plan (Free Text) Assessment: 81 y/o F with PMH of Aortic Stenosis, DM admitted for acute compression fracture of L2 spine. s/p Kyphoplasty. Admission complicated by continuous SOB during PT likely 2ndary to aortic stenosis. #Moderate Aortic Stenosis -Repeated ZINA on November 2016 shows .55cm diameter aortic valve -Dr Elmore recommends transfer to [facility] for TAVR evaluation under Dr Reeves. spoke w/ housing case manager and Dr Elmore regarding transfer, informed authorization/ bed is pending no time provided for transfer. Spoke with daughter about dispo and patient is informed as well. Both are agreeable for transfer. -Continues to have episodes of sob, currently requiring O2 supplementation on NC - sat of 99 #Lumbar Compression Fracture s/p Kyphoplasty POD #18 -Pain management:Tylenol PRN tolerating pain well -d/c PT due to unable to perform PT due to sob. #Dysphagia- Improved -Regular diet with thin liquids -Pepcid 20mg po daily for GERD. -Follow GI recommendations. #Constipation-Chronic/Improving -had a BM today -Continue Senokot and Lactulose. #NIDDM (Non Insulin Dependent DM) -HgbA1c: 6.8% #Leukopenia- Chronic -continuing monitoring #Vitamin D Deficiency/Clinical osteoporosis -c/w Vitamin D 50,000IU weekly. s/p Boniva 12/06 (next dose 03/08/17) #DVT Prophlyaxis -Lovenox 40mg sc daily <Sierra Singleton - Last Filed: 12/13/16 12:45> Objective - Vital Signs/Intake and Output Vital Signs (last 24 hours): Temp Pulse Resp BP Pulse Ox 97.8 F 94 H 18 95/60 L 100 12/13/16 12:00 12/13/16 12:00 12/13/16 12:00 12/13/16 12:00 12/13/16 12:00 - Medications Medications: Current Medications Acetaminophen (Tylenol 325mg Tab) 650 mg PO Q6 PRN PRN Reason: Pain, Mild (1-3) Last Admin: 11/26/16 06:34 Dose: 650 mg Aspirin (Ecotrin) 81 mg PO DAILY [facility] Last Admin: 12/13/16 08:45 Dose: 81 mg Atorvastatin Calcium (Lipitor) 20 mg PO HS [facility] Last Admin: 12/12/16 21:43 Dose: 20 mg Benzocaine/Menthol (Cepacol Sore Throat) 1 fermin PO Q2 PRN PRN Reason: Sore Throat Last Admin: 12/12/16 17:58 Dose: 1 fermin Calcium Carbonate (Oscal) 500 mg PO BIDWM [facility] Last Admin: 12/13/16 08:45 Dose: 500 mg Enoxaparin Sodium (Lovenox) 40 mg SC DAILY [facility] PRN Reason: Protocol Last Admin: 12/13/16 08:45 Dose: 40 mg Ergocalciferol (Drisdol 50,000 Intl Units Cap) 1 cap PO Q7D [facility] Last Admin: 12/09/16 10:00 Dose: 1 cap Lidocaine (Lidoderm) 2 ea TD DAILY [facility] Last Admin: 12/13/16 08:45 Dose: 2 ea Magnesium Hydroxide (Milk Of Magnesia) 30 ml PO DAILY [facility] Last Admin: 12/13/16 08:48 Dose: Not Given - Labs Labs: 12/07/16 05:15 12/07/16 05:15 PT 13.2 Seconds (9.8-13.1) H 12/07/16 05:15 INR 1.3 (0.9-1.2) H 12/07/16 05:15 APTT 31.9 Seconds (25.6-37.1) 12/07/16 05:15 - Skin Additional comments: ADDENDUM ATTENDING NOTE PATIENT SEEN AND EXAMINED. CASE DISCUSSED WITH RESIDENT. AWAITING TRANSFER TO [facility] TO HAVE TAVR PROCEDURE DONE. STILL WITH DYSPNEA WITH MILD EXERTION. DENIES CHEST PAIN.
[2016-12-13] MEDS: Benzocaine/Menthol (Cepacol) Lozenge PO PRN ×3 (12:00→21:56)
[2016-12-13 16:10] VITALS: RESP 20
[2016-12-14 00:11] VITALS: BP 105/62; PULSE 91; TEMP 98.3; O2SAT 99
--- NOTE | 2016-12-14 06:49 | CP.PCM.DIS ---
<Aaron Camarillo - Last Filed: 12/14/16 12:04> Provider - Provider Date of Admission: 11/16/16 18:40 Attending physician: Leydi Lopez MD Time Spent in preparation of Discharge (in minutes): 30 Diagnosis - Discharge Diagnosis (1) Aortic stenosis, severe Status: Acute (2) Compression fracture of body of thoracic vertebra Status: Resolved (3) Dysphagia Status: Resolved Hospital Course - Lab Results Lab Results: Most Recent Lab Values WBC 3.2 K/uL (4.8-10.8) L 12/07/16 05:15 RBC 3.75 Mil/uL (3.80-5.20) L 12/07/16 05:15 Hgb 10.3 g/dL (12.0-16.0) L 12/07/16 05:15 Hct 31.9 % (34.0-47.0) L 12/07/16 05:15 MCV 85.0 fl (81.0-99.0) 12/07/16 05:15 MCH 27.3 pg (27.0-31.0) 12/07/16 05:15 MCHC 32.2 g/dL (33.0-37.0) L 12/07/16 05:15 RDW 15.5 % (11.5-14.5) H 12/07/16 05:15 Plt Count 236 K/uL (130-400) 12/07/16 05:15 MPV 8.0 fl (7.2-11.7) 11/15/16 11:30 Neut % (Auto) 49.9 % (50.0-75.0) L 11/15/16 11:30 Lymph % (Auto) 27.7 % (20.0-40.0) 11/15/16 11:30 Eagle % (Auto) 20.2 % (0.0-10.0) H 11/15/16 11:30 Eos % (Auto) 1.0 % (0.0-4.0) 11/15/16 11:30 Baso % (Auto) 1.2 % (0.0-2.0) 11/15/16 11:30 Neut # 1.4 K/uL (1.8-7.0) L 11/15/16 11:30 Lymph # 0.8 K/uL (1.0-4.3) L 11/15/16 11:30 Eagle # 0.6 K/uL (0.0-0.8) 11/15/16 11:30 Eos # 0.0 K/uL (0.0-0.7) 11/15/16 11:30 Baso # 0.0 K/uL (0.0-0.2) 11/15/16 11:30 PT 13.2 Seconds (9.8-13.1) H 12/07/16 05:15 INR 1.3 (0.9-1.2) H 12/07/16 05:15 APTT 31.9 Seconds (25.6-37.1) 12/07/16 05:15 pCO2 36 mm/Hg (35-45) 12/08/16 10:30 pO2 80 mm/Hg (80-100) 12/08/16 10:30 HCO3 26.9 mmol/L (21-28) 12/08/16 10:30 ABG pH 7.47 (7.35-7.45) H 12/08/16 10:30 ABG Total CO2 27.3 mmol/L (22-28) 12/08/16 10:30 ABG O2 Saturation 98.4 % (95-98) H 12/08/16 10:30 ABG O2 Content 14.1 ML/dL (15-23) L 12/08/16 10:30 ABG Base Excess 2.6 mmol/L (-2.0-3.0) 12/08/16 10:30 ABG Hemoglobin 10.5 g/dL (11.7-17.4) L 12/08/16 10:30 ABG Carboxyhemoglobin 2.2 % (0.5-1.5) H 12/08/16 10:30 POC ABG HHb (Measured) 1.5 % (0.0-5.0) 12/08/16 10:30 ABG Methemoglobin 1.6 % (0.0-3.0) 12/08/16 10:30 ABG O2 Capacity 14.3 mL/dL (16-24) L 12/08/16 10:30 Varghese Test Yes 12/08/16 10:30 A-a O2 Difference 75.0 mm/Hg 12/08/16 10:30 Hgb O2 Saturation 94.6 % (95.0-98.0) L 12/08/16 10:30 FiO2 28.0 % 12/08/16 10:30 Sodium 140 mmol/l (132-148) 12/07/16 05:15 Potassium 4.4 MMOL/L (3.6-5.0) 12/07/16 05:15 Chloride 103 mmol/L (98-107) 12/07/16 05:15 Carbon Dioxide 32 mmol/L (22-30) H 12/07/16 05:15 Anion Gap 9 (10-20) L 12/07/16 05:15 BUN 16 mg/dl (7-17) 12/07/16 05:15 Creatinine 0.6 mg/dL (0.7-1.2) L 12/07/16 05:15 Est GFR ( Amer) > 60 12/07/16 05:15 Est GFR (Non-Af Amer) > 60 12/07/16 05:15 POC Glucose (mg/dL) 106 mg/dL (65-110) 12/13/16 06:42 Random Glucose 102 mg/dL (65-105) 12/07/16 05:15 Hemoglobin A1c 6.8 % (4.2-6.5) H 12/01/16 05:00 Calcium 8.9 mg/dL (8.4-10.2) 12/07/16 05:15 Total Bilirubin 0.7 mg/dl (0.2-1.3) 12/07/16 05:15 AST 40 U/L (14-36) H 12/07/16 05:15 ALT 46 U/L (9-52) 12/07/16 05:15 Alkaline Phosphatase 137 U/L (38-126) H 12/07/16 05:15 Troponin I 0.0130 ng/mL (0.00-0.120) 11/15/16 11:30 NT-Pro-B Natriuret Pep 258 pg/ml (0-900) 11/15/16 19:04 Total Protein 7.1 G/DL (6.3-8.2) 12/07/16 05:15 Total Protein (PEP) 7.7 g/dL (6.1-8.1) 11/17/16 05:30 Albumin 3.3 g/dL (3.5-5.0) L 12/07/16 05:15 Albumin (PEP) 3.7 g/dL (3.8-4.8) L 11/17/16 05:30 Globulin 3.9 gm/dL (2.2-3.9) 12/07/16 05:15 Albumin/Globulin Ratio 0.8 (1.0-2.1) L 12/07/16 05:15 Qcvmr-3-Kubcadiqs 0.3 g/dL (0.2-0.3) 11/17/16 05:30 Xxylz-9-Ioiwfukms 0.6 g/dL (0.5-0.9) 11/17/16 05:30 Mfki-8-Ztwbkwvc 0.5 g/dL (0.4-0.6) 11/17/16 05:30 Rnyn-9-Xhhpdvdj 0.6 g/dL (0.2-0.5) H 11/17/16 05:30 Gamma Globulins 2.0 g/dL (0.8-1.7) H 11/17/16 05:30 Abnorm Protein Band 1 TEST NOT PERFORMED 11/17/16 05:30 Abnorm Protein Band 2 TEST NOT PERFORMED 11/17/16 05:30 Abnorm Protein Band 3 TEST NOT PERFORMED 11/17/16 05:30 Lipase 116 U/L (23-300) 11/15/16 11:30 Vitamin B1 85 nmol/L (78-185) 11/18/16 15:00 Vitamin B12 599 pg/mL (239-931) 11/17/16 05:30 25-OH Vitamin D Total 24.9 NG/ML (30.0-100.0) L 11/17/16 05:30 Folate > 20.0 ng/mL 11/17/16 05:30 TSH 3rd Generation 1.06 mIU/ML (0.46-4.68) 12/02/16 11:50 PTH Intact Whole Molec 22 pg/mL (14-64) 12/02/16 11:50 Urine Color Yellow (YELLOW) 11/16/16 08:37 Urine Clarity Slighty-cloudy (Clear) 11/16/16 08:37 Urine pH 6.0 (5.0-8.0) 11/16/16 08:37 Ur Specific [place] 1.028 (1.003-1.030) 11/16/16 08:37 Urine Protein Negative mg/dL (NEGATIVE) 11/16/16 08:37 Urine Glucose (UA) Neg mg/dL (Normal) 11/16/16 08:37 Urine Ketones Trace mg/dL (NEGATIVE) 11/16/16 08:37 Urine Blood Negative (NEGATIVE) 11/16/16 08:37 Urine Nitrate Negative (NEGATIVE) 11/16/16 08:37 Urine Bilirubin Negative (NEGATIVE) 11/16/16 08:37 Urine Urobilinogen 0.2-1.0 mg/dL (0.2-1.0) 11/16/16 08:37 Ur Leukocyte Esterase Neg [place]/uL (Negative) 11/16/16 08:37 Urine RBC (Auto) 2 /hpf (0-3) 11/16/16 08:37 Urine Microscopic WBC 1 /hpf (0-5) 11/16/16 08:37 Ur Squamous Epith Cells 1 /hpf (0-5) 11/16/16 08:37 Stool Occult Blood Negative (NEGATIVE) 11/16/16 13:21 LINDA & SPEP Interp See note 11/17/16 05:30 Tiss Transglutamin IgG 2 U/mL 12/02/16 11:50 Tiss Transglutamin IgA 1 U/mL 12/02/16 11:50 - Hospital Course Hospital Course: 81 y/o F with PMH including DM2 (diet controlled), COPD, PVD, AAA, Chronic constipation, History of falls was admitted for Compression fracture at L10 level. Patient had kyphoplasty procedure done without complications. Patient presented continuos SOB due to new findings of severe aortic stenosis seen on ZINA (done during hospt) that shows .55cm AV diameter and dysphagia due to Schatzki ring. GI was on board optimized the condition. Cardiology followed patient throughout admission recommended her for TAVR. Patient was discharge from [facility] and transferred to [facility] to perform the TAVR. Discharge Exam - Head Exam Head Exam: ATRAUMATIC, NORMOCEPHALIC - Eye Exam Eye Exam: EOMI, Normal appearance, PERRL - Respiratory Exam Respiratory Exam: Clear to PA & Lateral - Cardiovascular Exam Cardiovascular Exam: REGULAR RHYTHM, +S1, +S2, Systolic Murmur - GI/Abdominal Exam GI & Abdominal Exam: Normal Bowel Sounds, Soft. absent: Tenderness - Extremities Exam Extremities exam: normal inspection - Back Exam Back exam: NORMAL INSPECTION. absent: vertebral tenderness - Neurological Exam Neurological exam: Alert, CN II-XII Intact, Oriented x3 - Psychiatric Exam Psychiatric exam: Normal Mood Discharge Plan - Follow Up Plan Condition: FAIR Disposition: Trans to Other [facility] Additional Instructions: being transferred to [facility] via [facility] transport <Sierra Singleton - Last Filed: 12/14/16 12:36> Provider - Provider Date of Admission: 11/16/16 18:40 Attending physician: Leydi Lopez MD Hospital Course - Lab Results Lab Results: Most Recent Lab Values WBC 3.2 K/uL (4.8-10.8) L 12/07/16 05:15 RBC 3.75 Mil/uL (3.80-5.20) L 12/07/16 05:15 Hgb 10.3 g/dL (12.0-16.0) L 12/07/16 05:15 Hct 31.9 % (34.0-47.0) L 12/07/16 05:15 MCV 85.0 fl (81.0-99.0) 12/07/16 05:15 MCH 27.3 pg (27.0-31.0) 12/07/16 05:15 MCHC 32.2 g/dL (33.0-37.0) L 12/07/16 05:15 RDW 15.5 % (11.5-14.5) H 12/07/16 05:15 Plt Count 236 K/uL (130-400) 12/07/16 05:15 MPV 8.0 fl (7.2-11.7) 11/15/16 11:30 Neut % (Auto) 49.9 % (50.0-75.0) L 11/15/16 11:30 Lymph % (Auto) 27.7 % (20.0-40.0) 11/15/16 11:30 Eagle % (Auto) 20.2 % (0.0-10.0) H 11/15/16 11:30 Eos % (Auto) 1.0 % (0.0-4.0) 11/15/16 11:30 Baso % (Auto) 1.2 % (0.0-2.0) 11/15/16 11:30 Neut # 1.4 K/uL (1.8-7.0) L 11/15/16 11:30 Lymph # 0.8 K/uL (1.0-4.3) L 11/15/16 11:30 Eagle # 0.6 K/uL (0.0-0.8) 11/15/16 11:30 Eos # 0.0 K/uL (0.0-0.7) 11/15/16 11:30 Baso # 0.0 K/uL (0.0-0.2) 11/15/16 11:30 PT 13.2 Seconds (9.8-13.1) H 12/07/16 05:15 INR 1.3 (0.9-1.2) H 12/07/16 05:15 APTT 31.9 Seconds (25.6-37.1) 12/07/16 05:15 pCO2 36 mm/Hg (35-45) 12/08/16 10:30 pO2 80 mm/Hg (80-100) 12/08/16 10:30 HCO3 26.9 mmol/L (21-28) 12/08/16 10:30 ABG pH 7.47 (7.35-7.45) H 12/08/16 10:30 ABG Total CO2 27.3 mmol/L (22-28) 12/08/16 10:30 ABG O2 Saturation 98.4 % (95-98) H 12/08/16 10:30 ABG O2 Content 14.1 ML/dL (15-23) L 12/08/16 10:30 ABG Base Excess 2.6 mmol/L (-2.0-3.0) 12/08/16 10:30 ABG Hemoglobin 10.5 g/dL (11.7-17.4) L 12/08/16 10:30 ABG Carboxyhemoglobin 2.2 % (0.5-1.5) H 12/08/16 10:30 POC ABG HHb (Measured) 1.5 % (0.0-5.0) 12/08/16 10:30 ABG Methemoglobin 1.6 % (0.0-3.0) 12/08/16 10:30 ABG O2 Capacity 14.3 mL/dL (16-24) L 12/08/16 10:30 Varghese Test Yes 12/08/16 10:30 A-a O2 Difference 75.0 mm/Hg 12/08/16 10:30 Hgb O2 Saturation 94.6 % (95.0-98.0) L 12/08/16 10:30 FiO2 28.0 % 12/08/16 10:30 Sodium 140 mmol/l (132-148) 12/07/16 05:15 Potassium 4.4 MMOL/L (3.6-5.0) 12/07/16 05:15 Chloride 103 mmol/L (98-107) 12/07/16 05:15 Carbon Dioxide 32 mmol/L (22-30) H 12/07/16 05:15 Anion Gap 9 (10-20) L 12/07/16 05:15 BUN 16 mg/dl (7-17) 12/07/16 05:15 Creatinine 0.6 mg/dL (0.7-1.2) L 12/07/16 05:15 Est GFR ( Amer) > 60 12/07/16 05:15 Est GFR (Non-Af Amer) > 60 12/07/16 05:15 POC Glucose (mg/dL) 106 mg/dL (65-110) 12/13/16 06:42 Random Glucose 102 mg/dL (65-105) 12/07/16 05:15 Hemoglobin A1c 6.8 % (4.2-6.5) H 12/01/16 05:00 Calcium 8.9 mg/dL (8.4-10.2) 12/07/16 05:15 Total Bilirubin 0.7 mg/dl (0.2-1.3) 12/07/16 05:15 AST 40 U/L (14-36) H 12/07/16 05:15 ALT 46 U/L (9-52) 12/07/16 05:15 Alkaline Phosphatase 137 U/L (38-126) H 12/07/16 05:15 Troponin I 0.0130 ng/mL (0.00-0.120) 11/15/16 11:30 NT-Pro-B Natriuret Pep 258 pg/ml (0-900) 11/15/16 19:04 Total Protein 7.1 G/DL (6.3-8.2) 12/07/16 05:15 Total Protein (PEP) 7.7 g/dL (6.1-8.1) 11/17/16 05:30 Albumin 3.3 g/dL (3.5-5.0) L 12/07/16 05:15 Albumin (PEP) 3.7 g/dL (3.8-4.8) L 11/17/16 05:30 Globulin 3.9 gm/dL (2.2-3.9) 12/07/16 05:15 Albumin/Globulin Ratio 0.8 (1.0-2.1) L 12/07/16 05:15 Eoumf-8-Yiwnnxsbz 0.3 g/dL (0.2-0.3) 11/17/16 05:30 Pszvp-8-Rgqfxyxkd 0.6 g/dL (0.5-0.9) 11/17/16 05:30 Ccqz-5-Cbghuvje 0.5 g/dL (0.4-0.6) 11/17/16 05:30 Lqva-6-Ytjiwdtl 0.6 g/dL (0.2-0.5) H 11/17/16 05:30 Gamma Globulins 2.0 g/dL (0.8-1.7) H 11/17/16 05:30 Abnorm Protein Band 1 TEST NOT PERFORMED 11/17/16 05:30 Abnorm Protein Band 2 TEST NOT PERFORMED 11/17/16 05:30 Abnorm Protein Band 3 TEST NOT PERFORMED 11/17/16 05:30 Lipase 116 U/L (23-300) 11/15/16 11:30 Vitamin B1 85 nmol/L (78-185) 11/18/16 15:00 Vitamin B12 599 pg/mL (239-931) 11/17/16 05:30 25-OH Vitamin D Total 24.9 NG/ML (30.0-100.0) L 11/17/16 05:30 Folate > 20.0 ng/mL 11/17/16 05:30 TSH 3rd Generation 1.06 mIU/ML (0.46-4.68) 12/02/16 11:50 PTH Intact Whole Molec 22 pg/mL (14-64) 12/02/16 11:50 Urine Color Yellow (YELLOW) 11/16/16 08:37 Urine Clarity Slighty-cloudy (Clear) 11/16/16 08:37 Urine pH 6.0 (5.0-8.0) 11/16/16 08:37 Ur Specific [place] 1.028 (1.003-1.030) 11/16/16 08:37 Urine Protein Negative mg/dL (NEGATIVE) 11/16/16 08:37 Urine Glucose (UA) Neg mg/dL (Normal) 11/16/16 08:37 Urine Ketones Trace mg/dL (NEGATIVE) 11/16/16 08:37 Urine Blood Negative (NEGATIVE) 11/16/16 08:37 Urine Nitrate Negative (NEGATIVE) 11/16/16 08:37 Urine Bilirubin Negative (NEGATIVE) 11/16/16 08:37 Urine Urobilinogen 0.2-1.0 mg/dL (0.2-1.0) 11/16/16 08:37 Ur Leukocyte Esterase Neg [place]/uL (Negative) 11/16/16 08:37 Urine RBC (Auto) 2 /hpf (0-3) 11/16/16 08:37 Urine Microscopic WBC 1 /hpf (0-5) 11/16/16 08:37 Ur Squamous Epith Cells 1 /hpf (0-5) 11/16/16 08:37 Stool Occult Blood Negative (NEGATIVE) 11/16/16 13:21 LINDA & SPEP Interp See note 11/17/16 05:30 Tiss Transglutamin IgG 2 U/mL 12/02/16 11:50 Tiss Transglutamin IgA 1 U/mL 12/02/16 11:50 Discharge Exam - Skin Additional comments: ADDENDUM ATTENDING NOTE PATIENT SEEN AND EXAMINED. PATIENT TRANSFERRED TO [facility] TO HAVE TAVR PROCEDURE DONE.
== END 2016-12-14 00:50 | disposition short-term general hospital (02) | DRG 516 ==
LOC: H.ER 10:38 → H.EROBSV 11:18 → H.ERHOLD 17:55 → H.TEL 11-16 11:31 → OBSVTOIN 11-16 18:40 → H.TEL 11-20
PROVIDERS: ADMIT Family Medicine Geriatric Medicine; ATTEND Family Medicine Geriatric Medicine
PROC: B24BZZ4 Ultrasonography of Heart with Aorta, Transesophageal (ICD-10-PCS; 2016-11-21)
PROC: 0QU03JZ Supplement Lumbar Vertebra with Synthetic Substitute, Percutaneous Approach (ICD-10-PCS; 2016-11-25)
PROC: 0QS03ZZ Reposition Lumbar Vertebra, Percutaneous Approach (ICD-10-PCS; principal; 2016-11-25 14:00)
PROC: 0DB38ZX Excision of Lower Esophagus, Via Natural or Artificial Opening Endoscopic, Diagnostic (ICD-10-PCS; 2016-11-29)
DX: M48.54XA Collapsed vertebra, not elsewhere classified, thoracic region, initial encounter for fracture (principal); B37.81 Candidal esophagitis; E11.51 Type 2 diabetes mellitus with diabetic peripheral angiopathy without gangrene; J44.9 Chronic obstructive pulmonary disease, unspecified; K22.2 Esophageal obstruction; I35.0 Nonrheumatic aortic (valve) stenosis; D72.819 Decreased white blood cell count, unspecified; D72.821 Monocytosis (symptomatic); E55.9 Vitamin D deficiency, unspecified; E78.00 Pure hypercholesterolemia, unspecified; G89.29 Other chronic pain; I10 Essential (primary) hypertension; I71.4 Abdominal aortic aneurysm, without rupture; K21.9 Gastro-esophageal reflux disease without esophagitis; K44.9 Diaphragmatic hernia without obstruction or gangrene; K59.09 Other constipation; M21.612 Bunion of left foot; M51.26 Other intervertebral disc displacement, lumbar region; M81.0 Age-related osteoporosis without current pathological fracture; R13.19 Other dysphagia; R32 Unspecified urinary incontinence; R47.02 Dysphasia; R79.1 Abnormal coagulation profile; Z79.4 Long term (current) use of insulin; Z79.82 Long term (current) use of aspirin; Z79.84 Long term (current) use of oral hypoglycemic drugs; Z79.899 Other long term (current) drug therapy; Z87.891 Personal history of nicotine dependence; Z91.81 History of falling; K20.9 Esophagitis, unspecified; K80.20 Calculus of gallbladder without cholecystitis without obstruction; M19.90 Unspecified osteoarthritis, unspecified site; M54.6 Pain in thoracic spine; R01.1 Cardiac murmur, unspecified; R14.0 Abdominal distension (gaseous); R42 Dizziness and giddiness; R63.4 Abnormal weight loss; R79.89 Other specified abnormal findings of blood chemistry

== ENCOUNTER 2016-12-22 13:17 | Inpatient (IN) | payer OTHER, MEDICAID ==
--- NOTE | 2016-12-22 21:47 | CP.PCM.HP ---
History of Present Illness - History of Present Illness History of Present Illness: CC/HPI: Pt. is here today for evaluation of of dysphagia and aortic stenosis after being transferred from [facility]. Pt. was transferred to [facility] for evaluation of TAVR where it was determined that patient is not an ideal candiddate for TAVR. Pt. subsequently transferred back to [facility] for ongoing management of dysphagia and aortic stenosis. Pt. with no complaints at this time. Hospital course at [facility] reviewed with patient and pt. states she had a "tube" for feeding her but asked it be taken out and that she be transferred back to [facility]. Furthermore pt. states her swallowing is "ok now" and states would like to eat and is not interested in a "stomach tube." ROS: Pt. denies any headache, chest pain, dizziness, fever, chills, abdominal pain, nausea, vomiting, diarrhea PMHx: Type II DM diet controlled, COPD, PVD with chronic healing anterior tibial RLE ulcer, chronic stable abdominal aortic aneurysm, chronic constipation PSH: Cardiac Cath, Lumbar kyphoplasty ScHx: None TOB 30 pack year Hx quit more than 10 yrs ago, ETOH, DRUG Lives with daughter Allergies: NKDA Meds: See Med List PMD: Dr. Dangelo at [facility] Present on Admission - Present on Admission Any Indicators Present on Admission: No History of DVT/PE: No History of Uncontrolled Diabetes: No Urinary Catheter: No Decubitus Ulcer Present: No Review of Systems - Review of Systems Review of Systems: See HPI Past Patient History - Past Medical History & Family History Past Medical History?: Yes - Past Social History Smoking Status: Former Smoker - CARDIAC Hx Hypercholesterolemia: Yes Hx Hypertension: Yes Hx Peripheral Vascular Disease: Yes - PULMONARY Hx Chronic Obstructive Pulmonary Disease (COPD): Yes - NEUROLOGICAL Hx Neurological Disorder: No - HEENT Hx HEENT Problems: Yes Hx Cataracts: Yes - RENAL Hx Chronic Kidney Disease: No - ENDOCRINE/METABOLIC Hx Endocrine Disorders: Yes - HEMATOLOGICAL/ONCOLOGICAL Hx Blood Disorders: No - INTEGUMENTARY Hx Dermatological Problems: No - MUSCULOSKELETAL/RHEUMATOLOGICAL Hx Arthritis: Yes - GASTROINTESTINAL Hx Gastrointestinal Disorders: Yes Other/Comment: abdominal aortic aneurysm - GENITOURINARY/GYNECOLOGICAL Hx Genitourinary Disorders: No - PSYCHIATRIC Hx Psychophysiologic Disorder: No Hx Substance Use: No - SURGICAL HISTORY Hx Musculoskeletal Surgery: Yes (Left Hip ORIF) - ANESTHESIA Hx Anesthesia: Yes Hx Anesthesia Reactions: No Hx Malignant Hyperthermia: No Meds Allergies/Adverse Reactions: Allergies Allergy/AdvReac Type Severity Reaction Status Date / Time No Known Allergies Allergy Verified 11/14/15 02:22 Physical Exam - Constitutional Appears: Non-toxic, No Acute Distress Additional comments: Underweight - Head Exam Head Exam: ATRAUMATIC, NORMOCEPHALIC - Eye Exam Eye Exam: Normal appearance. absent: Scleral icterus - ENT Exam ENT Exam: Mucous Membranes Moist - Neck Exam Neck exam: Positive for: Full Rom - Respiratory Exam Respiratory Exam: Clear to Auscultation Bilateral, NORMAL BREATHING PATTERN - Cardiovascular Exam Cardiovascular Exam: +S1, +S2, Systolic Murmur - GI/Abdominal Exam GI & Abdominal Exam: Soft. absent: Tenderness - Extremities Exam Extremities exam: Positive for: pedal edema (+2 bilat lower extremities ), pedal pulses present (but diminished ) Results - Vital Signs Recent Vital Signs: Last Vital Signs Temp 97.7 F 12/22/16 21:25 Pulse 80 12/22/16 21:25 Resp 18 12/22/16 21:25 BP 129/76 12/22/16 21:25 Pulse Ox 97 12/22/16 21:25 Assessment & Plan - Assessment and Plan (Free Text) Assessment: 81 y/o F with multiple cardiovascular conditions s/p kyphoplasty of L2 spine admitted for evaluation of aortic stenosis and dysphagia. #Dysphagia secondary to esophageal dysmotility, EGD positive for Hiatal hernia, schatzki ring Failed barium swallow and Upper endoscopy positive for esophageal dysmotility - Aspiration precautions in place - Keep head of bead elevated a 30 degrees - Clear liquid diet only - Will start Pepcid 20mg po daily if patient's reflux becomes symptomatic - Will consult GI for possible evaluation of PEG Tube #Lumbar Compression Fracture s/p Kyphoplasty POD #27- Improving and pain well controlled - Physical Therapy - Pain control Tylenol 650 Mild Pain Toradol 15mg Moderate Pain Lidocaine 5% Severe Pain Avoid opiates due to chronic constipation #Aortic Stenosis- Pt. was transferred to [facility] for possible TAVR as per Cardiology at [facility] pt. not ideal candidate for TAVR at this time -ZINA on November 2016 shows .55cm diameter aortic valve -Continue ASA 81mg PO and Atorvastatin 20mg PO Qpm Chronic constipation- Last BM three days ago - Laculose enema PRN - Senokot - Miralax #NIDDM (Non Insulin Dependent DM) Type II - Diet controlled #Leukopenia- Chronic -CBC in a.m. #DVT Prophlyaxis -SCD for now -Will consider Lovenox 30mg sc after CBC #Diet -Clear liquids
[2016-12-22] MEDS ORDERED: Ergocalciferol 50,000 Intl Units Cap PO SCH (22:00)
[2016-12-22] MEDS: Docusate-Senna 50 mg-8.6 mg Tab PO SCH (23:25)
[2016-12-22] MEDS ORDERED: Albuterol-Ipratrop 3 mg / 0.5 (3 ml) UD INH PRN (23:48)
[2016-12-23 00:22] VITALS: BMI 14.7
--- NOTE | 2016-12-23 06:20 | CP.PCM.CON ---
History of Present Illness - History of Present Illness History of Present Illness: consultation for management of and severe deconditioning with hx of PVD/AAA HPI: Ms. hirsch is a 81-year-old -[place] female with history of low flow low gradient aortic stenosis who was transferred over to [facility] for evaluation of Ibrahima. She underwent a transesophageal echocardiogram when her aortic valve area was noted to be 1.1 cm. 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 She continued to create dysphagia and failed a swallowing evaluation while she was at [facility]. And has been transferred back for further evaluation of PEG tube placement. At baseline prior to this admission she was having somewhat recurrent falls. Her cardiac catheterization had showed severely decreased cardiac output with low flow states. Her echocardiogram done at [facility] also showed severely elevated filling pressures with mild LV systolic dysfunction. Review of Systems - Review of Systems All systems: reviewed and no additional remarkable complaints except - Constitutional Constitutional: As Per HPI, Frequent Falls - EENT Eyes: As Per HPI Ears: As Per HPI Nose/Mouth/Throat: As Per HPI - Breasts Breasts: As Per HPI - Cardiovascular Cardiovascular: As Per HPI - Respiratory Respiratory: As Per HPI, Dyspnea - Gastrointestinal Gastrointestinal: As Per HPI - Genitourinary Genitourinary: As Per HPI - Reproductive: Female Reproductive:Female: As Per HPI - Menstruation Menstruation: As Per HPI - Musculoskeletal Musculoskeletal: As Per HPI - Integumentary Integumentary: As Per HPI - Neurological Neurological: As Per HPI - Psychiatric Psychiatric: As Per HPI - Endocrine Endocrine: As Per HPI - Hematologic/Lymphatic Hematologic: As Per HPI Past Patient History - Past Medical History & Family History Past Medical History?: Yes Pertinent Family History: +ve for CVA - Past Social History Smoking Status: Former Smoker - CARDIAC Hx Hypercholesterolemia: Yes Hx Hypertension: Yes Hx Peripheral Vascular Disease: Yes - PULMONARY Hx Chronic Obstructive Pulmonary Disease (COPD): Yes - NEUROLOGICAL Hx Neurological Disorder: No - HEENT Hx HEENT Problems: Yes Hx Cataracts: Yes - RENAL Hx Chronic Kidney Disease: No - ENDOCRINE/METABOLIC Hx Endocrine Disorders: Yes - HEMATOLOGICAL/ONCOLOGICAL Hx Blood Disorders: No - INTEGUMENTARY Hx Dermatological Problems: No - MUSCULOSKELETAL/RHEUMATOLOGICAL Hx Arthritis: Yes - GASTROINTESTINAL Hx Gastrointestinal Disorders: Yes Other/Comment: abdominal aortic aneurysm - GENITOURINARY/GYNECOLOGICAL Hx Genitourinary Disorders: No - PSYCHIATRIC Hx Psychophysiologic Disorder: No Hx Substance Use: No - SURGICAL HISTORY Hx Musculoskeletal Surgery: Yes (Left Hip ORIF) - ANESTHESIA Hx Anesthesia: Yes Hx Anesthesia Reactions: No Hx Malignant Hyperthermia: No Meds Allergies/Adverse Reactions: Allergies Allergy/AdvReac Type Severity Reaction Status Date / Time No Known Allergies Allergy Verified 11/14/15 02:22 - Medications Medications: Current Medications Albuterol/Ipratropium (Duoneb 3 Mg/0.5 Mg (3 Ml) Ud) 3 ml INH RQ6 PRN PRN Reason: Shortness of Breath Aspirin (Ecotrin) 81 mg PO DAILY [facility] Atorvastatin Calcium (Lipitor) 20 mg PO HS [facility] Last Admin: 12/22/16 23:25 Dose: 20 mg Calcium Carbonate (Oscal) 500 mg PO BIDWM [facility] Ergocalciferol (Drisdol 50,000 Intl Units Cap) 1 cap PO Q7D [facility] Last Admin: 12/22/16 23:25 Dose: 1 cap Famotidine (Pepcid) 20 mg PO DAILY [facility] Magnesium Hydroxide (Milk Of Magnesia) 30 ml PO DAILY [facility] Senna/Docusate Sodium (Senokot S 50 Mg-8.6 Mg) 2 tab PO HS [facility] Last Admin: 12/22/16 23:25 Dose: 2 tab Physical Exam - Constitutional Appears: Well - Head Exam Head Exam: ATRAUMATIC, NORMAL INSPECTION, NORMOCEPHALIC - Eye Exam Eye Exam: EOMI, Normal appearance, PERRL Pupil Exam: NORMAL ACCOMODATION, PERRL - ENT Exam ENT Exam: Mucous Membranes Moist, Normal Exam - Neck Exam Neck exam: Positive for: Normal Inspection - Respiratory Exam Respiratory Exam: Rales, NORMAL BREATHING PATTERN - Cardiovascular Exam Cardiovascular Exam: REGULAR RHYTHM, RRR, +S1, +S2, Systolic Murmur - GI/Abdominal Exam GI & Abdominal Exam: Normal Bowel Sounds, Soft. absent: Tenderness - Extremities Exam Extremities exam: Positive for: normal inspection - Back Exam Back exam: NORMAL INSPECTION - Neurological Exam Neurological exam: Alert, CN II-XII Intact, Normal Gait, Oriented x3, Reflexes Normal - Psychiatric Exam Psychiatric exam: Normal Affect, Normal Mood - Skin Skin Exam: Dry, Intact, Normal Color, Warm Results - Vital Signs Recent Vital Signs: Last Vital Signs Temp 97.5 F L 12/23/16 05:31 Pulse 73 12/23/16 05:31 Resp 20 12/23/16 05:31 BP 132/75 12/23/16 05:31 Pulse Ox 94 L 12/23/16 05:31 Assessment & Plan (1) Aortic arch atherosclerosis Assessment and Plan: keep pt on asa, bb and low dose statins Status: Acute (2) Aortic stenosis Assessment and Plan: BNP low dose intermittent lasix asa,bb, statins nutrition support and deconditioning Status: Acute (3) Fall at home Status: Acute (4) PVD (peripheral vascular disease) Assessment and Plan: stable Status: Acute (5) Recurrent falls Status: Acute (6) AAA (abdominal aortic aneurysm) Status: Chronic (7) Severe muscle deconditioning Status: Chronic (8) Dysphagia Status: Resolved
[2016-12-23 06:49] LABS: BLOOD UREA NITROGEN 12 mg/dl (7-17); CARBON DIOXIDE 29 mmol/L (22-30); CHLORIDE 103 mmol/L (98-107); GFR AFRICAN-AMERICAN > 60; GLUCOSE,RANDOM 106 mg/dL (65-105); HEMATOCRIT 34.5 % (34.0-47.0); MEAN CELL VOLUME 84.7 fl (81.0-99.0); MEAN CORPUSCULAR HGB CONC 31.9 g/dL (33.0-37.0); RED CELL DISTRIBUTION WIDTH 16.1 % (11.5-14.5); SODIUM 137 mmol/l (132-148); WHITE BLOOD COUNT 2.2 K/uL (4.8-10.8)
[2016-12-23] MEDS: Magnesium Hydroxide Susp 30 ml UD PO SCH (09:27)
[2016-12-23] MEDS: Pantoprazole 40 mg EC Tab PO SCH (09:35)
[2016-12-23 09:45] LABS: ALB/GLOB RATIO 0.8 (1.0-2.1); BILIRUBIN,TOTAL 0.8 mg/dl (0.2-1.3); TOTAL PROTEIN 7.1 G/DL (6.3-8.2)
--- NOTE | 2016-12-23 13:08 | CP.PCM.PN ---
Subjective - Date & Time of Evaluation Date of Evaluation: 12/23/16 Time of Evaluation: 09:00 - Subjective Subjective: 81 y/o F examined by bedside. Pt resting comfortably on bed. Pt reports feeling OK. Pt was tolerating liquid diet yesterday, reports NOT good appetite. No acute event overnight. Pt denies fever, headache, dizziness, visual disturbances , CP, SOB, abdominal pain, N/V/D. Objective - Vital Signs/Intake and Output Vital Signs (last 24 hours): Temp Pulse Resp BP Pulse Ox 97.4 F L 64 20 112/66 98 12/23/16 09:06 12/23/16 09:06 12/23/16 09:06 12/23/16 09:06 12/23/16 09:06 - Medications Medications: Current Medications Acetaminophen (Tylenol 325mg Tab) 650 mg PO Q6 PRN PRN Reason: Pain, Mild (1-3) Albuterol/Ipratropium (Duoneb 3 Mg/0.5 Mg (3 Ml) Ud) 3 ml INH RQ6 PRN PRN Reason: Shortness of Breath Aspirin (Ecotrin) 81 mg PO DAILY [facility] Last Admin: 12/23/16 09:27 Dose: 81 mg Atorvastatin Calcium (Lipitor) 20 mg PO HS [facility] Last Admin: 12/22/16 23:25 Dose: 20 mg Benzocaine/Menthol (Cepacol Sore Throat) 1 fermin PO Q2 PRN PRN Reason: Sore Throat Calcium Carbonate (Oscal) 500 mg PO BIDWM [facility] Last Admin: 12/23/16 09:27 Dose: 500 mg Ergocalciferol (Drisdol 50,000 Intl Units Cap) 1 cap PO Q7D [facility] Last Admin: 12/22/16 23:25 Dose: 1 cap Famotidine (Pepcid) 20 mg PO DAILY [facility] Last Admin: 12/23/16 09:28 Dose: 20 mg Heparin Sodium (Porcine) (Heparin) 5,000 units SC Q12 [facility] PRN Reason: Protocol Last Admin: 12/23/16 09:44 Dose: 5,000 units Lorazepam (Ativan) 0.5 mg IVP Q6 PRN PRN Reason: Anxiety Magnesium Hydroxide (Milk Of Magnesia) 30 ml PO DAILY [facility] Last Admin: 12/23/16 09:27 Dose: 30 ml Pantoprazole Sodium (Protonix Ec Tab) 40 mg PO DAILY [facility] Last Admin: 12/23/16 09:35 Dose: Not Given Senna/Docusate Sodium (Senokot S 50 Mg-8.6 Mg) 2 tab PO HS [facility] Last Admin: 12/22/16 23:25 Dose: 2 tab - Labs Labs: 12/23/16 05:45 12/23/16 05:45 - Constitutional Appears: Well, No Acute Distress - Eye Exam Eye Exam: Normal appearance - ENT Exam ENT Exam: Mucous Membranes Dry - Neck Exam Neck Exam: Full ROM - Respiratory Exam Respiratory Exam: Clear to Ausculation Bilateral, NORMAL BREATHING PATTERN - Cardiovascular Exam Cardiovascular Exam: +S1, +S2, Murmur Assessment and Plan - Assessment and Plan (Free Text) Plan: 81 y/o F with a PMHx of DM 2, lumbar compression fracture, Chronic Aortic Stenosis admitted for evaluation and management of chronic dysphagia and aortic stenosis. 1. Dysphagia - On 11/28/16, Barium contrast esophagram showed abnormal motility of lower esophagus with slow peristalsis and segmental tertiary contractions. - Aspiration precautions in place - Keep head of bead elevated a 30 degrees - Pt on NPO diet. - Swallow evaluation ordered. - Famotidine 20 mg PO - Pantoprazole 40 mg PO. - f/u VS and swallow studies results. 2. Lumbar Compression Fracture s/p Kyphoplasty POD #28- Improving and pain well controlled - Physical Therapy - Pain control Tylenol 650 Mild Pain Lidocaine 5% Severe Pain Avoid opiates due to chronic constipation 3. Aortic Stenosis - c/w #ASA 81mg PO #Atorvastatin 20mg PO Qpm 4. Chronic constipation- Last BM three days ago - Senokot - Docusate 5.NIDDM (Non Insulin Dependent DM) Type II - Diet controlled 6. DVT Prophlyaxis -SCD. -Heparin 5,000 units SC Q12H
--- NOTE | 2016-12-23 17:32 | CP.PCM.PN ---
Subjective - Date & Time of Evaluation Date of Evaluation: 12/23/16 Time of Evaluation: 08:20 - Subjective Subjective: pt seen in am dysphagia not candidate for AVR 2' to aortic ulcer and AAA palliative care Objective - Vital Signs/Intake and Output Vital Signs (last 24 hours): Temp Pulse Resp BP Pulse Ox 97.6 F 96 H 20 104/70 96 12/23/16 16:08 12/23/16 16:08 12/23/16 16:08 12/23/16 16:08 12/23/16 16:08 - Medications Medications: Current Medications Acetaminophen (Tylenol 325mg Tab) 650 mg PO Q6 PRN PRN Reason: Pain, Mild (1-3) Albuterol/Ipratropium (Duoneb 3 Mg/0.5 Mg (3 Ml) Ud) 3 ml INH RQ6 PRN PRN Reason: Shortness of Breath Aspirin (Ecotrin) 81 mg PO DAILY [facility] Last Admin: 12/23/16 09:27 Dose: 81 mg Atorvastatin Calcium (Lipitor) 20 mg PO HS [facility] Last Admin: 12/22/16 23:25 Dose: 20 mg Benzocaine/Menthol (Cepacol Sore Throat) 1 fermin PO Q2 PRN PRN Reason: Sore Throat Calcium Carbonate (Oscal) 500 mg PO BIDWM [facility] Last Admin: 12/23/16 09:27 Dose: 500 mg Ergocalciferol (Drisdol 50,000 Intl Units Cap) 1 cap PO Q7D [facility] Last Admin: 12/22/16 23:25 Dose: 1 cap Famotidine (Pepcid) 20 mg PO DAILY [facility] Last Admin: 12/23/16 09:28 Dose: 20 mg Heparin Sodium (Porcine) (Heparin) 5,000 units SC Q12 [facility] PRN Reason: Protocol Last Admin: 12/23/16 09:44 Dose: 5,000 units Lorazepam (Ativan) 0.5 mg IVP Q6 PRN PRN Reason: Anxiety Magnesium Hydroxide (Milk Of Magnesia) 30 ml PO DAILY [facility] Last Admin: 12/23/16 09:27 Dose: 30 ml Pantoprazole Sodium (Protonix Ec Tab) 40 mg PO DAILY [facility] Last Admin: 12/23/16 09:35 Dose: Not Given Senna/Docusate Sodium (Senokot S 50 Mg-8.6 Mg) 2 tab PO HS [facility] Last Admin: 12/22/16 23:25 Dose: 2 tab - Labs Labs: 12/23/16 05:45 12/23/16 05:45 - Constitutional Appears: Well - Head Exam Head Exam: ATRAUMATIC, NORMAL INSPECTION, NORMOCEPHALIC - Eye Exam Eye Exam: EOMI, Normal appearance, PERRL Pupil Exam: NORMAL ACCOMODATION, PERRL - ENT Exam ENT Exam: Mucous Membranes Moist, Normal Exam - Neck Exam Neck Exam: Full ROM, Normal Inspection. absent: Lymphadenopathy - Respiratory Exam Respiratory Exam: Clear to Ausculation Bilateral, NORMAL BREATHING PATTERN - Cardiovascular Exam Cardiovascular Exam: REGULAR RHYTHM, +S1, +S2, Murmur - GI/Abdominal Exam GI & Abdominal Exam: Soft, Normal Bowel Sounds. absent: Tenderness - Exam Speculum exam: NORMAL SPECULUM EXAM - Extremities Exam Extremities Exam: Full ROM, Normal Capillary Refill, Normal Inspection. absent : Joint Swelling, Pedal Edema - Back Exam Back Exam: paraspinal tenderness - Neurological Exam Neurological Exam: Alert, Awake, CN II-XII Intact, Oriented x3 - Psychiatric Exam Psychiatric exam: Normal Affect, Normal Mood - Skin Skin Exam: Dry, Intact, Normal Color, Warm Assessment and Plan (1) Aortic arch atherosclerosis Assessment & Plan: keep pt on asa, statins Status: Acute (2) Aortic stenosis Assessment & Plan: not candidate for AVR med rx Status: Acute (3) Fall at home Status: Acute (4) PVD (peripheral vascular disease) Status: Acute (5) Recurrent falls Status: Acute (6) AAA (abdominal aortic aneurysm) Status: Chronic (7) Severe muscle deconditioning Assessment & Plan: OT/PT per primary team palliative care / comfort measures Status: Chronic (8) Dysphagia Assessment & Plan: GI eval per daughter request Status: Resolved
[2016-12-23] MEDS: Benzocaine/Menthol (Cepacol) Lozenge PO PRN (21:05)
[2016-12-23] MEDS: Docusate-Senna 50 mg-8.6 mg Tab PO SCH (21:06)
[2016-12-24] MEDS: Pantoprazole 40 mg EC Tab PO SCH (08:44)
[2016-12-24] MEDS: Magnesium Hydroxide Susp 30 ml UD PO SCH (08:51)
--- NOTE | 2016-12-24 10:26 | CP.PCM.PN ---
Subjective - Date & Time of Evaluation Date of Evaluation: 12/24/16 Time of Evaluation: 09:00 - Subjective Subjective: Pt seen and examined at bedside. No new complaints, problems, or issues overnight. Sitting upright at 90 degrees, eating her well minced breakfast. She' s tolerating each bite well. No complaints of coughing or gagging. Back pain stable. Denies fevers/chills, n/v/d, chest pain, SOB, dyspnea, cough, or abdominal pain. Objective - Vital Signs/Intake and Output Vital Signs (last 24 hours): Temp Pulse Resp BP Pulse Ox 97.5 F L 81 18 124/66 96 12/24/16 08:07 12/24/16 08:07 12/24/16 08:07 12/24/16 08:07 12/24/16 08:07 - Medications Medications: Current Medications Acetaminophen (Tylenol 325mg Tab) 650 mg PO Q6 PRN PRN Reason: Pain, Mild (1-3) Albuterol/Ipratropium (Duoneb 3 Mg/0.5 Mg (3 Ml) Ud) 3 ml INH RQ6 PRN PRN Reason: Shortness of Breath Aspirin (Ecotrin) 81 mg PO DAILY [facility] Last Admin: 12/24/16 08:43 Dose: 81 mg Atorvastatin Calcium (Lipitor) 20 mg PO HS [facility] Last Admin: 12/23/16 21:06 Dose: 20 mg Benzocaine/Menthol (Cepacol Sore Throat) 1 fermin PO Q2 PRN PRN Reason: Sore Throat Last Admin: 12/23/16 21:05 Dose: 1 fermin Calcium Carbonate (Oscal) 500 mg PO BIDWM [facility] Last Admin: 12/24/16 08:43 Dose: 500 mg Ergocalciferol (Drisdol 50,000 Intl Units Cap) 1 cap PO Q7D [facility] Last Admin: 12/22/16 23:25 Dose: 1 cap Famotidine (Pepcid) 20 mg PO DAILY [facility] Last Admin: 12/24/16 08:45 Dose: 20 mg Heparin Sodium (Porcine) (Heparin) 5,000 units SC Q12 [facility] PRN Reason: Protocol Last Admin: 12/24/16 08:45 Dose: 5,000 units Lorazepam (Ativan) 0.5 mg IVP Q6 PRN PRN Reason: Anxiety Magnesium Hydroxide (Milk Of Magnesia) 30 ml PO DAILY [facility] Last Admin: 12/24/16 08:51 Dose: 30 ml Pantoprazole Sodium (Protonix Ec Tab) 40 mg PO DAILY [facility] Last Admin: 12/24/16 08:44 Dose: 40 mg Senna/Docusate Sodium (Senokot S 50 Mg-8.6 Mg) 2 tab PO HS [facility] Last Admin: 12/23/16 21:06 Dose: 2 tab - Labs Labs: 12/23/16 05:45 12/23/16 05:45 - Constitutional Appears: No Acute Distress - Head Exam Head Exam: ATRAUMATIC, NORMOCEPHALIC - Eye Exam Eye Exam: EOMI Pupil Exam: PERRL - Neck Exam Neck Exam: Full ROM - Respiratory Exam Respiratory Exam: Clear to Ausculation Bilateral, NORMAL BREATHING PATTERN - Cardiovascular Exam Cardiovascular Exam: REGULAR RHYTHM, +S1, +S2 - GI/Abdominal Exam GI & Abdominal Exam: Soft, Normal Bowel Sounds. absent: Tenderness - Extremities Exam Extremities Exam: absent: Calf Tenderness, Pedal Edema - Back Exam Back Exam: paraspinal tenderness - Neurological Exam Neurological Exam: Alert, Oriented x3 - Skin Skin Exam: Dry, Intact, Normal Color, Warm Assessment and Plan - Assessment and Plan (Free Text) Plan: 81 yo F with a PMHx of DM2, Severe Aortic Stenosis, and lumbar compression fracture is admitted for evaluation and management of chronic dysphagia and aortic stenosis. 1. Dysphagia - Present, but pt is tolerating new modified diet - Finely chopped, small, thin diet, as per swallow eval - On 11/28/16, Barium contrast esophagram showed abnormal motility of lower esophagus with slow peristalsis and segmental tertiary contractions. - Aspiration precautions in place - Keep head of bead elevated a 30 degrees - Famotidine 20 mg PO - Pantoprazole 40 mg PO. - f/u toleration of PO - f/u GI Consult 2. Aortic Stenosis - Not candidate for AVR 2' to aortic ulcer and AAA - c/w #ASA 81mg PO #Atorvastatin 20mg PO Qpm 3. Chronic constipation- Last BM three days ago - Senokot - Docusate 4.NIDDM (Non Insulin Dependent DM) Type II - Diet controlled 5. Lumbar Compression Fracture s/p Kyphoplasty POD #29- Improving and pain well controlled - Physical Therapy - Pain control Tylenol 650 Mild Pain Lidocaine 5% Severe Pain Avoid opiates due to chronic constipation 6. DVT Prophlyaxis -SCD. -Heparin 5,000 units SC Q12H
[2016-12-24] MEDS ORDERED: Lactated Ringer's 500 ML IV SCH (18:15)
[2016-12-24] MEDS: Sodium Chloride 0.9% 1,000 ML IV SCH ×3 (18:30→21:29)
--- NOTE | 2016-12-24 19:59 | CP.PCM.CON ---
History of Present Illness - History of Present Illness History of Present Illness: Asked by hospitalist team for a GI consultation on this patient. 81 year old female with history of COPD, chronic constipation, AAA, aortic stenosis, L2 compression fracture s/p vertebroplasty who was previously hospitalized due to complaint of back pain. In the interim she was evaluated for critical aortic stenosis and transferred to for potential therapy. She was transferred back to [facility] after determining she is not a surgical candidate for TAVR. GI called for evaluation of dysphagia. She was previously complaining of progressive dysphagia and underwent EGD one month ago which showed large hiatal hernia, esophageal candidiasis, distal schatzki ring, and questionable motility dysfunction. Currently in hospital she feels well and claims that her dysphagia has resolved. She denies abdominal pain, nausea, vomiting, diarrhea, fever/chills, or odynophagia. For dinner tonight she had shredded chicken, vegetables, and mashed potatoes without any difficulty. Social history: former smoker, no ETOH Family history: son (pancreatic cancer) Review of Systems - Review of Systems Review of Systems: - All other comprehensive 12 point review of systems performed, negative - Cardiovascular Cardiovascular: absent: Acrocyanosis, Chest Pain, Chest Pain at Rest, Chest Pain with Activity, Claudication, Diaphoresis, Dyspnea, Dyspnea on Exertion, Edema, Irregular Heart Rhythm, Pain Radiating to Arm/Neck/Jaw, Leg Edema, Leg Ulcers, Lightheadedness, Orthopnea, Palpitations, Paroxysmal Nocturnal Dyspnea, Pedal Edema, Radiating Pain, Rapid Heart Rate, Slow Heart Rate, Syncope, Other - Respiratory Respiratory: absent: Cough, Dyspnea, Hemoptysis, Dyspnea on Exertion, Wheezing, Snoring, Stridor, Pain on Inspiration, Chest Congestion, Excessive Mucous Production, Change in Mucous Color, Pain with Coughing, Other - Gastrointestinal Gastrointestinal: absent: Abdominal Pain, Belching, Bloating, Change in Bowel Habits, Change in Stool Character, Coffee Ground Emesis, Constipation, Cramping , Diarrhea, Dyspepsia, Dysphagia, Early Satiety, Excessive Flatus, Fecal Incontinence, Heartburn, Hematemesis, Hematochezia, Loose Stools, Melena, Nausea , Odynophagia, Temesmus, Vomiting, Other - Musculoskeletal Musculoskeletal: Back Pain, Myalgias - Neurological Neurological: absent: Abnormal Gait, Abnormal Hearing, Abnormal Movements, Abnormal Speech, Behavioral Changes, Burning Sensations, Confusion, Convulsions , Disequilibrium, Dizziness, Numbness, Focal Weakness, Frequent Falls, Headaches , Lack of Coordination, Loss of Vision, Memory Loss, Paresthesias, Radicular Pain, Restless Legs, Sensory Deficit, Syncope, Tingling, Tremor, Vertigo, Weakness, Other Visual Disturbances, Other Past Patient History - Past Medical History & Family History Past Medical History?: Yes - Past Social History Smoking Status: Former Smoker - CARDIAC Hx Hypercholesterolemia: Yes Hx Hypertension: Yes Hx Peripheral Vascular Disease: Yes - PULMONARY Hx Chronic Obstructive Pulmonary Disease (COPD): Yes - NEUROLOGICAL Hx Neurological Disorder: No - HEENT Hx HEENT Problems: Yes Hx Cataracts: Yes - RENAL Hx Chronic Kidney Disease: No - ENDOCRINE/METABOLIC Hx Endocrine Disorders: Yes - HEMATOLOGICAL/ONCOLOGICAL Hx Blood Disorders: No - INTEGUMENTARY Hx Dermatological Problems: No - MUSCULOSKELETAL/RHEUMATOLOGICAL Hx Arthritis: Yes - GASTROINTESTINAL Hx Gastrointestinal Disorders: Yes Other/Comment: abdominal aortic aneurysm - GENITOURINARY/GYNECOLOGICAL Hx Genitourinary Disorders: No - PSYCHIATRIC Hx Psychophysiologic Disorder: No Hx Substance Use: No - SURGICAL HISTORY Hx Musculoskeletal Surgery: Yes (Left Hip ORIF) - ANESTHESIA Hx Anesthesia: Yes Hx Anesthesia Reactions: No Hx Malignant Hyperthermia: No Meds Allergies/Adverse Reactions: Allergies Allergy/AdvReac Type Severity Reaction Status Date / Time No Known Allergies Allergy Verified 11/14/15 02:22 - Medications Medications: Current Medications Acetaminophen (Tylenol 325mg Tab) 650 mg PO Q6 PRN PRN Reason: Pain, Mild (1-3) Albuterol/Ipratropium (Duoneb 3 Mg/0.5 Mg (3 Ml) Ud) 3 ml INH RQ6 PRN PRN Reason: Shortness of Breath Aspirin (Ecotrin) 81 mg PO DAILY [facility] Last Admin: 12/24/16 08:43 Dose: 81 mg Atorvastatin Calcium (Lipitor) 20 mg PO HS [facility] Last Admin: 12/23/16 21:06 Dose: 20 mg Benzocaine/Menthol (Cepacol Sore Throat) 1 fermin PO Q2 PRN PRN Reason: Sore Throat Last Admin: 12/23/16 21:05 Dose: 1 fermin Calcium Carbonate (Oscal) 500 mg PO BIDWM [facility] Last Admin: 12/24/16 17:21 Dose: 500 mg Ergocalciferol (Drisdol 50,000 Intl Units Cap) 1 cap PO Q7D [facility] Last Admin: 12/22/16 23:25 Dose: 1 cap Famotidine (Pepcid) 20 mg PO DAILY [facility] Last Admin: 12/24/16 08:45 Dose: 20 mg Heparin Sodium (Porcine) (Heparin) 5,000 units SC Q12 [facility] PRN Reason: Protocol Last Admin: 12/24/16 08:45 Dose: 5,000 units Sodium Chloride (Sodium Chloride 0.9%) 1,000 mls @ 999 mls/hr IV .Q1H1M [facility] Stop: 12/25/16 18:21 Last Admin: 12/24/16 18:30 Dose: 999 mls/hr Lorazepam (Ativan) 0.5 mg IVP Q6 PRN PRN Reason: Anxiety Magnesium Hydroxide (Milk Of Magnesia) 30 ml PO DAILY [facility] Last Admin: 12/24/16 08:51 Dose: 30 ml Pantoprazole Sodium (Protonix Ec Tab) 40 mg PO DAILY [facility] Last Admin: 12/24/16 08:44 Dose: 40 mg Senna/Docusate Sodium (Senokot S 50 Mg-8.6 Mg) 2 tab PO HS [facility] Last Admin: 12/23/16 21:06 Dose: 2 tab Physical Exam - Constitutional Appears: Non-toxic, No Acute Distress Additional comments: thin, elderly female - Eye Exam Eye Exam: EOMI, Normal appearance - ENT Exam ENT Exam: Mucous Membranes Moist - Respiratory Exam Respiratory Exam: Clear to Auscultation Bilateral - Cardiovascular Exam Cardiovascular Exam: REGULAR RHYTHM, +S1, +S2, Systolic Murmur - GI/Abdominal Exam GI & Abdominal Exam: Normal Bowel Sounds, Soft Additional comments: non tender to palpation in four quadrants no palpable hepato/splenomegaly - Extremities Exam Extremities exam: Positive for: normal inspection - Neurological Exam Neurological exam: Alert, CN II-XII Intact, Oriented x3, Reflexes Normal - Psychiatric Exam Psychiatric exam: Normal Affect, Normal Mood - Skin Skin Exam: Dry, Intact, Normal Color, Warm Results - Vital Signs Recent Vital Signs: Last Vital Signs Temp 97.5 F L 12/24/16 16:13 Pulse 80 12/24/16 18:36 Resp 20 12/24/16 18:36 BP 101/59 L 12/24/16 18:36 Pulse Ox 100 12/24/16 18:36 - Labs Result Diagrams: 12/23/16 05:45 12/23/16 05:45 Assessment & Plan - Assessment and Plan (Free Text) Assessment: DM COPD AAA Aortic stenosis L2 compression fracture s/p vertebroplasty Dysphagia - resolved Plan: - Mechanically altered diet, finely chopped, small portion meals as tolerated - Discussed potential future need for gastrostomy tube placement with patient, she adamantly refuses to entertain topic at this time considering she is eating without difficulty, which is a reasonable thought process at this time. - Continue to monitor patient caloric intake and weight - Maintain bowel regimen to prevent ongoing constipation - If symptoms of dysphagia recur, patient would likely benefit from outpatient manometry testing given potential motility dysfunction seen on recent EGD - No further planned GI intervention, will sign off case. Please reconsult as necessary, thank you.
[2016-12-24] MEDS: Lidocaine 5% Patch TD SCH (21:24)
[2016-12-24] MEDS: Docusate-Senna 50 mg-8.6 mg Tab PO SCH (21:28)
[2016-12-25 07:41] LABS: HEMATOCRIT 31.5 % (34.0-47.0); MEAN CELL VOLUME 84.3 fl (81.0-99.0); MEAN CORPUSCULAR HEMOGLOBIN 27.5 pg (27.0-31.0); MEAN CORPUSCULAR HGB CONC 32.6 g/dL (33.0-37.0); RED CELL DISTRIBUTION WIDTH 16.4 % (11.5-14.5); WHITE BLOOD COUNT 2.4 K/uL (4.8-10.8)
[2016-12-25 08:14] LABS: BLOOD UREA NITROGEN 17 mg/dl (7-17); CALCIUM 8.5 mg/dL (8.4-10.2); CARBON DIOXIDE 29 mmol/L (22-30); CHLORIDE 105 mmol/L (98-107); GFR AFRICAN-AMERICAN > 60; GLUCOSE,RANDOM 111 mg/dL (65-105); POTASSIUM 3.7 MMOL/L (3.6-5.0); SODIUM 136 mmol/l (132-148)
[2016-12-25] MEDS: Lidocaine 5% Patch TD SCH (08:40)
[2016-12-25] MEDS: Pantoprazole 40 mg EC Tab PO SCH (08:42)
[2016-12-25] MEDS: Magnesium Hydroxide Susp 30 ml UD PO SCH (08:56)
--- NOTE | 2016-12-25 09:15 | CP.PCM.PN ---
Subjective - Date & Time of Evaluation Date of Evaluation: 12/25/16 Time of Evaluation: 08:00 - Subjective Subjective: Pt seen and examined at bedside. No new complaints, problems, or issues overnight. Sitting upright at 90 degrees, eating her well minced breakfast for second day in a row. She's tolerating each bite well, no observed or stated issues. No complaints of coughing or gagging. Back pain stable. Denies fevers/ chills, n/v/d, chest pain, SOB, dyspnea, cough, or abdominal pain. Objective - Vital Signs/Intake and Output Vital Signs (last 24 hours): Temp Pulse Resp BP Pulse Ox 97.8 F 71 20 117/68 99 12/25/16 08:00 12/25/16 08:00 12/25/16 08:00 12/25/16 08:00 12/25/16 08:00 - Medications Medications: Current Medications Acetaminophen (Tylenol 325mg Tab) 650 mg PO Q6 PRN PRN Reason: Pain, Mild (1-3) Albuterol/Ipratropium (Duoneb 3 Mg/0.5 Mg (3 Ml) Ud) 3 ml INH RQ6 PRN PRN Reason: Shortness of Breath Aspirin (Ecotrin) 81 mg PO DAILY [facility] Last Admin: 12/25/16 08:43 Dose: 81 mg Atorvastatin Calcium (Lipitor) 20 mg PO HS [facility] Last Admin: 12/24/16 21:28 Dose: 20 mg Benzocaine/Menthol (Cepacol Sore Throat) 1 fermin PO Q2 PRN PRN Reason: Sore Throat Last Admin: 12/23/16 21:05 Dose: 1 fermin Calcium Carbonate (Oscal) 500 mg PO BIDWM [facility] Last Admin: 12/25/16 08:42 Dose: 500 mg Ergocalciferol (Drisdol 50,000 Intl Units Cap) 1 cap PO Q7D [facility] Last Admin: 12/22/16 23:25 Dose: 1 cap Famotidine (Pepcid) 20 mg PO DAILY [facility] Last Admin: 12/25/16 08:42 Dose: 20 mg Heparin Sodium (Porcine) (Heparin) 5,000 units SC Q12 [facility] PRN Reason: Protocol Last Admin: 12/25/16 08:41 Dose: 5,000 units Sodium Chloride (Sodium Chloride 0.9%) 1,000 mls @ 999 mls/hr IV .Q1H1M [facility] Stop: 12/25/16 18:21 Last Admin: 12/24/16 21:29 Dose: Not Given Lidocaine (Lidoderm) 1 ea TD DAILY [facility] Last Admin: 12/25/16 08:40 Dose: 1 ea Lorazepam (Ativan) 0.5 mg IVP Q6 PRN PRN Reason: Anxiety Magnesium Hydroxide (Milk Of Magnesia) 30 ml PO DAILY [facility] Last Admin: 12/25/16 08:56 Dose: 30 ml Pantoprazole Sodium (Protonix Ec Tab) 40 mg PO DAILY [facility] Last Admin: 12/25/16 08:42 Dose: 40 mg Senna/Docusate Sodium (Senokot S 50 Mg-8.6 Mg) 2 tab PO HS [facility] Last Admin: 12/24/16 21:28 Dose: 2 tab - Labs Labs: 12/25/16 07:50 12/23/16 05:45 APTT 56.8 Seconds (25.6-37.1) H 12/25/16 08:15 - Additional Findings Additional findings: - Constitutional Appears: No Acute Distress - Head Exam Head Exam: ATRAUMATIC, NORMOCEPHALIC - Eye Exam Eye Exam: EOMI Pupil Exam: PERRL - Neck Exam Neck Exam: Full ROM - Respiratory Exam Respiratory Exam: Clear to Ausculation Bilateral, NORMAL BREATHING PATTERN - Cardiovascular Exam Cardiovascular Exam: REGULAR RHYTHM, +S1, +S2 - GI/Abdominal Exam GI & Abdominal Exam: Soft, Normal Bowel Sounds. absent: Tenderness - Extremities Exam Extremities Exam: absent: Calf Tenderness, Pedal Edema - Back Exam Back Exam: paraspinal tenderness - Neurological Exam Neurological Exam: Alert, Oriented x3 - Skin Skin Exam: Dry, Intact, Normal Color, Warm Assessment and Plan - Assessment and Plan (Free Text) Plan: 81 yo F with a PMHx of DM2, Severe Aortic Stenosis, and lumbar compression fracture is admitted for evaluation and management of chronic dysphagia and aortic stenosis. 1. Dysphagia - Present, but pt is tolerating new modified diet - Finely chopped, small, thin diet, as per swallow eval - Barium contrast esophagram (Nov 28): abnormal motility of lower esophagus with slow peristalsis and segmental tertiary contractions - Aspiration precautions in place - Keep head of bead elevated a 30 degrees; above 90 degrees for meals including 60 minutes after - Famotidine 20 mg PO - Pantoprazole 40 mg PO. - f/u toleration of PO - GI Consult: pt adamantly refuses topic of PEG tube considering she is eating without difficulty - f/u BMP 2. Aortic Stenosis - Not candidate for AVR 2' to aortic ulcer and AAA - c/w #ASA 81mg PO #Atorvastatin 20mg PO Qpm 3. Chronic constipation - Last BM four days ago; only began eating small, finely chopped meals 24-36 hrs ago - Docusate/Senokot 2 tabs PO HS - f/u BM 4.NIDDM (Non Insulin Dependent DM) Type II - Diet controlled 5. Lumbar Compression Fracture s/p Kyphoplasty POD #29- Improving and pain well controlled - Physical Therapy - Pain control Tylenol 650 Mild Pain Lidocaine 5% Severe Pain Avoid opiates due to chronic constipation 6. DVT Prophlyaxis -SCD. -Heparin 5,000 units SC Q12H
--- NOTE | 2016-12-25 11:32 | CP.PCM.PN ---
Subjective - Date & Time of Evaluation Date of Evaluation: 12/25/16 Time of Evaluation: 08:40 - Subjective Subjective: 81 y/o F examined at bedside. Pt reports feeling well, good appetite, tolerating PO chopped regular diet. NO overnight events. Pt denies fever, CP, SOB, abdominal pain, urinary complaints or change in bowel movement. Objective - Vital Signs/Intake and Output Vital Signs (last 24 hours): Temp Pulse Resp BP Pulse Ox 97.8 F 71 20 117/68 99 12/25/16 08:00 12/25/16 08:00 12/25/16 08:00 12/25/16 08:00 12/25/16 08:00 - Medications Medications: Current Medications Acetaminophen (Tylenol 325mg Tab) 650 mg PO Q6 PRN PRN Reason: Pain, Mild (1-3) Albuterol/Ipratropium (Duoneb 3 Mg/0.5 Mg (3 Ml) Ud) 3 ml INH RQ6 PRN PRN Reason: Shortness of Breath Aspirin (Ecotrin) 81 mg PO DAILY [facility] Last Admin: 12/25/16 08:43 Dose: 81 mg Atorvastatin Calcium (Lipitor) 20 mg PO HS [facility] Last Admin: 12/24/16 21:28 Dose: 20 mg Benzocaine/Menthol (Cepacol Sore Throat) 1 fermin PO Q2 PRN PRN Reason: Sore Throat Last Admin: 12/23/16 21:05 Dose: 1 fermin Calcium Carbonate (Oscal) 500 mg PO BIDWM [facility] Last Admin: 12/25/16 08:42 Dose: 500 mg Ergocalciferol (Drisdol 50,000 Intl Units Cap) 1 cap PO Q7D [facility] Last Admin: 12/22/16 23:25 Dose: 1 cap Famotidine (Pepcid) 20 mg PO DAILY [facility] Last Admin: 12/25/16 08:42 Dose: 20 mg Heparin Sodium (Porcine) (Heparin) 5,000 units SC Q12 [facility] PRN Reason: Protocol Last Admin: 12/25/16 08:41 Dose: 5,000 units Sodium Chloride (Sodium Chloride 0.9%) 1,000 mls @ 999 mls/hr IV .Q1H1M [facility] Stop: 12/25/16 18:21 Last Admin: 12/24/16 21:29 Dose: Not Given Lidocaine (Lidoderm) 1 ea TD DAILY [facility] Last Admin: 12/25/16 08:40 Dose: 1 ea Lorazepam (Ativan) 0.5 mg IVP Q6 PRN PRN Reason: Anxiety Magnesium Hydroxide (Milk Of Magnesia) 30 ml PO DAILY [facility] Last Admin: 12/25/16 08:56 Dose: 30 ml Pantoprazole Sodium (Protonix Ec Tab) 40 mg PO DAILY [facility] Last Admin: 12/25/16 08:42 Dose: 40 mg Senna/Docusate Sodium (Senokot S 50 Mg-8.6 Mg) 2 tab PO HS [facility] Last Admin: 12/24/16 21:28 Dose: 2 tab - Labs Labs: 12/25/16 07:50 12/25/16 06:30 APTT 56.8 Seconds (25.6-37.1) H 12/25/16 08:15
[2016-12-25] MEDS: Docusate-Senna 50 mg-8.6 mg Tab PO SCH (22:04)
[2016-12-26] MEDS: Pantoprazole 40 mg EC Tab PO SCH (08:39)
[2016-12-26] MEDS: Lidocaine 5% Patch TD SCH (08:41)
[2016-12-26] MEDS: Magnesium Hydroxide Susp 30 ml UD PO SCH (08:44)
--- NOTE | 2016-12-26 10:49 | CP.PCM.PN ---
Subjective - Date & Time of Evaluation Date of Evaluation: 12/26/16 Time of Evaluation: 07:10 - Subjective Subjective: 81 y/o F examined at bedside. Pt reports feeling well. Pt w/ good appetite, eating modified/chopped food. No overnights events. Last BM today in the morning , soft consistency, NO diarrhea. Pt denies headache, CP, SOB, abdominal pain or urinary complaints. Objective - Vital Signs/Intake and Output Vital Signs (last 24 hours): Temp Pulse Resp BP Pulse Ox 97.7 F 71 18 148/74 97 12/26/16 07:33 12/26/16 07:33 12/26/16 07:33 12/26/16 07:33 12/26/16 07:33 - Medications Medications: Current Medications Acetaminophen (Tylenol 325mg Tab) 650 mg PO Q6 PRN PRN Reason: Pain, Mild (1-3) Albuterol/Ipratropium (Duoneb 3 Mg/0.5 Mg (3 Ml) Ud) 3 ml INH RQ6 PRN PRN Reason: Shortness of Breath Aspirin (Ecotrin) 81 mg PO DAILY [facility] Last Admin: 12/26/16 08:40 Dose: 81 mg Atorvastatin Calcium (Lipitor) 20 mg PO HS [facility] Last Admin: 12/25/16 22:04 Dose: 20 mg Benzocaine/Menthol (Cepacol Sore Throat) 1 fermin PO Q2 PRN PRN Reason: Sore Throat Last Admin: 12/23/16 21:05 Dose: 1 fermin Calcium Carbonate (Oscal) 500 mg PO BIDWM [facility] Last Admin: 12/26/16 08:40 Dose: 500 mg Ergocalciferol (Drisdol 50,000 Intl Units Cap) 1 cap PO Q7D [facility] Last Admin: 12/22/16 23:25 Dose: 1 cap Famotidine (Pepcid) 20 mg PO DAILY [facility] Last Admin: 12/26/16 08:40 Dose: 20 mg Heparin Sodium (Porcine) (Heparin) 5,000 units SC Q12 [facility] PRN Reason: Protocol Last Admin: 12/26/16 08:43 Dose: 5,000 units Lidocaine (Lidoderm) 1 ea TD DAILY [facility] Last Admin: 12/26/16 08:41 Dose: 1 ea Lorazepam (Ativan) 0.5 mg IVP Q6 PRN PRN Reason: Anxiety Magnesium Hydroxide (Milk Of Magnesia) 30 ml PO DAILY [facility] Last Admin: 12/26/16 08:44 Dose: Not Given Pantoprazole Sodium (Protonix Ec Tab) 40 mg PO DAILY [facility] Last Admin: 12/26/16 08:39 Dose: 40 mg Senna/Docusate Sodium (Senokot S 50 Mg-8.6 Mg) 2 tab PO HS [facility] Last Admin: 12/25/16 22:04 Dose: 2 tab - Labs Labs: 12/25/16 07:50 12/25/16 06:30 APTT 56.8 Seconds (25.6-37.1) H 12/25/16 08:15 - Constitutional Appears: Well, No Acute Distress - Head Exam Head Exam: NORMAL INSPECTION - Eye Exam Eye Exam: EOMI - ENT Exam ENT Exam: Mucous Membranes Moist - Neck Exam Neck Exam: Full ROM - Respiratory Exam Respiratory Exam: NORMAL BREATHING PATTERN - Cardiovascular Exam Cardiovascular Exam: REGULAR RHYTHM, +S1, +S2, Murmur Assessment and Plan - Assessment and Plan (Free Text) Plan: 81 yo F with a PMHx of DM2, Severe Aortic Stenosis, and lumbar compression fracture is admitted for evaluation and management of chronic dysphagia and aortic stenosis. 1. Dysphagia - Pt is tolerating new modified diet. - Finely chopped, small, thin diet, as per swallow evaluation. - Barium contrast esophagram (Nov 28): abnormal motility of lower esophagus with slow peristalsis and segmental tertiary contractions - Aspiration precautions in place - Keep head of bead elevated a 30 degrees; above 90 degrees for meals including 60 minutes after - Famotidine 20 mg PO - Pantoprazole 40 mg PO. - f/u toleration of PO - GI Consult: pt adamantly refuses topic of PEG tube considering she is eating without difficulty - f/u pt's symptoms. 2. Aortic Stenosis - Not candidate for AVR 2' to aortic ulcer and AAA - c/w #ASA 81mg PO #Atorvastatin 20mg PO Qpm 3. Chronic constipation - Last BM today in the morning. - Docusate/Senokot 2 tabs PO HS - f/u BM. 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 Lumbar Compression Fracture s/p Kyphoplasty POD #29- Improving and pain well controlled - Physical Therapy - Pain control Tylenol 650 Mild Pain Lidocaine 5% Severe Pain Avoid opiates due to chronic constipation 6. DVT Prophlyaxis -SCD. -Heparin 5,000 units SC Q12H
[2016-12-26] MEDS: Docusate-Senna 50 mg-8.6 mg Tab PO SCH (21:36)
--- NOTE | 2016-12-26 22:24 | CP.PCM.PN ---
Subjective - Date & Time of Evaluation Date of Evaluation: 12/26/16 Time of Evaluation: 13:00 - Subjective Subjective: eating chopped fine food today family meeting with Dr.Pierre Schaefer regarding management plan Objective - Vital Signs/Intake and Output Vital Signs (last 24 hours): Temp Pulse Resp BP Pulse Ox 97.8 F 85 20 99/57 L 97 12/26/16 16:00 12/26/16 16:00 12/26/16 16:00 12/26/16 16:00 12/26/16 16:00 - Medications Medications: Current Medications Acetaminophen (Tylenol 325mg Tab) 650 mg PO Q6 PRN PRN Reason: Pain, Mild (1-3) Albuterol/Ipratropium (Duoneb 3 Mg/0.5 Mg (3 Ml) Ud) 3 ml INH RQ6 PRN PRN Reason: Shortness of Breath Aspirin (Ecotrin) 81 mg PO DAILY [facility] Last Admin: 12/26/16 08:40 Dose: 81 mg Atorvastatin Calcium (Lipitor) 20 mg PO HS [facility] Last Admin: 12/26/16 21:36 Dose: 20 mg Benzocaine/Menthol (Cepacol Sore Throat) 1 fermin PO Q2 PRN PRN Reason: Sore Throat Last Admin: 12/23/16 21:05 Dose: 1 fermin Calcium Carbonate (Oscal) 500 mg PO BIDWM [facility] Last Admin: 12/26/16 17:02 Dose: 500 mg Ergocalciferol (Drisdol 50,000 Intl Units Cap) 1 cap PO Q7D [facility] Last Admin: 12/22/16 23:25 Dose: 1 cap Famotidine (Pepcid) 20 mg PO DAILY [facility] Last Admin: 12/26/16 08:40 Dose: 20 mg Heparin Sodium (Porcine) (Heparin) 5,000 units SC Q12 [facility] PRN Reason: Protocol Last Admin: 12/26/16 21:37 Dose: 5,000 units Lidocaine (Lidoderm) 1 ea TD DAILY [facility] Last Admin: 12/26/16 08:41 Dose: 1 ea Lorazepam (Ativan) 0.5 mg IVP Q6 PRN PRN Reason: Anxiety Magnesium Hydroxide (Milk Of Magnesia) 30 ml PO DAILY [facility] Last Admin: 12/26/16 08:44 Dose: Not Given Pantoprazole Sodium (Protonix Ec Tab) 40 mg PO DAILY [facility] Last Admin: 12/26/16 08:39 Dose: 40 mg Senna/Docusate Sodium (Senokot S 50 Mg-8.6 Mg) 2 tab PO HS [facility] Last Admin: 12/26/16 21:36 Dose: 2 tab - Labs Labs: 12/25/16 07:50 12/25/16 06:30 APTT 56.8 Seconds (25.6-37.1) H 12/25/16 08:15 - Constitutional Appears: Well - Head Exam Head Exam: ATRAUMATIC, NORMAL INSPECTION, NORMOCEPHALIC - Eye Exam Eye Exam: EOMI, Normal appearance, PERRL Pupil Exam: NORMAL ACCOMODATION, PERRL - ENT Exam ENT Exam: Mucous Membranes Moist, Normal Exam - Neck Exam Neck Exam: Full ROM, Normal Inspection. absent: Lymphadenopathy - Respiratory Exam Respiratory Exam: Clear to Ausculation Bilateral, NORMAL BREATHING PATTERN - Cardiovascular Exam Cardiovascular Exam: REGULAR RHYTHM, +S1, +S2, Murmur - GI/Abdominal Exam GI & Abdominal Exam: Soft, Normal Bowel Sounds. absent: Tenderness - Extremities Exam Extremities Exam: Full ROM, Normal Capillary Refill, Normal Inspection. absent : Joint Swelling, Pedal Edema - Back Exam Back Exam: NORMAL INSPECTION - Neurological Exam Neurological Exam: Alert, Awake, CN II-XII Intact, Oriented x3 - Psychiatric Exam Psychiatric exam: Normal Affect, Normal Mood - Skin Skin Exam: Dry, Intact, Normal Color, Warm Assessment and Plan (1) Aortic stenosis Assessment & Plan: pt deemed not a candidate for TAVR med rx for now Status: Acute (2) Aortic arch atherosclerosis Assessment & Plan: asa, statins Status: Acute (3) Fall at home Status: Acute (4) PVD (peripheral vascular disease) Status: Acute (5) Recurrent falls Status: Acute (6) AAA (abdominal aortic aneurysm) Status: Chronic (7) Severe muscle deconditioning Status: Chronic (8) Dysphagia Status: Resolved
[2016-12-27] MEDS: Pantoprazole 40 mg EC Tab PO SCH (09:20)
[2016-12-27] MEDS: Lidocaine 5% Patch TD SCH (09:20)
[2016-12-27] MEDS: Magnesium Hydroxide Susp 30 ml UD PO SCH (09:20)
--- NOTE | 2016-12-27 11:51 | CP.PCM.PN ---
<Bharati Grewal - Last Filed: 12/27/16 12:42> Subjective - Date & Time of Evaluation Date of Evaluation: 12/27/16 Time of Evaluation: 07:00 - Subjective Subjective: PGY4 GI Follow-up Pt seen and examined bedside Currently has no complaints States that she is able to tolerate her diet without difficult Denies dysphagia, aspiration Denies any globus sensation Able to swallow solids and liquids without difficulty ROS: 12 point ROS conducted. neg other than above Objective - Vital Signs/Intake and Output Vital Signs (last 24 hours): Temp Pulse Resp BP Pulse Ox 97.8 F 77 18 149/70 97 12/27/16 07:29 12/27/16 07:29 12/27/16 07:29 12/27/16 07:29 12/27/16 07:29 - Medications Medications: Current Medications Acetaminophen (Tylenol 325mg Tab) 650 mg PO Q6 PRN PRN Reason: Pain, Mild (1-3) Albuterol/Ipratropium (Duoneb 3 Mg/0.5 Mg (3 Ml) Ud) 3 ml INH RQ6 PRN PRN Reason: Shortness of Breath Aspirin (Ecotrin) 81 mg PO DAILY [facility] Last Admin: 12/27/16 09:20 Dose: 81 mg Atorvastatin Calcium (Lipitor) 20 mg PO HS [facility] Last Admin: 12/26/16 21:36 Dose: 20 mg Benzocaine/Menthol (Cepacol Sore Throat) 1 fermin PO Q2 PRN PRN Reason: Sore Throat Last Admin: 12/23/16 21:05 Dose: 1 fermin Calcium Carbonate (Oscal) 500 mg PO BIDWM [facility] Last Admin: 12/27/16 09:20 Dose: 500 mg Ergocalciferol (Drisdol 50,000 Intl Units Cap) 1 cap PO Q7D [facility] Last Admin: 12/22/16 23:25 Dose: 1 cap Famotidine (Pepcid) 20 mg PO DAILY [facility] Last Admin: 12/27/16 09:20 Dose: 20 mg Heparin Sodium (Porcine) (Heparin) 5,000 units SC Q12 [facility] PRN Reason: Protocol Last Admin: 12/27/16 09:20 Dose: 5,000 units Lidocaine (Lidoderm) 1 ea TD DAILY [facility] Last Admin: 12/27/16 09:20 Dose: 1 ea Lorazepam (Ativan) 0.5 mg IVP Q6 PRN PRN Reason: Anxiety Magnesium Hydroxide (Milk Of Magnesia) 30 ml PO DAILY [facility] Last Admin: 12/26/16 08:44 Dose: Not Given Pantoprazole Sodium (Protonix Ec Tab) 40 mg PO DAILY [facility] Last Admin: 12/27/16 09:20 Dose: 40 mg Senna/Docusate Sodium (Senokot S 50 Mg-8.6 Mg) 2 tab PO HS [facility] Last Admin: 12/26/16 21:36 Dose: 2 tab - Labs Labs: 12/25/16 07:50 12/25/16 06:30 APTT 56.8 Seconds (25.6-37.1) H 12/25/16 08:15 - Constitutional Appears: Well, No Acute Distress - Head Exam Head Exam: ATRAUMATIC, NORMOCEPHALIC - Eye Exam Eye Exam: Normal appearance - ENT Exam ENT Exam: Mucous Membranes Moist - Respiratory Exam Respiratory Exam: Clear to Ausculation Bilateral, NORMAL BREATHING PATTERN. absent: Rales, Rhonchi, Wheezes - GI/Abdominal Exam GI & Abdominal Exam: Soft, Normal Bowel Sounds. absent: Firm, Guarding, Rigid, Tenderness - Extremities Exam Extremities Exam: absent: Pedal Edema, Tenderness - Neurological Exam Neurological Exam: Alert, Awake, Oriented x3 - Psychiatric Exam Psychiatric exam: Normal Affect, Normal Mood - Skin Skin Exam: Dry, Intact, Normal Color, Warm Assessment and Plan - Assessment and Plan (Free Text) Assessment: Alondra Felming is a 81F w/ hx of DM, COPD, AAA, AA, and L2 compression who presents for Aortic insuff. Pt does not have symptoms of dysphagia at this time. Able to tolerate chopped mechanical diet without difficulty DM COPD AAA Aortic stenosis L2 compression fracture s/p vertebroplasty Dysphagia - resolved Plan: - Mechanically altered diet, finely chopped, small portion meals as tolerated - Again discussed the possibilty of G-Tube placement, but patient refuses due to her ability to tolerate diet. She is able to eat almost 75-80% of her tray as per nurse. She is alert and oriented x3 and at this time is capable of making her own decisions. As per pt, she does not want the feeding tube at this time. -agree with calorie count - Continue to monitor patient caloric intake and weight - Maintain bowel regimen to prevent ongoing constipation - If symptoms of dysphagia recur, patient would likely benefit from outpatient manometry testing given potential motility dysfunction seen on recent EGD - No further planned GI intervention, will sign off case. Please reconsult as necessary, thank you. d/e Dr. Basurto <[facility] - Last Filed: 12/27/16 15:21> Objective - Vital Signs/Intake and Output Vital Signs (last 24 hours): Temp Pulse Resp BP Pulse Ox 97.8 F 77 18 149/70 97 12/27/16 07:29 12/27/16 07:29 12/27/16 07:29 12/27/16 07:29 12/27/16 07:29 - Medications Medications: Current Medications Acetaminophen (Tylenol 325mg Tab) 650 mg PO Q6 PRN PRN Reason: Pain, Mild (1-3) Albuterol/Ipratropium (Duoneb 3 Mg/0.5 Mg (3 Ml) Ud) 3 ml INH RQ6 PRN PRN Reason: Shortness of Breath Aspirin (Ecotrin) 81 mg PO DAILY [facility] Last Admin: 12/27/16 09:20 Dose: 81 mg Atorvastatin Calcium (Lipitor) 20 mg PO HS [facility] Last Admin: 12/26/16 21:36 Dose: 20 mg Benzocaine/Menthol (Cepacol Sore Throat) 1 fermin PO Q2 PRN PRN Reason: Sore Throat Last Admin: 12/23/16 21:05 Dose: 1 fermin Calcium Carbonate (Oscal) 500 mg PO BIDWM [facility] Last Admin: 12/27/16 09:20 Dose: 500 mg Ergocalciferol (Drisdol 50,000 Intl Units Cap) 1 cap PO Q7D [facility] Last Admin: 12/22/16 23:25 Dose: 1 cap Famotidine (Pepcid) 20 mg PO DAILY [facility] Last Admin: 12/27/16 09:20 Dose: 20 mg Heparin Sodium (Porcine) (Heparin) 5,000 units SC Q12 [facility] PRN Reason: Protocol Last Admin: 12/27/16 09:20 Dose: 5,000 units Lidocaine (Lidoderm) 1 ea TD DAILY [facility] Last Admin: 12/27/16 09:20 Dose: 1 ea Lorazepam (Ativan) 0.5 mg IVP Q6 PRN PRN Reason: Anxiety Magnesium Hydroxide (Milk Of Magnesia) 30 ml PO DAILY [facility] Last Admin: 12/26/16 08:44 Dose: Not Given Pantoprazole Sodium (Protonix Ec Tab) 40 mg PO DAILY [facility] Last Admin: 12/27/16 09:20 Dose: 40 mg Senna/Docusate Sodium (Senokot S 50 Mg-8.6 Mg) 2 tab PO HS [facility] Last Admin: 12/26/16 21:36 Dose: 2 tab - Labs Labs: 12/25/16 07:50 12/25/16 06:30 APTT 56.8 Seconds (25.6-37.1) H 12/25/16 08:15 Attending/Attestation - Attestation I have personally seen and examined this patient.: Yes I have fully participated in the care of the patient.: Yes I have reviewed all pertinent clinical information, including history, physical exam and plan: Yes Notes (Text): 12/27/16 15:18 Patient seen with GI fellow. This is a 81 yr old F with multiple comorbidities with DM, COPD, AAA, Aortic stenosis not a TAVR candidate, L2 compression fracture s/p vertebroplasty, Dysphagia now resolved. GI reconsulted for peg placement. Patient ate 75-80% of her tray for last 3 meals. She denies any feeding issues or aspiration issues. Currently she adamantly refuses to entertain topic at this time considering she is eating without difficulty. Maintain bowel regimen to prevent ongoing constipation - No further planned GI intervention, will sign off case. Please reconsult as necessary, thank you.
--- NOTE | 2016-12-27 13:16 | CP.PCM.PN ---
Subjective - Date & Time of Evaluation Date of Evaluation: 12/27/16 Time of Evaluation: 07:30 - Subjective Subjective: 81 y/o F examined at bedside. Pt reports feeling well with NO overnight events. Pt tolerating modified/finely chopped diet. Meeting yesterday with family and patient. PEG tube placement was discussed. Pt and family agreed to the possibility of PEG tube. Today, pt changed her mind and declined PEG tube. Pt denies fever, headache, CP, SOB, abdominal pain, nausea, dysphagia or urinary complaints. Objective - Vital Signs/Intake and Output Vital Signs (last 24 hours): Temp Pulse Resp BP Pulse Ox 97.8 F 77 18 149/70 97 12/27/16 07:29 12/27/16 07:29 12/27/16 07:29 12/27/16 07:29 12/27/16 07:29 - Medications Medications: Current Medications Acetaminophen (Tylenol 325mg Tab) 650 mg PO Q6 PRN PRN Reason: Pain, Mild (1-3) Albuterol/Ipratropium (Duoneb 3 Mg/0.5 Mg (3 Ml) Ud) 3 ml INH RQ6 PRN PRN Reason: Shortness of Breath Aspirin (Ecotrin) 81 mg PO DAILY [facility] Last Admin: 12/27/16 09:20 Dose: 81 mg Atorvastatin Calcium (Lipitor) 20 mg PO HS [facility] Last Admin: 12/26/16 21:36 Dose: 20 mg Benzocaine/Menthol (Cepacol Sore Throat) 1 fermin PO Q2 PRN PRN Reason: Sore Throat Last Admin: 12/23/16 21:05 Dose: 1 fermin Calcium Carbonate (Oscal) 500 mg PO BIDWM [facility] Last Admin: 12/27/16 09:20 Dose: 500 mg Ergocalciferol (Drisdol 50,000 Intl Units Cap) 1 cap PO Q7D [facility] Last Admin: 12/22/16 23:25 Dose: 1 cap Famotidine (Pepcid) 20 mg PO DAILY [facility] Last Admin: 12/27/16 09:20 Dose: 20 mg Heparin Sodium (Porcine) (Heparin) 5,000 units SC Q12 [facility] PRN Reason: Protocol Last Admin: 12/27/16 09:20 Dose: 5,000 units Lidocaine (Lidoderm) 1 ea TD DAILY [facility] Last Admin: 12/27/16 09:20 Dose: 1 ea Lorazepam (Ativan) 0.5 mg IVP Q6 PRN PRN Reason: Anxiety Magnesium Hydroxide (Milk Of Magnesia) 30 ml PO DAILY [facility] Last Admin: 12/26/16 08:44 Dose: Not Given Pantoprazole Sodium (Protonix Ec Tab) 40 mg PO DAILY [facility] Last Admin: 12/27/16 09:20 Dose: 40 mg Senna/Docusate Sodium (Senokot S 50 Mg-8.6 Mg) 2 tab PO HS [facility] Last Admin: 12/26/16 21:36 Dose: 2 tab - Labs Labs: 12/25/16 07:50 12/25/16 06:30 APTT 56.8 Seconds (25.6-37.1) H 12/25/16 08:15 - Constitutional Appears: Well, Non-toxic, No Acute Distress, Cachectic - Head Exam Head Exam: NORMAL INSPECTION - Eye Exam Eye Exam: EOMI - ENT Exam ENT Exam: Mucous Membranes Moist - Neck Exam Neck Exam: Full ROM - Respiratory Exam Respiratory Exam: Clear to Ausculation Bilateral, NORMAL BREATHING PATTERN - Cardiovascular Exam Cardiovascular Exam: +S1, +S2, Murmur - GI/Abdominal Exam GI & Abdominal Exam: Soft. absent: Distended, Guarding, Rigid, Tenderness Assessment and Plan - Assessment and Plan (Free Text) Assessment: 81 yo F with a PMHx of DM2, Severe Aortic Stenosis, and lumbar compression fracture is admitted for evaluation and management of chronic dysphagia and aortic stenosis. Plan: 1. Dysphagia - Pt is tolerating new modified diet: finely chopped, small, thin diet. - Pt declined PEG placement. - Barium contrast esophagram (Nov 28): abnormal motility of lower esophagus with slow peristalsis and segmental tertiary contractions - Aspiration precautions in place - Keep head of bead elevated a 30 degrees; above 90 degrees for meals including 60 minutes after - Famotidine 20 mg PO - Pantoprazole 40 mg PO. - GI and cardio on board. - f/u pt's symptoms. 2. Aortic Stenosis - Not candidate for AVR 2' to aortic ulcer and AAA - Cardiology on board. - c/w #ASA 81mg PO #Atorvastatin 20mg PO Qpm 3. Chronic constipation - Last BM yesterday in the morning. - Docusate/Senokot 2 tabs PO HS - f/u BM. 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 Lumbar Compression Fracture - Physical Therapy - Pain control Tylenol 650 Mild Pain Lidocaine 5% Severe Pain Avoid opiates due to chronic constipation 6. DVT Prophlyaxis -SCD. -Heparin 5,000 units SC Q12H
[2016-12-27] MEDS: Benzocaine/Menthol (Cepacol) Lozenge PO PRN ×2 (16:46→20:59)
[2016-12-27] MEDS: Docusate-Senna 50 mg-8.6 mg Tab PO SCH (21:54)
[2016-12-28] MEDS: Pantoprazole 40 mg EC Tab PO SCH (09:00)
[2016-12-28] MEDS: Lidocaine 5% Patch TD SCH (09:01)
[2016-12-28] MEDS: Magnesium Hydroxide Susp 30 ml UD PO SCH (09:02)
[2016-12-28] MEDS: Benzocaine/Menthol (Cepacol) Lozenge PO PRN ×2 (14:39→21:39)
--- NOTE | 2016-12-28 17:10 | CP.PCM.PN ---
Subjective - Date & Time of Evaluation Date of Evaluation: 12/28/16 Time of Evaluation: 07:30 - Subjective Subjective: 81 y/o F examined at bedside. Pt reports feeling well. Pt tolerating PO modified diet. Pt complains of aggravating anxiety. Pt denies dysphagia, sore throat, CP, SOB, abdominal pain or nausea. Objective - Vital Signs/Intake and Output Vital Signs (last 24 hours): Temp Pulse Resp BP Pulse Ox 98.3 F 92 H 20 91/53 L 98 12/28/16 16:06 12/28/16 16:06 12/28/16 16:06 12/28/16 16:06 12/28/16 16:06 - Medications Medications: Current Medications Acetaminophen (Tylenol 325mg Tab) 650 mg PO Q6 PRN PRN Reason: Pain, Mild (1-3) Alprazolam (Xanax) 0.5 mg PO Q8 PRN PRN Reason: Anxiety Aspirin (Ecotrin) 81 mg PO DAILY [facility] Last Admin: 12/28/16 08:59 Dose: 81 mg Atorvastatin Calcium (Lipitor) 20 mg PO HS [facility] Last Admin: 12/27/16 21:54 Dose: 20 mg Benzocaine/Menthol (Cepacol Sore Throat) 1 fermin PO Q2 PRN PRN Reason: Sore Throat Last Admin: 12/28/16 14:39 Dose: 1 fermin Calcium Carbonate (Oscal) 500 mg PO BIDWM [facility] Last Admin: 12/28/16 16:39 Dose: 500 mg Ergocalciferol (Drisdol 50,000 Intl Units Cap) 1 cap PO Q7D [facility] Last Admin: 12/22/16 23:25 Dose: 1 cap Famotidine (Pepcid) 20 mg PO DAILY [facility] Last Admin: 12/28/16 08:59 Dose: 20 mg Heparin Sodium (Porcine) (Heparin) 5,000 units SC Q12 [facility] PRN Reason: Protocol Last Admin: 12/28/16 08:59 Dose: 5,000 units Lactulose (Enulose) 20 gm PO DAILY PRN PRN Reason: Constipation Lidocaine (Lidoderm) 1 ea TD DAILY [facility] Last Admin: 12/28/16 09:01 Dose: 1 ea Senna/Docusate Sodium (Senokot S 50 Mg-8.6 Mg) 2 tab PO HS [facility] Last Admin: 12/27/16 21:54 Dose: 2 tab - Labs Labs: 12/25/16 07:50 12/25/16 06:30 APTT 56.8 Seconds (25.6-37.1) H 12/25/16 08:15 - Constitutional Appears: Well, No Acute Distress - Head Exam Head Exam: NORMAL INSPECTION - Eye Exam Eye Exam: EOMI - ENT Exam ENT Exam: Mucous Membranes Dry - Neck Exam Neck Exam: Full ROM - Respiratory Exam Respiratory Exam: Clear to Ausculation Bilateral, NORMAL BREATHING PATTERN - Cardiovascular Exam Cardiovascular Exam: REGULAR RHYTHM, +S1, +S2 - GI/Abdominal Exam GI & Abdominal Exam: Soft. absent: Distended, Tenderness - Neurological Exam Neurological Exam: Alert, Awake, Oriented x3 - Psychiatric Exam Psychiatric exam: Anxious Assessment and Plan - Assessment and Plan (Free Text) Plan: 81 yo F with a PMHx of DM2, Severe Aortic Stenosis, and lumbar compression fracture is admitted for evaluation and management of chronic dysphagia and aortic stenosis. 1. Dysphagia - Pt declined PEG tube placement. - Pt is tolerating new modified diet. - Finely chopped, small, thin diet, as per swallow evaluation. - Barium contrast esophagram (Nov 28): abnormal motility of lower esophagus with slow peristalsis and segmental tertiary contractions - Aspiration precautions in place - Keep head of bead elevated a 30 degrees; above 90 degrees for meals including 60 minutes after - Famotidine 20 mg PO - f/u toleration of PO - GI on board. - f/u pt's symptoms. - Pt will be transferred to Sub-acute managment in [place]. 2. Anxiety - Alprazolam 0.5mg PO Q8H. 3. Aortic Stenosis - Not candidate for AVR 2' to aortic ulcer and AAA - c/w #ASA 81mg PO #Atorvastatin 20mg PO Qpm 4. Chronic constipation - Last BM 2 days ago. - Docusate/Senokot 2 tabs PO HS - Lactulose 20gm PO daily ordered. - f/u BM. 5. NIDDM (Non Insulin Dependent DM) Type II - Diet controlled 6. Lumbar Compression Fracture - Physical Therapy - Pain control Tylenol 650mg PO PRN Mild Pain Lidocaine 5% Severe Pain Avoid opiates due to chronic constipation 7. DVT Prophlyaxis -SCD. -Heparin 5,000 units SC Q12H
[2016-12-28] MEDS: Docusate-Senna 50 mg-8.6 mg Tab PO SCH (21:28)
[2016-12-29] MEDS: Benzocaine/Menthol (Cepacol) Lozenge PO PRN ×3 (00:18→22:11)
[2016-12-29] MEDS: Lidocaine 5% Patch TD SCH (09:08)
--- NOTE | 2016-12-29 15:49 | CP.PCM.PN ---
Subjective - Date & Time of Evaluation Date of Evaluation: 12/29/16 Time of Evaluation: 07:00 - Subjective Subjective: 81 y/o F examined at bedside. Pt reports feeling well, eating well, tolerating PO chopped aliments diet. Pt denies fever, headache, CP, SOB or urinary complaints. Objective - Vital Signs/Intake and Output Vital Signs (last 24 hours): Temp Pulse Resp BP Pulse Ox 97.7 F 82 18 140/71 95 12/29/16 07:26 12/29/16 07:26 12/29/16 07:26 12/29/16 07:26 12/29/16 07:26 - Medications Medications: Current Medications Acetaminophen (Tylenol 325mg Tab) 650 mg PO Q6 PRN PRN Reason: Pain, Mild (1-3) Alprazolam (Xanax) 0.5 mg PO Q8 PRN PRN Reason: Anxiety Aspirin (Ecotrin) 81 mg PO DAILY [facility] Last Admin: 12/29/16 09:08 Dose: 81 mg Atorvastatin Calcium (Lipitor) 20 mg PO HS [facility] Last Admin: 12/28/16 21:28 Dose: 20 mg Benzocaine/Menthol (Cepacol Sore Throat) 1 fermin PO Q2 PRN PRN Reason: Sore Throat Last Admin: 12/29/16 13:51 Dose: 1 fermin Calcium Carbonate (Oscal) 500 mg PO BIDWM [facility] Last Admin: 12/29/16 09:08 Dose: 500 mg Ergocalciferol (Drisdol 50,000 Intl Units Cap) 1 cap PO Q7D [facility] Last Admin: 12/22/16 23:25 Dose: 1 cap Famotidine (Pepcid) 20 mg PO DAILY [facility] Last Admin: 12/29/16 09:08 Dose: 20 mg Heparin Sodium (Porcine) (Heparin) 5,000 units SC Q12 [facility] PRN Reason: Protocol Last Admin: 12/29/16 09:09 Dose: 5,000 units Lactulose (Enulose) 20 gm PO DAILY PRN PRN Reason: Constipation Lidocaine (Lidoderm) 1 ea TD DAILY [facility] Last Admin: 12/29/16 09:08 Dose: 1 ea Senna/Docusate Sodium (Senokot S 50 Mg-8.6 Mg) 2 tab PO HS [facility] Last Admin: 12/28/16 21:28 Dose: 2 tab - Labs Labs: 12/25/16 07:50 12/25/16 06:30 APTT 56.8 Seconds (25.6-37.1) H 12/25/16 08:15 - Constitutional Appears: Well, Toxic, No Acute Distress, Cachectic - Head Exam Head Exam: ATRAUMATIC, NORMAL INSPECTION, NORMOCEPHALIC - Eye Exam Eye Exam: EOMI - ENT Exam ENT Exam: Mucous Membranes Dry - Neck Exam Neck Exam: Full ROM - Respiratory Exam Respiratory Exam: Clear to Ausculation Bilateral, NORMAL BREATHING PATTERN - Cardiovascular Exam Cardiovascular Exam: REGULAR RHYTHM, +S1, +S2, Murmur - GI/Abdominal Exam GI & Abdominal Exam: Soft. absent: Distended, Tenderness Assessment and Plan - Assessment and Plan (Free Text) Assessment: 81 yo F with a PMHx of DM2, Severe Aortic Stenosis, and lumbar compression fracture is admitted for evaluation and management of chronic dysphagia and aortic stenosis. Plan: 1. Dysphagia - Pt is tolerating new modified diet: finely chopped, small, thin diet. - Pt declined PEG placement. - Barium contrast esophagram (Nov 28): abnormal motility of lower esophagus with slow peristalsis and segmental tertiary contractions - Aspiration precautions in place - Keep head of bead elevated a 30 degrees; above 90 degrees for meals including 60 minutes after - Famotidine 20 mg PO - Pantoprazole 40 mg PO. - GI and cardio on board. - f/u pt's symptoms. 2. Severe Aortic Stenosis - Not candidate for AVR 2' to aortic ulcer and AAA - Cardiology on board. - c/w #ASA 81mg PO #Atorvastatin 20mg PO Qpm 3. Chronic constipation - Docusate/Senokot 2 tabs PO HS - f/u BM. 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 Lumbar Compression Fracture - Physical Therapy - Pain control Tylenol 650 Mild Pain Lidocaine 5% Severe Pain Avoid opiates due to chronic constipation 6. DVT Prophlyaxis -SCD. -Heparin 5,000 units SC Q12H
--- NOTE | 2016-12-29 17:43 | PCM.RRT ---
PROFESSOR OF GENETICS Nurse Assessment - Situation PROFESSOR OF GENETICS Responder Arrival Time: 10:54 Location: 668 bed 2 [employer] Reason for Call: Change in Mental Status [employer]OR [employer] GENET[employer] Called By: Other Disciplines (Physical therapist) - Respiratory Oxygen Delivery Method: Nasal Cannula CPR started during PROFESSOR OF GENETICS?: No I.Reason for PROFESSOR OF GENETICS - A) Acute Change in Patient: Subjective: 81 yo F with a PMHx of DM2, Severe Aortic Stenosis, and lumbar compression fracture admitted with dysphagia and severe aortic stenosis. PROFESSOR OF GENETICS called by nurse because altered mental status during physical therapy section. At the time of PROFESSOR OF GENETICS patient was found alert, awake, and c/o lightheadedness. Denies chest pain, SOB, N/V, abdominal pain or other complains. - Neurological Status (Select all that apply): Alert - Respiratory Oxygen Delivery Method: Nasal Cannula @L/min (2) - Constitutional Appears: No Acute Distress - Respiratory Exam Respiratory Exam: Clear to Ausculation Bilateral, NORMAL BREATHING PATTERN - Cardiovascular Exam Cardiovascular Exam: REGULAR RHYTHM, +S1, +S2 - GI/Abdominal Exam GI & Abdominal Exam: Soft, Normal Bowel Sounds. absent: Distended, Guarding, Tenderness - Neurological Exam Neurological Exam: Alert, Awake, Oriented x3 - Extremities Exam Extremities Exam: Normal Inspection. absent: Calf Tenderness, Pedal Edema Plan - Assessment of Findings&Treatment Plan O: VS at PROFESSOR OF GENETICS time: BP: 164/70, HR: 73/min, RR: 19/min, O2 sat: 93 % via NC at 2 LPM 81 y/o F with Severe aortic stenosis with transient altered mental status. Most likely 2/2 decreased cerebral blood flow during PT 2/2 severe aortic stenosis. Oxygen via NC @ 2 LPM accucheck was 144 mg/dl Symptoms resolved when changing from sitting to lying position At the end of [employer]ESSOR OF GENETICS patient was alert, awake and oriented x 3, responsive to questions in full sentences. No other intervention at this time c/w current medical management and f/u.
--- NOTE | 2016-12-29 19:37 | PCM.RRT ---
<Christopher Bryant - Last Filed: 12/29/16 19:48> EMB[employer]DED SYSTEMS SOFTWARE DEVELOPER Nurse Assessment - Situation EMB[employer]DED SYSTEMS SOFTWARE DEVELOPER Responder Arrival Time: 10:54 Location: 8 bed 2 [employer] SOFTWARE DEVELOPER Reason for Call: Change in Mental Status EMB[employer]ED SYSTEMS SOFTWARE DEVELOPER Called By: Other Disciplines (Physical therapist) - Respiratory Oxygen Delivery Method: Nasal Cannula CPR started during EMBEDDED SYSTEMS SOFTWARE DEVELOPER?: No - Respiratory Oxygen Delivery Method: Nasal Cannula @L/min (2) Plan - Assessment of Findings&Treatment Plan EMBEDDED SYSTEMS SOFTWARE DEVELOPER: 19:23 lOCATION: 8-2 EMBEDDED SYSTEMS SOFTWARE DEVELOPER VITALS 128/70 hr: 84 t: 98.8 95% RA; rr 14; S: EMBEDDED SYSTEMS SOFTWARE DEVELOPER called by RN b/c pt was unresponsive. On arrival to bedside, pt was noted to be alert, alert and oriented x3; Pt reports that right after using the bedpan , she felt lightheaded "I couldn't breathe" for a few seconds. She then regained consciousness; At beside she was able to answer questions stating her name, location, date of . She denies loss of consiousness; This AM with Physical Therapy, EMBEDDED SYSTEMS SOFTWARE DEVELOPER was called for loss of consciousness. O: PE: AAOx3 Cardiac: Systolic Aortic murmur Pulm: Bibasilar crackles Abdominal: Bowel sounds present EMBEDDED SYSTEMS SOFTWARE DEVELOPER intervention: transfer to telemetry A: 81 yo f history of Aortic Stenosis, CAD, Peripheral Vascular Disease; with symptomatic bradycardia; P: Transfer to Telemetry. EMBEDDED SYSTEMS SOFTWARE DEVELOPER end time 19:30 dramatic critic end vitals 160/70 HR: 58 EMBEDDED SYSTEMS SOFTWARE DEVELOPER: Dr. Jack, Dr. Bryant, Dr. Reyes, <Mingo Jack - Last Filed: 12/30/16 19:44> EMB[employer] SOFTWARE DEVELOPER Nurse Assessment - Vital Signs Vital Signs: Rapid Response Vital Sign Blood Pressure 160/70 Pulse Rate 65 Respiratory Rate 19 Temperature 98 F Oxygen Saturation 94 - Vital Signs at end of EMBEDDED SYSTEMS SOFTWARE DEVELOPER Vital Signs at end of EMB[employer]DED SYSTEMS SOFTWARE DEVELOPER: Rapid Response End Vital Sign Blood Pressure 160/70 Pulse Rate 65 Respiratory Rate 19 Temperature 98 F O2 Sat by Pulse Oximetry 94 Attending/Attestation - Attestation I have personally seen and examined this patient.: Yes I have fully participated in the care of the patient.: Yes I have reviewed all pertinent clinical information, including history, physical exam and plan: Yes Notes (Text): 12/30/16 19:36 I saw and examined the patient with Dr Bryant, The assessment and plan above represent my direct input. This patient with a brief syncopal episode getting off the bedpan and found to have severe bradycardia initially, could have suffered a vasovagal syncope which resolved immediately. I&P #. Vasovagal Syncopy in patient who suffered this episode earlier resulting in a Symptomatic Bradycardia. - Transfer to telemetry for cardiac monitoring.
[2016-12-29] MEDS ORDERED: Ergocalciferol 50,000 Intl Units Cap PO SCH (22:00)
[2016-12-29] MEDS: Docusate-Senna 50 mg-8.6 mg Tab PO SCH (22:03)
--- NOTE | 2016-12-29 22:27 | CP.PCM.PN ---
Subjective - Date & Time of Evaluation Date of Evaluation: 12/29/16 Time of Evaluation: 16:00 - Subjective Subjective: episode of near syncope and fall today very apprehensive about her heart condition PO intake gradually improving Objective - Vital Signs/Intake and Output Vital Signs (last 24 hours): Temp Pulse Resp BP Pulse Ox 98.2 F 65 19 160/70 H 94 L 12/29/16 17:00 12/29/16 19:30 12/29/16 19:30 12/29/16 19:30 12/29/16 19:30 - Medications Medications: Current Medications Acetaminophen (Tylenol 325mg Tab) 650 mg PO Q6 PRN PRN Reason: Pain, Mild (1-3) Alprazolam (Xanax) 0.5 mg PO Q8 PRN PRN Reason: Anxiety Last Admin: 12/29/16 22:09 Dose: 0.5 mg Aspirin (Ecotrin) 81 mg PO DAILY [facility] Atorvastatin Calcium (Lipitor) 20 mg PO HS [facility] Last Admin: 12/29/16 22:03 Dose: 20 mg Benzocaine/Menthol (Cepacol Sore Throat) 1 fermin PO Q2 PRN PRN Reason: Sore Throat Last Admin: 12/29/16 22:11 Dose: 1 fermin Calcium Carbonate (Oscal) 500 mg PO BIDWM [facility] Ergocalciferol (Drisdol 50,000 Intl Units Cap) 1 cap PO Q7D [facility] Last Admin: 12/29/16 22:02 Dose: 1 cap Famotidine (Pepcid) 20 mg PO DAILY [facility] Heparin Sodium (Porcine) (Heparin) 5,000 units SC Q12 [facility] PRN Reason: Protocol Lactulose (Enulose) 20 gm PO DAILY PRN PRN Reason: Constipation Lidocaine (Lidoderm) 1 ea TD DAILY [facility] Senna/Docusate Sodium (Senokot S 50 Mg-8.6 Mg) 2 tab PO HS [facility] Last Admin: 12/29/16 22:03 Dose: 2 tab - Labs Labs: 12/25/16 07:50 12/25/16 06:30 APTT 56.8 Seconds (25.6-37.1) H 12/25/16 08:15 - Constitutional Appears: Well - Head Exam Head Exam: ATRAUMATIC, NORMAL INSPECTION, NORMOCEPHALIC - Eye Exam Eye Exam: EOMI, Normal appearance, PERRL Pupil Exam: NORMAL ACCOMODATION, PERRL - ENT Exam ENT Exam: Mucous Membranes Moist, Normal Exam - Neck Exam Neck Exam: Full ROM, Normal Inspection. absent: Lymphadenopathy - Respiratory Exam Respiratory Exam: Clear to Ausculation Bilateral, NORMAL BREATHING PATTERN - Cardiovascular Exam Cardiovascular Exam: REGULAR RHYTHM, +S1, +S2, Murmur - GI/Abdominal Exam GI & Abdominal Exam: Soft, Normal Bowel Sounds. absent: Tenderness - Extremities Exam Extremities Exam: Full ROM, Normal Capillary Refill, Normal Inspection. absent : Joint Swelling, Pedal Edema - Neurological Exam Neurological Exam: Alert, Awake, CN II-XII Intact, Oriented x3 - Psychiatric Exam Psychiatric exam: Normal Affect, Normal Mood - Skin Skin Exam: Dry, Intact, Normal Color, Warm Assessment and Plan (1) Aortic stenosis Assessment & Plan: episode of near sycope today ? preload dependency with increased gradient across AV strict I/O rehab placement in am Status: Acute (2) Aortic arch atherosclerosis Assessment & Plan: asa, statins Status: Acute (3) Fall at home Assessment & Plan: fall precautions Status: Acute (4) PVD (peripheral vascular disease) Status: Acute (5) Recurrent falls Status: Acute (6) AAA (abdominal aortic aneurysm) Status: Chronic (7) Severe muscle deconditioning Status: Chronic (8) Dysphagia Status: Resolved
[2016-12-30] MEDS: Lidocaine 5% Patch TD SCH (09:46)
--- NOTE | 2016-12-30 12:14 | CP.PCM.PN ---
Subjective - Date & Time of Evaluation Date of Evaluation: 12/30/16 Time of Evaluation: 07:25 - Subjective Subjective: 81 y/o F examined at bedside. Pt reports feeling OK, eating well, tolerating PO modified/finely chopped diet. 2 car whacker were called in the past 24 hours due to syncopal episodes. Pt became dizzy and unresponsive for a few seconds after precipitous standing. Pt denies fever, headache, CP, SOB, abdominal pain or urinary complaints. Objective - Vital Signs/Intake and Output Vital Signs (last 24 hours): Temp Pulse Resp BP Pulse Ox 97.0 F L 78 18 99/58 L 97 12/30/16 08:25 12/30/16 08:25 12/30/16 08:25 12/30/16 08:25 12/30/16 08:25 - Medications Medications: Current Medications Acetaminophen (Tylenol 325mg Tab) 650 mg PO Q6 PRN PRN Reason: Pain, Mild (1-3) Alprazolam (Xanax) 0.5 mg PO Q8 PRN PRN Reason: Anxiety Last Admin: 12/29/16 22:09 Dose: 0.5 mg Aspirin (Ecotrin) 81 mg PO DAILY [facility] Last Admin: 12/30/16 09:44 Dose: 81 mg Atorvastatin Calcium (Lipitor) 20 mg PO HS [facility] Last Admin: 12/29/16 22:03 Dose: 20 mg Benzocaine/Menthol (Cepacol Sore Throat) 1 fermin PO Q2 PRN PRN Reason: Sore Throat Last Admin: 12/29/16 22:11 Dose: 1 fermin Calcium Carbonate (Oscal) 500 mg PO BIDWM [facility] Last Admin: 12/30/16 09:47 Dose: 500 mg Ergocalciferol (Drisdol 50,000 Intl Units Cap) 1 cap PO Q7D [facility] Last Admin: 12/29/16 22:02 Dose: 1 cap Famotidine (Pepcid) 20 mg PO DAILY [facility] Last Admin: 12/30/16 09:47 Dose: 20 mg Heparin Sodium (Porcine) (Heparin) 5,000 units SC Q12 [facility] PRN Reason: Protocol Last Admin: 12/30/16 09:45 Dose: 5,000 units Lactulose (Enulose) 20 gm PO DAILY PRN PRN Reason: Constipation Lidocaine (Lidoderm) 1 ea TD DAILY [facility] Last Admin: 12/30/16 09:46 Dose: Not Given Senna/Docusate Sodium (Senokot S 50 Mg-8.6 Mg) 2 tab PO HS [facility] Last Admin: 12/29/16 22:03 Dose: 2 tab - Labs Labs: 12/25/16 07:50 12/25/16 06:30 APTT 56.8 Seconds (25.6-37.1) H 12/25/16 08:15 - Constitutional Appears: Well, Non-toxic, No Acute Distress - Head Exam Head Exam: ATRAUMATIC, NORMAL INSPECTION, NORMOCEPHALIC - Eye Exam Eye Exam: EOMI - ENT Exam ENT Exam: Mucous Membranes Moist - Neck Exam Neck Exam: Full ROM - Respiratory Exam Respiratory Exam: Clear to Ausculation Bilateral, NORMAL BREATHING PATTERN - Cardiovascular Exam Cardiovascular Exam: REGULAR RHYTHM, +S1, +S2, Murmur - GI/Abdominal Exam GI & Abdominal Exam: Soft, Normal Bowel Sounds. absent: Rigid, Tenderness Assessment and Plan - Assessment and Plan (Free Text) Plan: 81 yo F with a PMHx of DM2, Severe Aortic Stenosis, and lumbar compression fracture is admitted for evaluation and management of chronic dysphagia and aortic stenosis. Plan: 1. 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 - Intake and Output ordered - Not candidate for AVR (2' to aortic ulcer and AAA) - Cardiology on board. - c/w #ASA 81mg PO #Atorvastatin 20mg PO Qpm - Pt awaiting to be transferred to sub-acute rehabilitation facility ([facility]) 2. Dysphagia - Pt is tolerating well her modified diet: finely chopped, small, thin diet. - Pt has declined PEG placement. - Barium contrast esophagram (Nov 28): abnormal motility of lower esophagus with slow peristalsis and segmental tertiary contractions - Aspiration precautions in place - Keep head of bead elevated a 30 degrees; above 90 degrees for meals including 60 minutes after - Famotidine 20 mg PO - Pantoprazole 40 mg PO. - GI and cardio on board. - f/u pt's symptoms. 3. Chronic constipation - Docusate/Senokot 2 tabs PO HS - Lactulose 20 gr PO daily. - f/u BM. 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 Lumbar Compression Fracture - Physical Therapy - Pain control Tylenol 650 Mild Pain Lidocaine 5% Severe Pain Avoid opiates due to chronic constipation 6. DVT Prophlyaxis -SCD. -Heparin 5,000 units SC Q12H
--- NOTE | 2016-12-30 20:08 | CP.PCM.PN ---
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 in last 24 hours dc held 2' to above Objective - Vital Signs/Intake and Output Vital Signs (last 24 hours): Temp Pulse Resp BP Pulse Ox 97.6 F 86 18 124/73 99 12/30/16 15:40 12/30/16 15:40 12/30/16 15:40 12/30/16 15:40 12/30/16 15:40 Intake and Output: 12/30/16 12/31/16 18:59 06:59 Intake Total 625 Balance 625 - Medications Medications: Current Medications Acetaminophen (Tylenol 325mg Tab) 650 mg PO Q6 PRN PRN Reason: Pain, Mild (1-3) Alprazolam (Xanax) 0.5 mg PO Q8 PRN PRN Reason: Anxiety Last Admin: 12/29/16 22:09 Dose: 0.5 mg Aspirin (Ecotrin) 81 mg PO DAILY [facility] Last Admin: 12/30/16 09:44 Dose: 81 mg Atorvastatin Calcium (Lipitor) 20 mg PO HS [facility] Last Admin: 12/29/16 22:03 Dose: 20 mg Benzocaine/Menthol (Cepacol Sore Throat) 1 fermin PO Q2 PRN PRN Reason: Sore Throat Last Admin: 12/29/16 22:11 Dose: 1 fermin Calcium Carbonate (Oscal) 500 mg PO BIDWM [facility] Last Admin: 12/30/16 16:33 Dose: 500 mg Ergocalciferol (Drisdol 50,000 Intl Units Cap) 1 cap PO Q7D [facility] Last Admin: 12/29/16 22:02 Dose: 1 cap Famotidine (Pepcid) 20 mg PO DAILY [facility] Last Admin: 12/30/16 09:47 Dose: 20 mg Heparin Sodium (Porcine) (Heparin) 5,000 units SC Q12 [facility] PRN Reason: Protocol Last Admin: 12/30/16 09:45 Dose: 5,000 units Lactulose (Enulose) 20 gm PO DAILY PRN PRN Reason: Constipation Lidocaine (Lidoderm) 1 ea TD DAILY [facility] Last Admin: 12/30/16 09:46 Dose: Not Given Senna/Docusate Sodium (Senokot S 50 Mg-8.6 Mg) 2 tab PO HS [facility] Last Admin: 12/29/16 22:03 Dose: 2 tab - Labs Labs: 12/25/16 07:50 12/25/16 06:30 APTT 56.8 Seconds (25.6-37.1) H 12/25/16 08:15 - Constitutional Appears: Well - Head Exam Head Exam: ATRAUMATIC, NORMAL INSPECTION, NORMOCEPHALIC - Eye Exam Eye Exam: EOMI, Normal appearance, PERRL Pupil Exam: NORMAL ACCOMODATION, PERRL - ENT Exam ENT Exam: Mucous Membranes Moist, Normal Exam - Neck Exam Neck Exam: Full ROM, Normal Inspection. absent: Lymphadenopathy - Respiratory Exam Respiratory Exam: Clear to Ausculation Bilateral, NORMAL BREATHING PATTERN - Cardiovascular Exam Cardiovascular Exam: REGULAR RHYTHM, +S1, +S2, Murmur - GI/Abdominal Exam GI & Abdominal Exam: Soft, Normal Bowel Sounds. absent: Tenderness - Extremities Exam Extremities Exam: Full ROM, Normal Capillary Refill, Normal Inspection. absent : Joint Swelling, Pedal Edema - Neurological Exam Neurological Exam: Alert, Awake, CN II-XII Intact, Oriented x3 - Psychiatric Exam Psychiatric exam: Normal Affect, Normal Mood - Skin Skin Exam: Dry, Intact, Normal Color, Warm Assessment and Plan (1) Aortic stenosis Assessment & Plan: Low grade low flow aortic stenosis with severe physiology manifesting as recurrent syncope monitor HD tele TAVR refused by NBI - Dr.Mark Reeves Status: Acute (2) Aortic arch atherosclerosis Assessment & Plan: on ASA and statins Status: Acute (3) Fall at home Status: Acute (4) PVD (peripheral vascular disease) Status: Acute (5) Recurrent falls Status: Acute (6) AAA (abdominal aortic aneurysm) Status: Chronic (7) Severe muscle deconditioning Status: Chronic (8) Dysphagia Status: Resolved
[2016-12-30] MEDS: Docusate-Senna 50 mg-8.6 mg Tab PO SCH (21:37)
[2016-12-30] MEDS: Benzocaine/Menthol (Cepacol) Lozenge PO PRN (21:44)
[2016-12-31] MEDS: Lidocaine 5% Patch TD SCH (08:16)
--- NOTE | 2016-12-31 14:33 | CP.PCM.PN ---
Subjective - Date & Time of Evaluation Date of Evaluation: 12/31/16 Time of Evaluation: 14:29 - Subjective Subjective: no overnight events. tolerating PO, soft diet/mechanical. Denies SOB, chest pain. No further episodes of lightheadedness.. Objective - Vital Signs/Intake and Output Vital Signs (last 24 hours): Temp Pulse Resp BP Pulse Ox 97.7 F 83 20 105/56 L 95 12/31/16 11:50 12/31/16 11:50 12/31/16 11:50 12/31/16 11:50 12/31/16 11:50 - Medications Medications: Current Medications Acetaminophen (Tylenol 325mg Tab) 650 mg PO Q6 PRN PRN Reason: Pain, Mild (1-3) Alprazolam (Xanax) 0.5 mg PO Q8 PRN PRN Reason: Anxiety Last Admin: 12/29/16 22:09 Dose: 0.5 mg Aspirin (Ecotrin) 81 mg PO DAILY [facility] Last Admin: 12/31/16 08:15 Dose: 81 mg Atorvastatin Calcium (Lipitor) 20 mg PO HS [facility] Last Admin: 12/30/16 21:38 Dose: 20 mg Benzocaine/Menthol (Cepacol Sore Throat) 1 fermin PO Q2 PRN PRN Reason: Sore Throat Last Admin: 12/30/16 21:44 Dose: 1 fermin Calcium Carbonate (Oscal) 500 mg PO BIDWM [facility] Last Admin: 12/31/16 08:16 Dose: 500 mg Ergocalciferol (Drisdol 50,000 Intl Units Cap) 1 cap PO Q7D [facility] Last Admin: 12/29/16 22:02 Dose: 1 cap Famotidine (Pepcid) 20 mg PO DAILY [facility] Last Admin: 12/31/16 08:16 Dose: 20 mg Heparin Sodium (Porcine) (Heparin) 5,000 units SC Q12 [facility] PRN Reason: Protocol Last Admin: 12/31/16 08:15 Dose: 5,000 units Lactulose (Enulose) 20 gm PO DAILY PRN PRN Reason: Constipation Lidocaine (Lidoderm) 1 ea TD DAILY [facility] Last Admin: 12/31/16 08:16 Dose: Not Given Senna/Docusate Sodium (Senokot S 50 Mg-8.6 Mg) 2 tab PO HS [facility] Last Admin: 12/30/16 21:37 Dose: 2 tab - Labs Labs: 12/25/16 07:50 12/25/16 06:30 APTT 56.8 Seconds (25.6-37.1) H 12/25/16 08:15 - Constitutional Appears: Well, No Acute Distress - Head Exam Head Exam: ATRAUMATIC, NORMAL INSPECTION - Eye Exam Eye Exam: Normal appearance - ENT Exam ENT Exam: Mucous Membranes Moist - Neck Exam Neck Exam: Full ROM, Normal Inspection. absent: Meningismus - Respiratory Exam Respiratory Exam: Clear to Ausculation Bilateral, NORMAL BREATHING PATTERN - Cardiovascular Exam Cardiovascular Exam: REGULAR RHYTHM. absent: Murmur - Extremities Exam Extremities Exam: Normal Inspection. absent: Calf Tenderness, Pedal Edema - Back Exam Back Exam: NORMAL INSPECTION - Neurological Exam Neurological Exam: Alert, Oriented x3 - Skin Skin Exam: Dry, Warm Assessment and Plan - Assessment and Plan (Free Text) Assessment: 81yo F with a PMHx of DM2, Severe Aortic Stenosis, and lumbar compression fracture is admitted for dysphagia and aortic stenosis. Plan: monitor pt till Monday for further episodes of syncope 2/2 , otherwise if no further episodes, d/c Mon per cardio to [facility] 1. Symptomatic Severe Aortic Stenosis - Not candidate for AVR (2' to aortic ulcer and AAA) - Cardiology on board. rec to follow pt over the weekend for possible decompenstaion - orthostatics negative - c/w #ASA 81mg PO #Atorvastatin 20mg PO Qpm 2. Dysphagia - Pt is tolerating well her modified diet: finely chopped, small, thin diet. - Pt has declined PEG placement. - Barium contrast esophagram (Nov 28): abnormal motility of lower esophagus with slow peristalsis and segmental tertiary contractions - Aspiration precautions in place - Keep head of bead elevated a 30 degrees; above 90 degrees for meals including 60 minutes after - Famotidine 20 mg PO - Pantoprazole 40 mg PO. - GI and cardio on board. 3. Chronic constipation - Docusate/Senokot 2 tabs PO HS - Lactulose 20 gr PO daily 4.NIDDM (Non Insulin Dependent DM) Type II - Diet controlled 5. Lumbar Compression Fracture - Physical Therapy - Pain control Tylenol 650 Mild Pain Lidocaine 5% Severe Pain Avoid opiates due to chronic constipation 6. DVT Prophlyaxis -SCD. -Heparin 5,000 units SC Q12H Dispo -sub-acute rehabilitation facility ([facility])
[2016-12-31] MEDS: Docusate-Senna 50 mg-8.6 mg Tab PO SCH (21:55)
[2017-01-01 06:45] LABS: HEMATOCRIT 29.2 % (34.0-47.0); MEAN CELL VOLUME 84.9 fl (81.0-99.0); MEAN CORPUSCULAR HEMOGLOBIN 27.3 pg (27.0-31.0); MEAN CORPUSCULAR HGB CONC 32.1 g/dL (33.0-37.0); RED CELL DISTRIBUTION WIDTH 17.4 % (11.5-14.5); WHITE BLOOD COUNT 3.1 K/uL (4.8-10.8)
[2017-01-01 06:53] LABS: ALKALINE PHOSPHATASE 115 U/L (38-126); ALT/SGPT 42 U/L (9-52); AST/SGOT 30 U/L (14-36); BILIRUBIN,TOTAL 0.4 mg/dl (0.2-1.3); BLOOD UREA NITROGEN 14 mg/dl (7-17); CARBON DIOXIDE 26 mmol/L (22-30); CHLORIDE 102 mmol/L (98-107); GFR AFRICAN-AMERICAN > 60; GLUCOSE,RANDOM 109 mg/dL (65-105); POTASSIUM 4.3 MMOL/L (3.6-5.0); SODIUM 134 mmol/l (132-148); TOTAL PROTEIN 6.3 G/DL (6.3-8.2)
[2017-01-01 06:59] LABS: ALB/GLOB RATIO 0.9 (1.0-2.1)
[2017-01-01] MEDS: Benzocaine/Menthol (Cepacol) Lozenge PO PRN ×2 (08:54→16:50)
[2017-01-01] MEDS: Lidocaine 5% Patch TD SCH (08:55)
--- NOTE | 2017-01-01 13:05 | CP.PCM.PN ---
Subjective - Date & Time of Evaluation Date of Evaluation: 01/01/17 Time of Evaluation: 13:02 - Subjective Subjective: 81 yo female hx severe seen at bedside. Pt had uneventful night last. Pt is tolerating PO, soft/mechanical diet. Denies any dizziness last night and this morning. Denies dyspnea, chest pain or calf pain. Objective - Vital Signs/Intake and Output Vital Signs (last 24 hours): Temp Pulse Resp BP Pulse Ox 98.1 F 94 H 20 94/52 L 94 L 01/01/17 12:01 01/01/17 12:01 01/01/17 12:01 01/01/17 12:01 01/01/17 12:01 - Medications Medications: Current Medications Acetaminophen (Tylenol 325mg Tab) 650 mg PO Q6 PRN PRN Reason: Pain, Mild (1-3) Alprazolam (Xanax) 0.5 mg PO Q8 PRN PRN Reason: Anxiety Last Admin: 12/29/16 22:09 Dose: 0.5 mg Aspirin (Ecotrin) 81 mg PO DAILY [facility] Last Admin: 01/01/17 08:54 Dose: 81 mg Atorvastatin Calcium (Lipitor) 20 mg PO HS [facility] Last Admin: 12/31/16 21:55 Dose: 20 mg Benzocaine/Menthol (Cepacol Sore Throat) 1 fermin PO Q2 PRN PRN Reason: Sore Throat Last Admin: 01/01/17 08:54 Dose: 1 fermin Calcium Carbonate (Oscal) 500 mg PO BIDWM [facility] Last Admin: 01/01/17 08:55 Dose: 500 mg Ergocalciferol (Drisdol 50,000 Intl Units Cap) 1 cap PO Q7D [facility] Last Admin: 12/29/16 22:02 Dose: 1 cap Famotidine (Pepcid) 20 mg PO DAILY [facility] Last Admin: 01/01/17 08:55 Dose: 20 mg Heparin Sodium (Porcine) (Heparin) 5,000 units SC Q12 [facility] PRN Reason: Protocol Last Admin: 01/01/17 08:54 Dose: 5,000 units Lactulose (Enulose) 20 gm PO DAILY PRN PRN Reason: Constipation Lidocaine (Lidoderm) 1 ea TD DAILY [facility] Last Admin: 01/01/17 08:55 Dose: Not Given Senna/Docusate Sodium (Senokot S 50 Mg-8.6 Mg) 2 tab PO HS [facility] Last Admin: 12/31/16 21:55 Dose: 2 tab - Labs Labs: 01/01/17 06:00 01/01/17 06:00 APTT 56.8 Seconds (25.6-37.1) H 12/25/16 08:15 - Constitutional Appears: Well, Non-toxic, No Acute Distress - Head Exam Head Exam: ATRAUMATIC, NORMAL INSPECTION, NORMOCEPHALIC - Eye Exam Eye Exam: Normal appearance - ENT Exam ENT Exam: Mucous Membranes Moist - Neck Exam Neck Exam: Normal Inspection - Respiratory Exam Respiratory Exam: Clear to Ausculation Bilateral, NORMAL BREATHING PATTERN - Cardiovascular Exam Cardiovascular Exam: REGULAR RHYTHM. absent: Murmur - GI/Abdominal Exam GI & Abdominal Exam: Soft, Normal Bowel Sounds. absent: Tenderness - Extremities Exam Extremities Exam: absent: Calf Tenderness - Neurological Exam Neurological Exam: Alert, Oriented x3 - Additional Findings Additional findings: Was seen on nasal cannula, lying comfortable on bed and doing math. Assessment and Plan - Assessment and Plan (Free Text) Assessment: 81 yo F with PMH Severe Aortic Stenosis, DMII, and lumbar compression fracture is admitted for dysphagia and aortic stenosis. 1. Symptomatic Severe Aortic Stenosis - Not candidate for AVR (2' to aortic ulcer and AAA) - Cardiology on board. rec to follow pt over the weekend for possible decompenstaion - orthostatics negative - Continue with ASA 81mg PO Atorvastatin 20mg PO Qpm 2. Dysphagia - Pt is tolerating well her modified diet: finely chopped, small, thin diet. - Pt has declined PEG placement. - Barium contrast esophagram (Nov 28): abnormal motility of lower esophagus with slow peristalsis and segmental tertiary contractions - Aspiration precautions in place - Keep head of bead elevated a 30 degrees; above 90 degrees for meals including 60 minutes after - Continue with Famotidine 20 mg PO - Continue with Pantoprazole 40 mg PO. - GI and cardio on board. 3. Chronic constipation - Continue with Docusate/Senokot 2 tabs PO HS - Continue with Lactulose 20 gr PO daily 4.NIDDM (Non Insulin Dependent DM) Type II - Diet controlled 5. Lumbar Compression Fracture - Physical Therapy - Pain control Tylenol 650 Mild Pain PRN Lidocaine 5% Severe Pain PRN Avoid opiates due to chronic constipation 6. DVT Prophlyaxis -SCD. -Continue with Heparin 5,000 units SC Q12H Dispo -sub-acute rehabilitation facility ([facility]) tomorrow if no new episode Plan: Pt is to discharge on Monday as per Coding Quality Coordinator recommendation if there is no syncopal episode.
[2017-01-01] MEDS: Docusate-Senna 50 mg-8.6 mg Tab PO SCH (21:46)
[2017-01-02 06:01] LABS: HEMATOCRIT 29.4 % (34.0-47.0); MEAN CELL VOLUME 85.6 fl (81.0-99.0); MEAN CORPUSCULAR HEMOGLOBIN 27.6 pg (27.0-31.0); MEAN CORPUSCULAR HGB CONC 32.2 g/dL (33.0-37.0); RED CELL DISTRIBUTION WIDTH 17.5 % (11.5-14.5); WHITE BLOOD COUNT 3.2 K/uL (4.8-10.8)
[2017-01-02 06:23] LABS: BLOOD UREA NITROGEN 13 mg/dl (7-17); CALCIUM 8.9 mg/dL (8.4-10.2); CARBON DIOXIDE 27 mmol/L (22-30); CHLORIDE 102 mmol/L (98-107); GFR AFRICAN-AMERICAN > 60; GLUCOSE,RANDOM 106 mg/dL (65-105); POTASSIUM 4.3 MMOL/L (3.6-5.0); SODIUM 136 mmol/l (132-148)
[2017-01-02] MEDS: Benzocaine/Menthol (Cepacol) Lozenge PO PRN ×2 (08:55→20:41)
[2017-01-02] MEDS: Lidocaine 5% Patch TD SCH ×2 (08:56→09:03)
--- NOTE | 2017-01-02 12:32 | CP.PCM.PN ---
Subjective - Date & Time of Evaluation Date of Evaluation: 01/02/17 Time of Evaluation: 12:30 - Subjective Subjective: Had 2 syncopal episodes on monday stable over the weekend feeling fine little apprehensive about dc Objective - Vital Signs/Intake and Output Vital Signs (last 24 hours): Temp Pulse Resp BP Pulse Ox 97.6 F 82 22 105/65 95 01/02/17 12:19 01/02/17 12:19 01/02/17 12:19 01/02/17 12:19 01/02/17 12:19 - Medications Medications: Current Medications Acetaminophen (Tylenol 325mg Tab) 650 mg PO Q6 PRN PRN Reason: Pain, Mild (1-3) Alprazolam (Xanax) 0.5 mg PO Q8 PRN PRN Reason: Anxiety Last Admin: 12/29/16 22:09 Dose: 0.5 mg Aspirin (Ecotrin) 81 mg PO DAILY [facility] Last Admin: 01/02/17 08:56 Dose: 81 mg Atorvastatin Calcium (Lipitor) 20 mg PO HS [facility] Last Admin: 01/01/17 21:46 Dose: 20 mg Benzocaine/Menthol (Cepacol Sore Throat) 1 fermin PO Q2 PRN PRN Reason: Sore Throat Last Admin: 01/02/17 08:55 Dose: 1 fermin Calcium Carbonate (Oscal) 500 mg PO BIDWM [facility] Last Admin: 01/02/17 08:55 Dose: 500 mg Ergocalciferol (Drisdol 50,000 Intl Units Cap) 1 cap PO Q7D [facility] Last Admin: 12/29/16 22:02 Dose: 1 cap Famotidine (Pepcid) 20 mg PO DAILY [facility] Last Admin: 01/02/17 08:55 Dose: 20 mg Heparin Sodium (Porcine) (Heparin) 5,000 units SC Q12 [facility] PRN Reason: Protocol Last Admin: 01/02/17 08:55 Dose: 5,000 units Lactulose (Enulose) 20 gm PO DAILY PRN PRN Reason: Constipation Lidocaine (Lidoderm) 1 ea TD DAILY [facility] Last Admin: 01/02/17 09:03 Dose: Not Given Senna/Docusate Sodium (Senokot S 50 Mg-8.6 Mg) 2 tab PO HS [facility] Last Admin: 01/01/17 21:46 Dose: 2 tab - Labs Labs: 01/02/17 05:00 01/02/17 05:00 APTT 56.8 Seconds (25.6-37.1) H 12/25/16 08:15 - Constitutional Appears: Well - Head Exam Head Exam: ATRAUMATIC, NORMAL INSPECTION, NORMOCEPHALIC - Eye Exam Eye Exam: EOMI, Normal appearance, PERRL Pupil Exam: NORMAL ACCOMODATION, PERRL - ENT Exam ENT Exam: Mucous Membranes Moist, Normal Exam - Neck Exam Neck Exam: Full ROM, Normal Inspection. absent: Lymphadenopathy - Respiratory Exam Respiratory Exam: Clear to Ausculation Bilateral, NORMAL BREATHING PATTERN - Cardiovascular Exam Cardiovascular Exam: REGULAR RHYTHM, +S1, +S2, Murmur - GI/Abdominal Exam GI & Abdominal Exam: Soft, Normal Bowel Sounds. absent: Tenderness - Extremities Exam Extremities Exam: Full ROM, Normal Capillary Refill, Normal Inspection. absent : Joint Swelling, Pedal Edema - Back Exam Back Exam: NORMAL INSPECTION - Neurological Exam Neurological Exam: Alert, Awake, CN II-XII Intact, Oriented x3 - Psychiatric Exam Psychiatric exam: Normal Affect, Normal Mood - Skin Skin Exam: Dry, Intact, Normal Color, Warm Assessment and Plan (1) Aortic stenosis Assessment & Plan: recurrent syncope due to preload dependency keep hydration status adequate I/O ok to dc to rehab with close monitoring PT parameters ambulation with supervision Status: Acute (2) Aortic arch atherosclerosis Assessment & Plan: cont with asa, statins Status: Acute (3) Fall at home Status: Acute (4) PVD (peripheral vascular disease) Status: Acute (5) Recurrent falls Status: Acute (6) AAA (abdominal aortic aneurysm) Status: Chronic (7) Severe muscle deconditioning Status: Chronic (8) Dysphagia Status: Resolved
--- NOTE | 2017-01-02 12:46 | CP.PCM.PN ---
Subjective - Date & Time of Evaluation Date of Evaluation: 01/02/17 Time of Evaluation: 07:25 - Subjective Subjective: 81 yo female hx severe aortic stenosis seen at bedside this morning. NO overnight event. Pt is tolerating PO, soft/mechanical diet. Denies any dizziness last night and this morning. Denies dyspnea, chest pain or calf pain. Objective - Vital Signs/Intake and Output Vital Signs (last 24 hours): Temp Pulse Resp BP Pulse Ox 97.6 F 82 22 105/65 95 01/02/17 12:19 01/02/17 12:19 01/02/17 12:19 01/02/17 12:19 01/02/17 12:19 - Medications Medications: Current Medications Acetaminophen (Tylenol 325mg Tab) 650 mg PO Q6 PRN PRN Reason: Pain, Mild (1-3) Alprazolam (Xanax) 0.5 mg PO Q8 PRN PRN Reason: Anxiety Last Admin: 12/29/16 22:09 Dose: 0.5 mg Aspirin (Ecotrin) 81 mg PO DAILY [facility] Last Admin: 01/02/17 08:56 Dose: 81 mg Atorvastatin Calcium (Lipitor) 20 mg PO HS [facility] Last Admin: 01/01/17 21:46 Dose: 20 mg Benzocaine/Menthol (Cepacol Sore Throat) 1 fermin PO Q2 PRN PRN Reason: Sore Throat Last Admin: 01/02/17 08:55 Dose: 1 fermin Calcium Carbonate (Oscal) 500 mg PO BIDWM [facility] Last Admin: 01/02/17 08:55 Dose: 500 mg Ergocalciferol (Drisdol 50,000 Intl Units Cap) 1 cap PO Q7D [facility] Last Admin: 12/29/16 22:02 Dose: 1 cap Famotidine (Pepcid) 20 mg PO DAILY [facility] Last Admin: 01/02/17 08:55 Dose: 20 mg Heparin Sodium (Porcine) (Heparin) 5,000 units SC Q12 [facility] PRN Reason: Protocol Last Admin: 01/02/17 08:55 Dose: 5,000 units Lactulose (Enulose) 20 gm PO DAILY PRN PRN Reason: Constipation Lidocaine (Lidoderm) 1 ea TD DAILY [facility] Last Admin: 01/02/17 09:03 Dose: Not Given Senna/Docusate Sodium (Senokot S 50 Mg-8.6 Mg) 2 tab PO HS [facility] Last Admin: 01/01/17 21:46 Dose: 2 tab - Labs Labs: 01/02/17 05:00 01/02/17 05:00 APTT 56.8 Seconds (25.6-37.1) H 12/25/16 08:15 - Constitutional Appears: Well, No Acute Distress - Head Exam Head Exam: ATRAUMATIC, NORMAL INSPECTION, NORMOCEPHALIC - Eye Exam Eye Exam: Normal appearance - ENT Exam ENT Exam: Mucous Membranes Moist, Normal Exam - Neck Exam Neck Exam: Normal Inspection - Respiratory Exam Respiratory Exam: Clear to Ausculation Bilateral, NORMAL BREATHING PATTERN. absent: Rhonchi, Wheezes - Cardiovascular Exam Cardiovascular Exam: REGULAR RHYTHM - GI/Abdominal Exam GI & Abdominal Exam: Soft, Normal Bowel Sounds - Extremities Exam Extremities Exam: Normal Capillary Refill, Normal Inspection - Neurological Exam Neurological Exam: Alert, Oriented x3 - Psychiatric Exam Psychiatric exam: Normal Affect, Normal Mood Assessment and Plan - Assessment and Plan (Free Text) Assessment: Assessment and Plan: 81 yo F with PMH Severe Aortic Stenosis, DMII, and lumbar compression fracture is admitted for dysphagia and aortic stenosis. 1. Symptomatic Severe Aortic Stenosis - Not candidate for AVR (2' to aortic ulcer and AAA) -As per dairy farm manager, pt is safe to discharge to sub acute rehab with close monitoring. -PT recommendation per cardio as requested by PT. - Continue with ASA 81mg PO Atorvastatin 20mg PO Qpm 2. Dysphagia - Pt is tolerating well her modified diet: finely chopped, small, thin diet. - Pt has declined PEG placement. - Barium contrast esophagram (Nov 28): abnormal motility of lower esophagus with slow peristalsis and segmental tertiary contractions - Aspiration precautions in place - Keep head of bead elevated a 30 degrees; above 90 degrees for meals including 60 minutes after - Continue with Famotidine 20 mg PO - Continue with Pantoprazole 40 mg PO. - GI and cardio on board. 3. Chronic constipation - Continue with Docusate/Senokot 2 tabs PO HS - Continue with Lactulose 20 gr PO daily 4.NIDDM (Non Insulin Dependent DM) Type II - Diet controlled 5. Lumbar Compression Fracture - Physical Therapy - Pain control Tylenol 650 Mild Pain PRN Lidocaine 5% Severe Pain PRN Avoid opiates due to chronic constipation 6. DVT Prophlyaxis -SCD. -Continue with Heparin 5,000 units SC Q12H Disposition: -Primary team discussing with family for possible d/c to home vs. sub-acute rehab.
[2017-01-02] MEDS: Docusate-Senna 50 mg-8.6 mg Tab PO SCH (21:57)
[2017-01-03 06:02] LABS: HEMATOCRIT 29.8 % (34.0-47.0); MEAN CELL VOLUME 85.9 fl (81.0-99.0); MEAN CORPUSCULAR HEMOGLOBIN 27.5 pg (27.0-31.0); RED CELL DISTRIBUTION WIDTH 17.7 % (11.5-14.5); WHITE BLOOD COUNT 2.8 K/uL (4.8-10.8)
[2017-01-03 06:23] LABS: BLOOD UREA NITROGEN 17 mg/dl (7-17); CARBON DIOXIDE 29 mmol/L (22-30); CHLORIDE 103 mmol/L (98-107); GFR AFRICAN-AMERICAN > 60; GLUCOSE,RANDOM 115 mg/dL (65-105); POTASSIUM 4.4 MMOL/L (3.6-5.0); SODIUM 136 mmol/l (132-148)
[2017-01-03] MEDS: Lidocaine 5% Patch TD SCH (08:47)
--- NOTE | 2017-01-03 08:57 | CP.PCM.PN ---
Subjective - Date & Time of Evaluation Date of Evaluation: 01/03/17 Time of Evaluation: 07:50 - Subjective Subjective: 81 yo female hx severe aortic stenosis seen at bedside this morning. As per nurse Ms Harding's note pt had sinus bradycardia on tele for about a min, HR 40' S at 2053 last night. Pt denies any dizziness or fainting episode last night and this morning. Pt is tolerating PO, soft/mechanical diet. Denies dyspnea, chest pain, nausea, vomiting or calf pain. Objective - Vital Signs/Intake and Output Vital Signs (last 24 hours): Temp Pulse Resp BP Pulse Ox 97.5 F L 76 16 124/64 96 01/03/17 08:12 01/03/17 08:12 01/03/17 08:12 01/03/17 08:12 01/03/17 08:12 - Medications Medications: Current Medications Acetaminophen (Tylenol 325mg Tab) 650 mg PO Q6 PRN PRN Reason: Pain, Mild (1-3) Alprazolam (Xanax) 0.5 mg PO Q8 PRN PRN Reason: Anxiety Last Admin: 12/29/16 22:09 Dose: 0.5 mg Aspirin (Ecotrin) 81 mg PO DAILY [facility] Last Admin: 01/03/17 08:46 Dose: 81 mg Atorvastatin Calcium (Lipitor) 20 mg PO HS [facility] Last Admin: 01/02/17 21:57 Dose: 20 mg Benzocaine/Menthol (Cepacol Sore Throat) 1 fermin PO Q2 PRN PRN Reason: Sore Throat Last Admin: 01/02/17 20:41 Dose: 1 fermin Calcium Carbonate (Oscal) 500 mg PO BIDWM [facility] Last Admin: 01/03/17 08:46 Dose: 500 mg Ergocalciferol (Drisdol 50,000 Intl Units Cap) 1 cap PO Q7D [facility] Last Admin: 12/29/16 22:02 Dose: 1 cap Famotidine (Pepcid) 20 mg PO DAILY [facility] Last Admin: 01/03/17 08:46 Dose: 20 mg Heparin Sodium (Porcine) (Heparin) 5,000 units SC Q12 [facility] PRN Reason: Protocol Last Admin: 01/03/17 08:47 Dose: 5,000 units Lactulose (Enulose) 20 gm PO DAILY PRN PRN Reason: Constipation Lidocaine (Lidoderm) 1 ea TD DAILY [facility] Last Admin: 01/03/17 08:47 Dose: Not Given Senna/Docusate Sodium (Senokot S 50 Mg-8.6 Mg) 2 tab PO HS [facility] Last Admin: 01/02/17 21:57 Dose: Not Given - Labs Labs: 01/03/17 05:30 01/03/17 05:30 APTT 56.8 Seconds (25.6-37.1) H 12/25/16 08:15 - Constitutional Appears: Well, Non-toxic, No Acute Distress, Other (Thin appearing) - Head Exam Head Exam: ATRAUMATIC, NORMAL INSPECTION, NORMOCEPHALIC - Eye Exam Eye Exam: Normal appearance - ENT Exam ENT Exam: Mucous Membranes Moist - Neck Exam Neck Exam: Normal Inspection - Respiratory Exam Respiratory Exam: Clear to Ausculation Bilateral, NORMAL BREATHING PATTERN. absent: Rhonchi, Wheezes - Cardiovascular Exam Cardiovascular Exam: REGULAR RHYTHM, +S1, +S2 - GI/Abdominal Exam GI & Abdominal Exam: Soft, Normal Bowel Sounds. absent: Tenderness - Extremities Exam Extremities Exam: Normal Inspection. absent: Calf Tenderness, Pedal Edema - Neurological Exam Neurological Exam: Alert, Oriented x3 - Psychiatric Exam Psychiatric exam: Normal Affect, Normal Mood Assessment and Plan - Assessment and Plan (Free Text) Assessment: Assessment and Plan: 81 yo F with PMH Severe Aortic Stenosis, DMII, and lumbar compression fracture is admitted for dysphagia and aortic stenosis. 1. Symptomatic Severe Aortic Stenosis - Not candidate for AVR (2' to aortic ulcer and AAA) - PT parameters ambulation with supervision as per tree expert. - Continue with ASA 81mg PO Atorvastatin 20mg PO Qpm -Cleared to discharge by cardiology. 2. Dysphagia - Pt is tolerating well her modified diet: finely chopped, small, thin diet. - Pt has declined PEG placement. - Barium contrast esophagram (Nov 28): abnormal motility of lower esophagus with slow peristalsis and segmental tertiary contractions - Aspiration precautions in place - Keep head of bead elevated a 30 degrees; above 90 degrees for meals including 60 minutes after - Continue with Famotidine 20 mg PO - Continue with Pantoprazole 40 mg PO. - GI and cardio on board. 3. Chronic constipation - Continue with Docusate/Senokot 2 tabs PO HS - Continue with Lactulose 20 gr PO daily 4.NIDDM (Non Insulin Dependent DM) Type II - Diet controlled 5. Lumbar Compression Fracture - Physical Therapy - Pain control Tylenol 650 Mild Pain PRN Lidocaine 5% Severe Pain PRN Avoid opiates due to chronic constipation 6. DVT Prophlyaxis -Continue with Heparin 5,000 units SC Q12H Disposition: -Pt will be discharged home today.
--- NOTE | 2017-01-03 12:53 | CP.PCM.DIS ---
Provider - Provider Date of Admission: 12/22/16 21:09 Attending physician: Leydi Lopez MD Primary care physician: Dr. Jenn Dangelo Time Spent in preparation of Discharge (in minutes): 40 Diagnosis - Discharge Diagnosis (1) Aortic stenosis Status: Acute (2) PVD (peripheral vascular disease) Status: Acute (3) Dizziness Status: Chronic (4) Severe muscle deconditioning Status: Chronic (5) Type 2 diabetes mellitus Status: Chronic Hospital Course - Lab Results Lab Results: Most Recent Lab Values WBC 2.8 K/uL (4.8-10.8) L 01/03/17 05:30 RBC 3.46 Mil/uL (3.80-5.20) L 01/03/17 05:30 Hgb 9.5 g/dL (12.0-16.0) L 01/03/17 05:30 Hct 29.8 % (34.0-47.0) L 01/03/17 05:30 MCV 85.9 fl (81.0-99.0) 01/03/17 05:30 MCH 27.5 pg (27.0-31.0) 01/03/17 05:30 MCHC 32.0 g/dL (33.0-37.0) L 01/03/17 05:30 RDW 17.7 % (11.5-14.5) H 01/03/17 05:30 Plt Count 189 K/uL (130-400) 01/03/17 05:30 APTT 56.8 Seconds (25.6-37.1) H 12/25/16 08:15 Sodium 136 mmol/l (132-148) 01/03/17 05:30 Potassium 4.4 MMOL/L (3.6-5.0) 01/03/17 05:30 Chloride 103 mmol/L (98-107) 01/03/17 05:30 Carbon Dioxide 29 mmol/L (22-30) 01/03/17 05:30 Anion Gap 8 (10-20) L 01/03/17 05:30 BUN 17 mg/dl (7-17) 01/03/17 05:30 Creatinine 0.7 mg/dL (0.7-1.2) 01/03/17 05:30 Est GFR ( Amer) > 60 01/03/17 05:30 Est GFR (Non-Af Amer) > 60 01/03/17 05:30 POC Glucose (mg/dL) 231 mg/dL (65-110) H 12/29/16 19:28 Random Glucose 115 mg/dL (65-105) H 01/03/17 05:30 Calcium 9.0 mg/dL (8.4-10.2) 01/03/17 05:30 Total Bilirubin 0.4 mg/dl (0.2-1.3) 01/01/17 06:00 Direct Bilirubin 0.5 mg/ml (0.0-0.4) H 12/23/16 05:45 AST 30 U/L (14-36) 01/01/17 06:00 ALT 42 U/L (9-52) 01/01/17 06:00 Alkaline Phosphatase 115 U/L (38-126) 01/01/17 06:00 Total Protein 6.3 G/DL (6.3-8.2) 01/01/17 06:00 Albumin 2.9 g/dL (3.5-5.0) L 01/01/17 06:00 Globulin 3.4 gm/dL (2.2-3.9) 01/01/17 06:00 Albumin/Globulin Ratio 0.9 (1.0-2.1) L 01/01/17 06:00 - Hospital Course Hospital Course: 81 yo female PMH of DMII on diet controlled, COPD, PVD with chronic healing anterior tibial RLE ulcer, chronic stable abdominal aortic aneurysm, chronic constipation admitted to [facility] on 12/22/16 for severe aortic stenosis after being transferred from [facility]. Initially pt was transferred to [facility] for evaluation of TAVR where it was determined that patient is not an ideal candidate for TAVR. Pt subsequently transferred back to [facility] for ongoing management of dysphagia and aortic stenosis. Pt had two episodes of syncope on 12/29/16 in which STUDENT WORKER was called and stabilized. Pt did not have any episodes of syncope after that. In addition, GI was consulted on 12/27/16 for dysphagia and G-tube was recommended but pt refused. GI signed off w/ no further intervention. pt's dysphagia has improved and tolerating soft mechanical diet. Respiratory therapist went to evaluate pt for six minutes walk test. On room air lowest pulse ox reading was 72% and w/ 2 L oxygen the highest saturation was 97%. Pt will go home with home oxygen. Had family meeting with pt's daughter/pt's insurance verification representative and her sister w/ Dr. Lopez at 2 pm on 01/03/17 to discuss about pt's disposition at home. Pt is interested and feels safe to go to home. Pt will go home with durable equipments such as commode chair, walker and home oxygen. fire crew worker is involved in the case to arrange those. Would recommend a home visit for this patient. Pt is given home PT prescription for 2-3x/week for physical improvement. Discussed with inpatient team about holding atorvastatin for now due to patient' s guarded prognosis and small body habitus. Will defer to PCP for further management of lipid. - Date & Time of H&P Date of H&P: 01/04/17 Time of H&P: 09:16 Discharge Exam - Head Exam Head Exam: ATRAUMATIC, NORMAL INSPECTION, NORMOCEPHALIC - Eye Exam Eye Exam: EOMI, Normal appearance - ENT Exam ENT Exam: Mucous Membranes Moist - Neck Exam Neck exam: Normal Inspection - Respiratory Exam Respiratory Exam: Clear to PA & Lateral, NORMAL BREATHING PATTERN. absent: Respiratory Distress - Cardiovascular Exam Cardiovascular Exam: REGULAR RHYTHM - GI/Abdominal Exam GI & Abdominal Exam: Normal Bowel Sounds, Unremarkable. absent: Tenderness - Extremities Exam Extremities exam: normal inspection, pedal pulses present - Neurological Exam Neurological exam: Alert, Oriented x3 - Psychiatric Exam Psychiatric exam: Normal Affect, Normal Mood Discharge Plan - Discharge Medications Prescriptions: Acetaminophen [Tylenol 325mg tab] 650 mg PO Q6 PRN #30 tab PRN Reason: Pain, Mild (1-3) Alprazolam 0.5 mg PO Q8 PRN #21 tablet PRN Reason: Anxiety Aspirin [Ecotrin] 81 mg PO DAILY #30 tabec Calcium Carbonate [Oscal] 500 mg PO BIDWM #60 tab Docusate Sodium/Sennosides A [Senokot S 50 MG-8.6 MG] 2 tab PO HS 60 Days tab Ergocalciferol [Drisdol 50,000 Intl Units Cap] 1 cap PO Q7D #4 cap Famotidine [Pepcid] 20 mg PO DAILY #30 tab - Follow Up Plan Condition: STABLE Disposition: HOME/ ROUTINE Patient education suggested?: Yes Instructions: Aortic Stenosis (DC) Additional Instructions: Follow up with a director script in clinic.
--- NOTE | 2017-01-03 20:42 | CP.PCM.PN ---
Subjective - Date & Time of Evaluation Date of Evaluation: 01/03/17 Time of Evaluation: 20:40 - Subjective Subjective: episode of bradycardia noted pt unable to ambulate for 6 min walk test denies any complaints at rest Objective - Vital Signs/Intake and Output Vital Signs (last 24 hours): Temp Pulse Resp BP Pulse Ox 98.5 F 87 16 99/65 L 96 01/03/17 20:04 01/03/17 20:04 01/03/17 20:04 01/03/17 20:04 01/03/17 20:04 - Medications Medications: Current Medications Acetaminophen (Tylenol 325mg Tab) 650 mg PO Q6 PRN PRN Reason: Pain, Mild (1-3) Aspirin (Ecotrin) 81 mg PO DAILY [facility] Last Admin: 01/03/17 08:46 Dose: 81 mg Atorvastatin Calcium (Lipitor) 20 mg PO HS [facility] Last Admin: 01/02/17 21:57 Dose: 20 mg Benzocaine/Menthol (Cepacol Sore Throat) 1 fermin PO Q2 PRN PRN Reason: Sore Throat Last Admin: 01/02/17 20:41 Dose: 1 fermin Calcium Carbonate (Oscal) 500 mg PO BIDWM [facility] Last Admin: 01/03/17 16:59 Dose: 500 mg Ergocalciferol (Drisdol 50,000 Intl Units Cap) 1 cap PO Q7D [facility] Last Admin: 12/29/16 22:02 Dose: 1 cap Famotidine (Pepcid) 20 mg PO DAILY [facility] Last Admin: 01/03/17 08:46 Dose: 20 mg Heparin Sodium (Porcine) (Heparin) 5,000 units SC Q12 [facility] PRN Reason: Protocol Last Admin: 01/03/17 08:47 Dose: 5,000 units Lactulose (Enulose) 20 gm PO DAILY PRN PRN Reason: Constipation Lidocaine (Lidoderm) 1 ea TD DAILY [facility] Last Admin: 01/03/17 08:47 Dose: Not Given Senna/Docusate Sodium (Senokot S 50 Mg-8.6 Mg) 2 tab PO HS [facility] Last Admin: 01/02/17 21:57 Dose: Not Given - Labs Labs: 01/03/17 05:30 01/03/17 05:30 APTT 56.8 Seconds (25.6-37.1) H 12/25/16 08:15 - Constitutional Appears: Well - Head Exam Head Exam: ATRAUMATIC, NORMAL INSPECTION, NORMOCEPHALIC - Eye Exam Eye Exam: EOMI, Normal appearance, PERRL Pupil Exam: NORMAL ACCOMODATION, PERRL - ENT Exam ENT Exam: Mucous Membranes Moist, Normal Exam - Neck Exam Neck Exam: Full ROM, Normal Inspection. absent: Lymphadenopathy - Respiratory Exam Respiratory Exam: Clear to Ausculation Bilateral, NORMAL BREATHING PATTERN - Cardiovascular Exam Cardiovascular Exam: REGULAR RHYTHM, +S1, +S2, Murmur - GI/Abdominal Exam GI & Abdominal Exam: Soft, Normal Bowel Sounds. absent: Tenderness - Extremities Exam Extremities Exam: Full ROM, Normal Capillary Refill, Normal Inspection. absent : Joint Swelling, Pedal Edema - Back Exam Back Exam: NORMAL INSPECTION - Neurological Exam Neurological Exam: Alert, Awake, CN II-XII Intact, Oriented x3 - Psychiatric Exam Psychiatric exam: Normal Affect, Normal Mood - Skin Skin Exam: Dry, Intact, Normal Color, Warm Assessment and Plan (1) Aortic stenosis Assessment & Plan: low flow low gradient severe TAVR refused at [facility] due to aortic arch atheroma and AAA plan for palliative care for now Status: Acute (2) Aortic arch atherosclerosis Assessment & Plan: cont asa and statins Status: Acute (3) Fall at home Assessment & Plan: recurrent episodes x 2 during this hospitalization Status: Acute (4) PVD (peripheral vascular disease) Status: Acute (5) Recurrent falls Status: Acute (6) AAA (abdominal aortic aneurysm) Status: Chronic (7) Severe muscle deconditioning Status: Chronic (8) Dysphagia Status: Resolved
[2017-01-03] MEDS: Docusate-Senna 50 mg-8.6 mg Tab PO SCH (21:31)
[2017-01-04] MEDS: Benzocaine/Menthol (Cepacol) Lozenge PO PRN (08:10)
[2017-01-04 08:11] VITALS: RESP 18
[2017-01-04] MEDS: Lidocaine 5% Patch TD SCH (08:11)
--- NOTE | 2017-01-04 11:22 | CP.PCM.PN ---
Subjective - Date & Time of Evaluation Date of Evaluation: 01/04/17 Time of Evaluation: 11:18 - Subjective Subjective: able to sit in chair with assistance felt dizzy in getting up Objective - Vital Signs/Intake and Output Vital Signs (last 24 hours): Temp Pulse Resp BP Pulse Ox 98.2 F 74 18 142/66 95 01/04/17 08:00 01/04/17 09:00 01/04/17 08:00 01/04/17 08:00 01/04/17 08:00 - Medications Medications: Current Medications Acetaminophen (Tylenol 325mg Tab) 650 mg PO Q6 PRN PRN Reason: Pain, Mild (1-3) Aspirin (Ecotrin) 81 mg PO DAILY [facility] Last Admin: 01/04/17 08:11 Dose: 81 mg Atorvastatin Calcium (Lipitor) 20 mg PO HS [facility] Last Admin: 01/03/17 21:30 Dose: 20 mg Benzocaine/Menthol (Cepacol Sore Throat) 1 fermin PO Q2 PRN PRN Reason: Sore Throat Last Admin: 01/04/17 08:10 Dose: 1 fermin Calcium Carbonate (Oscal) 500 mg PO BIDWM [facility] Last Admin: 01/04/17 08:12 Dose: 500 mg Ergocalciferol (Drisdol 50,000 Intl Units Cap) 1 cap PO Q7D [facility] Last Admin: 12/29/16 22:02 Dose: 1 cap Famotidine (Pepcid) 20 mg PO DAILY [facility] Last Admin: 01/04/17 08:12 Dose: 20 mg Heparin Sodium (Porcine) (Heparin) 5,000 units SC Q12 [facility] PRN Reason: Protocol Last Admin: 01/04/17 08:11 Dose: 5,000 units Lactulose (Enulose) 20 gm PO DAILY PRN PRN Reason: Constipation Lidocaine (Lidoderm) 1 ea TD DAILY [facility] Last Admin: 01/04/17 08:11 Dose: Not Given Senna/Docusate Sodium (Senokot S 50 Mg-8.6 Mg) 2 tab PO HS [facility] Last Admin: 01/03/17 21:31 Dose: Not Given - Labs Labs: 01/03/17 05:30 01/03/17 05:30 APTT 56.8 Seconds (25.6-37.1) H 12/25/16 08:15 - Constitutional Appears: Well - Head Exam Head Exam: ATRAUMATIC, NORMAL INSPECTION, NORMOCEPHALIC - Eye Exam Eye Exam: EOMI, Normal appearance, PERRL Pupil Exam: NORMAL ACCOMODATION, PERRL - ENT Exam ENT Exam: Mucous Membranes Moist, Normal Exam - Neck Exam Neck Exam: Full ROM, Normal Inspection. absent: Lymphadenopathy - Respiratory Exam Respiratory Exam: Clear to Ausculation Bilateral, NORMAL BREATHING PATTERN - Cardiovascular Exam Cardiovascular Exam: REGULAR RHYTHM, +S1, +S2, Murmur - GI/Abdominal Exam GI & Abdominal Exam: Soft, Normal Bowel Sounds. absent: Tenderness - Extremities Exam Extremities Exam: Full ROM, Normal Capillary Refill, Normal Inspection. absent : Joint Swelling, Pedal Edema - Back Exam Back Exam: NORMAL INSPECTION - Neurological Exam Neurological Exam: Alert, Awake, CN II-XII Intact, Oriented x3 - Psychiatric Exam Psychiatric exam: Normal Affect, Normal Mood - Skin Skin Exam: Dry, Intact, Normal Color, Warm Assessment and Plan (1) Aortic stenosis Assessment & Plan: recurrent sycnope stable cont bb plan for dc home today with PT Status: Acute (2) Aortic arch atherosclerosis Assessment & Plan: keep pt on asa, statins Status: Acute (3) Fall at home Status: Acute (4) PVD (peripheral vascular disease) Assessment & Plan: stable Status: Acute (5) Recurrent falls Status: Acute (6) AAA (abdominal aortic aneurysm) Status: Chronic (7) Severe muscle deconditioning Assessment & Plan: PT/OT Status: Chronic (8) Dysphagia Status: Resolved
[2017-01-04 14:12] VITALS: O2SAT 97
[2017-01-04 15:55] VITALS: BP 100/65; PULSE 90; TEMP 98.4
== END 2017-01-04 17:32 | disposition home or self-care (01) | DRG 307 ==
LOC: H.TEL 21:09 → H.MEDSURG1 12-25 14:29 → H.TEL 12-29 21:19
PROVIDERS: ADMIT Family Medicine Geriatric Medicine; ATTEND Family Medicine Geriatric Medicine
DX: I35.0 Nonrheumatic aortic (valve) stenosis (principal); E11.622 Type 2 diabetes mellitus with other skin ulcer; E11.51 Type 2 diabetes mellitus with diabetic peripheral angiopathy without gangrene; L97.819 Non-pressure chronic ulcer of other part of right lower leg with unspecified severity; K22.2 Esophageal obstruction; K22.4 Dyskinesia of esophagus; R00.1 Bradycardia, unspecified; J44.9 Chronic obstructive pulmonary disease, unspecified; K59.09 Other constipation; I71.4 Abdominal aortic aneurysm, without rupture; K44.9 Diaphragmatic hernia without obstruction or gangrene; M48.56XD Collapsed vertebra, not elsewhere classified, lumbar region, subsequent encounter for fracture with routine healing; D72.819 Decreased white blood cell count, unspecified; R13.10 Dysphagia, unspecified; F41.9 Anxiety disorder, unspecified; R55 Syncope and collapse; R42 Dizziness and giddiness; Z87.891 Personal history of nicotine dependence